=== PATIENT | male | born 1940 | race Hispanic/Latino ===

== ENCOUNTER 2016-11-04 10:53 | Inpatient (IN) | payer BC, MEDICARE ==
[2016-11-04] MEDS ORDERED: Piperacillin/Tazobact 3.375 gm 100 ML IVPB STA (11:39)
[2016-11-04] MEDS ORDERED: Vancomycin 1gm in NS 250ml 1 GM/250 ML BAG IVPB STA (11:40)
--- NOTE | 2016-11-04 11:40 | ED PDOC ---
Arrival/HPI - General Chief Complaint: Shortness Of Breath Time Seen by Provider: 11/04/16 11:16 - History of Present Illness Narrative History of Present Illness (Text): 11/04/16 11:33 76 y/o M w/ PMHx of HTN, CAD, Aflutter, plumonary edema presents to the ED c/o AMS and SOB w/ worsening LE edema. Pt is altered but present at bedside provided necessary information. states last evening pt had SOB w/ gurgling breath sound. Pt woke up multiple times in the evening w/ hallucinations and delusions. states pt had been afebrile at home. According to , pt has had minimal cough productive of sputum. Pt has not complained for CP only tightness this morning. admits to worsening B/L LE edema x1-2weeks as well as some unsteady gait. denies any c/o syncope, F/C, N/V, D/C, changes in urination. (Maribel Pardo) Past Medical History - Provider Review Nursing Documentation Reviewed: Yes - Infectious Disease Hx of Infectious Diseases: None - Cardiac Hx Hypertension: Yes Hx Pacemaker: No - Pulmonary Hx Chronic Obstructive Pulmonary Disease (COPD): Yes Hx Sleep Apnea: Yes (bipap at home) - Neurological Hx Paralysis: No - HEENT Hx Blind: Yes (left eye) Hx Cataracts: Yes Hx Deafness: Yes ([place] bilaterally hearing aids) - Endocrine/Metabolic Hx Endocrine Disorders: No - Hematological/Oncological Hx Blood Transfusions: No Hx Blood Transfusion Reaction: No - Integumentary Hx Dermatological Disorder: Yes Hx Basal Cell Carcinoma: Yes (Area on abdomen removed and face) - Musculoskeletal/Rheumatological Hx Musculoskeletal Disorders: Yes - Gastrointestinal Hx Gastrointestinal Disorders: No - Genitourinary/Gynecological Hx Genitourinary Disorders: No Other/Comment: vasectomy, - Psychiatric Hx Emotional Abuse: No Hx Physical Abuse: No Hx Substance Use: No - Surgical History Hx Coronary Artery Bypass Graft: Yes Hx Coronary Stent: Yes - Anesthesia Hx Anesthesia: Yes Hx Anesthesia Reactions: No Hx Malignant Hyperthermia: No - Suicidal Assessment Feels Threatened In Home Enviroment: No Family/Social History - Physician Review Nursing Documentation Reviewed: Yes Family/Social History: No Known Family HX Smoking Status: Never Smoked Hx Alcohol Use: No Hx Substance Use: No Allergies/Home Meds Allergies/Adverse Reactions: Allergies No Known Allergies Allergy (Verified 11/19/15 13:27) Home Medications: Home Meds Medication Instructions Recorded Confirmed Aspirin [Aspir 81] 81 mg PO QAM 02/04/13 11/04/16 Simvastatin [Zocor] 40 mg PO HS 09/10/15 11/04/16 rOPINIRole [Requip] 3 mg PO BID 09/10/15 11/04/16 Budesonide [Pulmicort Flexhaler] 1 puff INH BID 09/19/15 11/04/16 Tiotropium [Spiriva] 18 mcg INH DAILY 09/19/15 11/04/16 Tramadol HCl/Acetaminophen 1 tab PO QID PRN 09/19/15 11/04/16 [Ultracet Tablet] Apixaban [Eliquis] 5 mg PO BID 11/20/15 11/04/16 Diltiazem HCl [Cardizem] 60 mg PO TID 11/20/15 11/04/16 Growth Hormone Releaser 1 tab PO DAILY 11/04/16 11/04/16 Valsartan [Diovan] 240 mg PO DAILY 11/04/16 11/04/16 Review of Systems - Physician Review All systems were reviewed & negative as marked: Yes - Review of Systems Constitutional: absent: Fevers Cardiovascular: absent: Chest Pain Physical Exam Vital Signs Reviewed: Yes Temperature: Febrile Blood Pressure: Hypertensive Pulse: Tachycardic Respiratory Rate: Normal Appearance: Positive for: Comfortable, Ill-Appearing, Unkept Pain Distress: None Mental Status: Positive for: Confused - Systems Exam Head: Present: Atraumatic, Normocephalic Pupils: Present: PERRL Extroacular Muscles: Present: EOMI Conjunctiva: Present: Normal Mouth: Present: Dry Respiratory/Chest: Present: Decreased Breath Sounds, Other (positive egophony). No: Good Air Exchange, Respiratory Distress, Accessory Muscle Use Cardiovascular: Present: Irregular Rhythm, Tachycardic Abdomen: Present: Distention, Normal Bowel Sounds. No: Tenderness, Peritoneal Signs, Rebound, Guarding Genitourinary Male: Present: Normal External Genitalia. No: Testicle Swelling Upper Extremity: Present: Normal Inspection Lower Extremity: Present: Edema (2+ pitting edema to mid collier), NORMAL PULSES. No: CALF TENDERNESS Neurological: Present: CN II-XII Intact (grossly), Speech Normal Skin: Present: Warm, Dry, Normal Color Psychiatric: Present: Alert, Normal Affect, Normal Mood Vital Signs Temp Pulse Resp BP Pulse Ox 11/04/16 14:36 125 H 142/78 11/04/16 14:28 125 H 18 125/70 95 11/04/16 13:30 99.7 F H 125 H 17 137/77 96 11/04/16 12:02 154/90 H 11/04/16 11:08 102.1 F H 130 H 12 154/90 H 93 L Medical Decision Making - Lab Interpretations I have reviewed the lab results: Yes Interpretation: Abnormal lab values - RAD Interpretation Tax Accounting Manager: ED Physician (CXR: Pulmonary Edema), Radiologist (CXR: RLL PNA) - EKG Interpretation Interpreted by ED Physician: Yes (Aflutter, rate 130, no ST changes) Type: 12 lead EKG ED Course and Treatment: Patient Seen With Resident: In agreement with resident note. Patient was seen and evaluated with resident, came up with plan and treatment together. (Jerome Judge) 11/04/16 11:40 76 y/o M w/ SOB, fever, and LE edema DDx: CHF exacerbation vs PNA - CXR - EKG - CBC, CMP, BNP, VBG - Tylenol - Zosyn 3.375mg - reassess and dispo 11/04/16 13:20 Improved saturation on NC. BP improved to 130/76. Awaiting recheck of temp. CXR read as RLL infiltrate. Will be admitted for RLL PNA. Pt belly breathing w/ minor retractions. Neb treatment ordered. Call placed to Dr. Gómez for admission. 11/04/16 14:08 3rd page placed to Dr. Gómez for admission. Awaiting call back. 11/04/16 14:[address] Gómez, pt admitted to Tele under her service for PNA and CHF exacerbation. (Maribel Pardo) - Lab Interpretations Narrative Lab Interpretation (Text): 11/04/16 15:16 leukocytosis @13.4 Lactic acid wnl @1.1 Pro-BNP elevated @4390 (Maribel Pardo) Lab Results: 11/04/16 11:31 11/04/16 11:31 Lab Results 11/04/16 11:31: Sodium 137, Chloride 99, Potassium 4.1, Carbon Dioxide 28, Anion Gap 14, BUN 37 H, Creatinine 1.4, Est GFR ( Amer) 60, Est GFR (Non- Af Amer) 49, Random Glucose 117 H, Calcium 9.3, Phosphorus 3.0, Magnesium 2.2, Total Bilirubin 1.6 H, AST 25, ALT 27, Alkaline Phosphatase 119, Troponin I 0.03 D, NT-Pro-B Natriuret Pep 4390 H, Total Protein 7.5, Albumin 4.1, Globulin 3.4, Albumin/Globulin Ratio 1.2 11/04/16 11:31: pO2 46, VBG pH 7.37, VBG pCO2 49.0, VBG HCO3 28.3 H, VBG Total CO2 29.8 H, VBG O2 Sat (Calc) 82.2 H, VBG Base Excess 2.3 H, VBG Potassium 4.1, Sodium 136.0, Chloride 101.0, Glucose 119 H, Lactate 1.1, FiO2 21.0, Venous Blood Potassium 4.1 11/04/16 11:31: PT 13.3 H, INR 1.23 H, APTT 40.8 H 11/04/16 11:31: WBC 13.4 H D, RBC 4.30, Hgb 12.1 L, Hct 37.1 L, MCV 86.3, MCH 28.1, MCHC 32.6, RDW 15.2 H, Plt Count 113 L, MPV 12.1 H, Gran % 85.3 H, Lymph % (Auto) 4.1 L, [place] % (Auto) 10.5 H, Eos % (Auto) 0.0 L, Baso % (Auto) 0.1, Gran # 11.43 H, Lymph # 0.6 L, [place] # 1.4 H, Eos # 0.0, Baso # 0.01 - RAD Interpretation Radiology Orders: 11/04/16 11:31 CHEST PORTABLE [RAD] Stat - Medication Orders Current Medication Orders: Sodium Chloride (Sodium Chloride 0.9%) 1,000 mls @ 75 mls/hr IV .[id number] [facility] Last Admin: 11/04/16 14:36 Dose: 75 mls/hr Discontinued Medications Acetaminophen (Tylenol 325mg Tab) 650 mg PO STAT STA Stop: 11/04/16 11:38 Last Admin: 11/04/16 12:02 Dose: 650 mg Albuterol Sulfate (Albuterol 0.083% Inhal Annabella (2.5 Mg/3 Ml) Ud) 2.5 mg INH ONCE ONE Stop: 11/04/16 13:13 Last Admin: 11/04/16 13:32 Dose: 2.5 mg Diltiazem HCl (Cardizem) 10 mg IVP STAT STA Stop: 11/04/16 14:07 Last Admin: 11/04/16 14:36 Dose: 10 mg Furosemide (Lasix) 60 mg IVP STAT STA Stop: 11/04/16 11:38 Furosemide (Lasix) 40 mg IVP STAT STA Stop: 11/04/16 11:49 Last Admin: 11/04/16 12:02 Dose: 40 mg Piperacillin Sod/Tazobactam Sod (Zosyn 3.375 In Ns 100ml) 100 mls @ 200 mls/hr IVPB STAT STA PRN Reason: Protocol Stop: 11/04/16 12:08 Last Admin: 11/04/16 12:02 Dose: 200 mls/hr Vancomycin HCl (Vancomycin 1gm) 1 gm in 250 mls @ 167 mls/hr IVPB STAT STA PRN Reason: Protocol Stop: 11/04/16 13:09 Last Admin: 11/04/16 12:52 Dose: 167 mls/hr Sodium Chloride (Sodium Chloride 0.9%) 1,000 mls @ 999 mls/hr IV .Q1H1M STA Stop: 11/04/16 15:14 Disposition/Present on Arrival - Present on Arrival Any Indicators Present on Arrival: No History of DVT/PE: No History of Uncontrolled Diabetes: No Urinary Catheter: No History of Decub. Ulcer: No History Surgical Site Infection Following: None - Disposition Have Diagnosis and Disposition been Completed?: Yes Disposition Time: 13:23 Patient Plan: Admission - Disposition Diagnosis: Pneumonia, Atrial flutter Disposition: HOSPITALIZED Patient Problems: Current Active Problems Problem Status Onset Atrial flutter Acute Pneumonia Acute Condition: FAIR
[2016-11-04 11:47] LABS: ADD MANUAL DIFF? NO
[2016-11-04 11:56] LABS: VENOUS BLOOD GAS BASE EXCESS 2.3 mmol/L (0.0-2.0); VENOUS BLOOD PH 7.37 (7.32-7.43)
[2016-11-04 11:57] LABS: BASO # 0.01 K/mm3 (0.0-2.0); BASO % 0.1 % (0.0-3.0); GRAN # 11.43 (1.4-6.5); GRAN % 85.3 % (50.0-68.0); HEMATOCRIT 37.1 % (42.0-52.0); LYMPH # 0.6 (1.2-3.4); LYMPH % 4.1 % (22.0-35.0); MEAN CELL VOLUME 86.3 fL (80.0-105.0); MEAN CORPUSCULAR HEMOGLOBIN 28.1 pg (25.0-35.0); MEAN CORPUSCULAR HGB CONC 32.6 g/dl (31.0-37.0); MEAN PLATELET VOLUME 12.1 fl (7.0-11.0); MONO # 1.4 (0.1-0.6); MONO % 10.5 % (1.0-6.0); PLATELET COUNT 113 10^3/uL (120.0-450.0); RED CELL DISTRIBUTION WIDTH 15.2 % (11.5-14.5); WHITE BLOOD COUNT 13.4 10^3/ul (4.5-11.0)
[2016-11-04 12:08] LABS: ALB/GLOB RATIO 1.2 (1.1-1.8); BILIRUBIN,TOTAL 1.6 mg/dL (0.2-1.3); CALCIUM 9.3 mg/dL (8.4-10.5); INR 1.23 (0.93-1.08); MAGNESIUM 2.2 mg/dL (1.7-2.2); PARTIAL THROMBOPLASTIN TIME 40.8 Seconds (23.7-30.8); POTASSIUM 4.1 mmol/L (3.6-5.0); TOTAL PROTEIN 7.5 g/dL (5.8-8.3)
[2016-11-04 12:19] LABS: TROPONIN I 0.03 ng/mL
--- NOTE | 2016-11-04 13:04 | RAD ---
HISTORY: Sepsis Patient COMPARISON: 11/19/2015 FINDINGS: LUNGS: There is a patchy infiltrate in the right lower lobe. The left lung is clear PLEURA: No significant pleural effusion identified, no pneumothorax apparent. CARDIOVASCULAR: Mild cardiomegaly OSSEOUS STRUCTURES: No significant abnormalities. VISUALIZED UPPER ABDOMEN: Normal. OTHER FINDINGS: None. IMPRESSION: Patchy infiltrate in the right lower lobe
[2016-11-04] MEDS ORDERED: Albuterol 0.083% Inhal Sol (2.5 mg/3 mL) UD INH ONE (13:12)
[2016-11-04] MEDS ORDERED: Sodium Chloride 0.9% 1,000 ML IV STA (14:14)
[2016-11-04] MEDS ORDERED: Sodium Chloride 0.9% 1,000 ML IV SCH (14:30)
[2016-11-04] MEDS ORDERED: TraMADol/Apap 37.5/325 mg Tab PO PRN (15:49)
[2016-11-04] MEDS ORDERED: Albuterol-Ipratrop 3 mg / 0.5 (3 ml) UD ONE (16:51)
[2016-11-04] MEDS ORDERED: Nitroglycerin 50mg in D5W 50 MG/250 ML BOTTLE IV PRN (16:57)
[2016-11-04] MEDS ORDERED: Ketamine 10 mg/ml Inj (20 ml) IV ONE (17:00)
[2016-11-04] MEDS ORDERED: Rocuronium 10 mg/ml (5 ml) IVP ONE (17:00)
[2016-11-04] MEDS ORDERED: Rocuronium 10 mg/ml (5 ml) ONE (17:05)
[2016-11-04] MEDS ORDERED: Succinylcholine 200 mg/10 ml Inj IV ONE (17:10)
[2016-11-04] MEDS ORDERED: Etomidate 20 mg/10ml Inj IV ONE (17:10)
[2016-11-04] MEDS ORDERED: Etomidate 20 mg/10ml Inj IVP STA (17:24)
[2016-11-04] MEDS ORDERED: Succinylcholine 200 mg/10 ml Inj IV STA (17:25)
[2016-11-04] MEDS ORDERED: Midazolam 2 MG/2 ML VIAL IVP STA (17:26)
--- NOTE | 2016-11-04 17:42 | HP ---
HISTORY OF PRESENT ILLNESS: The patient is a 76-year-old who came to Emergency Room because of incre asing cough and congestion. He also had increasing leg swelling and according to family he was somew hat confused also. This has been going on for a few days, but got worse since yesterday. Last night he was not able to sleep. He was found to be confused, disoriented. Denies any chest pain. No his tory of nausea or vomiting. Only complained of congestion and wet cough. also added that he al ways has leg swelling, but has been getting worse for the last 1 week. PAST MEDICAL HISTORY: Significant for: 1. Hypertension. 2. Non-insulin dependent diabetes. 3. Status post cardiac catheterization in 2011 and was found to have multivessel disease. 4. Hyperlipidemia. 5. Coronary artery disease, status post open heart surgery in 1997. ALLERGIES: He is not allergic to any medications. MEDICATIONS AT HOME: He is on Diovan 240 daily, Eliquis 5 mg twice a day, Spiriva 18 mcg daily, Pul micort inhaler, Zocor 40 mg daily, aspirin 81 daily, Requip 3 mg twice a day, Ultracet as needed, dil tiazem 60 mg 3 times a day. SOCIAL HISTORY: He is , lives with his . Denies smoking, drinking or alcohol use. REVIEW OF SYSTEMS: Significant for cough, congestion and shortness of breath. PHYSICAL EXAMINATION: GENERAL: He is awake and alert, somewhat confused. VITAL SIGNS: He has a temperature of 99.7, pulse 125, respirations 17, blood pressure 137/77. LUNGS: Bilateral soft crackle, more so in the right lower lung region. HEART: S1, S2 audible. ABDOMEN: Soft, nontender. No rebound, no guarding. NEUROLOGIC: The patient is awake and alert, but somewhat confused. LABORATORY DATA: WBC is 13.4, hemoglobin 12, hematocrit 37, platelet 113. PT 13.3, INR 1.23. PTT 4 0.8. Chemistry: Sodium 137, potassium 4.1, chloride 99, CO2 28, BUN 37, creatinine 1.4, blood sugar of 117, total bili 1.6. BNP 4390. X-ray of the chest shows patchy infiltrate in the right lower lo be. ASSESSMENT: 1. Community-acquired pneumonia. 2. Congestive heart failure, acute on chronic. 3. Non-insulin dependent diabetes. 4. Hypertension. 5. Hyperlipidemia. 6. Coronary artery disease, status post cardiac cath in 09/2015 that showed normal left ventricular function, triple vessel coronary artery disease with critical left main stenosis, patent left interna l mammary artery to the left anterior descending with a vein graft that formed right graft off of the left internal mammary and he has a patent saphenous vein graft to the right coronary. PLAN: Will start him on Xopenex. He has been started on IV antibiotic, nebulizer treatment. Will s tart him on Lasix. Dr. Romero for consult and we will follow up his CBC, CMP and electrolytes in a.m. and monitor his blood sugar also. Tamera Gómez MD cc: [phone] TT: 11/04/2016 17:41:53 sc
[2016-11-04 18:15] LABS: TROPONIN I 0.03 ng/mL
[2016-11-04 18:17] VITALS: BMI 25.7
[2016-11-04] MEDS ORDERED: Pneumococcal 23-Valent Vaccine IM ONE (18:18)
[2016-11-04] MEDS ORDERED: Amiodarone 150 mg/D5W 100 ml 150 MG/100 ML BAG IVPB ONE (18:42)
[2016-11-04] MEDS ORDERED: Amiodarone 360 mg/D5W 200 ml 360 MG/200 ML BAG IV SCH (18:45)
[2016-11-04] MEDS ORDERED: NOREPINEPHRINE BIT/0.9 % NACL 4 MG/250 ML BAG IV PRN (18:48)
--- NOTE | 2016-11-04 18:56 | CP.PCM.CON ---
<Nitish Chris - Last Filed: 11/04/16 18:52> History of Present Illness - History of Present Illness History of Present Illness: Critical Care Consult for Dr. Abbott This 76M was intubated during my examination so all patient history was obtained from other providers. History of HTN, CAD, Aflutter, plumonary edema presented with alted metal status at home and halluciantion last night as well as shortness of breath. stated last evening pt had SOB w/ gurgling breath sound. Patient was afebrile at home. According to , pt has had minimal cough productive of sputum. admited to worsening B/L LE edema x1-2weeks as well as some unsteady gait. denies any c/o syncope, F/C, N/V, D/C, changes in urination. In the ED the patient began desaturating to the high 60s, his cxr in the ED showed pulmonary effusions and patchy infiltrates. Vent setting at 5peep, fio2 100, 16rr, 500ml. PMH: See above PSH: Median sternotomy ALL: nkda Social: unkown Family: unkown Review of Systems - Review of Systems Systems not reviewed;Unavailable: Acuity of Condition Past Patient History - Infectious Disease Hx of Infectious Diseases: None - Past Social History Smoking Status: Unknown If Ever Smoked - CARDIAC Hx Cardiac Disorders: (cad) Hx Hypercholesterolemia: Yes Hx Hypertension: Yes Hx Pacemaker: No Hx Peripheral Edema: Yes (+1 pitting ble) Other/Comment: cabg,varicose veins ble - PULMONARY Hx Respiratory Disorders: (pulmonary edema) Hx Chronic Obstructive Pulmonary Disease (COPD): Yes Hx Pneumonia: Yes Hx Sleep Apnea: Yes (bipap at home) - NEUROLOGICAL Hx Neurological Disorder: Yes HX Cerebrovascular Accident: Yes Hx Transient Ischemic Attacks (TIA): Yes Other/Comment: restless leg syndrome - HEENT Hx HEENT Problems: (eyeglasses) Hx Blind: Yes (left eye) Hx Cataracts: Yes (sx) Hx Deafness: Yes ([place] bilaterally hearing aids) Other/Comment: left retinal detachment - ENDOCRINE/METABOLIC Hx Endocrine Disorders: No - HEMATOLOGICAL/ONCOLOGICAL Hx Blood Disorders: No Hx Cancer: Yes (BASAL CELL CA(SKIN REMOVED TO ABDOMEN AND FACE.) - INTEGUMENTARY Hx Dermatological Problems: Yes Hx Basil Cell: Yes (Area on abdomen removed and face) Other/Comment: varicose veins ble, multiple scratch holley ble, darkened feet - MUSCULOSKELETAL/RHEUMATOLOGICAL Hx Falls: No - GASTROINTESTINAL Hx Gastrointestinal Disorders: No - GENITOURINARY/GYNECOLOGICAL Hx Genitourinary Disorders: No Other/Comment: impotence, ped, vasectomy, penile sx - PSYCHIATRIC Hx Emotional Abuse: No Hx Physical Abuse: No - SURGICAL HISTORY Hx Surgeries: Yes (RIGHT KNEE REPLACEMENT,CABG) Hx Cardiac Catheterization: Yes Hx Coronary Stent: Yes Other/Comment: sx b/l knees, r carotid endartarectomy 2001, ptca with stent 1997 , quadruple bypass 1997, lung sx 2000, rxcision multiple skin lesions - ANESTHESIA Hx Anesthesia: Yes Hx Anesthesia Reactions: No Hx Malignant Hyperthermia: No Meds Allergies/Adverse Reactions: Allergies Allergy/AdvReac Type Severity Reaction Status Date / Time No Known Allergies Allergy Verified 11/19/15 13:27 - Medications Medications: Current Medications Albuterol/Ipratropium (Duoneb 3 Mg/0.5 Mg (3 Ml) Ud) 3 ml IH Q4 [facility] Stop: 11/05/16 04:01 Apixaban (Eliquis) 5 mg PO BID [facility] PRN Reason: Protocol Aspirin (Ecotrin) 81 mg PO QAM [facility] Atorvastatin Calcium (Lipitor) 20 mg PO DIN [facility] Diltiazem HCl (Cardizem) 60 mg PO TID [facility] Furosemide (Lasix) 40 mg IVP DAILY [facility] Furosemide (Lasix) 20 mg IVP BID [facility] Ceftriaxone Sodium (Rocephin 1 Gram Ivpb) 1 gm in 100 mls @ 100 mls/hr IVPB DAILY [facility] PRN Reason: Protocol Azithromycin (Zithromax 500mg In Ns) 500 mg in 250 mls @ 167 mls/hr IVPB DAILY [facility] PRN Reason: Protocol Nitroglycerin/Dextrose (Nitroglycerin 50 Mg/250 Ml D5w) 50 mg in 250 mls @ 7.5 mls/hr IV .Q24H PRN; Protocol; 25 MCG/MIN PRN Reason: Titrate per protocol Midazolam 100 mg/100ml in NS (Midazolam 100 Mg/100ml In Ns) 100 mg in 100 mls @ 4 mls/hr IV .Q24H PRN; Protocol; 4 MG/HR PRN Reason: Sedation Levofloxacin/Dextrose (Levaquin 500mg) 500 mg in 100 mls @ 100 mls/hr IVPB DAILY [facility] Vancomycin HCl (Vancomycin 500mg In Ns) 500 mg in 100 mls @ 200 mls/hr IVPB Q12 [facility] PRN Reason: Protocol Piperacillin Sod/Tazobactam Sod (Zosyn 2.25 Gm In 0.9% 100 Ml) 2.25 gm in 100 mls @ 100 mls/hr IVPB Q6 [facility] PRN Reason: Protocol Stop: 11/05/16 06:59 Fentanyl Citrate (Fentanyl Citrate/Sodium Chloride 1 Mg/100 Ml) 1,000 mcg in 100 mls @ 2 mls/hr IV .Q24H PRN; Protocol; 20 MCG/HR PRN Reason: TITRATE PER MD ORDER Amiodarone HCl/Dextrose (Nexterone 360 Mg In D5w 200 Ml (Premix)) 360 mg in 200 mls @ 33.333 mls/hr IV .Q6H [facility]; 1 MG/MIN PRN Reason: Protocol Stop: 11/05/16 00:45 Amiodarone HCl/Dextrose (Nexterone 360 Mg In D5w 200 Ml (Premix)) 360 mg in 200 mls @ 16.667 mls/hr IV .Q12H [facility]; 0.5 MG/MIN PRN Reason: Protocol NOREPINEPHRINE BIT/0.9 % NACL (Levophed 4 Mg/ 250 Ml Ns Premixed) 4 mg in 250 mls @ 15 mls/hr IV .[id number] PRN; Protocol; 4 MCG/MIN PRN Reason: TITRATE PER MD ORDER Levalbuterol HCl (Xopenex) 1.25 mg IH [id number] [facility] Methylprednisolone (Solu-Medrol) 20 mg IVP Q12 [facility] Tramadol/Acetaminophen (Ultracet 37.5/325 Mg) 1 tab PO QID PRN PRN Reason: Pain, moderate (4-7) Physical Exam - Constitutional Appears: Toxic - Head Exam Head Exam: ATRAUMATIC, NORMOCEPHALIC - Eye Exam Eye Exam: EOMI - ENT Exam ENT Exam: Mucous Membranes Moist - Respiratory Exam Respiratory Exam: Rales, Rhonchi - Cardiovascular Exam Cardiovascular Exam: REGULAR RHYTHM, +S1, +S2 - GI/Abdominal Exam GI & Abdominal Exam: Hernia, Soft. absent: Distended, Firm, Guarding - Extremities Exam Extremities exam: Positive for: pedal pulses present Additional comments: scaling lower extremities, non tender - Neurological Exam Neurological exam: Alert - Skin Skin Exam: Intact Results - Vital Signs Recent Vital Signs: Last Vital Signs Temp 99.7 F H 11/04/16 17:59 Pulse 125 H 11/04/16 17:59 Resp 18 11/04/16 17:59 BP 125/70 11/04/16 17:59 Pulse Ox 95 11/04/16 14:28 - Labs Result Diagrams: 11/04/16 11:31 11/04/16 11:31 Labs: Laboratory Results - last 24 hr 11/04/16 17:35 Troponin I 0.03 Triglycerides 76 Cholesterol 106 L LDL Cholesterol Direct 31 HDL Cholesterol 37 - Imaging and Cardiology Chest x-ray Status: Image reviewed by me, Report reviewed by me Assessment & Plan - Assessment and Plan (Free Text) Assessment: This is a 76M with a PMH of CHF presenting with Community acquired pneumonia Neuro: Alert, sedation with fentanyl, daily sedation vacations CV: Aflutter on amiodorone drip, diltiazem, CAD on ASA and lipitor, CHF will give lasix 20bid with goal SBP over 100 Pulm: CAP, daily cxr, vanc, zosyn, levofloxacin, COPD, continue budesonide, tiotrpium, low dose steroids, daily weening, proptective lung strategy, adjust fio2/peep ration GI: Tube feeds at 15 ml/hr Heme: dvt, continuing eloquis ID: CAP on vanc, zosyn, levofloxacin, consult ID : BUN/Cr elevated consulted nephro Endo: Goal for euglycemia will repleat electrolytes as needed. Will discuss with Dr. Milena Chris PGY-1 <Rocky Abbott - Last Filed: 11/05/16 16:55> Meds - Medications Medications: Current Medications Albuterol/Ipratropium (Duoneb 3 Mg/0.5 Mg (3 Ml) Ud) 3 ml IH Q4 [facility]AL[facility]O Stop: 11/05/16 04:01 Apixaban (Eliquis) 5 mg PO BID [facility] PRN Reason: Protocol Aspirin (Ecotrin) 81 mg PO QAM [facility] Atorvastatin Calcium (Lipitor) 20 mg PO DIN [facility] Diltiazem HCl (Cardizem) 60 mg PO TID [facility] Furosemide (Lasix) 20 mg IVP BID [facility] Ceftriaxone Sodium (Rocephin 1 Gram Ivpb) 1 gm in 100 mls @ 100 mls/hr IVPB DAILY [facility] PRN Reason: Protocol Azithromycin (Zithromax 500mg In Ns) 500 mg in 250 mls @ 167 mls/hr IVPB DAILY [facility] PRN Reason: Protocol Nitroglycerin/Dextrose (Nitroglycerin 50 Mg/250 Ml D5w) 50 mg in 250 mls @ 7.5 mls/hr IV .Q24H PRN; Protocol; 25 MCG/MIN PRN Reason: Titrate per protocol Last Admin: 11/04/16 17:10 Dose: 25 mcg/min, 7.5 mls/hr Midazolam 100 mg/100ml in NS (Midazolam 100 Mg/100ml In Ns) 100 mg in 100 mls @ 4 mls/hr IV .Q24H PRN; Protocol; 4 MG/HR PRN Reason: Sedation Levofloxacin/Dextrose (Levaquin 500mg) 500 mg in 100 mls @ 100 mls/hr IVPB DAILY [facility] Vancomycin HCl (Vancomycin 500mg In Ns) 500 mg in 100 mls @ 200 mls/hr IVPB Q12 [facility] PRN Reason: Protocol Piperacillin Sod/Tazobactam Sod (Zosyn 2.25 Gm In 0.9% 100 Ml) 2.25 gm in 100 mls @ 100 mls/hr IVPB Q6 [facility] PRN Reason: Protocol Stop: 11/05/16 06:59 Fentanyl Citrate (Fentanyl Citrate/Sodium Chloride 1 Mg/100 Ml) 1,000 mcg in 100 mls @ 2 mls/hr IV .Q24H PRN; Protocol; 20 MCG/HR PRN Reason: TITRATE PER MD ORDER Amiodarone HCl/Dextrose (Nexterone 360 Mg In D5w 200 Ml (Premix)) 360 mg in 200 mls @ 33.333 mls/hr IV .Q6H [facility]; 1 MG/MIN PRN Reason: Protocol Stop: 11/05/16 00:45 Amiodarone HCl/Dextrose (Nexterone 360 Mg In D5w 200 Ml (Premix)) 360 mg in 200 mls @ 16.667 mls/hr IV .Q12H [facility]; 0.5 MG/MIN PRN Reason: Protocol NOREPINEPHRINE BIT/0.9 % NACL (Levophed 4 Mg/ 250 Ml Ns Premixed) 4 mg in 250 mls @ 15 mls/hr IV .[id number] PRN; Protocol; 4 MCG/MIN PRN Reason: TITRATE PER MD ORDER Levalbuterol HCl (Xopenex) 1.25 mg IH [id number] [facility] Methylprednisolone (Solu-Medrol) 20 mg IVP Q12 [facility] Non-Formulary Medication (Budesonide [Pulmicort Flexhaler]) 1 puff INH BID [facility] Non-Formulary Medication (Valsartan [Diovan]) 240 mg PO DAILY [facility] Tramadol/Acetaminophen (Ultracet 37.5/325 Mg) 1 tab PO QID PRN PRN Reason: Pain, moderate (4-7) Results - Vital Signs Recent Vital Signs: Last Vital Signs Temp 99.7 F H 11/04/16 17:59 Pulse 135 H 11/04/16 18:45 Resp 18 11/04/16 18:45 BP 80/51 L 11/04/16 18:45 Pulse Ox 100 11/04/16 18:45 - Labs Result Diagrams: 11/05/16 05:35 11/05/16 05:35 Labs: Laboratory Results - last 24 hr 11/04/16 11/04/16 15:00 17:35 Troponin I 0.03 Triglycerides 76 Cholesterol 106 L LDL Cholesterol Direct 31 HDL Cholesterol 37 Influenza Typ A,B (EIA) Negative for flu a/b Addendum Addendum: 11/05/16 16:52 patient was seen, examined and discussed with Dr. Chris. His note reflects my exam, assessment and plan, except as below. 76 yo male with hypoxemic respiratory failure secondary to CAP, requiring intubation. Protective lung ventilation strategy, conservative fluid and 02 management, abx, septic work up. ID service. daily weaning trials and sedation vacation.. HR control-->will start amiodarone drip ccm time 40 min
[2016-11-04] MEDS: Fentanyl 1000mcg/100ml NS 1,000 MCG/100 ML BAG IV PRN (19:57)
[2016-11-04] MEDS ORDERED: Albuterol-Ipratrop 3 mg / 0.5 (3 ml) UD IH SCH (20:00)
[2016-11-04] MEDS: Levalbuterol 1.25 MG/3 ML Inhal Soln UD IH SCH (20:00)
[2016-11-04] MEDS: Midazolam 100 mg/100ml in NS 100 MG/100 ML SOL IV PRN (20:26)
[2016-11-04 20:31] LABS: TROPONIN I 0.08 ng/mL
[2016-11-04] MEDS ORDERED: Vancomycin 500mg in NS 500 MG/100 ML BAG IVPB SCH (22:00)
[2016-11-04 22:09] LABS: ARTERIAL BLOOD GAS HCO3 24.9 mmol/L (21-28); ARTERIAL BLOOD GAS O2 CAPACITY 15.5 mL/dl (16-24); ARTERIAL BLOOD GAS O2 CONTENT 15.2 ML/dl (15-23); ARTERIAL BLOOD GAS PH 7.46 (7.35-7.45); ARTERIAL BLOOD HGB O2 SAT 95.2 % (95.0-98.0); CARBOXYHEMOGLOBIN 1.7 % (0.5-1.5); METHEMOGLOBIN 1.1 % (0.0-3.0)
[2016-11-04] MEDS: MethylPREDNISolone 40 mg Vial IVP SCH (22:17)
--- NOTE | 2016-11-04 22:28 | CARD ---
APPROVED REPORT EKG Measurement Heart [id number] CO [id number] [id number] <Conclusion> Atrial flutter with 2:[address] abnormality, possible inferior subendocardial injury Abnormal ECG
[2016-11-04] MEDS: Piperacillin/Tazobact 2.25gm 2.25 GM/100 ML BAG IVPB SCH (23:41)
[2016-11-05] MEDS: Amiodarone 360 mg/D5W 200 ml 360 MG/200 ML BAG IV SCH ×2 (01:03→13:04)
[2016-11-05] MEDS: Levalbuterol 1.25 MG/3 ML Inhal Soln UD IH SCH ×4 (01:57→19:55)
[2016-11-05 02:11] LABS: TROPONIN I 0.14 ng/mL
[2016-11-05] MEDS: Piperacillin/Tazobact 2.25gm 2.25 GM/100 ML BAG IVPB SCH (05:28)
[2016-11-05 05:32] LABS: ARTERIAL BLOOD GAS HCO3 24.2 mmol/L (21-28); ARTERIAL BLOOD GAS O2 CAPACITY 15.2 mL/dl (16-24); ARTERIAL BLOOD GAS PH 7.39 (7.35-7.45); CARBOXYHEMOGLOBIN 1.2 % (0.5-1.5); HHB 1.1 % (0-5); METHEMOGLOBIN 0.7 % (0.0-3.0)
[2016-11-05 06:04] LABS: HEMATOCRIT 35.1 % (42.0-52.0); MEAN CELL VOLUME 86.5 fL (80.0-105.0); MEAN CORPUSCULAR HEMOGLOBIN 27.8 pg (25.0-35.0); MEAN CORPUSCULAR HGB CONC 32.2 g/dl (31.0-37.0); MEAN PLATELET VOLUME 11.6 fl (7.0-11.0); PLATELET COUNT 99 10^3/uL (120.0-450.0); RED CELL DISTRIBUTION WIDTH 15.4 % (11.5-14.5); WHITE BLOOD COUNT 9.8 10^3/ul (4.5-11.0)
[2016-11-05 06:17] LABS: ADD MANUAL DIFF? YES
[2016-11-05 06:32] LABS: ALB/GLOB RATIO 1.1 (1.1-1.8); BILIRUBIN,TOTAL 1.3 mg/dL (0.2-1.3); CALCIUM 8.5 mg/dL (8.4-10.5); MAGNESIUM 1.9 mg/dL (1.7-2.2); PHOSPHOROUS 4.5 mg/dL (2.5-4.5); POTASSIUM 3.8 mmol/L (3.6-5.0); TOTAL PROTEIN 6.2 g/dL (5.8-8.3)
[2016-11-05 06:42] LABS: TROPONIN I 0.08 ng/mL
[2016-11-05 06:48] LABS: FREE T4 1.61 ng/dL (0.78-2.19)
[2016-11-05 06:56] LABS: BAND 7 % (0-2); NEUTROPHIL 89 % (50.0-70.0)
[2016-11-05 06:59] LABS: PLATELET ESTIMATE LOW (NORMAL)
[2016-11-05 07:02] LABS: THYROID STIMULATING HORMONE 1.73 mIU/mL (0.46-4.68)
[2016-11-05] MEDS: Insulin Lispro (humaLOG) LOW Coverage SC SCH ×4 (07:45→22:28)
[2016-11-05] MEDS: Meropenem 1g/NS 100mL IVPB 1 GM/100 ML PIGGYBACK IVPB SCH ×2 (07:45→22:38)
--- NOTE | 2016-11-05 08:17 | RAD ---
HISTORY: intubated COMPARISON: 11/04/2016 1735 hour (report not apparent FINDINGS: LUNGS: Pulmonary vascular congestion suggested with hazy lbiateral opacities right fissural fluid entering discoid atelectasis not significantly changed PLEURA: Small right pleural effusion possible right lateral pleural thickening. Minimal fluid in the right fissure versus discoid atelectasis - right mid lung zone. CARDIOVASCULAR: Mild cardiomegaly. Midline sternotomy coronary artery bypass clips -unchanged OSSEOUS STRUCTURES: Thoracic spondylosis VISUALIZED UPPER ABDOMEN: Feeding tube/ NG tube tip in gastric fundus consider slight advancement of a few cm OTHER FINDINGS: Endotracheal tube insertion tip for approximately 3 cm from the minerva -satisfactory position IMPRESSION: The pulmonary venous congestion and coalescent hazy opacities consistent with areas of pulmonary edema are similar. Concomitant patchy infiltrates are not excluded tricky at the right lung base. Coalescence of a right pleural effusion can also simulate this. Small right pleural effusion similar. Other findings as above Support lines as above. Consider advancing NG tube/ feeding tube
--- NOTE | 2016-11-05 09:08 | CON ---
DATE: 11/05/2016 HISTORY OF PRESENT ILLNESS: The patient is a 76-year-old male who presents with acute respiratory di stress. He was intubated in the Emergency Room. PAST MEDICAL HISTORY: Notable for history of coronary artery bypass surgery, which was reevaluated l ast year with a cardiac catheterization that shows patent bypass grafts to all vessels. In addition, his ejection fraction was between 55-60%. His other cardiac risk factors include hypertension and hypercholesterolemia. The patient suffers from atrial fib/A. flutter in which he has been treated with Eliquis as well as C ardizem. SOCIAL HISTORY: Unavailable. REVIEW OF SYSTEMS: Unavailable. PHYSICAL EXAMINATION: GENERAL: The patient is sedated on a ventilator. VITAL SIGNS: Blood pressure is 123/71. The heart rate is atrial flutter in the 120s. NECK: Negative JVD. LUNGS: Bilateral rhonchi. HEART: Reveals S1, S2. EXTREMITIES: Without edema. EKG shows atrial flutter with nonspecific ST-T changes. LABORATORIES: The troponin is 0.14. ProBNP is 4300. IMPRESSION: 1. Respiratory failure. 2. Pulmonary edema. 3. Renal insufficiency. 4. Chronic atrial flutter. 5. Coronary artery disease. 6. History of coronary artery bypass surgery. 7. History of normal left ventricular function. 8. Hypertension. Given these findings, the patient is seen to be adequately diuresed. Will start on IV Cardizem for b kimberly heart rate control. Will make an aggressive effort to extubate the patient today. Will consid er recathing the patient to rule out an ischemic basis for his acute pulmonary edema. Harshal Romero MD cc: [facility] TT: 11/05/2016 09:07:06 Confirmation # [id number] Dictation # [id number]
[2016-11-05] MEDS: MethylPREDNISolone 40 mg Vial IVP SCH ×2 (09:21→22:39)
[2016-11-05] MEDS: diltiaZEM IVPB 100mg in NS 100 ML IV PRN ×2 (09:21→18:03)
[2016-11-05] MEDS: Azithromycin 500MG/NS 250ml 500 MG/250 ML BAG IVPB SCH (09:22)
--- NOTE | 2016-11-05 09:38 | CP.CCUPN ---
<Arlene Rodriguez - Last Filed: 11/05/16 13:44> CCU Subjective - Physician Review Subjective (Free Text): 11/05/16 09:32 VSS. On sedation vacation, spontanous breathing trial. CCU Objective - Vital Signs / Intake & Output Vital Signs (Last 4 hours): Vital Signs Temp Pulse BP Pulse Ox 11/05/16 09:21 123 H 125/72 11/05/16 08:55 122 H 123/71 11/05/16 08:30 121 H 123/71 97 11/05/16 08:20 121 H 97 11/05/16 08:10 120 H 97 11/05/16 08:00 98.6 F 123 H 102/68 95 11/05/16 07:50 122 H 98 11/05/16 07:40 121 H 100 11/05/16 07:30 121 H 122/72 98 11/05/16 07:20 122 H 99 11/05/16 07:10 122 H 98 11/05/16 07:00 121 H 98/66 L 97 11/05/16 06:50 122 H 97 11/05/16 06:40 122 H 97 11/05/16 06:37 121 H 102/63 96 11/05/16 06:30 122 H 89/59 L 95 11/05/16 06:20 122 H 97 11/05/16 06:19 122 H 89/55 L 97 11/05/16 06:14 122 H 11/05/16 06:10 122 H 97 11/05/16 06:07 122 H 88/58 L 97 11/05/16 06:05 122 H 85/48 L 96 11/05/16 06:04 122 H 80/47 L 97 11/05/16 06:00 122 H 79/44 L 96 11/05/16 05:50 122 H 96 11/05/16 05:40 122 H 97 Intake and Output (Last 8hrs): Intake & Output 11/04/16 11/05/16 11/05/16 22:59 06:59 14:59 Intake Total 4 938 27 Output Total 450 Balance 4 488 27 Weight 190 lb 190 lb Intake: IV 4 788 27 Right Antecubital 600 Right Forearm 48 Right Hand 48 Oral 0 Tube Feeding 150 Output: Urine 450 Urethral (Singleton) 450 Other: Voiding Method Indwelling Catheter Indwelling Catheter # Bowel Movements 0 - Physical Exam Head: Positive for: Atraumatic, Normocephalic Pupils: Positive for: PERRL Extroacular Muscles: Positive for: EOMI Conjunctiva: Positive for: Normal Mouth: Positive for: Dry Respiratory/Chest: Positive for: Decreased Breath Sounds, Rales, Other ( positive egophony). Negative for: Good Air Exchange, Respiratory Distress, Accessory Muscle Use Cardiovascular: Positive for: Irregular Rhythm, Tachycardic Abdomen: Positive for: Distention, Normal Bowel Sounds. Negative for: Tenderness, Peritoneal Signs, Rebound, Guarding Genitourinary Male: Positive for: Normal External Genitalia, Other (penile implant). Negative for: Testicle Swelling Upper Extremity: Positive for: Normal Inspection Lower Extremity: Positive for: Edema (2+ pitting edema to mid collier), NORMAL PULSES. Negative for: CALF TENDERNESS Neurological: Positive for: CN II-XII Intact (grossly,before sedation. ), Speech Normal Skin: Positive for: Warm, Dry, Normal Color Psychiatric: Positive for: Other (intubated) - Medications Active Medications: Active Medications Generic Name Dose Route Start Last Admin Trade Name Freq PRN Reason Stop Dose Admin Apixaban 5 mg 11/04/16 18:00 11/05/16 09:20 Eliquis PO 5 mg BID LALITO Administration Protocol Aspirin 81 mg 11/05/16 10:00 11/05/16 09:21 Ecotrin PO 81 mg QAM LALITO Administration Atorvastatin Calcium 20 mg 11/04/16 17:00 11/04/16 21:07 Lipitor PO 20 mg DIN LALITO Administration Diltiazem HCl 60 mg 11/04/16 18:00 11/04/16 21:07 Cardizem PO 60 mg TID LALITO Administration Furosemide 20 mg 11/05/16 10:00 11/05/16 09:21 Lasix IVP 20 mg BID LALITO Administration Azithromycin 500 mg in 250 mls @ 167 mls/hr 11/05/16 10:00 11/05/16 09:22 Zithromax 500mg In Ns IVPB 167 mls/hr DAILY LALITO Administration Protocol Nitroglycerin/Dextrose 50 mg in 250 mls @ 7.5 mls/hr 11/04/16 16:57 11/04/16 17:10 Nitroglycerin 50 Mg/250 Ml D5w IV 25 mcg/min .Q24H PRN 7.5 mls/hr Titrate per protocol Administration Protocol 25 MCG/MIN Midazolam 100 mg/100ml in NS 100 mg in 100 mls @ 4 mls/hr 11/04/16 18:22 07:20 Midazolam 100 Mg/100ml In Ns IV 0 mg/hr .Q24H PRN 0 mls/hr Sedation Titration Protocol 4 MG/HR Levofloxacin/Dextrose 500 mg in 100 mls @ 100 mls/hr 11/05/16 10:00 11/05/16 09:20 Levaquin 500mg IVPB 100 mls/hr DAILY LALITO Administration Fentanyl Citrate 1,000 mcg in 100 mls @ 2 mls/hr 11/04/16 18:40 11/05/16 07: 20 Fentanyl Citrate/Sodium Chloride 1 Mg/100 Ml IV 0 mcg/hr .Q24H PRN 0 mls/hr TITRATE PER MD ORDER Titration Protocol 20 MCG/HR Amiodarone HCl/Dextrose 360 mg in 200 mls @ 16.667 mls/hr 11/05/16 00:45 01:03 Nexterone 360 Mg In D5w 200 Ml (Premix) IV 16.667 mls/hr .Q12H LALITO Administration Protocol 0.5 MG/MIN NOREPINEPHRINE BIT/0.9 % NACL 4 mg in 250 mls @ 15 mls/hr 11/04/16 18:48 Levophed 4 Mg/ 250 Ml Ns Premixed IV .[id number] PRN TITRATE PER MD ORDER Protocol 4 MCG/MIN Acetaminophen 1,000 mg in 100 mls @ 400 mls/hr 11/04/16 23:30 Ofirmev IVPB 11/06/16 23:31 Q6H PRN Temperature Meropenem 1g/NS 100mL IVPB 1 gm in 100 mls @ 100 mls/hr 11/05/16 06:40 07:45 Meropenem 1g/Ns 100ml Ivpb IVPB 11/12/16 06:41 100 mls/hr Q12 LALITO Administration Protocol diltiaZEM IVPB 100mg in NS 100 mls @ 5 mls/hr 11/05/16 08:43 11/05/16 09:21 Cardizem 100mg In Ns IV 5 mg/hr .Q20H PRN 5 mls/hr TITRATE PER MD ORDER Administration Protocol 5 MG/HR Insulin Human Lispro 0 units 11/05/16 07:30 11/05/16 07:45 Humalog Low SC 1 units ACHS LALITO Administration Protocol Levalbuterol HCl 1.25 mg 11/04/16 20:00 11/05/16 07:51 Xopenex IH 1.25 mg [id number] LALITO Administration Methylprednisolone 20 mg 11/04/16 22:00 11/05/16 09:21 Solu-Medrol IVP 20 mg Q12 LALITO Administration Non-Formulary Medication 1 puff 11/05/16 10:00 Budesonide [Pulmicort Flexhaler] INH BID LALITO Non-Formulary Medication 240 mg 11/05/16 10:00 Valsartan [Diovan] PO DAILY LALITO Tramadol/Acetaminophen 1 tab 11/04/16 15:49 Ultracet 37.5/325 Mg PO QID PRN Pain, moderate (4-7) - Patient Studies Lab Studies: Lab Studies 11/05/16 11/05/16 11/05/16 Range/Units 05:35 05:35 05:35 WBC 9.8 D (4.5-11.0) 10^3/ul RBC 4.06 (3.5-6.1) 10^6/uL Hgb 11.3 L (14.0-18.0) gm/dL Hct 35.1 L (42.0-52.0) % MCV 86.5 (80.0-105.0) fL MCH 27.8 (25.0-35.0) pg MCHC 32.2 (31.0-37.0) g/dl RDW 15.4 H (11.5-14.5) % Plt Count 99 L (120.0-450.0) 10^3/uL MPV 11.6 H (7.0-11.0) fl Neutrophils % (Manual) 89 H (50.0-70.0) % Band Neutrophils % 7 H (0-2) % Lymphocytes % (Manual) 1 L (22.0-35.0) % Monocytes % (Manual) 3 (1.0-6.0) % Platelet Evaluation Low (NORMAL) pCO2 (35-45) mm/Hg pO2 (80-100) mm/Hg HCO3 (21-28) mmol/L ABG pH (7.35-7.45) ABG Total CO2 (22-28) mmol.L ABG O2 Saturation (95-98) % ABG O2 Content (15-23) ML/dl ABG Base Excess (-2.0-3.0) mmol/L ABG Hemoglobin (11.7-17.4) g/dL ABG Carboxyhemoglobin (0.5-1.5) % POC ABG HHb (Measured) (0-5) % ABG Methemoglobin (0.0-3.0) % ABG O2 Capacity (16-24) mL/dl Hgb O2 Saturation (95.0-98.0) % FiO2 % Sodium 137 (132-148) mmol/L Potassium 3.8 (3.6-5.0) mmol/L Chloride 100 (98-107) mmol/L Carbon Dioxide 25 (21-33) mmol/L Anion Gap 16 (10-20) BUN 43 H (7-21) mg/dL Creatinine 1.9 H (0.5-1.4) mg/dL Est GFR ( Amer) 42 Est GFR (Non-Af Amer) 35 POC Glucose (mg/dL) (65-110) mg/dL Random Glucose 151 H (70-110) mg/dL Calcium 8.5 (8.4-10.5) mg/dL Phosphorus 4.5 (2.5-4.5) mg/dL Magnesium 1.9 (1.7-2.2) mg/dL Total Bilirubin 1.3 (0.2-1.3) mg/dL AST 27 (15-59) U/L ALT 27 (7-56) U/L Alkaline Phosphatase 97 (38-133) U/L Lactate Dehydrogenase 349 (333-699) U/L Total Creatine Kinase 87 (35-230) U/L Troponin I 0.08 D ng/mL Total Protein 6.2 (5.8-8.3) g/dL Albumin 3.3 (3.0-4.8) g/dL Globulin 2.9 gm/dL Albumin/Globulin Ratio 1.1 (1.1-1.8) Triglycerides (35-160) mg/dL Cholesterol (130-200) mg/dL LDL Cholesterol Direct (0-129) mg/dL HDL Cholesterol (29-60) mg/dL Free T4 1.61 (0.78-2.19) ng/dL TSH 3rd Generation 1.73 (0.46-4.68) mIU/mL Influenza Typ A,B (EIA) (NEGATIVE) 11/05/16 11/05/16 11/05/16 Range/Units 05:24 02:54 00:50 WBC (4.5-11.0) 10^3/ul RBC (3.5-6.1) 10^6/uL Hgb (14.0-18.0) gm/dL Hct (42.0-52.0) % MCV (80.0-105.0) fL MCH (25.0-35.0) pg MCHC (31.0-37.0) g/dl RDW (11.5-14.5) % Plt Count (120.0-450.0) 10^3/uL MPV (7.0-11.0) fl Neutrophils % (Manual) (50.0-70.0) % Band Neutrophils % (0-2) % Lymphocytes % (Manual) (22.0-35.0) % Monocytes % (Manual) (1.0-6.0) % Platelet Evaluation (NORMAL) pCO2 40 (35-45) mm/Hg pO2 104.0 H (80-100) mm/Hg HCO3 24.2 (21-28) mmol/L ABG pH 7.39 (7.35-7.45) ABG Total CO2 25.4 (22-28) mmol.L ABG O2 Saturation 98.9 H (95-98) % ABG O2 Content 15.0 (15-23) ML/dl ABG Base Excess -0.7 (-2.0-3.0) mmol/L ABG Hemoglobin 10.9 L (11.7-17.4) g/dL ABG Carboxyhemoglobin 1.2 (0.5-1.5) % POC ABG HHb (Measured) 1.1 (0-5) % ABG Methemoglobin 0.7 (0.0-3.0) % ABG O2 Capacity 15.2 L (16-24) mL/dl Hgb O2 Saturation 97.0 (95.0-98.0) % FiO2 60.0 % Sodium (132-148) mmol/L Potassium (3.6-5.0) mmol/L Chloride (98-107) mmol/L Carbon Dioxide (21-33) mmol/L Anion Gap (10-20) BUN (7-21) mg/dL Creatinine (0.5-1.4) mg/dL Est GFR ( Amer) Est GFR (Non-Af Amer) POC Glucose (mg/dL) 143 H (65-110) mg/dL Random Glucose (70-110) mg/dL Calcium (8.4-10.5) mg/dL Phosphorus (2.5-4.5) mg/dL Magnesium (1.7-2.2) mg/dL Total Bilirubin (0.2-1.3) mg/dL AST (15-59) U/L ALT (7-56) U/L Alkaline Phosphatase (38-133) U/L Lactate Dehydrogenase 391 (333-699) U/L Total Creatine Kinase 53 (35-230) U/L Troponin I 0.14 H* D ng/mL Total Protein (5.8-8.3) g/dL Albumin (3.0-4.8) g/dL Globulin gm/dL Albumin/Globulin Ratio (1.1-1.8) Triglycerides (35-160) mg/dL Cholesterol (130-200) mg/dL LDL Cholesterol Direct (0-129) mg/dL HDL Cholesterol (29-60) mg/dL Free T4 (0.78-2.19) ng/dL TSH 3rd Generation (0.46-4.68) mIU/mL Influenza Typ A,B (EIA) (NEGATIVE) 11/04/16 11/04/16 11/04/16 Range/Units 21:45 19:40 17:35 WBC (4.5-11.0) 10^3/ul RBC (3.5-6.1) 10^6/uL Hgb (14.0-18.0) gm/dL Hct (42.0-52.0) % MCV (80.0-105.0) fL MCH (25.0-35.0) pg MCHC (31.0-37.0) g/dl RDW (11.5-14.5) % Plt Count (120.0-450.0) 10^3/uL MPV (7.0-11.0) fl Neutrophils % (Manual) (50.0-70.0) % Band Neutrophils % (0-2) % Lymphocytes % (Manual) (22.0-35.0) % Monocytes % (Manual) (1.0-6.0) % Platelet Evaluation (NORMAL) pCO2 35 (35-45) mm/Hg pO2 83.0 (80-100) mm/Hg HCO3 24.9 (21-28) mmol/L ABG pH 7.46 H (7.35-7.45) ABG Total CO2 26.0 (22-28) mmol.L ABG O2 Saturation 97.9 (95-98) % ABG O2 Content 15.2 (15-23) ML/dl ABG Base Excess 1.3 (-2.0-3.0) mmol/L ABG Hemoglobin 11.3 L (11.7-17.4) g/dL ABG Carboxyhemoglobin 1.7 H (0.5-1.5) % POC ABG HHb (Measured) 2.0 (0-5) % ABG Methemoglobin 1.1 (0.0-3.0) % ABG O2 Capacity 15.5 L (16-24) mL/dl Hgb O2 Saturation 95.2 (95.0-98.0) % FiO2 60.0 % Sodium (132-148) mmol/L Potassium (3.6-5.0) mmol/L Chloride (98-107) mmol/L Carbon Dioxide (21-33) mmol/L Anion Gap (10-20) BUN (7-21) mg/dL Creatinine (0.5-1.4) mg/dL Est GFR ( Amer) Est GFR (Non-Af Amer) POC Glucose (mg/dL) (65-110) mg/dL Random Glucose (70-110) mg/dL Calcium (8.4-10.5) mg/dL Phosphorus (2.5-4.5) mg/dL Magnesium (1.7-2.2) mg/dL Total Bilirubin (0.2-1.3) mg/dL AST (15-59) U/L ALT (7-56) U/L Alkaline Phosphatase (38-133) U/L Lactate Dehydrogenase 406 (333-699) U/L Total Creatine Kinase 70 (35-230) U/L Troponin I 0.08 D 0.03 ng/mL Total Protein (5.8-8.3) g/dL Albumin (3.0-4.8) g/dL Globulin gm/dL Albumin/Globulin Ratio (1.1-1.8) Triglycerides 76 (35-160) mg/dL Cholesterol 106 L (130-200) mg/dL LDL Cholesterol Direct 31 (0-129) mg/dL HDL Cholesterol 37 (29-60) mg/dL Free T4 (0.78-2.19) ng/dL TSH 3rd Generation (0.46-4.68) mIU/mL Influenza Typ A,B (EIA) (NEGATIVE) 11/04/16 Range/Units 15:00 WBC (4.5-11.0) 10^3/ul RBC (3.5-6.1) 10^6/uL Hgb (14.0-18.0) gm/dL Hct (42.0-52.0) % MCV (80.0-105.0) fL MCH (25.0-35.0) pg MCHC (31.0-37.0) g/dl RDW (11.5-14.5) % Plt Count (120.0-450.0) 10^3/uL MPV (7.0-11.0) fl Neutrophils % (Manual) (50.0-70.0) % Band Neutrophils % (0-2) % Lymphocytes % (Manual) (22.0-35.0) % Monocytes % (Manual) (1.0-6.0) % Platelet Evaluation (NORMAL) pCO2 (35-45) mm/Hg pO2 (80-100) mm/Hg HCO3 (21-28) mmol/L ABG pH (7.35-7.45) ABG Total CO2 (22-28) mmol.L ABG O2 Saturation (95-98) % ABG O2 Content (15-23) ML/dl ABG Base Excess (-2.0-3.0) mmol/L ABG Hemoglobin (11.7-17.4) g/dL ABG Carboxyhemoglobin (0.5-1.5) % POC ABG HHb (Measured) (0-5) % ABG Methemoglobin (0.0-3.0) % ABG O2 Capacity (16-24) mL/dl Hgb O2 Saturation (95.0-98.0) % FiO2 % Sodium (132-148) mmol/L Potassium (3.6-5.0) mmol/L Chloride (98-107) mmol/L Carbon Dioxide (21-33) mmol/L Anion Gap (10-20) BUN (7-21) mg/dL Creatinine (0.5-1.4) mg/dL Est GFR ( Amer) Est GFR (Non-Af Amer) POC Glucose (mg/dL) (65-110) mg/dL Random Glucose (70-110) mg/dL Calcium (8.4-10.5) mg/dL Phosphorus (2.5-4.5) mg/dL Magnesium (1.7-2.2) mg/dL Total Bilirubin (0.2-1.3) mg/dL AST (15-59) U/L ALT (7-56) U/L Alkaline Phosphatase (38-133) U/L Lactate Dehydrogenase (333-699) U/L Total Creatine Kinase (35-230) U/L Troponin I ng/mL Total Protein (5.8-8.3) g/dL Albumin (3.0-4.8) g/dL Globulin gm/dL Albumin/Globulin Ratio (1.1-1.8) Triglycerides (35-160) mg/dL Cholesterol (130-200) mg/dL LDL Cholesterol Direct (0-129) mg/dL HDL Cholesterol (29-60) mg/dL Free T4 (0.78-2.19) ng/dL TSH 3rd Generation (0.46-4.68) mIU/mL Influenza Typ A,B (EIA) Negative for flu a/b (NEGATIVE) Laboratory Results - last 24 hr 11/04/16 11/04/16 11/04/16 15:00 17:35 19:40 WBC RBC Hgb Hct MCV MCH MCHC RDW Plt Count MPV Neutrophils % (Manual) Band Neutrophils % Lymphocytes % (Manual) Monocytes % (Manual) Platelet Evaluation pCO2 pO2 HCO3 ABG pH ABG Total CO2 ABG O2 Saturation ABG O2 Content ABG Base Excess ABG Hemoglobin ABG Carboxyhemoglobin POC ABG HHb (Measured) ABG Methemoglobin ABG O2 Capacity Hgb O2 Saturation FiO2 Sodium Potassium Chloride Carbon Dioxide Anion Gap BUN Creatinine Est GFR ( Amer) Est GFR (Non-Af Amer) POC Glucose (mg/dL) Random Glucose Calcium Phosphorus Magnesium Total Bilirubin AST ALT Alkaline Phosphatase Lactate Dehydrogenase 406 Total Creatine Kinase 70 Troponin I 0.03 0.08 D Total Protein Albumin Globulin Albumin/Globulin Ratio Triglycerides 76 Cholesterol 106 L LDL Cholesterol Direct 31 HDL Cholesterol 37 Free T4 TSH 3rd Generation Influenza Typ A,B (EIA) Negative for flu a/b 11/04/16 11/05/16 11/05/16 21:45 00:50 02:54 WBC RBC Hgb Hct MCV MCH MCHC RDW Plt Count MPV Neutrophils % (Manual) Band Neutrophils % Lymphocytes % (Manual) Monocytes % (Manual) Platelet Evaluation pCO2 35 pO2 83.0 HCO3 24.9 ABG pH 7.46 H ABG Total CO2 26.0 ABG O2 Saturation 97.9 ABG O2 Content 15.2 ABG Base Excess 1.3 ABG Hemoglobin 11.3 L ABG Carboxyhemoglobin 1.7 H POC ABG HHb (Measured) 2.0 ABG Methemoglobin 1.1 ABG O2 Capacity 15.5 L Hgb O2 Saturation 95.2 FiO2 60.0 Sodium Potassium Chloride Carbon Dioxide Anion Gap BUN Creatinine Est GFR ( Amer) Est GFR (Non-Af Amer) POC Glucose (mg/dL) 143 H Random Glucose Calcium Phosphorus Magnesium Total Bilirubin AST ALT Alkaline Phosphatase Lactate Dehydrogenase 391 Total Creatine Kinase 53 Troponin I 0.14 H* D Total Protein Albumin Globulin Albumin/Globulin Ratio Triglycerides Cholesterol LDL Cholesterol Direct HDL Cholesterol Free T4 TSH 3rd Generation Influenza Typ A,B (EIA) 11/05/16 11/05/16 11/05/16 05:24 05:35 05:35 WBC 9.8 D RBC 4.06 Hgb 11.3 L Hct 35.1 L MCV 86.5 MCH 27.8 MCHC 32.2 RDW 15.4 H Plt Count 99 L MPV 11.6 H Neutrophils % (Manual) 89 H Band Neutrophils % 7 H Lymphocytes % (Manual) 1 L Monocytes % (Manual) 3 Platelet Evaluation Low pCO2 40 pO2 104.0 H HCO3 24.2 ABG pH 7.39 ABG Total CO2 25.4 ABG O2 Saturation 98.9 H ABG O2 Content 15.0 ABG Base Excess -0.7 ABG Hemoglobin 10.9 L ABG Carboxyhemoglobin 1.2 POC ABG HHb (Measured) 1.1 ABG Methemoglobin 0.7 ABG O2 Capacity 15.2 L Hgb O2 Saturation 97.0 FiO2 60.0 Sodium 137 Potassium 3.8 Chloride 100 Carbon Dioxide 25 Anion Gap 16 BUN 43 H Creatinine 1.9 H Est GFR ( Amer) 42 Est GFR (Non-Af Amer) 35 POC Glucose (mg/dL) Random Glucose 151 H Calcium 8.5 Phosphorus 4.5 Magnesium 1.9 Total Bilirubin 1.3 AST 27 ALT 27 Alkaline Phosphatase 97 Lactate Dehydrogenase 349 Total Creatine Kinase 87 Troponin I 0.08 D Total Protein 6.2 Albumin 3.3 Globulin 2.9 Albumin/Globulin Ratio 1.1 Triglycerides Cholesterol LDL Cholesterol Direct HDL Cholesterol Free T4 TSH 3rd Generation Influenza Typ A,B (EIA) 11/05/16 05:35 WBC RBC Hgb Hct MCV MCH MCHC RDW Plt Count MPV Neutrophils % (Manual) Band Neutrophils % Lymphocytes % (Manual) Monocytes % (Manual) Platelet Evaluation pCO2 pO2 HCO3 ABG pH ABG Total CO2 ABG O2 Saturation ABG O2 Content ABG Base Excess ABG Hemoglobin ABG Carboxyhemoglobin POC ABG HHb (Measured) ABG Methemoglobin ABG O2 Capacity Hgb O2 Saturation FiO2 Sodium Potassium Chloride Carbon Dioxide Anion Gap BUN Creatinine Est GFR ( Amer) Est GFR (Non-Af Amer) POC Glucose (mg/dL) Random Glucose Calcium Phosphorus Magnesium Total Bilirubin AST ALT Alkaline Phosphatase Lactate Dehydrogenase Total Creatine Kinase Troponin I Total Protein Albumin Globulin Albumin/Globulin Ratio Triglycerides Cholesterol LDL Cholesterol Direct HDL Cholesterol Free T4 1.61 TSH 3rd Generation 1.73 Influenza Typ A,B (EIA) EKG/Cardiology Studies: Cardiology / EKG Studies 11/05/16 06:00 EKG [ELECTROCARDIOGRAM] DAILY Comment: Reason For Exam: a flutter Fingerstick Blood Sugar Results: 180 Assessment/Plan - Assessment and Plan (Free Text) Plan: 76 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 Pt desat to 60% in ED, not corrected by bipap, intubated. CXR showed fluid overload and RLL PNA. Tmax 102 at ED arrival. Pt has hypoxemic respiratory failure secondary to PNA. Plt slightly decreases possibly due to sepsis from PNA Neuro On sedation vacation, spontanous breathing trial Cardio Cardizem gtt Amiodarone gtt Eliquis BID Lasix 20 IV bid Solumedrol 20 q12 Pending echocardiogram Pulm CXR showed similar venous congestion, RLL infiltrate (PNA vs R>L pleural effusion) Ultrasound to differentiate PNA vs Pulm edema CT chest if needed GI If pt is not extubated, switch to Glucerna 15 cc/hr PIPPA on CKD. Workup pending Endo Normal TSH, ISSS Heme Plt decreases but remains above 100. CBC, coags, fibrinogen, FSP q8 continue eliquis for now Chronic anemia ID On merem, azithromycin, levoquine prophylaxis On therapeutic eliquis s/r/d/w Dr. Abbott - Date & Time Date: 11/05/16 Time: 09:35 <Rocky Abbott - Last Filed: 11/05/16 16:58> CCU Objective - Vital Signs / Intake & Output Vital Signs (Last 4 hours): Vital Signs Pulse BP Pulse Ox 11/05/16 13:30 122 H 101/59 L 94 L 11/05/16 13:20 122 H 94 L 11/05/16 13:10 122 H 95 11/05/16 13:00 122 H 99/58 L 94 L Intake and Output (Last 8hrs): Intake & Output 11/05/16 11/05/16 11/05/16 06:59 14:59 22:59 Intake Total 938 40 Output Total 450 Balance 488 40 Weight 190 lb Intake: IV 788 40 Right Antecubital 600 Right Forearm 48 Right Hand 48 Oral 0 Tube Feeding 150 Output: Urine 450 Urethral ([place]) 450 Other: Voiding Method Indwelling Catheter # Bowel Movements 0 - Medications Active Medications: Active Medications Generic Name Dose Route Start Last Admin Trade Name Freq PRN Reason Stop Dose Admin Apixaban 5 mg 11/04/16 18:00 11/05/16 09:20 Eliquis PO 5 mg BID LALITO Administration Protocol Aspirin 81 mg 11/05/16 10:00 11/05/16 09:21 Ecotrin PO 81 mg QAM LALITO Administration Atorvastatin Calcium 20 mg 11/04/16 17:00 11/04/16 21:07 Lipitor PO 20 mg DIN LALITO Administration Diltiazem HCl 60 mg 11/04/16 18:00 11/04/16 21:07 Cardizem PO 60 mg TID LALITO Administration Furosemide 40 mg 11/05/16 11:00 Lasix IVP BID LALITO Home Med 1 unit 11/06/16 10:00 Home Med PO DAILY LALITO Azithromycin 500 mg in 250 mls @ 167 mls/hr 11/05/16 10:00 11/05/16 09:22 Zithromax 500mg In Ns IVPB 167 mls/hr DAILY LALITO Administration Protocol Nitroglycerin/Dextrose 50 mg in 250 mls @ 7.5 mls/hr 11/04/16 16:57 11/04/16 17:10 Nitroglycerin 50 Mg/250 Ml D5w IV 25 mcg/min .Q24H PRN 7.5 mls/hr Titrate per protocol Administration Protocol 25 MCG/MIN Midazolam 100 mg/100ml in NS 100 mg in 100 mls @ 4 mls/hr 11/04/16 18:22 07:20 Midazolam 100 Mg/100ml In Ns IV 0 mg/hr .Q24H PRN 0 mls/hr Sedation Titration Protocol 4 MG/HR Fentanyl Citrate 1,000 mcg in 100 mls @ 2 mls/hr 11/04/16 18:40 11/05/16 07: 20 Fentanyl Citrate/Sodium Chloride 1 Mg/100 Ml IV 0 mcg/hr .Q24H PRN 0 mls/hr TITRATE PER MD ORDER Titration Protocol 20 MCG/HR Amiodarone HCl/Dextrose 360 mg in 200 mls @ 16.667 mls/hr 11/05/16 00:45 01:03 Nexterone 360 Mg In D5w 200 Ml (Premix) IV 16.667 mls/hr .Q12H LALITO Administration Protocol 0.5 MG/MIN NOREPINEPHRINE BIT/0.9 % NACL 4 mg in 250 mls @ 15 mls/hr 11/04/16 18:48 Levophed 4 Mg/ 250 Ml Ns Premixed IV .[id number] PRN TITRATE PER MD ORDER Protocol 4 MCG/MIN Acetaminophen 1,000 mg in 100 mls @ 400 mls/hr 11/04/16 23:30 Ofirmev IVPB 11/06/16 23:31 Q6H PRN Temperature Meropenem 1g/NS 100mL IVPB 1 gm in 100 mls @ 100 mls/hr 11/05/16 06:40 07:45 Meropenem 1g/Ns 100ml Ivpb IVPB 11/12/16 06:41 100 mls/hr Q12 LALITO Administration Protocol diltiaZEM IVPB 100mg in NS 100 mls @ 5 mls/hr 11/05/16 08:43 11/05/16 11:05 Cardizem 100mg In Ns IV 10 mg/hr .Q20H PRN 10 mls/hr TITRATE PER MD ORDER Titration Protocol 5 MG/HR Insulin Human Lispro 0 units 11/05/16 07:30 11/05/16 11:40 Humalog Low SC 2 units ACHS LALITO Administration Protocol Levalbuterol HCl 1.25 mg 11/04/16 20:00 11/05/16 13:22 Xopenex IH 1.25 mg [id number] LALITO Administration Methylprednisolone 20 mg 11/04/16 22:00 11/05/16 09:21 Solu-Medrol IVP 20 mg Q12 LALITO Administration Non-Formulary Medication 1 puff 11/05/16 10:00 Budesonide [Pulmicort Flexhaler] INH BID LALITO Pantoprazole Sodium 40 mg 11/05/16 10:00 11/05/16 10:30 Protonix Inj IVP 40 mg DAILY LALITO Administration Tramadol/Acetaminophen 1 tab 11/04/16 15:49 Ultracet 37.5/325 Mg PO QID PRN Pain, moderate (4-7) - Patient Studies Lab Studies: Lab Studies 11/05/16 11/05/16 11/05/16 Range/Units 16:25 13:44 11:35 WBC (4.5-11.0) 10^3/ul RBC (3.5-6.1) 10^6/uL Hgb (14.0-18.0) gm/dL Hct (42.0-52.0) % MCV (80.0-105.0) fL MCH (25.0-35.0) pg MCHC (31.0-37.0) g/dl RDW (11.5-14.5) % Plt Count (120.0-450.0) 10^3/uL MPV (7.0-11.0) fl Neutrophils % (Manual) (50.0-70.0) % Band Neutrophils % (0-2) % Lymphocytes % (Manual) (22.0-35.0) % Monocytes % (Manual) (1.0-6.0) % Platelet Evaluation (NORMAL) Retic Count (0.5-1.5) % PT (9.9-11.8) Seconds INR (0.93-1.08) APTT (23.7-30.8) Seconds Fibrinogen (187-400) mg/dL Fibrin Degrad Products >10 <40 ug/ml (< 10 ug/mL) pCO2 (35-45) mm/Hg pO2 (80-100) mm/Hg HCO3 (21-28) mmol/L ABG pH (7.35-7.45) ABG Total CO2 (22-28) mmol.L ABG O2 Saturation (95-98) % ABG O2 Content (15-23) ML/dl ABG Base Excess (-2.0-3.0) mmol/L ABG Hemoglobin (11.7-17.4) g/dL ABG Carboxyhemoglobin (0.5-1.5) % POC ABG HHb (Measured) (0-5) % ABG Methemoglobin (0.0-3.0) % ABG O2 Capacity (16-24) mL/dl Hgb O2 Saturation (95.0-98.0) % FiO2 % Sodium (132-148) mmol/L Potassium (3.6-5.0) mmol/L Chloride (98-107) mmol/L Carbon Dioxide (21-33) mmol/L Anion Gap (10-20) BUN (7-21) mg/dL Creatinine (0.5-1.4) mg/dL Est GFR ( Amer) Est GFR (Non-Af Amer) POC Glucose (mg/dL) 182 H 217 H (65-110) mg/dL Random Glucose (70-110) mg/dL Hemoglobin A1c (4.2-6.5) % Calcium (8.4-10.5) mg/dL Phosphorus (2.5-4.5) mg/dL Magnesium (1.7-2.2) mg/dL Iron (45-180) ug/dL TIBC (261-462) ug/dL % Saturation Total Bilirubin (0.2-1.3) mg/dL AST (15-59) U/L ALT (7-56) U/L Alkaline Phosphatase (38-133) U/L Lactate Dehydrogenase (333-699) U/L Total Creatine Kinase (35-230) U/L CK-MB (CK-2) (0.0-3.6) ng/mL CK-MB (CK-2) % Troponin I ng/mL Total Protein (5.8-8.3) g/dL Albumin (3.0-4.8) g/dL Globulin gm/dL Albumin/Globulin Ratio (1.1-1.8) Triglycerides (35-160) mg/dL Cholesterol (130-200) mg/dL LDL Cholesterol Direct (0-129) mg/dL HDL Cholesterol (29-60) mg/dL Procalcitonin (0.19-0.49) NG/ML Free T4 (0.78-2.19) ng/dL TSH 3rd Generation (0.46-4.68) mIU/mL Urine Eosinophils Ur Random Creatinine mg/dL Ur Random Sodium meq/L Ur Random Urea Nitrogn mg/dL Influenza Typ A,B (EIA) (NEGATIVE) 11/05/16 11/05/16 11/05/16 Range/Units 10:30 10:30 10:30 WBC (4.5-11.0) 10^3/ul RBC (3.5-6.1) 10^6/uL Hgb (14.0-18.0) gm/dL Hct (42.0-52.0) % MCV (80.0-105.0) fL MCH (25.0-35.0) pg MCHC (31.0-37.0) g/dl RDW (11.5-14.5) % Plt Count (120.0-450.0) 10^3/uL MPV (7.0-11.0) fl Neutrophils % (Manual) (50.0-70.0) % Band Neutrophils % (0-2) % Lymphocytes % (Manual) (22.0-35.0) % Monocytes % (Manual) (1.0-6.0) % Platelet Evaluation (NORMAL) Retic Count 0.67 (0.5-1.5) % PT 12.9 H (9.9-11.8) Seconds INR 1.19 H (0.93-1.08) APTT 46.4 H (23.7-30.8) Seconds Fibrinogen (187-400) mg/dL Fibrin Degrad Products (< 10 ug/mL) pCO2 (35-45) mm/Hg pO2 (80-100) mm/Hg HCO3 (21-28) mmol/L ABG pH (7.35-7.45) ABG Total CO2 (22-28) mmol.L ABG O2 Saturation (95-98) % ABG O2 Content (15-23) ML/dl ABG Base Excess (-2.0-3.0) mmol/L ABG Hemoglobin (11.7-17.4) g/dL ABG Carboxyhemoglobin (0.5-1.5) % POC ABG HHb (Measured) (0-5) % ABG Methemoglobin (0.0-3.0) % ABG O2 Capacity (16-24) mL/dl Hgb O2 Saturation (95.0-98.0) % FiO2 % Sodium (132-148) mmol/L Potassium (3.6-5.0) mmol/L Chloride (98-107) mmol/L Carbon Dioxide (21-33) mmol/L Anion Gap (10-20) BUN (7-21) mg/dL Creatinine (0.5-1.4) mg/dL Est GFR ( Amer) Est GFR (Non-Af Amer) POC Glucose (mg/dL) (65-110) mg/dL Random Glucose (70-110) mg/dL Hemoglobin A1c (4.2-6.5) % Calcium (8.4-10.5) mg/dL Phosphorus (2.5-4.5) mg/dL Magnesium (1.7-2.2) mg/dL Iron < 10 L (45-180) ug/dL TIBC 263 (261-462) ug/dL % Saturation TNP Total Bilirubin (0.2-1.3) mg/dL AST (15-59) U/L ALT (7-56) U/L Alkaline Phosphatase (38-133) U/L Lactate Dehydrogenase (333-699) U/L Total Creatine Kinase (35-230) U/L CK-MB (CK-2) (0.0-3.6) ng/mL CK-MB (CK-2) % Troponin I ng/mL Total Protein (5.8-8.3) g/dL Albumin (3.0-4.8) g/dL Globulin gm/dL Albumin/Globulin Ratio (1.1-1.8) Triglycerides (35-160) mg/dL Cholesterol (130-200) mg/dL LDL Cholesterol Direct (0-129) mg/dL HDL Cholesterol (29-60) mg/dL Procalcitonin (0.19-0.49) NG/ML Free T4 (0.78-2.19) ng/dL TSH 3rd Generation (0.46-4.68) mIU/mL Urine Eosinophils Ur Random Creatinine mg/dL Ur Random Sodium meq/L Ur Random Urea Nitrogn mg/dL Influenza Typ A,B (EIA) (NEGATIVE) 11/05/16 11/05/16 11/05/16 Range/Units 10:30 10:30 10:04 WBC (4.5-11.0) 10^3/ul RBC (3.5-6.1) 10^6/uL Hgb (14.0-18.0) gm/dL Hct (42.0-52.0) % MCV (80.0-105.0) fL MCH (25.0-35.0) pg MCHC (31.0-37.0) g/dl RDW (11.5-14.5) % Plt Count (120.0-450.0) 10^3/uL MPV (7.0-11.0) fl Neutrophils % (Manual) (50.0-70.0) % Band Neutrophils % (0-2) % Lymphocytes % (Manual) (22.0-35.0) % Monocytes % (Manual) (1.0-6.0) % Platelet Evaluation (NORMAL) Retic Count (0.5-1.5) % PT (9.9-11.8) Seconds INR (0.93-1.08) APTT (23.7-30.8) Seconds Fibrinogen 773.4 H* (187-400) mg/dL Fibrin Degrad Products (< 10 ug/mL) pCO2 (35-45) mm/Hg pO2 (80-100) mm/Hg HCO3 (21-28) mmol/L ABG pH (7.35-7.45) ABG Total CO2 (22-28) mmol.L ABG O2 Saturation (95-98) % ABG O2 Content (15-23) ML/dl ABG Base Excess (-2.0-3.0) mmol/L ABG Hemoglobin (11.7-17.4) g/dL ABG Carboxyhemoglobin (0.5-1.5) % POC ABG HHb (Measured) (0-5) % ABG Methemoglobin (0.0-3.0) % ABG O2 Capacity (16-24) mL/dl Hgb O2 Saturation (95.0-98.0) % FiO2 % Sodium (132-148) mmol/L Potassium (3.6-5.0) mmol/L Chloride (98-107) mmol/L Carbon Dioxide (21-33) mmol/L Anion Gap (10-20) BUN (7-21) mg/dL Creatinine (0.5-1.4) mg/dL Est GFR ( Amer) Est GFR (Non-Af Amer) POC Glucose (mg/dL) (65-110) mg/dL Random Glucose (70-110) mg/dL Hemoglobin A1c (4.2-6.5) % Calcium (8.4-10.5) mg/dL Phosphorus (2.5-4.5) mg/dL Magnesium (1.7-2.2) mg/dL Iron (45-180) ug/dL TIBC (261-462) ug/dL % Saturation Total Bilirubin (0.2-1.3) mg/dL AST (15-59) U/L ALT (7-56) U/L Alkaline Phosphatase (38-133) U/L Lactate Dehydrogenase 374 (333-699) U/L Total Creatine Kinase 253 H (35-230) U/L CK-MB (CK-2) 2.2 (0.0-3.6) ng/mL CK-MB (CK-2) % Cancelled Troponin I 0.05 D ng/mL Total Protein (5.8-8.3) g/dL Albumin (3.0-4.8) g/dL Globulin gm/dL Albumin/Globulin Ratio (1.1-1.8) Triglycerides (35-160) mg/dL Cholesterol (130-200) mg/dL LDL Cholesterol Direct (0-129) mg/dL HDL Cholesterol (29-60) mg/dL Procalcitonin (0.19-0.49) NG/ML Free T4 (0.78-2.19) ng/dL TSH 3rd Generation (0.46-4.68) mIU/mL Urine Eosinophils Ur Random Creatinine 123 mg/dL Ur Random Sodium meq/L Ur Random Urea Nitrogn mg/dL Influenza Typ A,B (EIA) (NEGATIVE) 11/05/16 11/05/16 11/05/16 Range/Units 10:04 10:04 10:04 WBC (4.5-11.0) 10^3/ul RBC (3.5-6.1) 10^6/uL Hgb (14.0-18.0) gm/dL Hct (42.0-52.0) % MCV (80.0-105.0) fL MCH (25.0-35.0) pg MCHC (31.0-37.0) g/dl RDW (11.5-14.5) % Plt Count (120.0-450.0) 10^3/uL MPV (7.0-11.0) fl Neutrophils % (Manual) (50.0-70.0) % Band Neutrophils % (0-2) % Lymphocytes % (Manual) (22.0-35.0) % Monocytes % (Manual) (1.0-6.0) % Platelet Evaluation (NORMAL) Retic Count (0.5-1.5) % PT (9.9-11.8) Seconds INR (0.93-1.08) APTT (23.7-30.8) Seconds Fibrinogen (187-400) mg/dL Fibrin Degrad Products (< 10 ug/mL) pCO2 (35-45) mm/Hg pO2 (80-100) mm/Hg HCO3 (21-28) mmol/L ABG pH (7.35-7.45) ABG Total CO2 (22-28) mmol.L ABG O2 Saturation (95-98) % ABG O2 Content (15-23) ML/dl ABG Base Excess (-2.0-3.0) mmol/L ABG Hemoglobin (11.7-17.4) g/dL ABG Carboxyhemoglobin (0.5-1.5) % POC ABG HHb (Measured) (0-5) % ABG Methemoglobin (0.0-3.0) % ABG O2 Capacity (16-24) mL/dl Hgb O2 Saturation (95.0-98.0) % FiO2 % Sodium (132-148) mmol/L Potassium (3.6-5.0) mmol/L Chloride (98-107) mmol/L Carbon Dioxide (21-33) mmol/L Anion Gap (10-20) BUN (7-21) mg/dL Creatinine (0.5-1.4) mg/dL Est GFR ( Amer) Est GFR (Non-Af Amer) POC Glucose (mg/dL) (65-110) mg/dL Random Glucose (70-110) mg/dL Hemoglobin A1c (4.2-6.5) % Calcium (8.4-10.5) mg/dL Phosphorus (2.5-4.5) mg/dL Magnesium (1.7-2.2) mg/dL Iron (45-180) ug/dL TIBC (261-462) ug/dL % Saturation Total Bilirubin (0.2-1.3) mg/dL AST (15-59) U/L ALT (7-56) U/L Alkaline Phosphatase (38-133) U/L Lactate Dehydrogenase (333-699) U/L Total Creatine Kinase (35-230) U/L CK-MB (CK-2) (0.0-3.6) ng/mL CK-MB (CK-2) % Troponin I ng/mL Total Protein (5.8-8.3) g/dL Albumin (3.0-4.8) g/dL Globulin gm/dL Albumin/Globulin Ratio (1.1-1.8) Triglycerides (35-160) mg/dL Cholesterol (130-200) mg/dL LDL Cholesterol Direct (0-129) mg/dL HDL Cholesterol (29-60) mg/dL Procalcitonin (0.19-0.49) NG/ML Free T4 (0.78-2.19) ng/dL TSH 3rd Generation (0.46-4.68) mIU/mL Urine Eosinophils Negative Ur Random Creatinine mg/dL Ur Random Sodium 38 meq/L Ur Random Urea Nitrogn 606 mg/dL Influenza Typ A,B (EIA) (NEGATIVE) 11/05/16 11/05/16 11/05/16 Range/Units 07:28 05:35 05:35 WBC (4.5-11.0) 10^3/ul RBC (3.5-6.1) 10^6/uL Hgb (14.0-18.0) gm/dL Hct (42.0-52.0) % MCV (80.0-105.0) fL MCH (25.0-35.0) pg MCHC (31.0-37.0) g/dl RDW (11.5-14.5) % Plt Count (120.0-450.0) 10^3/uL MPV (7.0-11.0) fl Neutrophils % (Manual) (50.0-70.0) % Band Neutrophils % (0-2) % Lymphocytes % (Manual) (22.0-35.0) % Monocytes % (Manual) (1.0-6.0) % Platelet Evaluation (NORMAL) Retic Count (0.5-1.5) % PT (9.9-11.8) Seconds INR (0.93-1.08) APTT (23.7-30.8) Seconds Fibrinogen (187-400) mg/dL Fibrin Degrad Products (< 10 ug/mL) pCO2 (35-45) mm/Hg pO2 (80-100) mm/Hg HCO3 (21-28) mmol/L ABG pH (7.35-7.45) ABG Total CO2 (22-28) mmol.L ABG O2 Saturation (95-98) % ABG O2 Content (15-23) ML/dl ABG Base Excess (-2.0-3.0) mmol/L ABG Hemoglobin (11.7-17.4) g/dL ABG Carboxyhemoglobin (0.5-1.5) % POC ABG HHb (Measured) (0-5) % ABG Methemoglobin (0.0-3.0) % ABG O2 Capacity (16-24) mL/dl Hgb O2 Saturation (95.0-98.0) % FiO2 % Sodium (132-148) mmol/L Potassium (3.6-5.0) mmol/L Chloride (98-107) mmol/L Carbon Dioxide (21-33) mmol/L Anion Gap (10-20) BUN (7-21) mg/dL Creatinine (0.5-1.4) mg/dL Est GFR ( Amer) Est GFR (Non-Af Amer) POC Glucose (mg/dL) 180 H (65-110) mg/dL Random Glucose (70-110) mg/dL Hemoglobin A1c 6.4 (4.2-6.5) % Calcium (8.4-10.5) mg/dL Phosphorus (2.5-4.5) mg/dL Magnesium (1.7-2.2) mg/dL Iron (45-180) ug/dL TIBC (261-462) ug/dL % Saturation Total Bilirubin (0.2-1.3) mg/dL AST (15-59) U/L ALT (7-56) U/L Alkaline Phosphatase (38-133) U/L Lactate Dehydrogenase (333-699) U/L Total Creatine Kinase (35-230) U/L CK-MB (CK-2) (0.0-3.6) ng/mL CK-MB (CK-2) % Troponin I ng/mL Total Protein (5.8-8.3) g/dL Albumin (3.0-4.8) g/dL Globulin gm/dL Albumin/Globulin Ratio (1.1-1.8) Triglycerides (35-160) mg/dL Cholesterol (130-200) mg/dL LDL Cholesterol Direct (0-129) mg/dL HDL Cholesterol (29-60) mg/dL Procalcitonin (0.19-0.49) NG/ML Free T4 1.61 (0.78-2.19) ng/dL TSH 3rd Generation 1.73 (0.46-4.68) mIU/mL Urine Eosinophils Ur Random Creatinine mg/dL Ur Random Sodium meq/L Ur Random Urea Nitrogn mg/dL Influenza Typ A,B (EIA) (NEGATIVE) 11/05/16 11/05/16 11/05/16 Range/Units 05:35 05:35 05:24 WBC 9.8 D (4.5-11.0) 10^3/ul RBC 4.06 (3.5-6.1) 10^6/uL Hgb 11.3 L (14.0-18.0) gm/dL Hct 35.1 L (42.0-52.0) % MCV 86.5 (80.0-105.0) fL MCH 27.8 (25.0-35.0) pg MCHC 32.2 (31.0-37.0) g/dl RDW 15.4 H (11.5-14.5) % Plt Count 99 L (120.0-450.0) 10^3/uL MPV 11.6 H (7.0-11.0) fl Neutrophils % (Manual) 89 H (50.0-70.0) % Band Neutrophils % 7 H (0-2) % Lymphocytes % (Manual) 1 L (22.0-35.0) % Monocytes % (Manual) 3 (1.0-6.0) % Platelet Evaluation Low (NORMAL) Retic Count (0.5-1.5) % PT (9.9-11.8) Seconds INR (0.93-1.08) APTT (23.7-30.8) Seconds Fibrinogen (187-400) mg/dL Fibrin Degrad Products (< 10 ug/mL) pCO2 40 (35-45) mm/Hg pO2 104.0 H (80-100) mm/Hg HCO3 24.2 (21-28) mmol/L ABG pH 7.39 (7.35-7.45) ABG Total CO2 25.4 (22-28) mmol.L ABG O2 Saturation 98.9 H (95-98) % ABG O2 Content 15.0 (15-23) ML/dl ABG Base Excess -0.7 (-2.0-3.0) mmol/L ABG Hemoglobin 10.9 L (11.7-17.4) g/dL ABG Carboxyhemoglobin 1.2 (0.5-1.5) % POC ABG HHb (Measured) 1.1 (0-5) % ABG Methemoglobin 0.7 (0.0-3.0) % ABG O2 Capacity 15.2 L (16-24) mL/dl Hgb O2 Saturation 97.0 (95.0-98.0) % FiO2 60.0 % Sodium 137 (132-148) mmol/L Potassium 3.8 (3.6-5.0) mmol/L Chloride 100 (98-107) mmol/L Carbon Dioxide 25 (21-33) mmol/L Anion Gap 16 (10-20) BUN 43 H (7-21) mg/dL Creatinine 1.9 H (0.5-1.4) mg/dL Est GFR ( Amer) 42 Est GFR (Non-Af Amer) 35 POC Glucose (mg/dL) (65-110) mg/dL Random Glucose 151 H (70-110) mg/dL Hemoglobin A1c (4.2-6.5) % Calcium 8.5 (8.4-10.5) mg/dL Phosphorus 4.5 (2.5-4.5) mg/dL Magnesium 1.9 (1.7-2.2) mg/dL Iron (45-180) ug/dL TIBC (261-462) ug/dL % Saturation Total Bilirubin 1.3 (0.2-1.3) mg/dL AST 27 (15-59) U/L ALT 27 (7-56) U/L Alkaline Phosphatase 97 (38-133) U/L Lactate Dehydrogenase 349 (333-699) U/L Total Creatine Kinase 87 (35-230) U/L CK-MB (CK-2) (0.0-3.6) ng/mL CK-MB (CK-2) % Troponin I 0.08 D ng/mL Total Protein 6.2 (5.8-8.3) g/dL Albumin 3.3 (3.0-4.8) g/dL Globulin 2.9 gm/dL Albumin/Globulin Ratio 1.1 (1.1-1.8) Triglycerides (35-160) mg/dL Cholesterol (130-200) mg/dL LDL Cholesterol Direct (0-129) mg/dL HDL Cholesterol (29-60) mg/dL Procalcitonin (0.19-0.49) NG/ML Free T4 (0.78-2.19) ng/dL TSH 3rd Generation (0.46-4.68) mIU/mL Urine Eosinophils Ur Random Creatinine mg/dL Ur Random Sodium meq/L Ur Random Urea Nitrogn mg/dL Influenza Typ A,B (EIA) (NEGATIVE) 11/05/16 11/05/16 11/04/16 Range/Units 02:54 00:50 21:45 WBC (4.5-11.0) 10^3/ul RBC (3.5-6.1) 10^6/uL Hgb (14.0-18.0) gm/dL Hct (42.0-52.0) % MCV (80.0-105.0) fL MCH (25.0-35.0) pg MCHC (31.0-37.0) g/dl RDW (11.5-14.5) % Plt Count (120.0-450.0) 10^3/uL MPV (7.0-11.0) fl Neutrophils % (Manual) (50.0-70.0) % Band Neutrophils % (0-2) % Lymphocytes % (Manual) (22.0-35.0) % Monocytes % (Manual) (1.0-6.0) % Platelet Evaluation (NORMAL) Retic Count (0.5-1.5) % PT (9.9-11.8) Seconds INR (0.93-1.08) APTT (23.7-30.8) Seconds Fibrinogen (187-400) mg/dL Fibrin Degrad Products (< 10 ug/mL) pCO2 35 (35-45) mm/Hg pO2 83.0 (80-100) mm/Hg HCO3 24.9 (21-28) mmol/L ABG pH 7.46 H (7.35-7.45) ABG Total CO2 26.0 (22-28) mmol.L ABG O2 Saturation 97.9 (95-98) % ABG O2 Content 15.2 (15-23) ML/dl ABG Base Excess 1.3 (-2.0-3.0) mmol/L ABG Hemoglobin 11.3 L (11.7-17.4) g/dL ABG Carboxyhemoglobin 1.7 H (0.5-1.5) % POC ABG HHb (Measured) 2.0 (0-5) % ABG Methemoglobin 1.1 (0.0-3.0) % ABG O2 Capacity 15.5 L (16-24) mL/dl Hgb O2 Saturation 95.2 (95.0-98.0) % FiO2 60.0 % Sodium (132-148) mmol/L Potassium (3.6-5.0) mmol/L Chloride (98-107) mmol/L Carbon Dioxide (21-33) mmol/L Anion Gap (10-20) BUN (7-21) mg/dL Creatinine (0.5-1.4) mg/dL Est GFR ( Amer) Est GFR (Non-Af Amer) POC Glucose (mg/dL) 143 H (65-110) mg/dL Random Glucose (70-110) mg/dL Hemoglobin A1c (4.2-6.5) % Calcium (8.4-10.5) mg/dL Phosphorus (2.5-4.5) mg/dL Magnesium (1.7-2.2) mg/dL Iron (45-180) ug/dL TIBC (261-462) ug/dL % Saturation Total Bilirubin (0.2-1.3) mg/dL AST (15-59) U/L ALT (7-56) U/L Alkaline Phosphatase (38-133) U/L Lactate Dehydrogenase 391 (333-699) U/L Total Creatine Kinase 53 (35-230) U/L CK-MB (CK-2) (0.0-3.6) ng/mL CK-MB (CK-2) % Troponin I 0.14 H* D ng/mL Total Protein (5.8-8.3) g/dL Albumin (3.0-4.8) g/dL Globulin gm/dL Albumin/Globulin Ratio (1.1-1.8) Triglycerides (35-160) mg/dL Cholesterol (130-200) mg/dL LDL Cholesterol Direct (0-129) mg/dL HDL Cholesterol (29-60) mg/dL Procalcitonin (0.19-0.49) NG/ML Free T4 (0.78-2.19) ng/dL TSH 3rd Generation (0.46-4.68) mIU/mL Urine Eosinophils Ur Random Creatinine mg/dL Ur Random Sodium meq/L Ur Random Urea Nitrogn mg/dL Influenza Typ A,B (EIA) (NEGATIVE) 11/04/16 11/04/16 11/04/16 Range/Units 19:40 19:40 17:35 WBC (4.5-11.0) 10^3/ul RBC (3.5-6.1) 10^6/uL Hgb (14.0-18.0) gm/dL Hct (42.0-52.0) % MCV (80.0-105.0) fL MCH (25.0-35.0) pg MCHC (31.0-37.0) g/dl RDW (11.5-14.5) % Plt Count (120.0-450.0) 10^3/uL MPV (7.0-11.0) fl Neutrophils % (Manual) (50.0-70.0) % Band Neutrophils % (0-2) % Lymphocytes % (Manual) (22.0-35.0) % Monocytes % (Manual) (1.0-6.0) % Platelet Evaluation (NORMAL) Retic Count (0.5-1.5) % PT (9.9-11.8) Seconds INR (0.93-1.08) APTT (23.7-30.8) Seconds Fibrinogen (187-400) mg/dL Fibrin Degrad Products (< 10 ug/mL) pCO2 (35-45) mm/Hg pO2 (80-100) mm/Hg HCO3 (21-28) mmol/L ABG pH (7.35-7.45) ABG Total CO2 (22-28) mmol.L ABG O2 Saturation (95-98) % ABG O2 Content (15-23) ML/dl ABG Base Excess (-2.0-3.0) mmol/L ABG Hemoglobin (11.7-17.4) g/dL ABG Carboxyhemoglobin (0.5-1.5) % POC ABG HHb (Measured) (0-5) % ABG Methemoglobin (0.0-3.0) % ABG O2 Capacity (16-24) mL/dl Hgb O2 Saturation (95.0-98.0) % FiO2 % Sodium (132-148) mmol/L Potassium (3.6-5.0) mmol/L Chloride (98-107) mmol/L Carbon Dioxide (21-33) mmol/L Anion Gap (10-20) BUN (7-21) mg/dL Creatinine (0.5-1.4) mg/dL Est GFR ( Amer) Est GFR (Non-Af Amer) POC Glucose (mg/dL) (65-110) mg/dL Random Glucose (70-110) mg/dL Hemoglobin A1c (4.2-6.5) % Calcium (8.4-10.5) mg/dL Phosphorus (2.5-4.5) mg/dL Magnesium (1.7-2.2) mg/dL Iron (45-180) ug/dL TIBC (261-462) ug/dL % Saturation Total Bilirubin (0.2-1.3) mg/dL AST (15-59) U/L ALT (7-56) U/L Alkaline Phosphatase (38-133) U/L Lactate Dehydrogenase 406 (333-699) U/L Total Creatine Kinase 70 (35-230) U/L CK-MB (CK-2) (0.0-3.6) ng/mL CK-MB (CK-2) % Troponin I 0.08 D 0.03 ng/mL Total Protein (5.8-8.3) g/dL Albumin (3.0-4.8) g/dL Globulin gm/dL Albumin/Globulin Ratio (1.1-1.8) Triglycerides 76 (35-160) mg/dL Cholesterol 106 L (130-200) mg/dL LDL Cholesterol Direct 31 (0-129) mg/dL HDL Cholesterol 37 (29-60) mg/dL Procalcitonin 9.65 H (0.19-0.49) NG/ML Free T4 (0.78-2.19) ng/dL TSH 3rd Generation (0.46-4.68) mIU/mL Urine Eosinophils Ur Random Creatinine mg/dL Ur Random Sodium meq/L Ur Random Urea Nitrogn mg/dL Influenza Typ A,B (EIA) (NEGATIVE) 11/04/16 Range/Units 15:00 WBC (4.5-11.0) 10^3/ul RBC (3.5-6.1) 10^6/uL Hgb (14.0-18.0) gm/dL Hct (42.0-52.0) % MCV (80.0-105.0) fL MCH (25.0-35.0) pg MCHC (31.0-37.0) g/dl RDW (11.5-14.5) % Plt Count (120.0-450.0) 10^3/uL MPV (7.0-11.0) fl Neutrophils % (Manual) (50.0-70.0) % Band Neutrophils % (0-2) % Lymphocytes % (Manual) (22.0-35.0) % Monocytes % (Manual) (1.0-6.0) % Platelet Evaluation (NORMAL) Retic Count (0.5-1.5) % PT (9.9-11.8) Seconds INR (0.93-1.08) APTT (23.7-30.8) Seconds Fibrinogen (187-400) mg/dL Fibrin Degrad Products (< 10 ug/mL) pCO2 (35-45) mm/Hg pO2 (80-100) mm/Hg HCO3 (21-28) mmol/L ABG pH (7.35-7.45) ABG Total CO2 (22-28) mmol.L ABG O2 Saturation (95-98) % ABG O2 Content (15-23) ML/dl ABG Base Excess (-2.0-3.0) mmol/L ABG Hemoglobin (11.7-17.4) g/dL ABG Carboxyhemoglobin (0.5-1.5) % POC ABG HHb (Measured) (0-5) % ABG Methemoglobin (0.0-3.0) % ABG O2 Capacity (16-24) mL/dl Hgb O2 Saturation (95.0-98.0) % FiO2 % Sodium (132-148) mmol/L Potassium (3.6-5.0) mmol/L Chloride (98-107) mmol/L Carbon Dioxide (21-33) mmol/L Anion Gap (10-20) BUN (7-21) mg/dL Creatinine (0.5-1.4) mg/dL Est GFR ( Amer) Est GFR (Non-Af Amer) POC Glucose (mg/dL) (65-110) mg/dL Random Glucose (70-110) mg/dL Hemoglobin A1c (4.2-6.5) % Calcium (8.4-10.5) mg/dL Phosphorus (2.5-4.5) mg/dL Magnesium (1.7-2.2) mg/dL Iron (45-180) ug/dL TIBC (261-462) ug/dL % Saturation Total Bilirubin (0.2-1.3) mg/dL AST (15-59) U/L ALT (7-56) U/L Alkaline Phosphatase (38-133) U/L Lactate Dehydrogenase (333-699) U/L Total Creatine Kinase (35-230) U/L CK-MB (CK-2) (0.0-3.6) ng/mL CK-MB (CK-2) % Troponin I ng/mL Total Protein (5.8-8.3) g/dL Albumin (3.0-4.8) g/dL Globulin gm/dL Albumin/Globulin Ratio (1.1-1.8) Triglycerides (35-160) mg/dL Cholesterol (130-200) mg/dL LDL Cholesterol Direct (0-129) mg/dL HDL Cholesterol (29-60) mg/dL Procalcitonin (0.19-0.49) NG/ML Free T4 (0.78-2.19) ng/dL TSH 3rd Generation (0.46-4.68) mIU/mL Urine Eosinophils Ur Random Creatinine mg/dL Ur Random Sodium meq/L Ur Random Urea Nitrogn mg/dL Influenza Typ A,B (EIA) Negative for flu a/b (NEGATIVE) Laboratory Results - last 24 hr 11/04/16 11/04/16 11/04/16 15:00 17:35 19:40 WBC RBC Hgb Hct MCV MCH MCHC RDW Plt Count MPV Neutrophils % (Manual) Band Neutrophils % Lymphocytes % (Manual) Monocytes % (Manual) Platelet Evaluation Retic Count PT INR APTT Fibrinogen Fibrin Degrad Products pCO2 pO2 HCO3 ABG pH ABG Total CO2 ABG O2 Saturation ABG O2 Content ABG Base Excess ABG Hemoglobin ABG Carboxyhemoglobin POC ABG HHb (Measured) ABG Methemoglobin ABG O2 Capacity Hgb O2 Saturation FiO2 Sodium Potassium Chloride Carbon Dioxide Anion Gap BUN Creatinine Est GFR ( Amer) Est GFR (Non-Af Amer) POC Glucose (mg/dL) Random Glucose Hemoglobin A1c Calcium Phosphorus Magnesium Iron TIBC % Saturation Total Bilirubin AST ALT Alkaline Phosphatase Lactate Dehydrogenase Total Creatine Kinase CK-MB (CK-2) CK-MB (CK-2) % Troponin I 0.03 Total Protein Albumin Globulin Albumin/Globulin Ratio Triglycerides 76 Cholesterol 106 L LDL Cholesterol Direct 31 HDL Cholesterol 37 Procalcitonin 9.65 H Free T4 TSH 3rd Generation Urine Eosinophils Ur Random Creatinine Ur Random Sodium Ur Random Urea Nitrogn Influenza Typ A,B (EIA) Negative for flu a/b 11/04/16 11/04/16 11/05/16 19:40 21:45 00:50 WBC RBC Hgb Hct MCV MCH MCHC RDW Plt Count MPV Neutrophils % (Manual) Band Neutrophils % Lymphocytes % (Manual) Monocytes % (Manual) Platelet Evaluation Retic Count PT INR APTT Fibrinogen Fibrin Degrad Products pCO2 35 pO2 83.0 HCO3 24.9 ABG pH 7.46 H ABG Total CO2 26.0 ABG O2 Saturation 97.9 ABG O2 Content 15.2 ABG Base Excess 1.3 ABG Hemoglobin 11.3 L ABG Carboxyhemoglobin 1.7 H POC ABG HHb (Measured) 2.0 ABG Methemoglobin 1.1 ABG O2 Capacity 15.5 L Hgb O2 Saturation 95.2 FiO2 60.0 Sodium Potassium Chloride Carbon Dioxide Anion Gap BUN Creatinine Est GFR ( Amer) Est GFR (Non-Af Amer) POC Glucose (mg/dL) Random Glucose Hemoglobin A1c Calcium Phosphorus Magnesium Iron TIBC % Saturation Total Bilirubin AST ALT Alkaline Phosphatase Lactate Dehydrogenase 406 391 Total Creatine Kinase 70 53 CK-MB (CK-2) CK-MB (CK-2) % Troponin I 0.08 D 0.14 H* D Total Protein Albumin Globulin Albumin/Globulin Ratio Triglycerides Cholesterol LDL Cholesterol Direct HDL Cholesterol Procalcitonin Free T4 TSH 3rd Generation Urine Eosinophils Ur Random Creatinine Ur Random Sodium Ur Random Urea Nitrogn Influenza Typ A,B (EIA) 11/05/16 11/05/16 11/05/16 02:54 05:24 05:35 WBC 9.8 D RBC 4.06 Hgb 11.3 L Hct 35.1 L MCV 86.5 MCH 27.8 MCHC 32.2 RDW 15.4 H Plt Count 99 L MPV 11.6 H Neutrophils % (Manual) 89 H Band Neutrophils % 7 H Lymphocytes % (Manual) 1 L Monocytes % (Manual) 3 Platelet Evaluation Low Retic Count PT INR APTT Fibrinogen Fibrin Degrad Products pCO2 40 pO2 104.0 H HCO3 24.2 ABG pH 7.39 ABG Total CO2 25.4 ABG O2 Saturation 98.9 H ABG O2 Content 15.0 ABG Base Excess -0.7 ABG Hemoglobin 10.9 L ABG Carboxyhemoglobin 1.2 POC ABG HHb (Measured) 1.1 ABG Methemoglobin 0.7 ABG O2 Capacity 15.2 L Hgb O2 Saturation 97.0 FiO2 60.0 Sodium Potassium Chloride Carbon Dioxide Anion Gap BUN Creatinine Est GFR ( Amer) Est GFR (Non-Af Amer) POC Glucose (mg/dL) 143 H Random Glucose Hemoglobin A1c Calcium Phosphorus Magnesium Iron TIBC % Saturation Total Bilirubin AST ALT Alkaline Phosphatase Lactate Dehydrogenase Total Creatine Kinase CK-MB (CK-2) CK-MB (CK-2) % Troponin I Total Protein Albumin Globulin Albumin/Globulin Ratio Triglycerides Cholesterol LDL Cholesterol Direct HDL Cholesterol Procalcitonin Free T4 TSH 3rd Generation Urine Eosinophils Ur Random Creatinine Ur Random Sodium Ur Random Urea Nitrogn Influenza Typ A,B (EIA) 11/05/16 11/05/16 11/05/16 05:35 05:35 05:35 WBC RBC Hgb Hct MCV MCH MCHC RDW Plt Count MPV Neutrophils % (Manual) Band Neutrophils % Lymphocytes % (Manual) Monocytes % (Manual) Platelet Evaluation Retic Count PT INR APTT Fibrinogen Fibrin Degrad Products pCO2 pO2 HCO3 ABG pH ABG Total CO2 ABG O2 Saturation ABG O2 Content ABG Base Excess ABG Hemoglobin ABG Carboxyhemoglobin POC ABG HHb (Measured) ABG Methemoglobin ABG O2 Capacity Hgb O2 Saturation FiO2 Sodium 137 Potassium 3.8 Chloride 100 Carbon Dioxide 25 Anion Gap 16 BUN 43 H Creatinine 1.9 H Est GFR ( Amer) 42 Est GFR (Non-Af Amer) 35 POC Glucose (mg/dL) Random Glucose 151 H Hemoglobin A1c 6.4 Calcium 8.5 Phosphorus 4.5 Magnesium 1.9 Iron TIBC % Saturation Total Bilirubin 1.3 AST 27 ALT 27 Alkaline Phosphatase 97 Lactate Dehydrogenase 349 Total Creatine Kinase 87 CK-MB (CK-2) CK-MB (CK-2) % Troponin I 0.08 D Total Protein 6.2 Albumin 3.3 Globulin 2.9 Albumin/Globulin Ratio 1.1 Triglycerides Cholesterol LDL Cholesterol Direct HDL Cholesterol Procalcitonin Free T4 1.61 TSH 3rd Generation 1.73 Urine Eosinophils Ur Random Creatinine Ur Random Sodium Ur Random Urea Nitrogn Influenza Typ A,B (EIA) 11/05/16 11/05/16 11/05/16 07:28 10:04 10:04 WBC RBC Hgb Hct MCV MCH MCHC RDW Plt Count MPV Neutrophils % (Manual) Band Neutrophils % Lymphocytes % (Manual) Monocytes % (Manual) Platelet Evaluation Retic Count PT INR APTT Fibrinogen Fibrin Degrad Products pCO2 pO2 HCO3 ABG pH ABG Total CO2 ABG O2 Saturation ABG O2 Content ABG Base Excess ABG Hemoglobin ABG Carboxyhemoglobin POC ABG HHb (Measured) ABG Methemoglobin ABG O2 Capacity Hgb O2 Saturation FiO2 Sodium Potassium Chloride Carbon Dioxide Anion Gap BUN Creatinine Est GFR ( Amer) Est GFR (Non-Af Amer) POC Glucose (mg/dL) 180 H Random Glucose Hemoglobin A1c Calcium Phosphorus Magnesium Iron TIBC % Saturation Total Bilirubin AST ALT Alkaline Phosphatase Lactate Dehydrogenase Total Creatine Kinase CK-MB (CK-2) CK-MB (CK-2) % Troponin I Total Protein Albumin Globulin Albumin/Globulin Ratio Triglycerides Cholesterol LDL Cholesterol Direct HDL Cholesterol Procalcitonin Free T4 TSH 3rd Generation Urine Eosinophils Negative Ur Random Creatinine Ur Random Sodium 38 Ur Random Urea Nitrogn Influenza Typ A,B (EIA) 11/05/16 11/05/16 11/05/16 10:04 10:04 10:30 WBC RBC Hgb Hct MCV MCH MCHC RDW Plt Count MPV Neutrophils % (Manual) Band Neutrophils % Lymphocytes % (Manual) Monocytes % (Manual) Platelet Evaluation Retic Count PT INR APTT Fibrinogen Fibrin Degrad Products pCO2 pO2 HCO3 ABG pH ABG Total CO2 ABG O2 Saturation ABG O2 Content ABG Base Excess ABG Hemoglobin ABG Carboxyhemoglobin POC ABG HHb (Measured) ABG Methemoglobin ABG O2 Capacity Hgb O2 Saturation FiO2 Sodium Potassium Chloride Carbon Dioxide Anion Gap BUN Creatinine Est GFR ( Amer) Est GFR (Non-Af Amer) POC Glucose (mg/dL) Random Glucose Hemoglobin A1c Calcium Phosphorus Magnesium Iron TIBC % Saturation Total Bilirubin AST ALT Alkaline Phosphatase Lactate Dehydrogenase 374 Total Creatine Kinase 253 H CK-MB (CK-2) 2.2 CK-MB (CK-2) % Cancelled Troponin I 0.05 D Total Protein Albumin Globulin Albumin/Globulin Ratio Triglycerides Cholesterol LDL Cholesterol Direct HDL Cholesterol Procalcitonin Free T4 TSH 3rd Generation Urine Eosinophils Ur Random Creatinine 123 Ur Random Sodium Ur Random Urea Nitrogn 606 Influenza Typ A,B (EIA) 11/05/16 11/05/16 11/05/16 10:30 10:30 10:30 WBC RBC Hgb Hct MCV MCH MCHC RDW Plt Count MPV Neutrophils % (Manual) Band Neutrophils % Lymphocytes % (Manual) Monocytes % (Manual) Platelet Evaluation Retic Count 0.67 PT INR APTT Fibrinogen 773.4 H* Fibrin Degrad Products pCO2 pO2 HCO3 ABG pH ABG Total CO2 ABG O2 Saturation ABG O2 Content ABG Base Excess ABG Hemoglobin ABG Carboxyhemoglobin POC ABG HHb (Measured) ABG Methemoglobin ABG O2 Capacity Hgb O2 Saturation FiO2 Sodium Potassium Chloride Carbon Dioxide Anion Gap BUN Creatinine Est GFR ( Amer) Est GFR (Non-Af Amer) POC Glucose (mg/dL) Random Glucose Hemoglobin A1c Calcium Phosphorus Magnesium Iron < 10 L TIBC 263 % Saturation TNP Total Bilirubin AST ALT Alkaline Phosphatase Lactate Dehydrogenase Total Creatine Kinase CK-MB (CK-2) CK-MB (CK-2) % Troponin I Total Protein Albumin Globulin Albumin/Globulin Ratio Triglycerides Cholesterol LDL Cholesterol Direct HDL Cholesterol Procalcitonin Free T4 TSH 3rd Generation Urine Eosinophils Ur Random Creatinine Ur Random Sodium Ur Random Urea Nitrogn Influenza Typ A,B (EIA) 11/05/16 11/05/16 11/05/16 10:30 11:35 13:44 WBC RBC Hgb Hct MCV MCH MCHC RDW Plt Count MPV Neutrophils % (Manual) Band Neutrophils % Lymphocytes % (Manual) Monocytes % (Manual) Platelet Evaluation Retic Count PT 12.9 H INR 1.19 H APTT 46.4 H Fibrinogen Fibrin Degrad Products >10 <40 ug/ml pCO2 pO2 HCO3 ABG pH ABG Total CO2 ABG O2 Saturation ABG O2 Content ABG Base Excess ABG Hemoglobin ABG Carboxyhemoglobin POC ABG HHb (Measured) ABG Methemoglobin ABG O2 Capacity Hgb O2 Saturation FiO2 Sodium Potassium Chloride Carbon Dioxide Anion Gap BUN Creatinine Est GFR ( Amer) Est GFR (Non-Af Amer) POC Glucose (mg/dL) 217 H Random Glucose Hemoglobin A1c Calcium Phosphorus Magnesium Iron TIBC % Saturation Total Bilirubin AST ALT Alkaline Phosphatase Lactate Dehydrogenase Total Creatine Kinase CK-MB (CK-2) CK-MB (CK-2) % Troponin I Total Protein Albumin Globulin Albumin/Globulin Ratio Triglycerides Cholesterol LDL Cholesterol Direct HDL Cholesterol Procalcitonin Free T4 TSH 3rd Generation Urine Eosinophils Ur Random Creatinine Ur Random Sodium Ur Random Urea Nitrogn Influenza Typ A,B (EIA) 11/05/16 16:25 WBC RBC Hgb Hct MCV MCH MCHC RDW Plt Count MPV Neutrophils % (Manual) Band Neutrophils % Lymphocytes % (Manual) Monocytes % (Manual) Platelet Evaluation Retic Count PT INR APTT Fibrinogen Fibrin Degrad Products pCO2 pO2 HCO3 ABG pH ABG Total CO2 ABG O2 Saturation ABG O2 Content ABG Base Excess ABG Hemoglobin ABG Carboxyhemoglobin POC ABG HHb (Measured) ABG Methemoglobin ABG O2 Capacity Hgb O2 Saturation FiO2 Sodium Potassium Chloride Carbon Dioxide Anion Gap BUN Creatinine Est GFR ( Amer) Est GFR (Non-Af Amer) POC Glucose (mg/dL) 182 H Random Glucose Hemoglobin A1c Calcium Phosphorus Magnesium Iron TIBC % Saturation Total Bilirubin AST ALT Alkaline Phosphatase Lactate Dehydrogenase Total Creatine Kinase CK-MB (CK-2) CK-MB (CK-2) % Troponin I Total Protein Albumin Globulin Albumin/Globulin Ratio Triglycerides Cholesterol LDL Cholesterol Direct HDL Cholesterol Procalcitonin Free T4 TSH 3rd Generation Urine Eosinophils Ur Random Creatinine Ur Random Sodium Ur Random Urea Nitrogn Influenza Typ A,B (EIA) EKG/Cardiology Studies: Cardiology / EKG Studies 11/05/16 06:00 EKG [ELECTROCARDIOGRAM] DAILY Comment: Reason For Exam: a flutter Addendum Addendum: 11/05/16 16:56 patient was seen, examined and discussed with Dr. Rodriguez at bedside. Her note reflects my exam, assessment and plan, except as below. Meds/Labs/ONE reviewed. 76 yo with hypoxemic respiratory failure, intubated , CAP. Sedation vacation, on PS 10/5, fi02 40%. Still very groggy. Waiting until wakes up. Continue abx, conservative fluid management and 02 mangement. ccm time 40 min
[2016-11-05] MEDS ORDERED: cefTRIAXone 1 gm 1 GM/100 ML BAG IVPB SCH (10:00)
[2016-11-05] MEDS ORDERED: levoFLOXacin 500 mg in D5W 500 MG/100 ML BAG IVPB SCH (10:00)
[2016-11-05] MEDS ORDERED: VALSARTAN PO SCH (10:00)
--- NOTE | 2016-11-05 10:04 | RAD ---
HISTORY: post intubation COMPARISON: 11/19/2015 FINDINGS: LUNGS: Pulmonary vascular congestion coalescent at the right lung base and coalescent pulmonary edema with a small right pleural effusion and fluid in the right fissure (versus a discoid atelectasis and/or visual thickening) is consistent with this. The patchy opacities at the right lung base have increased since the prior exam. A concomitant patchy infiltrate here is not excluded PLEURA: Small right pleural effusion with right inferolateral pleural thickening slightly increased and/or more conspicuous since the prior exam. Fissural fluid and/or interval fissural pleural thickening. No pneumothorax CARDIOVASCULAR: Mild cardiomegaly. Midline sternotomy and coronary artery bypass clips. OSSEOUS STRUCTURES: Thoracic spondylosis and bilateral shoulder arthrosis VISUALIZED UPPER ABDOMEN: Normal. OTHER FINDINGS: Endotracheal tube tip inserted tip at the inferior clavicular level approximately 5 to 6 cm from the minerva. IMPRESSION: Endotracheal tube in satisfactory position. Cardio megaly with pulmonary venous congestion. Coalescent pulmonary edema right lung base without concomitant patchy infiltrates here are considerations. The opacities at the right lung base in the pulmonary venous congestion have increased since 11/19/2015. A 2. Right inferolateral pleural thickening visual thickening versus with or without the visual fluid here) ending sparse slightly increased in conspicuity and are slightly increased since the prior exam
[2016-11-05] MEDS: BUDESONIDE INH SCH ×2 (10:13→17:22)
[2016-11-05 10:36] LABS: RETIC% 0.67 % (0.5-1.5)
[2016-11-05 10:54] LABS: TROPONIN I 0.05 ng/mL
[2016-11-05 11:36] LABS: IRON < 10 ug/dL (45-180)
--- NOTE | 2016-11-05 11:38 | CP.PCM.CON ---
History of Present Illness - History of Present Illness History of Present Illness: 76 year old male with PMH of CAD S/P CABG, HTN, dyslipidemia, S/P right knee replacement surgery, CVA S/P right carotid endarterectomy, history of basal cell CA, COPD, history of pneumonia, obstructive sleep apnea was brought in by family because of lethargy and respiratory distress which was noted yesterday. As per the , the patient was having fits of cough a few days prior to admission and continued until ER presentation. She also noted worsening bilateral lower extremity swelling. There was no note of loss of consciousness, no convulsions, no bladder or bowel incontinence, no vomiting or diarrhea. As per the , he was not complaining of chest pain or headache. In the ED, the patient was noted to be febrile, and the patient was in severe respiratory distress and he was intubated and sent to the ICU for closer monitoring and treatment. CXR done showed pulmonary edema and possible right lower lobe infiltrates. Infectious diseases consult is requested to further evaluate and manage. Review of Systems - Review of Systems Systems not reviewed;Unavailable: Intubated Past Patient History - Infectious Disease Hx of Infectious Diseases: None - Past Social History Smoking Status: Former Smoker - CARDIAC Hx Cardiac Disorders: (cad) Hx Hypercholesterolemia: Yes Hx Hypertension: Yes Hx Pacemaker: No Hx Peripheral Edema: Yes (+1 pitting ble) Other/Comment: cabg,varicose veins ble - PULMONARY Hx Respiratory Disorders: (pulmonary edema) Hx Chronic Obstructive Pulmonary Disease (COPD): Yes Hx Pneumonia: Yes Hx Sleep Apnea: Yes (bipap at home) - NEUROLOGICAL Hx Neurological Disorder: Yes HX Cerebrovascular Accident: Yes Hx Transient Ischemic Attacks (TIA): Yes Other/Comment: restless leg syndrome - HEENT Hx HEENT Problems: (eyeglasses) Hx Blind: Yes (left eye) Hx Cataracts: Yes (sx) Hx Deafness: Yes ([place] bilaterally hearing aids) Other/Comment: left retinal detachment - ENDOCRINE/METABOLIC Hx Endocrine Disorders: No - HEMATOLOGICAL/ONCOLOGICAL Hx Blood Disorders: No Hx Cancer: Yes (BASAL CELL CA(SKIN REMOVED TO ABDOMEN AND FACE.) - INTEGUMENTARY Hx Dermatological Problems: Yes Hx Basil Cell: Yes (Area on abdomen removed and face) Other/Comment: varicose veins ble, multiple scratch holley ble, darkened feet - MUSCULOSKELETAL/RHEUMATOLOGICAL Hx Falls: No - GASTROINTESTINAL Hx Gastrointestinal Disorders: No - GENITOURINARY/GYNECOLOGICAL Hx Genitourinary Disorders: No Other/Comment: impotence, ped, vasectomy, penile sx - PSYCHIATRIC Hx Substance Use: No - SURGICAL HISTORY Hx Surgeries: Yes (RIGHT KNEE REPLACEMENT,CABG) Hx Cardiac Catheterization: Yes Hx Coronary Stent: Yes Other/Comment: sx b/l knees, r carotid endartarectomy 2001, ptca with stent 1997 , quadruple bypass 1997, lung sx 2000, rxcision multiple skin lesions - ANESTHESIA Hx Anesthesia: Yes Hx Anesthesia Reactions: No Hx Malignant Hyperthermia: No Meds Allergies/Adverse Reactions: Allergies Allergy/AdvReac Type Severity Reaction Status Date / Time No Known Allergies Allergy Verified 11/19/15 13:27 - Medications Medications: Current Medications Apixaban (Eliquis) 5 mg PO BID [facility] PRN Reason: Protocol Last Admin: 11/04/16 21:07 Dose: 5 mg Aspirin (Ecotrin) 81 mg PO QAM [facility] Atorvastatin Calcium (Lipitor) 20 mg PO DIN [facility] Last Admin: 11/04/16 21:07 Dose: 20 mg Diltiazem HCl (Cardizem) 60 mg PO TID [facility] Last Admin: 11/04/16 21:07 Dose: 60 mg Furosemide (Lasix) 20 mg IVP BID [facility] Azithromycin (Zithromax 500mg In Ns) 500 mg in 250 mls @ 167 mls/hr IVPB DAILY [facility] PRN Reason: Protocol Nitroglycerin/Dextrose (Nitroglycerin 50 Mg/250 Ml D5w) 50 mg in 250 mls @ 7.5 mls/hr IV .Q24H PRN; Protocol; 25 MCG/MIN PRN Reason: Titrate per protocol Last Admin: 11/04/16 17:10 Dose: 25 mcg/min, 7.5 mls/hr Midazolam 100 mg/100ml in NS (Midazolam 100 Mg/100ml In Ns) 100 mg in 100 mls @ 4 mls/hr IV .Q24H PRN; Protocol; 4 MG/HR PRN Reason: Sedation Last Titration: 11/05/16 06:11 Dose: 3 mg/hr, 3 mls/hr Levofloxacin/Dextrose (Levaquin 500mg) 500 mg in 100 mls @ 100 mls/hr IVPB DAILY [facility] Fentanyl Citrate (Fentanyl Citrate/Sodium Chloride 1 Mg/100 Ml) 1,000 mcg in 100 mls @ 2 mls/hr IV .Q24H PRN; Protocol; 20 MCG/HR PRN Reason: TITRATE PER MD ORDER Last Titration: 11/05/16 06:12 Dose: 30 mcg/hr, 3 mls/hr Amiodarone HCl/Dextrose (Nexterone 360 Mg In D5w 200 Ml (Premix)) 360 mg in 200 mls @ 16.667 mls/hr IV .Q12H LALITO; 0.5 MG/MIN PRN Reason: Protocol Last Admin: 11/05/16 01:03 Dose: 16.667 mls/hr NOREPINEPHRINE BIT/0.9 % NACL (Levophed 4 Mg/ 250 Ml Ns Premixed) 4 mg in 250 mls @ 15 mls/hr IV .[id number] PRN; Protocol; 4 MCG/MIN PRN Reason: TITRATE PER MD ORDER Acetaminophen (Ofirmev) 1,000 mg in 100 mls @ 400 mls/hr IVPB Q6H PRN PRN Reason: Temperature Stop: 11/06/16 23:31 Meropenem 1g/NS 100mL IVPB (Meropenem 1g/Ns 100ml Ivpb) 1 gm in 100 mls @ 100 mls/hr IVPB Q12 LALITO PRN Reason: Protocol Stop: 11/12/16 06:41 Levalbuterol HCl (Xopenex) 1.25 mg IH [id number] LALITO Last Admin: 11/05/16 01:57 Dose: 1.25 mg Methylprednisolone (Solu-Medrol) 20 mg IVP Q12 LALITO Last Admin: 11/04/16 22:17 Dose: 20 mg Non-Formulary Medication (Budesonide [Pulmicort Flexhaler]) 1 puff INH BID LALITO Non-Formulary Medication (Valsartan [Diovan]) 240 mg PO DAILY LALITO Tramadol/Acetaminophen (Ultracet 37.5/325 Mg) 1 tab PO QID PRN PRN Reason: Pain, moderate (4-7) Physical Exam - Constitutional Appears: Other (Intubated and sedated) - ENT Exam Additional comments: ET tube in place - Neck Exam Neck exam: Negative for: Lymphadenopathy, Meningismus - Respiratory Exam Respiratory Exam: Decreased Breath Sounds (with crackles at the bases) - Cardiovascular Exam Cardiovascular Exam: +S1, +S2 - GI/Abdominal Exam GI & Abdominal Exam: Soft. absent: Tenderness Results - Vital Signs Recent Vital Signs: Last Vital Signs Temp 98.8 F 11/05/16 04:00 Pulse 122 H 11/05/16 06:14 Resp 18 11/04/16 21:33 BP 100/60 11/05/16 05:00 Pulse Ox 98 11/05/16 05:00 - Labs Result Diagrams: 11/05/16 05:35 11/05/16 05:35 Labs: Laboratory Results - last 24 hr 11/04/16 11/04/16 11/04/16 15:00 17:35 19:40 WBC RBC Hgb Hct MCV MCH MCHC RDW Plt Count MPV pCO2 pO2 HCO3 ABG pH ABG Total CO2 ABG O2 Saturation ABG O2 Content ABG Base Excess ABG Hemoglobin ABG Carboxyhemoglobin POC ABG HHb (Measured) ABG Methemoglobin ABG O2 Capacity Hgb O2 Saturation FiO2 POC Glucose (mg/dL) Lactate Dehydrogenase 406 Total Creatine Kinase 70 Troponin I 0.03 0.08 D Triglycerides 76 Cholesterol 106 L LDL Cholesterol Direct 31 HDL Cholesterol 37 Influenza Typ A,B (EIA) Negative for flu a/b 11/04/16 11/05/16 11/05/16 21:45 00:50 02:54 WBC RBC Hgb Hct MCV MCH MCHC RDW Plt Count MPV pCO2 35 pO2 83.0 HCO3 24.9 ABG pH 7.46 H ABG Total CO2 26.0 ABG O2 Saturation 97.9 ABG O2 Content 15.2 ABG Base Excess 1.3 ABG Hemoglobin 11.3 L ABG Carboxyhemoglobin 1.7 H POC ABG HHb (Measured) 2.0 ABG Methemoglobin 1.1 ABG O2 Capacity 15.5 L Hgb O2 Saturation 95.2 FiO2 60.0 POC Glucose (mg/dL) 143 H Lactate Dehydrogenase 391 Total Creatine Kinase 53 Troponin I 0.14 H* D Triglycerides Cholesterol LDL Cholesterol Direct HDL Cholesterol Influenza Typ A,B (EIA) 11/05/16 11/05/16 05:24 05:35 WBC 9.8 D RBC 4.06 Hgb 11.3 L Hct 35.1 L MCV 86.5 MCH 27.8 MCHC 32.2 RDW 15.4 H Plt Count 99 L MPV 11.6 H pCO2 40 pO2 104.0 H HCO3 24.2 ABG pH 7.39 ABG Total CO2 25.4 ABG O2 Saturation 98.9 H ABG O2 Content 15.0 ABG Base Excess -0.7 ABG Hemoglobin 10.9 L ABG Carboxyhemoglobin 1.2 POC ABG HHb (Measured) 1.1 ABG Methemoglobin 0.7 ABG O2 Capacity 15.2 L Hgb O2 Saturation 97.0 FiO2 60.0 POC Glucose (mg/dL) Lactate Dehydrogenase Total Creatine Kinase Troponin I Triglycerides Cholesterol LDL Cholesterol Direct HDL Cholesterol Influenza Typ A,B (EIA) Assessment & Plan - Assessment and Plan (Free Text) Plan: Assessment Consider severe sepsis with acute renal failure and acute hypoxic ventilator- dependent respiratory failure consider due to severe right lower lobe pneumonia in a patient with acute pulmonary edema probably CHF CAD S/P CABG HTN dyslipidemia S/P right knee replacement surgery CVA S/P right carotid endarterectomy history of basal cell CA COPD history of pneumonia obstructive sleep apnea Plan Started the patient on a dose of IV Vancomycin, Merrem and Zithromax pending blood, sputum cx, urine Legionella Ag; reviewed CXR and will check another one tomorrow follow up Cardiology recommendations will follow clinically
[2016-11-05 13:15] LABS: INR 1.19 (0.93-1.08); PARTIAL THROMBOPLASTIN TIME 46.4 Seconds (23.7-30.8)
--- NOTE | 2016-11-05 14:37 | CARD ---
APPROVED REPORT EKG Measurement Heart [id number] <Conclusion> Atrial flutter with 2:1 AV conduction Abnormal ECG
--- NOTE | 2016-11-05 14:39 | PN ---
DATE: 11/05/2016 The patient is 76 years old, seen and examined. Still on vent, sedation, attempting to wean hi m off and extubate him today. PHYSICAL EXAMINATION: GENERAL: He is sleepy but arousable. VITAL SIGNS: He is afebrile, pulse 123, respirations 18, blood pressure 93/56. LUNGS: Bilateral soft crackle here and there. HEENT: He has symmetrical face. Nonicteric sclerae. [place] conjunctivae. HEART: S1, S2 audible. Irregular and tachycardic. ABDOMEN: Soft, obese, nontender, no rebound, no guarding. NEUROLOGIC: He is sleepy but arousable. LABORATORY: WBC is 9.8, hemoglobin 11.3, hematocrit 35.1, platelet of 99. Fibrinogen level is 773. Chemistry: Sodium 137, potassium 3.8, chloride 100, CO2 of 25, BUN 43, creatinine 1.9, blood sugar of 151. Troponin 0.14, repeat are negative. ASSESSMENT: 1. Status post flash pulmonary edema. 2. Community-acquired pneumonia. 3. Congestive heart failure. 4. Coronary artery disease, status post open heart surgery in 2014. 5. Atrial fibrillation/flutter. 6. Chronic obstructive pulmonary disease. 7. Non-insulin dependent diabetes. 8. Right lower lobe pneumonia. PLAN: Extubation will be tried by head of loss prevention and then his medication will be readjusted. Will cont inue on nebulizer treatment. He is currently on amiodarone and diltiazem. He is on Lasix. He is on meropenem. Follow up his electrolytes in a.m. He is on DVT prophylaxis. He is on GI prophylaxis. Tamera Gómez MD cc: [phone] TT: 11/05/2016 14:38:55 Confirmation # [id number] Dictation # [id number] ln
--- NOTE | 2016-11-05 17:14 | CARD ---
APPROVED REPORT EXAM: Two-dimensional and M-mode echocardiogram with Doppler and color Doppler. INDICATION Congestive Heart Failure 2D DIMENSIONS Left Atrium (2D)4.3 (1.6-4.0cm)IVSd1.3 (0.7-1.1cm) LVDd4.0 (3.9-5.9cm)PWd1.3 (0.7-1.1cm) LVDs3.5 (2.5-4.0cm)FS (%) 12.1 % LVEF (%)26.6 (>50%) M-Mode DIMENSIONS Aortic Root3.60 (2.2-3.7cm)Aortic Cusp Exc.1.70 (1.5-2.0cm) Aortic Valve AoV Peak Rdqjhkmj329.0cm/Shoshana Peak GR.5mmHg Mitral Valve E/A ratio0.0 TDI E/Lateral E'0.0E/Medial E'0.0 Pulmonary Valve PV Peak Iprrvzth26.4cm/sPV Peak Grad.1mmHg Tricuspid Valve TR Peak [id number] [id number] Peak Gr.32mmHg [id number] LEFT VENTRICLE The left ventricle is normal size. There is mild concentric left ventricular hypertrophy. The systolic function is severely impaired. Paradoxic septum No left ventricle thrombus noted on this study. RIGHT VENTRICLE The right ventricle is normal size. There is normal right ventricular wall thickness. RV Systolic function is moderately reduced. ATRIA The left atrium is borderline dilated. The right atrium is mildly dilated. AORTIC VALVE The aortic valve is not well visualized. MITRAL VALVE The mitral valve is mildly thickened. TRICUSPID VALVE There is mild tricuspid regurgitation. There is mild pulmonary hypertension. GREAT VESSELS The aortic root is normal in size. The IVC collapses <50% with inspiration. PERICARDIAL EFFUSION There is no pericardial effusion. <Conclusion> The left ventricle is normal size. There is mild concentric left ventricular hypertrophy. The systolic function is severely impaired. Paradoxic septum There is mild tricuspid regurgitation. There is mild pulmonary hypertension.
--- NOTE | 2016-11-05 17:44 | CON ---
DATE: 11/05/2016 REASON FOR CONSULTATION: Acute kidney injury superimposed on chronic kidney disease stage II? HISTORY OF PRESENTING ILLNESS: A 76-year-old male, previously unknown to me, was brought to the Emergency Room with altered mental status, shortness of breath, worsening lower extremity edema. The patient was altered at the time of presentation. provided the history. As per the , the patient complained of shortness of breath and was gurgling for 1 day prior to presentation. He woke up multiple times in the night with hallucinations. As per the , the patient was afebrile. He had some cough with minimal sputum. There is history of worsening lower extremity edema for 2 weeks prior to presentation. Unsteady gait. Initially, the patient was found to be febrile with a temperature of 99.7, blood pressure /90, heart rate of 125. Subsequently, he spiked a temperature of 102. The patient became acutely short of breath in the Emergency Room, became tachypneic and unresponsive to BiPAP. The patient was intubated at 5:00 p.m. yesterday. Admitted to the ICU. Chest x -ray revealed CHF, bilateral pleural effusions, also right base infiltrate. The patient started on IV antibiotics, IV Lasix. Creatinine at the time of presentation was 1.4. Today, the creatinine has gone up to 1.9, hence consultation is requested. PAST MEDICAL AND SURGICAL HISTORY: Hypertension, CAD, atrial flutter, pulmonary edema, chronic kidney disease stage II?, CABG, NIDDM, hyperlipidemia. FAMILY HISTORY: Noncontributory. SOCIAL HISTORY: Lives with . No smoking, no alcohol use, no IV drug abuse. ALLERGIES: No known drug allergies. MEDICATIONS AT HOME: Diovan, Requip, tramadol, Spiriva, Zocor, Cardizem, aspirin, Eliquis. REVIEW OF SYSTEMS: Unavailable as the patient is on mechanical ventilation, sedated. PHYSICAL EXAMINATION: VITAL SIGNS: Blood pressure 126/69, blood pressure dropped down as low as 85/48 , heart rate 125, respiratory rate 18, temperature 98.1, T-max is 100.2. HEENT: Normocephalic, atraumatic. Pupils reactive to light. NECK: Supple, no JVD. LUNGS: Bilateral rhonchi, bilateral coarse breath sounds, equal expansion, equal air entry. CARDIAC: S1, S2, regular rate and rhythm, no murmur, no rub. ABDOMEN: Obese, distended, soft, ? tenderness in the epigastrium, bowel sounds present. EXTREMITIES: 2+ pitting edema of the lower extremities. INTAKE AND OUTPUT: 942/415. LABORATORY DATA: WBC 9.8 down from 13.4 yesterday, hemoglobin 11.3, hematocrit 35, platelets 99, neutrophils 89, 7%,bands. Sodium 137, potassium 3.8, chloride 100, CO2 of 25, BUN 43, creatinine 1.9, glucose 151, calcium 8.5, phosphorus 4.5, magnesium 1.9, iron less than 10. Troponin 0.14 initially came down to 0.08 and then 0.05, albumin 3.3. TSH 1.7. Negative for influenza. ABG : pH 7.39, pCO2 of 40, pO2 of 104. Blood cultures no growth so far. ASSESSMENT AND PLAN: A 76-year-old male with noninsulin dependent diabetes mellitus, hypertension, coronary artery disease, history of coronary artery bypass graft, presented with altered mental status, shortness of breath, history of cough, history of increasing lower extremity edema for 2 weeks. The patient is found to have decompensated congestive heart failure, bilateral pleural effusions, respiratory failure, intubated for hypoxic respiratory failure. He is also found to have a possible right lower lobe pneumonia. The patient is in septic shock. The patient's blood pressure dropped down to 89/50 , he was tachycardic with a heart rate of 125. He has acute kidney injury superimposed on his chronic kidney disease stage II, suspect. 1. Acute kidney injury superimposed on chronic kidney disease stage II, etiology of her acute kidney injury is likely ATN in the setting of sepsis, hypotension, hypoperfusion. Blood pressure was as low as 85/45. 2. Respiratory failure, requiring mechanical ventilation. 3. Congestive heart failure, bilateral pleural effusions, edema. 4. Right lower lobe pneumonia. 5. Thrombocytopenia. 6. Leukocytosis with bandemia. 7. Non-insulin dependent diabetes mellitus. 8. Hypertension. 9. Coronary artery disease, history of coronary artery bypass graft. PLAN: 1. Harley culture. 2. Broad spectrum antibiotics to cover for community-acquired pneumonia. 3. Dose all antibiotics for creatinine clearance about 30-50 mL per minute. 4. Avoid nephrotoxins. 5. Hold ARB. 6. Cautiously use Lasix. 7. Check urine sodium, urine creatinine to calculate _FeNa____. 8. Monitor electrolytes closely. Case discussed with ICU residents at length, case discussed with ICU nurses. More than 35 minutes spent in the care of this critically ill patient. Shannan Oviedo MD cc: [phone] TT: 11/05/2016 17:43:56 Confirmation # [id number] Dictation # [id number] maribell GRANT
[2016-11-05 18:10] LABS: ARTERIAL BLOOD GAS HCO3 25.9 mmol/L (21-28); ARTERIAL BLOOD GAS O2 CAPACITY 15.5 mL/dl (16-24); ARTERIAL BLOOD GAS O2 CONTENT 15.1 ML/dl (15-23); ARTERIAL BLOOD GAS PH 7.42 (7.35-7.45); ARTERIAL BLOOD HGB O2 SAT 95.5 % (95.0-98.0); CARBOXYHEMOGLOBIN 1.1 % (0.5-1.5); HHB 2.5 % (0-5); METHEMOGLOBIN 0.9 % (0.0-3.0)
[2016-11-05 18:28] LABS: ADD MANUAL DIFF? YES; HEMATOCRIT 34.5 % (42.0-52.0); MEAN CELL VOLUME 85.2 fL (80.0-105.0); MEAN CORPUSCULAR HEMOGLOBIN 27.9 pg (25.0-35.0); MEAN CORPUSCULAR HGB CONC 32.8 g/dl (31.0-37.0); MEAN PLATELET VOLUME 11.9 fl (7.0-11.0); PLATELET COUNT 115 10^3/uL (120.0-450.0); RED CELL DISTRIBUTION WIDTH 15.3 % (11.5-14.5); WHITE BLOOD COUNT 9.9 10^3/ul (4.5-11.0)
[2016-11-05 18:51] LABS: TROPONIN I 0.04 ng/mL
[2016-11-05] MEDS: Midazolam 100 mg/100ml in NS 100 MG/100 ML SOL IV PRN (19:36)
[2016-11-05] MEDS: Fentanyl 1000mcg/100ml NS 1,000 MCG/100 ML BAG IV PRN (19:52)
[2016-11-05 19:59] LABS: BAND 4 % (0-2); NEUTROPHIL 91 % (50.0-70.0)
[2016-11-05 20:00] LABS: PLATELET ESTIMATE NORMAL (NORMAL)
[2016-11-05 21:01] LABS: FOLATE > 20.0 ng/mL
[2016-11-05 22:24] LABS: ADD MANUAL DIFF? NO
[2016-11-05 22:45] LABS: HEMATOCRIT 33.9 % (42.0-52.0); MEAN CELL VOLUME 84.5 fL (80.0-105.0); MEAN CORPUSCULAR HEMOGLOBIN 27.9 pg (25.0-35.0); MEAN PLATELET VOLUME 12.7 fl (7.0-11.0); PLATELET COUNT 133 10^3/uL (120.0-450.0); RED CELL DISTRIBUTION WIDTH 15.4 % (11.5-14.5); WHITE BLOOD COUNT 8.3 10^3/ul (4.5-11.0)
[2016-11-05 23:34] LABS: INR 1.28 (0.93-1.08); PARTIAL THROMBOPLASTIN TIME 48.8 Seconds (23.7-30.8)
[2016-11-05 23:42] LABS: FIBRINOGEN 837.5 mg/dL (187-400)
[2016-11-06 01:17] LABS: TROPONIN I 0.05 ng/mL
[2016-11-06] MEDS: Levalbuterol 1.25 MG/3 ML Inhal Soln UD IH SCH ×4 (01:41→20:04)
[2016-11-06 05:32] LABS: ARTERIAL BLOOD GAS HCO3 26.6 mmol/L (21-28); ARTERIAL BLOOD GAS O2 CAPACITY 15.2 mL/dl (16-24); ARTERIAL BLOOD GAS O2 CONTENT 14.8 ML/dl (15-23); ARTERIAL BLOOD GAS PH 7.39 (7.35-7.45); ARTERIAL BLOOD HGB O2 SAT 94.9 % (95.0-98.0); CARBOXYHEMOGLOBIN 1.4 % (0.5-1.5); HHB 2.7 % (0-5)
[2016-11-06 06:18] LABS: GRAN # 9.31 (1.4-6.5); GRAN % 93.3 % (50.0-68.0); HEMATOCRIT 35.7 % (42.0-52.0); LYMPH # 0.1 (1.2-3.4); LYMPH % 1.1 % (22.0-35.0); MEAN CORPUSCULAR HEMOGLOBIN 27.4 pg (25.0-35.0); MEAN CORPUSCULAR HGB CONC 32.2 g/dl (31.0-37.0); MEAN PLATELET VOLUME 12.4 fl (7.0-11.0); MONO # 0.6 (0.1-0.6); MONO % 5.6 % (1.0-6.0); PLATELET COUNT 123 10^3/uL (120.0-450.0); RED CELL DISTRIBUTION WIDTH 15.7 % (11.5-14.5)
[2016-11-06 06:21] LABS: BILIRUBIN,TOTAL 0.7 mg/dL (0.2-1.3); CALCIUM 8.9 mg/dL (8.4-10.5); POTASSIUM 3.9 mmol/L (3.6-5.0); TOTAL PROTEIN 6.7 g/dL (5.8-8.3)
[2016-11-06 06:24] LABS: ADD MANUAL DIFF? NO
[2016-11-06 06:37] LABS: INR 1.15 (0.93-1.08); PARTIAL THROMBOPLASTIN TIME 46.3 Seconds (23.7-30.8)
[2016-11-06 06:40] LABS: FIBRINOGEN 872.6 mg/dL (187-400)
[2016-11-06] MEDS ORDERED: Sodium Chloride 0.9% 1,000 ML IV SCH (07:45)
[2016-11-06] MEDS: Fentanyl 1000mcg/100ml NS 1,000 MCG/100 ML BAG IV PRN (08:20)
[2016-11-06] MEDS: Insulin Lispro (humaLOG) LOW Coverage SC SCH ×4 (08:37→22:00)
--- NOTE | 2016-11-06 08:57 | PN ---
DATE: 11/06/2016 SUBJECTIVE: The patient is in bed in no acute distress, nontoxic. He remains intubated on a ventila tor, overall poor. PHYSICAL EXAMINATION: VITAL SIGNS: Temperature of 98. T-max was at 102.1 in the last 48 hours. Blood pressure is 102/57, respiratory rate on the vent, a heart rate of 120. HEENT: Reveals the ET tube to be in place. NECK: Supple. LUNGS: Have decreased breath sounds. HEART: Normal S1, S2. ABDOMEN: Soft, nontender. LABORATORY EXAMINATION: Reveals the white count is 10,000, hemoglobin of 11, platelets of 123. Chem istries reveal a BUN of 66, creatinine of 2.5. Procalcitonin is 9.6. Urine for legionella antigen i s positive. Blood cultures are no growth. ASSESSMENT AND PLAN: This is a 76-year-old male with coronary artery disease, coronary bypass graft, hypertension, status post right knee replacement surgery with cerebrovascular accident, history of c arotid endarterectomy, history of basal cell, history of chronic obstructive lung disease, history of pneumonia, obstructive sleep apnea. Admitted now with severe sepsis with acute renal failure, acute hypoxic ventilatory-dependent respiratory failure with severe Legionella - right lower lobe Legionel la pneumonia, and currently on azithromycin and meropenem. The patient with a QTC interval of 523. We will continue the present course. The patient appears to be improving. We will treat for Legione lla pneumonia in this patient with severe sepsis with azithromycin. We will check on the final cultu re results and may discontinue the meropenem if all cultures are negative. The patient does have an elevated procalcitonin, which is of interest. Sandro Fuentes MD cc: [phone] TT: 11/06/2016 08:57:18 Confirmation # [id number] Dictation # [id number] hubert
[2016-11-06] MEDS ORDERED: Sodium Chloride 0.9% 1,000 ML IV STA ×3 (09:08→11:16)
--- NOTE | 2016-11-06 09:19 | RAD ---
HISTORY: pneumonia COMPARISON: 11/05/2016 FINDINGS: LUNGS: There is improvement in the right-sided infiltrate PLEURA: No significant pleural effusion identified, no pneumothorax apparent. CARDIOVASCULAR: Normal. OSSEOUS STRUCTURES: No significant abnormalities. VISUALIZED UPPER ABDOMEN: Normal. OTHER FINDINGS: Endotracheal tube and nasogastric tube remain in satisfactory position IMPRESSION: Improvement in right-sided infiltrate
[2016-11-06] MEDS: Azithromycin 500MG/NS 250ml 500 MG/250 ML BAG IVPB SCH (09:31)
[2016-11-06] MEDS: Meropenem 1g/NS 100mL IVPB 1 GM/100 ML PIGGYBACK IVPB SCH ×2 (09:31→22:00)
[2016-11-06] MEDS: DIOVAN 160 MG PO SCH (09:32)
[2016-11-06] MEDS: BUDESONIDE INH SCH ×2 (09:32→17:27)
[2016-11-06] MEDS ORDERED: levoFLOXacin 250 mg in D5W 250 MG/50 ML BAG IVPB SCH (10:00)
[2016-11-06] MEDS ORDERED: DIOVAN PO SCH (10:00)
--- NOTE | 2016-11-06 11:16 | PN ---
DATE: 11/06/2016 CARDIOLOGY FOLLOWUP The patient is hypotensive, remains on a ventilator. PHYSICAL EXAMINATION: GENERAL: The patient is sedated. Blood pressure is in 80s and 90s systolic. Heart rate is atrial f ibrillation, approximately 100. NECK: Negative JVD. LUNGS: No rales noted. HEART: Reveals S1, S2. EXTREMITIES: Without edema. LABORATORIES: BUN and creatinine are up to 66 and 2.5. The glucose is 172. The hemoglobin is 11.5 with a white count of 10. IMPRESSION: 1. Respiratory failure. 2. Prerenal azotemia. 3. Deterioration of his left ventricular function by echocardiogram to an ejection fraction of 28%. 4. Pneumonia. 5. Coronary artery disease. 6. History of coronary artery bypass surgery. Given these findings, I agree with IV hydration. Would hold the Lasix for now. Would add dobutamine to improve his LV function if his blood pressure does not improve. Harshal Romero MD cc: [id number] TT: 11/06/2016 11:16:11 Confirmation # [id number] Dictation # [id number] jn
--- NOTE | 2016-11-06 12:39 | PN ---
DATE: 11/06/2016 SUBJECTIVE: The patient is seen in the ICU. He remains on mechanical ventilation. He failed trial of weaning yesterday. He does not appear to be in any kind of distress. He is sedated at present. He also became profoundly hypotensive. He is getting fluids wide open now. is at bedside. PHYSICAL EXAMINATION: GENERAL: Elderly male lying in bed in the ICU, on mechanical ventilation. VITAL SIGNS: Blood pressure 86/43, heart rate 87, respiratory rate 16 per minute, temperature 98.2, T-max is 98.8. HEENT: Normocephalic, atraumatic, positive pallor. NECK: Supple, no JVD. LUNGS: Bilateral rhonchi, equal expansion, equal air entry. CARDIAC: S1, S2, irregularly irregular, tachycardia. No murmur. ABDOMEN: Distended, soft, nontender, bowel sounds present. EXTREMITIES: No lower extremity edema. INTAKE AND OUTPUT: 1535/945. LABORATORY DATA: WBC 10, hemoglobin 11.5, hematocrit 36, platelets 123. Sodium 138, potassium 3.9, chloride 100, CO2 of 25, BUN 66, creatinine 2.5, glucose 172, calcium 8.9, AST 36, ALT 32, albumin 3. 4. Urine eosinophils negative. Random urine creatinine 123 and urine sodium 38. Blood cultures negative. Chest x-ray improvement in the right-sided infiltrate. ASSESSMENT: A 76-year-old male with noninsulin dependent diabetes mellitus, hypertension, coronary a rtery disease, history of coronary artery bypass graft, admitted with altered mental status, shortnes s of breath. The patient was found to have decompensated congestive heart failure, bilateral pleural effusions, right-sided infiltrate. The patient was intubated. He was in septic shock. He was hypo tensive, tachycardic. 1. Acute kidney injury, largely prerenal azotemia. In the setting of sepsis, hypotension, hypovolem ia. 2. Respiratory failure. 3. Right lower lobe pneumonia. 4. Leukocytosis with bandemia. 5. Noninsulin dependent diabetes mellitus. 6. Hypertension. 7. Coronary artery disease. PLAN: 1. Phenol is less than 1, consistent with prerenal azotemia. 2. Remains vent dependent. 3. Agree with aggressive fluid resuscitation. 4. Continue to hold ARB. 5. Replace potassium. 6. Check magnesium. 7. Consider NG tube placement for feeding. Case discussed with at bedside at length. Case discussed with ICU team at length. More than 35 minutes was spent in the care of this critically ill patient. Shnanan Oviedo MD cc: [phone] TT: 11/06/2016 12:39:05 Confirmation # [id number] Dictation # [id number] tn
--- NOTE | 2016-11-06 13:38 | PN ---
DATE: 11/06/2016 SUBJECTIVE: The patient is a 76-year-old year. 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 The p atient was on Tridil. The patient is intubated, sedated, family by the bedside. Yesterday weaning t rial failed and he was placed back on ventilator. PHYSICAL EXAMINATION: GENERAL: Today, he is sedated on vent. VITAL SIGNS: He is afebrile, pulse 57, respirations 18, blood pressure is 86/43. LUNGS: Bilateral few soft crackles at bases. HEART: S1, S2 audible. Irregular, tachycardia. ABDOMEN: Soft, nontender, no rebound, no guarding. NEUROLOGIC: He is sedated on vent. EXTREMITIES: Bilateral leg +2 edema. LABORATORY EXAMINATION: WBC is 10, hemoglobin 11.5, hematocrit 35.7, platelet of 123. PT 12.4, INR 1.15. Chemistry: Sodium 138, potassium 3.9, chloride 100, CO2 of 25, BUN 66, creatinine 2.5, blood sugar of 194. His urine is positive for Legionella. ASSESSMENT: 1. Legionella pneumonia. 2. Congestive heart failure. 3. Acute renal failure. 4. Acute on chronic renal insufficiency. 5. Coronary artery disease. 6. Chronic atrial fibrillation. 7. Right lower lobe pneumonia. PLAN: We will continue patient on current antibiotic as recommended by ID that is meropenem and Zith romax. Continue on Xopenex. Currently, he is on Eliquis 5 mg twice a day. He is on Cardizem drip. He is being given bolus of IV fluid to improve his blood pressure and discussed with Dr. Romero. If w e cannot control rate with the Cardizem and the patient remains hypotensive, we might have to start g iving digoxin. We will reevaluate the patient in a.m. Tamera Gómez MD cc: [phone] TT: 11/06/2016 13:37:33 Confirmation # [id number] Dictation # [id number] tn
[2016-11-06 14:01] LABS: ADD MANUAL DIFF? NO
[2016-11-06 14:04] LABS: GRAN % 93.4 % (50.0-68.0); HEMATOCRIT 31.5 % (42.0-52.0); LYMPH # 0.1 (1.2-3.4); LYMPH % 0.9 % (22.0-35.0); MEAN CELL VOLUME 84.9 fL (80.0-105.0); MEAN CORPUSCULAR HEMOGLOBIN 27.5 pg (25.0-35.0); MEAN CORPUSCULAR HGB CONC 32.4 g/dl (31.0-37.0); MEAN PLATELET VOLUME 11.8 fl (7.0-11.0); MONO # 0.5 (0.1-0.6); MONO % 5.7 % (1.0-6.0); PLATELET COUNT 115 10^3/uL (120.0-450.0); RED CELL DISTRIBUTION WIDTH 15.7 % (11.5-14.5); WHITE BLOOD COUNT 9.3 10^3/ul (4.5-11.0)
[2016-11-06 14:17] LABS: INR 1.17 (0.93-1.08); PARTIAL THROMBOPLASTIN TIME 44.9 Seconds (23.7-30.8)
[2016-11-06] MEDS ORDERED: NOREPINEPHRINE BIT/0.9 % NACL 4 MG/250 ML BAG IV PRN (14:39)
--- NOTE | 2016-11-06 15:13 | PCM.PROC ---
<Arlene Rodriguez - Last Filed: 11/06/16 15:11> Procedures Attestation:: I certify that I have explained the specified Operation(s) or Procedure(s), risks, benefits and reasonable alternatives to the Patient and/or other person responsible. The opportunity was given to ask questions and all questions answered - Central Line Placement Left Internal Jugular Triple Lumen Catheter Aseptic technique was employed throughout the procedure: Hand Hygiene done prior to procedure, Full sterile barriers (mask, hair cover, sterile gown, sterile gloves) CVP Time Out Performed: Yes Pt. Placed on Pulse Ox Monitor: Yes Central Line Prep: Chlorhexidine-Alcohol Combination Ultrasound Used for Placement: Yes Central Line Lumen Inserted: triple Central Line Length: 16 cm Post Procedure: Sutured in Place Secured by: Suture Post procedure dressing: Chlorhexidine disc (Biopatch) Post Procedure X-Ray: Yes Patient Tolerated Procedure: Well Immediate Complications: None <Yaneli HENDRICKSON,Estefany Bolden - Last Filed: 11/06/16 15:14> Attending/Attestation - Attestation I have personally seen and examined this patient.: Yes I have fully participated in the care of the patient.: Yes I have reviewed all pertinent clinical information, including history, physical exam and plan: Yes Notes (Text): 11/06/16 15:14 under US guidance Visualized and catheter placed Verified by US placement blood return x 3 ports CXR ordered No complications
--- NOTE | 2016-11-06 15:17 | CP.CCUPN ---
<Arlene Rodriguez - Last Filed: 11/06/16 15:20> CCU Subjective - Physician Review Subjective (Free Text): 11/05/16 09:32 VSS. On sedation vacation, spontanous breathing trial. 11/06/16 15:13 T normal. BP 70s-80s all morning. HR 90 to 120s. failed SBT CCU Objective - Vital Signs / Intake & Output Vital Signs (Last 4 hours): Vital Signs Pulse BP Pulse Ox 11/06/16 13:51 126 H 11/06/16 13:50 126 H 93 L 11/06/16 13:40 125 H 94 L 11/06/16 13:30 124 H 116/65 94 L 11/06/16 13:26 124 H 122/77 93 L 11/06/16 13:20 125 H 97 11/06/16 13:10 125 H 94 L 11/06/16 13:00 124 H 116/73 89 L 11/06/16 12:58 124 H 120/76 94 L 11/06/16 12:52 124 H 118/74 93 L 11/06/16 12:50 124 H 95 11/06/16 12:49 124 H 120/76 95 11/06/16 12:40 123 H 96 11/06/16 12:36 123 H 119/76 93 L 11/06/16 12:30 123 H 124/76 93 L 11/06/16 12:26 122 H 122/77 95 11/06/16 12:20 115 H 95 11/06/16 12:10 108 H 95 11/06/16 12:00 107 H 113/59 L 95 11/06/16 11:50 90 94 L 11/06/16 11:40 98 H 96 11/06/16 11:30 97 H 91/60 L 94 L 11/06/16 11:20 96 H 95 Intake and Output (Last 8hrs): Intake & Output 11/06/16 11/06/16 11/06/16 06:59 14:59 22:59 Intake Total 420 196 Output Total 400 Balance 20 196 Intake: IV 240 196 Left Antecubital 240 Tube Feeding 180 Output: Urine 400 Urethral ([place]) 400 Other: Voiding Method Indwelling Catheter - Physical Exam Head: Positive for: Atraumatic, Normocephalic Pupils: Positive for: PERRL Extroacular Muscles: Positive for: EOMI Conjunctiva: Positive for: Normal Mouth: Positive for: Dry Respiratory/Chest: Positive for: Decreased Breath Sounds, Rales, Other ( positive egophony). Negative for: Good Air Exchange, Respiratory Distress, Accessory Muscle Use Cardiovascular: Positive for: Irregular Rhythm, Tachycardic Abdomen: Positive for: Distention, Normal Bowel Sounds. Negative for: Tenderness, Peritoneal Signs, Rebound, Guarding Genitourinary Male: Positive for: Normal External Genitalia, Other (penile implant). Negative for: Testicle Swelling Upper Extremity: Positive for: Normal Inspection Lower Extremity: Positive for: Edema (2+ pitting edema to mid collier), NORMAL PULSES. Negative for: CALF TENDERNESS Neurological: Positive for: CN II-XII Intact (grossly,before sedation. ), Speech Normal Skin: Positive for: Warm, Dry, Normal Color Psychiatric: Positive for: Other (intubated) - Medications Active Medications: Active Medications Generic Name Dose Route Start Last Admin Trade Name Freq PRN Reason Stop Dose Admin Apixaban 5 mg 11/04/16 18:00 11/06/16 09:31 Eliquis PO 5 mg BID LALITO Administration Protocol Aspirin 81 mg 11/06/16 10:15 11/06/16 10:15 Aspirin Chewable PO 81 mg DAILY LALITO Administration Atorvastatin Calcium 20 mg 11/04/16 17:00 11/05/16 17:18 Lipitor PO 20 mg DIN LALITO Administration Diltiazem HCl 60 mg 11/04/16 18:00 11/04/16 21:07 Cardizem PO 60 mg TID LALITO Administration Home Med 1 unit 11/06/16 10:00 11/06/16 09:32 Home Med PO Not Given DAILY LALITO Azithromycin 500 mg in 250 mls @ 167 mls/hr 11/05/16 10:00 11/06/16 09:31 Zithromax 500mg In Ns IVPB 167 mls/hr DAILY LALITO Administration Protocol Fentanyl Citrate 1,000 mcg in 100 mls @ 2 mls/hr 11/04/16 18:40 11/06/16 11: 21 Fentanyl Citrate/Sodium Chloride 1 Mg/100 Ml IV 0 mcg/hr .Q24H PRN 0 mls/hr TITRATE PER MD ORDER Titration Protocol 20 MCG/HR Acetaminophen 1,000 mg in 100 mls @ 400 mls/hr 11/04/16 23:30 Ofirmev IVPB 11/06/16 23:31 Q6H PRN Temperature Meropenem 1g/NS 100mL IVPB 1 gm in 100 mls @ 100 mls/hr 11/05/16 06:40 09:31 Meropenem 1g/Ns 100ml Ivpb IVPB 11/12/16 06:41 100 mls/hr Q12 LALITO Administration Protocol diltiaZEM IVPB 100mg in NS 100 mls @ 5 mls/hr 11/05/16 08:43 11/06/16 09:51 Cardizem 100mg In Ns IV 0 mg/hr .Q20H PRN 0 mls/hr TITRATE PER MD ORDER Titration Protocol 5 MG/HR Dexmedetomidine HCl 400 mcg in 100 mls @ 4.309 mls/hr 11/06/16 12:08 Precedex 4 Mcg/Ml (100 Ml) IV .[id number] PRN Sedation Protocol 0.2 MCG/KG/HR NOREPINEPHRINE BIT/0.9 % NACL 4 mg in 250 mls @ 15 mls/hr 11/06/16 14:39 Levophed 4 Mg/ 250 Ml Ns Premixed IV .[id number] PRN TITRATE PER MD ORDER Protocol 4 MCG/MIN Insulin Human Lispro 0 units 11/05/16 07:30 11/06/16 13:10 Humalog Low SC Not Given ACHS LALITO Protocol Levalbuterol HCl 1.25 mg 11/04/16 20:00 11/06/16 13:18 Xopenex IH 1.25 mg [id number] LALITO Administration Mupirocin 0 gm 11/06/16 10:00 11/06/16 09:40 Bactroban Ointment NS 11/10/16 18:01 1 applic BID LALITO Administration Non-Formulary Medication 1 puff 11/05/16 10:00 11/06/16 09:32 Budesonide [Pulmicort Flexhaler] INH Not Given BID LALITO Pantoprazole Sodium 40 mg 11/05/16 10:00 11/06/16 09:32 Protonix Inj IVP 40 mg DAILY LALITO Administration Tramadol/Acetaminophen 1 tab 11/04/16 15:49 Ultracet 37.5/325 Mg PO QID PRN Pain, moderate (4-7) - Patient Studies Lab Studies: Microbiology Studies 11/04/16 21:20 MRSA Culture (Admit) - Final Naris MRSA DETECTED 11/05/16 07:10 Blood Culture - Preliminary Blood-Venous NO GROWTH AFTER 24 HOURS 11/05/16 06:50 Blood Culture - Preliminary Blood-Venous NO GROWTH AFTER 24 HOURS Lab Studies 11/06/16 11/06/16 11/06/16 Range/Units 13:55 13:55 13:55 WBC 9.3 (4.5-11.0) 10^3/ul RBC 3.71 (3.5-6.1) 10^6/uL Hgb 10.2 L (14.0-18.0) gm/dL Hct 31.5 L (42.0-52.0) % MCV 84.9 (80.0-105.0) fL MCH 27.5 (25.0-35.0) pg MCHC 32.4 (31.0-37.0) g/dl RDW 15.7 H (11.5-14.5) % Plt Count 115 L (120.0-450.0) 10^3/uL MPV 11.8 H (7.0-11.0) fl Gran % 93.4 H (50.0-68.0) % Lymph % (Auto) 0.9 L (22.0-35.0) % [place] % (Auto) 5.7 (1.0-6.0) % Eos % (Auto) 0.0 L (1.5-5.0) % Baso % (Auto) 0.0 (0.0-3.0) % Gran # 8.70 H (1.4-6.5) Lymph # 0.1 L (1.2-3.4) [place] # 0.5 (0.1-0.6) Eos # 0.0 (0.0-0.7) Baso # 0.00 (0.0-2.0) K/mm3 Neutrophils % (Manual) (50.0-70.0) % Band Neutrophils % (0-2) % Lymphocytes % (Manual) (22.0-35.0) % Monocytes % (Manual) (1.0-6.0) % Platelet Evaluation (NORMAL) PT 12.6 H (9.9-11.8) Seconds INR 1.17 H (0.93-1.08) APTT 44.9 H (23.7-30.8) Seconds Fibrinogen (187-400) mg/dL Fibrin Degrad Products >10 <40 ug/ml (< 10 ug/mL) pCO2 (35-45) mm/Hg pO2 (80-100) mm/Hg HCO3 (21-28) mmol/L ABG pH (7.35-7.45) ABG Total CO2 (22-28) mmol.L ABG O2 Saturation (95-98) % ABG O2 Content (15-23) ML/dl ABG Base Excess (-2.0-3.0) mmol/L ABG Hemoglobin (11.7-17.4) g/dL ABG Carboxyhemoglobin (0.5-1.5) % POC ABG HHb (Measured) (0-5) % ABG Methemoglobin (0.0-3.0) % ABG O2 Capacity (16-24) mL/dl Hgb O2 Saturation (95.0-98.0) % FiO2 % Sodium (132-148) mmol/L Potassium (3.6-5.0) mmol/L Chloride (95-110) mmol/L Carbon Dioxide (21-33) mmol/L Anion Gap (10-20) BUN (7-21) mg/dL Creatinine (0.5-1.4) mg/dL Est GFR ( Amer) Est GFR (Non-Af Amer) POC Glucose (mg/dL) (65-110) mg/dL Random Glucose (70-110) mg/dL Calcium (8.4-10.5) mg/dL Ferritin ng/mL Total Bilirubin (0.2-1.3) mg/dL AST (15-59) U/L ALT (7-56) U/L Alkaline Phosphatase (38-133) U/L Lactate Dehydrogenase (333-699) U/L Total Creatine Kinase (35-230) U/L CK-MB (CK-2) % Troponin I ng/mL Total Protein (5.8-8.3) g/dL Albumin (3.0-4.8) g/dL Globulin gm/dL Albumin/Globulin Ratio (1.1-1.8) Vitamin B12 (239-931) pg/mL Folate ng/mL Ur L.pneumophila Ag (NEGATIVE) 06/15/17 06/15/17 06/15/17 Range/Units 10:57 07:20 05:30 WBC (4.5-11.0) 10^3/ul RBC (3.5-6.1) 10^6/uL Hgb (14.0-18.0) gm/dL Hct (42.0-52.0) % MCV (80.0-105.0) fL MCH (25.0-35.0) pg MCHC (31.0-37.0) g/dl RDW (11.5-14.5) % Plt Count (120.0-450.0) 10^3/uL MPV (7.0-11.0) fl Gran % (50.0-68.0) % Lymph % (Auto) (22.0-35.0) % [place] % (Auto) (1.0-6.0) % Eos % (Auto) (1.5-5.0) % Baso % (Auto) (0.0-3.0) % Gran # (1.4-6.5) Lymph # (1.2-3.4) [place] # (0.1-0.6) Eos # (0.0-0.7) Baso # (0.0-2.0) K/mm3 Neutrophils % (Manual) (50.0-70.0) % Band Neutrophils % (0-2) % Lymphocytes % (Manual) (22.0-35.0) % Monocytes % (Manual) (1.0-6.0) % Platelet Evaluation (NORMAL) PT (9.9-11.8) Seconds INR (0.93-1.08) APTT (23.7-30.8) Seconds Fibrinogen (187-400) mg/dL Fibrin Degrad Products >10 <40 ug/ml (< 10 ug/mL) pCO2 (35-45) mm/Hg pO2 (80-100) mm/Hg HCO3 (21-28) mmol/L ABG pH (7.35-7.45) ABG Total CO2 (22-28) mmol.L ABG O2 Saturation (95-98) % ABG O2 Content (15-23) ML/dl ABG Base Excess (-2.0-3.0) mmol/L ABG Hemoglobin (11.7-17.4) g/dL ABG Carboxyhemoglobin (0.5-1.5) % POC ABG HHb (Measured) (0-5) % ABG Methemoglobin (0.0-3.0) % ABG O2 Capacity (16-24) mL/dl Hgb O2 Saturation (95.0-98.0) % FiO2 % Sodium (132-148) mmol/L Potassium (3.6-5.0) mmol/L Chloride (95-110) mmol/L Carbon Dioxide (21-33) mmol/L Anion Gap (10-20) BUN (7-21) mg/dL Creatinine (0.5-1.4) mg/dL Est GFR ( Amer) Est GFR (Non-Af Amer) POC Glucose (mg/dL) 194 H 196 H (65-110) mg/dL Random Glucose (70-110) mg/dL Calcium (8.4-10.5) mg/dL Ferritin ng/mL Total Bilirubin (0.2-1.3) mg/dL AST (15-59) U/L ALT (7-56) U/L Alkaline Phosphatase (38-133) U/L Lactate Dehydrogenase (333-699) U/L Total Creatine Kinase (35-230) U/L CK-MB (CK-2) % Troponin I ng/mL Total Protein (5.8-8.3) g/dL Albumin (3.0-4.8) g/dL Globulin gm/dL Albumin/Globulin Ratio (1.1-1.8) Vitamin B12 (239-931) pg/mL Folate ng/mL Ur L.pneumophila Ag (NEGATIVE) 11/06/16 11/06/16 11/06/16 Range/Units 05:30 05:30 05:30 WBC 10.0 D (4.5-11.0) 10^3/ul RBC 4.20 (3.5-6.1) 10^6/uL Hgb 11.5 L (14.0-18.0) gm/dL Hct 35.7 L (42.0-52.0) % MCV 85.0 (80.0-105.0) fL MCH 27.4 (25.0-35.0) pg MCHC 32.2 (31.0-37.0) g/dl RDW 15.7 H (11.5-14.5) % Plt Count 123 (120.0-450.0) 10^3/uL MPV 12.4 H (7.0-11.0) fl Gran % 93.3 H (50.0-68.0) % Lymph % (Auto) 1.1 L (22.0-35.0) % [place] % (Auto) 5.6 (1.0-6.0) % Eos % (Auto) 0.0 L (1.5-5.0) % Baso % (Auto) 0.0 (0.0-3.0) % Gran # 9.31 H (1.4-6.5) Lymph # 0.1 L (1.2-3.4) [place] # 0.6 (0.1-0.6) Eos # 0.0 (0.0-0.7) Baso # 0.00 (0.0-2.0) K/mm3 Neutrophils % (Manual) (50.0-70.0) % Band Neutrophils % (0-2) % Lymphocytes % (Manual) (22.0-35.0) % Monocytes % (Manual) (1.0-6.0) % Platelet Evaluation (NORMAL) PT 12.4 H (9.9-11.8) Seconds INR 1.15 H (0.93-1.08) APTT 46.3 H (23.7-30.8) Seconds Fibrinogen 872.6 H* (187-400) mg/dL Fibrin Degrad Products (< 10 ug/mL) pCO2 (35-45) mm/Hg pO2 (80-100) mm/Hg HCO3 (21-28) mmol/L ABG pH (7.35-7.45) ABG Total CO2 (22-28) mmol.L ABG O2 Saturation (95-98) % ABG O2 Content (15-23) ML/dl ABG Base Excess (-2.0-3.0) mmol/L ABG Hemoglobin (11.7-17.4) g/dL ABG Carboxyhemoglobin (0.5-1.5) % POC ABG HHb (Measured) (0-5) % ABG Methemoglobin (0.0-3.0) % ABG O2 Capacity (16-24) mL/dl Hgb O2 Saturation (95.0-98.0) % FiO2 % Sodium 138 (132-148) mmol/L Potassium 3.9 (3.6-5.0) mmol/L Chloride 100 (95-110) mmol/L Carbon Dioxide 25 (21-33) mmol/L Anion Gap 17 (10-20) BUN 66 H (7-21) mg/dL Creatinine 2.5 H (0.5-1.4) mg/dL Est GFR ( Amer) 31 Est GFR (Non-Af Amer) 25 POC Glucose (mg/dL) (65-110) mg/dL Random Glucose 172 H (70-110) mg/dL Calcium 8.9 (8.4-10.5) mg/dL Ferritin ng/mL Total Bilirubin 0.7 (0.2-1.3) mg/dL AST 36 (15-59) U/L ALT 32 (7-56) U/L Alkaline Phosphatase 110 (38-133) U/L Lactate Dehydrogenase (333-699) U/L Total Creatine Kinase (35-230) U/L CK-MB (CK-2) % Troponin I ng/mL Total Protein 6.7 (5.8-8.3) g/dL Albumin 3.4 (3.0-4.8) g/dL Globulin 3.3 gm/dL Albumin/Globulin Ratio 1.0 L (1.1-1.8) Vitamin B12 (239-931) pg/mL Folate ng/mL Ur L.pneumophila Ag (NEGATIVE) 11/06/16 11/06/16 11/05/16 Range/Units 05:28 00:35 22:20 WBC (4.5-11.0) 10^3/ul RBC (3.5-6.1) 10^6/uL Hgb (14.0-18.0) gm/dL Hct (42.0-52.0) % MCV (80.0-105.0) fL MCH (25.0-35.0) pg MCHC (31.0-37.0) g/dl RDW (11.5-14.5) % Plt Count (120.0-450.0) 10^3/uL MPV (7.0-11.0) fl Gran % (50.0-68.0) % Lymph % (Auto) (22.0-35.0) % [place] % (Auto) (1.0-6.0) % Eos % (Auto) (1.5-5.0) % Baso % (Auto) (0.0-3.0) % Gran # (1.4-6.5) Lymph # (1.2-3.4) [place] # (0.1-0.6) Eos # (0.0-0.7) Baso # (0.0-2.0) K/mm3 Neutrophils % (Manual) (50.0-70.0) % Band Neutrophils % (0-2) % Lymphocytes % (Manual) (22.0-35.0) % Monocytes % (Manual) (1.0-6.0) % Platelet Evaluation (NORMAL) PT (9.9-11.8) Seconds INR (0.93-1.08) APTT (23.7-30.8) Seconds Fibrinogen (187-400) mg/dL Fibrin Degrad Products >10 <40 ug/ml (< 10 ug/mL) pCO2 44 (35-45) mm/Hg pO2 80.0 (80-100) mm/Hg HCO3 26.6 (21-28) mmol/L ABG pH 7.39 (7.35-7.45) ABG Total CO2 28.0 (22-28) mmol.L ABG O2 Saturation 97.2 (95-98) % ABG O2 Content 14.8 L (15-23) ML/dl ABG Base Excess 1.3 (-2.0-3.0) mmol/L ABG Hemoglobin 11.0 L (11.7-17.4) g/dL ABG Carboxyhemoglobin 1.4 (0.5-1.5) % POC ABG HHb (Measured) 2.7 (0-5) % ABG Methemoglobin 1.0 (0.0-3.0) % ABG O2 Capacity 15.2 L (16-24) mL/dl Hgb O2 Saturation 94.9 L (95.0-98.0) % FiO2 50.0 % Sodium (132-148) mmol/L Potassium (3.6-5.0) mmol/L Chloride (95-110) mmol/L Carbon Dioxide (21-33) mmol/L Anion Gap (10-20) BUN (7-21) mg/dL Creatinine (0.5-1.4) mg/dL Est GFR ( Amer) Est GFR (Non-Af Amer) POC Glucose (mg/dL) (65-110) mg/dL Random Glucose (70-110) mg/dL Calcium (8.4-10.5) mg/dL Ferritin ng/mL Total Bilirubin (0.2-1.3) mg/dL AST (15-59) U/L ALT (7-56) U/L Alkaline Phosphatase (38-133) U/L Lactate Dehydrogenase 357 (333-699) U/L Total Creatine Kinase 179 (35-230) U/L CK-MB (CK-2) % Troponin I 0.05 D ng/mL Total Protein (5.8-8.3) g/dL Albumin (3.0-4.8) g/dL Globulin gm/dL Albumin/Globulin Ratio (1.1-1.8) Vitamin B12 (239-931) pg/mL Folate ng/mL Ur L.pneumophila Ag (NEGATIVE) 11/05/16 11/05/16 11/05/16 Range/Units 22:20 22:20 18:00 WBC 8.3 (4.5-11.0) 10^3/ul RBC 4.01 (3.5-6.1) 10^6/uL Hgb 11.2 L (14.0-18.0) gm/dL Hct 33.9 L (42.0-52.0) % MCV 84.5 (80.0-105.0) fL MCH 27.9 (25.0-35.0) pg MCHC 33.0 (31.0-37.0) g/dl RDW 15.4 H (11.5-14.5) % Plt Count 133 (120.0-450.0) 10^3/uL MPV 12.7 H (7.0-11.0) fl Gran % (50.0-68.0) % Lymph % (Auto) (22.0-35.0) % [place] % (Auto) (1.0-6.0) % Eos % (Auto) (1.5-5.0) % Baso % (Auto) (0.0-3.0) % Gran # (1.4-6.5) Lymph # (1.2-3.4) [place] # (0.1-0.6) Eos # (0.0-0.7) Baso # (0.0-2.0) K/mm3 Neutrophils % (Manual) (50.0-70.0) % Band Neutrophils % (0-2) % Lymphocytes % (Manual) (22.0-35.0) % Monocytes % (Manual) (1.0-6.0) % Platelet Evaluation (NORMAL) PT 13.8 H (9.9-11.8) Seconds INR 1.28 H (0.93-1.08) APTT 48.8 H (23.7-30.8) Seconds Fibrinogen 837.5 H* (187-400) mg/dL Fibrin Degrad Products (< 10 ug/mL) pCO2 40 (35-45) mm/Hg pO2 77.0 L (80-100) mm/Hg HCO3 25.9 (21-28) mmol/L ABG pH 7.42 (7.35-7.45) ABG Total CO2 27.1 (22-28) mmol.L ABG O2 Saturation 97.4 (95-98) % ABG O2 Content 15.1 (15-23) ML/dl ABG Base Excess 1.3 (-2.0-3.0) mmol/L ABG Hemoglobin 11.2 L (11.7-17.4) g/dL ABG Carboxyhemoglobin 1.1 (0.5-1.5) % POC ABG HHb (Measured) 2.5 (0-5) % ABG Methemoglobin 0.9 (0.0-3.0) % ABG O2 Capacity 15.5 L (16-24) mL/dl Hgb O2 Saturation 95.5 (95.0-98.0) % FiO2 40.0 % Sodium (132-148) mmol/L Potassium (3.6-5.0) mmol/L Chloride (95-110) mmol/L Carbon Dioxide (21-33) mmol/L Anion Gap (10-20) BUN (7-21) mg/dL Creatinine (0.5-1.4) mg/dL Est GFR ( Amer) Est GFR (Non-Af Amer) POC Glucose (mg/dL) (65-110) mg/dL Random Glucose (70-110) mg/dL Calcium (8.4-10.5) mg/dL Ferritin ng/mL Total Bilirubin (0.2-1.3) mg/dL AST (15-59) U/L ALT (7-56) U/L Alkaline Phosphatase (38-133) U/L Lactate Dehydrogenase (333-699) U/L Total Creatine Kinase (35-230) U/L CK-MB (CK-2) % Troponin I ng/mL Total Protein (5.8-8.3) g/dL Albumin (3.0-4.8) g/dL Globulin gm/dL Albumin/Globulin Ratio (1.1-1.8) Vitamin B12 (239-931) pg/mL Folate ng/mL Ur L.pneumophila Ag (NEGATIVE) 11/05/16 11/05/16 11/05/16 Range/Units 18:00 18:00 16:25 WBC 9.9 (4.5-11.0) 10^3/ul RBC 4.05 (3.5-6.1) 10^6/uL Hgb 11.3 L (14.0-18.0) gm/dL Hct 34.5 L (42.0-52.0) % MCV 85.2 (80.0-105.0) fL MCH 27.9 (25.0-35.0) pg MCHC 32.8 (31.0-37.0) g/dl RDW 15.3 H (11.5-14.5) % Plt Count 115 L (120.0-450.0) 10^3/uL MPV 11.9 H (7.0-11.0) fl Gran % (50.0-68.0) % Lymph % (Auto) (22.0-35.0) % [place] % (Auto) (1.0-6.0) % Eos % (Auto) (1.5-5.0) % Baso % (Auto) (0.0-3.0) % Gran # (1.4-6.5) Lymph # (1.2-3.4) [place] # (0.1-0.6) Eos # (0.0-0.7) Baso # (0.0-2.0) K/mm3 Neutrophils % (Manual) 91 H (50.0-70.0) % Band Neutrophils % 4 H (0-2) % Lymphocytes % (Manual) 4 L (22.0-35.0) % Monocytes % (Manual) 1 (1.0-6.0) % Platelet Evaluation Normal (NORMAL) PT (9.9-11.8) Seconds INR (0.93-1.08) APTT (23.7-30.8) Seconds Fibrinogen (187-400) mg/dL Fibrin Degrad Products (< 10 ug/mL) pCO2 (35-45) mm/Hg pO2 (80-100) mm/Hg HCO3 (21-28) mmol/L ABG pH (7.35-7.45) ABG Total CO2 (22-28) mmol.L ABG O2 Saturation (95-98) % ABG O2 Content (15-23) ML/dl ABG Base Excess (-2.0-3.0) mmol/L ABG Hemoglobin (11.7-17.4) g/dL ABG Carboxyhemoglobin (0.5-1.5) % POC ABG HHb (Measured) (0-5) % ABG Methemoglobin (0.0-3.0) % ABG O2 Capacity (16-24) mL/dl Hgb O2 Saturation (95.0-98.0) % FiO2 % Sodium (132-148) mmol/L Potassium (3.6-5.0) mmol/L Chloride (95-110) mmol/L Carbon Dioxide (21-33) mmol/L Anion Gap (10-20) BUN (7-21) mg/dL Creatinine (0.5-1.4) mg/dL Est GFR ( Amer) Est GFR (Non-Af Amer) POC Glucose (mg/dL) 182 H (65-110) mg/dL Random Glucose (70-110) mg/dL Calcium (8.4-10.5) mg/dL Ferritin ng/mL Total Bilirubin (0.2-1.3) mg/dL AST (15-59) U/L ALT (7-56) U/L Alkaline Phosphatase (38-133) U/L Lactate Dehydrogenase 356 (333-699) U/L Total Creatine Kinase 215 (35-230) U/L CK-MB (CK-2) % Troponin I 0.04 ng/mL Total Protein (5.8-8.3) g/dL Albumin (3.0-4.8) g/dL Globulin gm/dL Albumin/Globulin Ratio (1.1-1.8) Vitamin B12 (239-931) pg/mL Folate ng/mL Ur L.pneumophila Ag (NEGATIVE) 11/05/16 11/05/16 11/05/16 Range/Units 12:50 11:35 10:30 WBC (4.5-11.0) 10^3/ul RBC (3.5-6.1) 10^6/uL Hgb (14.0-18.0) gm/dL Hct (42.0-52.0) % MCV (80.0-105.0) fL MCH (25.0-35.0) pg MCHC (31.0-37.0) g/dl RDW (11.5-14.5) % Plt Count (120.0-450.0) 10^3/uL MPV (7.0-11.0) fl Gran % (50.0-68.0) % Lymph % (Auto) (22.0-35.0) % [place] % (Auto) (1.0-6.0) % Eos % (Auto) (1.5-5.0) % Baso % (Auto) (0.0-3.0) % Gran # (1.4-6.5) Lymph # (1.2-3.4) [place] # (0.1-0.6) Eos # (0.0-0.7) Baso # (0.0-2.0) K/mm3 Neutrophils % (Manual) (50.0-70.0) % Band Neutrophils % (0-2) % Lymphocytes % (Manual) (22.0-35.0) % Monocytes % (Manual) (1.0-6.0) % Platelet Evaluation (NORMAL) PT (9.9-11.8) Seconds INR (0.93-1.08) APTT (23.7-30.8) Seconds Fibrinogen (187-400) mg/dL Fibrin Degrad Products (< 10 ug/mL) pCO2 (35-45) mm/Hg pO2 (80-100) mm/Hg HCO3 (21-28) mmol/L ABG pH (7.35-7.45) ABG Total CO2 (22-28) mmol.L ABG O2 Saturation (95-98) % ABG O2 Content (15-23) ML/dl ABG Base Excess (-2.0-3.0) mmol/L ABG Hemoglobin (11.7-17.4) g/dL ABG Carboxyhemoglobin (0.5-1.5) % POC ABG HHb (Measured) (0-5) % ABG Methemoglobin (0.0-3.0) % ABG O2 Capacity (16-24) mL/dl Hgb O2 Saturation (95.0-98.0) % FiO2 % Sodium (132-148) mmol/L Potassium (3.6-5.0) mmol/L Chloride (95-110) mmol/L Carbon Dioxide (21-33) mmol/L Anion Gap (10-20) BUN (7-21) mg/dL Creatinine (0.5-1.4) mg/dL Est GFR ( Amer) Est GFR (Non-Af Amer) POC Glucose (mg/dL) 217 H (65-110) mg/dL Random Glucose (70-110) mg/dL Calcium (8.4-10.5) mg/dL Ferritin 331.0 ng/mL Total Bilirubin (0.2-1.3) mg/dL AST (15-59) U/L ALT (7-56) U/L Alkaline Phosphatase (38-133) U/L Lactate Dehydrogenase (333-699) U/L Total Creatine Kinase (35-230) U/L CK-MB (CK-2) % Cancelled Troponin I ng/mL Total Protein (5.8-8.3) g/dL Albumin (3.0-4.8) g/dL Globulin gm/dL Albumin/Globulin Ratio (1.1-1.8) Vitamin B12 > 1000 H (239-931) pg/mL Folate > 20.0 ng/mL Ur L.pneumophila Ag Positive H (NEGATIVE) 11/05/16 Range/Units 07:28 WBC (4.5-11.0) 10^3/ul RBC (3.5-6.1) 10^6/uL Hgb (14.0-18.0) gm/dL Hct (42.0-52.0) % MCV (80.0-105.0) fL MCH (25.0-35.0) pg MCHC (31.0-37.0) g/dl RDW (11.5-14.5) % Plt Count (120.0-450.0) 10^3/uL MPV (7.0-11.0) fl Gran % (50.0-68.0) % Lymph % (Auto) (22.0-35.0) % [place] % (Auto) (1.0-6.0) % Eos % (Auto) (1.5-5.0) % Baso % (Auto) (0.0-3.0) % Gran # (1.4-6.5) Lymph # (1.2-3.4) [place] # (0.1-0.6) Eos # (0.0-0.7) Baso # (0.0-2.0) K/mm3 Neutrophils % (Manual) (50.0-70.0) % Band Neutrophils % (0-2) % Lymphocytes % (Manual) (22.0-35.0) % Monocytes % (Manual) (1.0-6.0) % Platelet Evaluation (NORMAL) PT (9.9-11.8) Seconds INR (0.93-1.08) APTT (23.7-30.8) Seconds Fibrinogen (187-400) mg/dL Fibrin Degrad Products (< 10 ug/mL) pCO2 (35-45) mm/Hg pO2 (80-100) mm/Hg HCO3 (21-28) mmol/L ABG pH (7.35-7.45) ABG Total CO2 (22-28) mmol.L ABG O2 Saturation (95-98) % ABG O2 Content (15-23) ML/dl ABG Base Excess (-2.0-3.0) mmol/L ABG Hemoglobin (11.7-17.4) g/dL ABG Carboxyhemoglobin (0.5-1.5) % POC ABG HHb (Measured) (0-5) % ABG Methemoglobin (0.0-3.0) % ABG O2 Capacity (16-24) mL/dl Hgb O2 Saturation (95.0-98.0) % FiO2 % Sodium (132-148) mmol/L Potassium (3.6-5.0) mmol/L Chloride (95-110) mmol/L Carbon Dioxide (21-33) mmol/L Anion Gap (10-20) BUN (7-21) mg/dL Creatinine (0.5-1.4) mg/dL Est GFR ( Amer) Est GFR (Non-Af Amer) POC Glucose (mg/dL) 180 H (65-110) mg/dL Random Glucose (70-110) mg/dL Calcium (8.4-10.5) mg/dL Ferritin ng/mL Total Bilirubin (0.2-1.3) mg/dL AST (15-59) U/L ALT (7-56) U/L Alkaline Phosphatase (38-133) U/L Lactate Dehydrogenase (333-699) U/L Total Creatine Kinase (35-230) U/L CK-MB (CK-2) % Troponin I ng/mL Total Protein (5.8-8.3) g/dL Albumin (3.0-4.8) g/dL Globulin gm/dL Albumin/Globulin Ratio (1.1-1.8) Vitamin B12 (239-931) pg/mL Folate ng/mL Ur L.pneumophila Ag (NEGATIVE) Laboratory Results - last 24 hr 11/05/16 11/05/16 11/05/16 07:28 10:30 11:35 WBC RBC Hgb Hct MCV MCH MCHC RDW Plt Count MPV Gran % Lymph % (Auto) [place] % (Auto) Eos % (Auto) Baso % (Auto) Gran # Lymph # [place] # Eos # Baso # Neutrophils % (Manual) Band Neutrophils % Lymphocytes % (Manual) Monocytes % (Manual) Platelet Evaluation PT INR APTT Fibrinogen Fibrin Degrad Products pCO2 pO2 HCO3 ABG pH ABG Total CO2 ABG O2 Saturation ABG O2 Content ABG Base Excess ABG Hemoglobin ABG Carboxyhemoglobin POC ABG HHb (Measured) ABG Methemoglobin ABG O2 Capacity Hgb O2 Saturation FiO2 Sodium Potassium Chloride Carbon Dioxide Anion Gap BUN Creatinine Est GFR ( Amer) Est GFR (Non-Af Amer) POC Glucose (mg/dL) 180 H 217 H Random Glucose Calcium Ferritin 331.0 Total Bilirubin AST ALT Alkaline Phosphatase Lactate Dehydrogenase Total Creatine Kinase CK-MB (CK-2) % Cancelled Troponin I Total Protein Albumin Globulin Albumin/Globulin Ratio Vitamin B12 > 1000 H Folate > 20.0 Ur L.pneumophila Ag 11/05/16 11/05/16 11/05/16 12:50 16:25 18:00 WBC RBC Hgb Hct MCV MCH MCHC RDW Plt Count MPV Gran % Lymph % (Auto) [place] % (Auto) Eos % (Auto) Baso % (Auto) Gran # Lymph # [place] # Eos # Baso # Neutrophils % (Manual) Band Neutrophils % Lymphocytes % (Manual) Monocytes % (Manual) Platelet Evaluation PT INR APTT Fibrinogen Fibrin Degrad Products pCO2 pO2 HCO3 ABG pH ABG Total CO2 ABG O2 Saturation ABG O2 Content ABG Base Excess ABG Hemoglobin ABG Carboxyhemoglobin POC ABG HHb (Measured) ABG Methemoglobin ABG O2 Capacity Hgb O2 Saturation FiO2 Sodium Potassium Chloride Carbon Dioxide Anion Gap BUN Creatinine Est GFR ( Amer) Est GFR (Non-Af Amer) POC Glucose (mg/dL) 182 H Random Glucose Calcium Ferritin Total Bilirubin AST ALT Alkaline Phosphatase Lactate Dehydrogenase 356 Total Creatine Kinase 215 CK-MB (CK-2) % Troponin I 0.04 Total Protein Albumin Globulin Albumin/Globulin Ratio Vitamin B12 Folate Ur L.pneumophila Ag Positive H 11/05/16 11/05/16 11/05/16 18:00 18:00 22:20 WBC 9.9 8.3 RBC 4.05 4.01 Hgb 11.3 L 11.2 L Hct 34.5 L 33.9 L MCV 85.2 84.5 MCH 27.9 27.9 MCHC 32.8 33.0 RDW 15.3 H 15.4 H Plt Count 115 L 133 MPV 11.9 H 12.7 H Gran % Lymph % (Auto) [place] % (Auto) Eos % (Auto) Baso % (Auto) Gran # Lymph # [place] # Eos # Baso # Neutrophils % (Manual) 91 H Band Neutrophils % 4 H Lymphocytes % (Manual) 4 L Monocytes % (Manual) 1 Platelet Evaluation Normal PT INR APTT Fibrinogen Fibrin Degrad Products pCO2 40 pO2 77.0 L HCO3 25.9 ABG pH 7.42 ABG Total CO2 27.1 ABG O2 Saturation 97.4 ABG O2 Content 15.1 ABG Base Excess 1.3 ABG Hemoglobin 11.2 L ABG Carboxyhemoglobin 1.1 POC ABG HHb (Measured) 2.5 ABG Methemoglobin 0.9 ABG O2 Capacity 15.5 L Hgb O2 Saturation 95.5 FiO2 40.0 Sodium Potassium Chloride Carbon Dioxide Anion Gap BUN Creatinine Est GFR ( Amer) Est GFR (Non-Af Amer) POC Glucose (mg/dL) Random Glucose Calcium Ferritin Total Bilirubin AST ALT Alkaline Phosphatase Lactate Dehydrogenase Total Creatine Kinase CK-MB (CK-2) % Troponin I Total Protein Albumin Globulin Albumin/Globulin Ratio Vitamin B12 Folate Ur L.pneumophila Ag 11/05/16 11/05/16 11/06/16 22:20 22:20 00:35 WBC RBC Hgb Hct MCV MCH MCHC RDW Plt Count MPV Gran % Lymph % (Auto) [place] % (Auto) Eos % (Auto) Baso % (Auto) Gran # Lymph # [place] # Eos # Baso # Neutrophils % (Manual) Band Neutrophils % Lymphocytes % (Manual) Monocytes % (Manual) Platelet Evaluation PT 13.8 H INR 1.28 H APTT 48.8 H Fibrinogen 837.5 H* Fibrin Degrad Products >10 <40 ug/ml pCO2 pO2 HCO3 ABG pH ABG Total CO2 ABG O2 Saturation ABG O2 Content ABG Base Excess ABG Hemoglobin ABG Carboxyhemoglobin POC ABG HHb (Measured) ABG Methemoglobin ABG O2 Capacity Hgb O2 Saturation FiO2 Sodium Potassium Chloride Carbon Dioxide Anion Gap BUN Creatinine Est GFR ( Amer) Est GFR (Non-Af Amer) POC Glucose (mg/dL) Random Glucose Calcium Ferritin Total Bilirubin AST ALT Alkaline Phosphatase Lactate Dehydrogenase 357 Total Creatine Kinase 179 CK-MB (CK-2) % Troponin I 0.05 D Total Protein Albumin Globulin Albumin/Globulin Ratio Vitamin B12 Folate Ur L.pneumophila Ag 11/06/16 11/06/16 11/06/16 05:28 05:30 05:30 WBC 10.0 D RBC 4.20 Hgb 11.5 L Hct 35.7 L MCV 85.0 MCH 27.4 MCHC 32.2 RDW 15.7 H Plt Count 123 MPV 12.4 H Gran % 93.3 H Lymph % (Auto) 1.1 L [place] % (Auto) 5.6 Eos % (Auto) 0.0 L Baso % (Auto) 0.0 Gran # 9.31 H Lymph # 0.1 L [place] # 0.6 Eos # 0.0 Baso # 0.00 Neutrophils % (Manual) Band Neutrophils % Lymphocytes % (Manual) Monocytes % (Manual) Platelet Evaluation PT INR APTT Fibrinogen Fibrin Degrad Products pCO2 44 pO2 80.0 HCO3 26.6 ABG pH 7.39 ABG Total CO2 28.0 ABG O2 Saturation 97.2 ABG O2 Content 14.8 L ABG Base Excess 1.3 ABG Hemoglobin 11.0 L ABG Carboxyhemoglobin 1.4 POC ABG HHb (Measured) 2.7 ABG Methemoglobin 1.0 ABG O2 Capacity 15.2 L Hgb O2 Saturation 94.9 L FiO2 50.0 Sodium 138 Potassium 3.9 Chloride 100 Carbon Dioxide 25 Anion Gap 17 BUN 66 H Creatinine 2.5 H Est GFR ( Amer) 31 Est GFR (Non-Af Amer) 25 POC Glucose (mg/dL) Random Glucose 172 H Calcium 8.9 Ferritin Total Bilirubin 0.7 AST 36 ALT 32 Alkaline Phosphatase 110 Lactate Dehydrogenase Total Creatine Kinase CK-MB (CK-2) % Troponin I Total Protein 6.7 Albumin 3.4 Globulin 3.3 Albumin/Globulin Ratio 1.0 L Vitamin B12 Folate Ur L.pneumophila Ag 11/06/16 11/06/16 11/06/16 05:30 05:30 07:20 WBC RBC Hgb Hct MCV MCH MCHC RDW Plt Count MPV Gran % Lymph % (Auto) [place] % (Auto) Eos % (Auto) Baso % (Auto) Gran # Lymph # [place] # Eos # Baso # Neutrophils % (Manual) Band Neutrophils % Lymphocytes % (Manual) Monocytes % (Manual) Platelet Evaluation PT 12.4 H INR 1.15 H APTT 46.3 H Fibrinogen 872.6 H* Fibrin Degrad Products >10 <40 ug/ml pCO2 pO2 HCO3 ABG pH ABG Total CO2 ABG O2 Saturation ABG O2 Content ABG Base Excess ABG Hemoglobin ABG Carboxyhemoglobin POC ABG HHb (Measured) ABG Methemoglobin ABG O2 Capacity Hgb O2 Saturation FiO2 Sodium Potassium Chloride Carbon Dioxide Anion Gap BUN Creatinine Est GFR ( Amer) Est GFR (Non-Af Amer) POC Glucose (mg/dL) 196 H Random Glucose Calcium Ferritin Total Bilirubin AST ALT Alkaline Phosphatase Lactate Dehydrogenase Total Creatine Kinase CK-MB (CK-2) % Troponin I Total Protein Albumin Globulin Albumin/Globulin Ratio Vitamin B12 Folate Ur L.pneumophila Ag 11/06/16 11/06/16 11/06/16 10:57 13:55 13:55 WBC 9.3 RBC 3.71 Hgb 10.2 L Hct 31.5 L MCV 84.9 MCH 27.5 MCHC 32.4 RDW 15.7 H Plt Count 115 L MPV 11.8 H Gran % 93.4 H Lymph % (Auto) 0.9 L [place] % (Auto) 5.7 Eos % (Auto) 0.0 L Baso % (Auto) 0.0 Gran # 8.70 H Lymph # 0.1 L [place] # 0.5 Eos # 0.0 Baso # 0.00 Neutrophils % (Manual) Band Neutrophils % Lymphocytes % (Manual) Monocytes % (Manual) Platelet Evaluation PT 12.6 H INR 1.17 H APTT 44.9 H Fibrinogen Fibrin Degrad Products pCO2 pO2 HCO3 ABG pH ABG Total CO2 ABG O2 Saturation ABG O2 Content ABG Base Excess ABG Hemoglobin ABG Carboxyhemoglobin POC ABG HHb (Measured) ABG Methemoglobin ABG O2 Capacity Hgb O2 Saturation FiO2 Sodium Potassium Chloride Carbon Dioxide Anion Gap BUN Creatinine Est GFR ( Amer) Est GFR (Non-Af Amer) POC Glucose (mg/dL) 194 H Random Glucose Calcium Ferritin Total Bilirubin AST ALT Alkaline Phosphatase Lactate Dehydrogenase Total Creatine Kinase CK-MB (CK-2) % Troponin I Total Protein Albumin Globulin Albumin/Globulin Ratio Vitamin B12 Folate Ur L.pneumophila Ag 11/06/16 13:55 WBC RBC Hgb Hct MCV MCH MCHC RDW Plt Count MPV Gran % Lymph % (Auto) [place] % (Auto) Eos % (Auto) Baso % (Auto) Gran # Lymph # [place] # Eos # Baso # Neutrophils % (Manual) Band Neutrophils % Lymphocytes % (Manual) Monocytes % (Manual) Platelet Evaluation PT INR APTT Fibrinogen Fibrin Degrad Products >10 <40 ug/ml pCO2 pO2 HCO3 ABG pH ABG Total CO2 ABG O2 Saturation ABG O2 Content ABG Base Excess ABG Hemoglobin ABG Carboxyhemoglobin POC ABG HHb (Measured) ABG Methemoglobin ABG O2 Capacity Hgb O2 Saturation FiO2 Sodium Potassium Chloride Carbon Dioxide Anion Gap BUN Creatinine Est GFR ( Amer) Est GFR (Non-Af Amer) POC Glucose (mg/dL) Random Glucose Calcium Ferritin Total Bilirubin AST ALT Alkaline Phosphatase Lactate Dehydrogenase Total Creatine Kinase CK-MB (CK-2) % Troponin I Total Protein Albumin Globulin Albumin/Globulin Ratio Vitamin B12 Folate Ur L.pneumophila Ag EKG/Cardiology Studies: Cardiology / EKG Studies 11/06/16 13:35 ELECTROCARDIOGRAM Stat Comment: Reason For Exam: change in rhythm Fingerstick Blood Sugar Results: 194 Assessment/Plan - Assessment and Plan (Free Text) Plan: 76 year old male with PMH of triple vessel CAD S/P CABG, CVA S/P right carotid endarterectomy, A-flutter on cardizem and eliquis, COPD, PAULIE on home bipap, non- iddm. Pt desat to 60% in ED, not corrected by bipap, intubated. CXR showed fluid overload and RLL PNA. Tmax 102 at ED arrival. Pt has hypoxemic respiratory failure secondary to PNA. Plt slightly decreases possibly due to sepsis from PNA Neuro Failed SBT, not alert enough on sedation vacation No sedation Cardio SBP improved after 3L NS bolus. But again fluctuate from 80s to 100s. Levophed as needed Stop Cardizem gtt for HR 90s and SBP 70s Amiodarone bolus as needed for a-fib Eliquis BID Lasix 20 IV bid - hold for low BP Solumedrol 20 q12 Echocardiogram new EF 26, if pt stablize, may cath Pulm CXR showed similar venous congestion, RLL infiltrate (PNA vs R>L pleural effusion) PRVC 50/5/16/400 GI Glucerna goal 60 cc/hr with 1L free water flush/d PIPPA on CKD. Pre-renal. Endo Normal TSH, ISSS Heme Plt improves continue eliquis for now Chronic anemia ID (+) legionella Ag, On merem, azithromycin prophylaxis On therapeutic eliquis s/r/d/w Dr. Groves - Date & Time Date: 11/06/16 Time: 15:14 <Estefany Groves MD H - Last Filed: 11/06/16 17:25> CCU Objective - Vital Signs / Intake & Output Vital Signs (Last 4 hours): Vital Signs Pulse BP Pulse Ox 11/06/16 16:30 123 H 130/71 88 L 11/06/16 16:20 122 H 91 L 11/06/16 16:10 120 H 90 L 11/06/16 16:00 125 H 114/61 93 L 11/06/16 15:50 126 H 92 L 11/06/16 15:40 126 H 93 L 11/06/16 15:30 126 H 116/72 92 L 11/06/16 15:20 126 H 93 L 11/06/16 15:10 126 H 97 11/06/16 15:00 126 H 106/60 95 11/06/16 14:50 126 H 95 11/06/16 14:40 126 H 95 11/06/16 14:30 126 H 84/52 L 92 L 11/06/16 14:20 126 H 95 11/06/16 14:10 125 H 95 11/06/16 14:02 125 H 108/94 H 90 L 11/06/16 14:01 125 H 11/06/16 14:00 125 H 11/06/16 13:51 126 H 11/06/16 13:50 126 H 93 L 11/06/16 13:40 125 H 94 L 11/06/16 13:30 124 H 116/65 94 L 11/06/16 13:26 124 H 122/77 93 L Intake and Output (Last 8hrs): Intake & Output 11/06/16 11/06/16 11/06/16 06:59 14:59 22:59 Intake Total 420 196 Output Total 400 Balance 20 196 Intake: IV 240 196 Left Antecubital 240 Tube Feeding 180 Output: Urine 400 Urethral ([place]) 400 Other: Voiding Method Indwelling Catheter - Medications Active Medications: Active Medications Generic Name Dose Route Start Last Admin Trade Name Jeremyq PRN Reason Stop Dose Admin Apixaban 5 mg 11/04/16 18:00 11/06/16 09:31 Eliquis PO 5 mg BID LALITO Administration Protocol Aspirin 81 mg 11/06/16 10:15 11/06/16 10:15 Aspirin Chewable PO 81 mg DAILY LALITO Administration Atorvastatin Calcium 20 mg 11/04/16 17:00 11/05/16 17:18 Lipitor PO 20 mg DIN LALITO Administration Diltiazem HCl 60 mg 11/04/16 18:00 11/04/16 21:07 Cardizem PO 60 mg TID LALITO Administration Home Med 1 unit 11/06/16 10:00 11/06/16 09:32 Home Med PO Not Given DAILY LALITO Azithromycin 500 mg in 250 mls @ 167 mls/hr 11/05/16 10:00 11/06/16 09:31 Zithromax 500mg In Ns IVPB 167 mls/hr DAILY LALITO Administration Protocol Fentanyl Citrate 1,000 mcg in 100 mls @ 2 mls/hr 11/04/16 18:40 11/06/16 11: 21 Fentanyl Citrate/Sodium Chloride 1 Mg/100 Ml IV 0 mcg/hr .Q24H PRN 0 mls/hr TITRATE PER MD ORDER Titration Protocol 20 MCG/HR Acetaminophen 1,000 mg in 100 mls @ 400 mls/hr 11/04/16 23:30 Ofirmev IVPB 11/06/16 23:31 Q6H PRN Temperature Meropenem 1g/NS 100mL IVPB 1 gm in 100 mls @ 100 mls/hr 11/05/16 06:40 09:31 Meropenem 1g/Ns 100ml Ivpb IVPB 11/12/16 06:41 100 mls/hr Q12 LALITO Administration Protocol diltiaZEM IVPB 100mg in NS 100 mls @ 5 mls/hr 11/05/16 08:43 11/06/16 09:51 Cardizem 100mg In Ns IV 0 mg/hr .Q20H PRN 0 mls/hr TITRATE PER MD ORDER Titration Protocol 5 MG/HR Dexmedetomidine HCl 400 mcg in 100 mls @ 4.309 mls/hr 11/06/16 12:08 Precedex 4 Mcg/Ml (100 Ml) IV .[id number] PRN Sedation Protocol 0.2 MCG/KG/HR NOREPINEPHRINE BIT/0.9 % NACL 4 mg in 250 mls @ 15 mls/hr 11/06/16 14:39 Levophed 4 Mg/ 250 Ml Ns Premixed IV .[id number] PRN TITRATE PER MD ORDER Protocol 4 MCG/MIN Insulin Human Lispro 0 units 11/05/16 07:30 11/06/16 13:10 Humalog Low SC Not Given ACHS LALITO Protocol Levalbuterol HCl 1.25 mg 11/04/16 20:00 11/06/16 13:18 Xopenex IH 1.25 mg [id number] LALITO Administration Mupirocin 0 gm 11/06/16 10:00 11/06/16 09:40 Bactroban Ointment NS 11/10/16 18:01 1 applic BID LALITO Administration Non-Formulary Medication 1 puff 11/05/16 10:00 11/06/16 09:32 Budesonide [Pulmicort Flexhaler] INH Not Given BID LALITO Pantoprazole Sodium 40 mg 11/05/16 10:00 11/06/16 09:32 Protonix Inj IVP 40 mg DAILY LALITO Administration Tramadol/Acetaminophen 1 tab 11/04/16 15:49 Ultracet 37.5/325 Mg PO QID PRN Pain, moderate (4-7) - Patient Studies Lab Studies: Microbiology Studies 11/04/16 21:20 MRSA Culture (Admit) - Final Naris MRSA DETECTED 11/05/16 07:10 Blood Culture - Preliminary Blood-Venous NO GROWTH AFTER 24 HOURS 11/05/16 06:50 Blood Culture - Preliminary Blood-Venous NO GROWTH AFTER 24 HOURS Lab Studies 11/06/16 11/06/16 11/06/16 Range/Units 16:45 15:53 13:55 WBC (4.5-11.0) 10^3/ul RBC (3.5-6.1) 10^6/uL Hgb (14.0-18.0) gm/dL Hct (42.0-52.0) % MCV (80.0-105.0) fL MCH (25.0-35.0) pg MCHC (31.0-37.0) g/dl RDW (11.5-14.5) % Plt Count (120.0-450.0) 10^3/uL MPV (7.0-11.0) fl Gran % (50.0-68.0) % Lymph % (Auto) (22.0-35.0) % [place] % (Auto) (1.0-6.0) % Eos % (Auto) (1.5-5.0) % Baso % (Auto) (0.0-3.0) % Gran # (1.4-6.5) Lymph # (1.2-3.4) [place] # (0.1-0.6) Eos # (0.0-0.7) Baso # (0.0-2.0) K/mm3 Neutrophils % (Manual) (50.0-70.0) % Band Neutrophils % (0-2) % Lymphocytes % (Manual) (22.0-35.0) % Monocytes % (Manual) (1.0-6.0) % Platelet Evaluation (NORMAL) PT (9.9-11.8) Seconds INR (0.93-1.08) APTT (23.7-30.8) Seconds Fibrinogen (187-400) mg/dL Fibrin Degrad Products >10 <40 ug/ml (< 10 ug/mL) pCO2 40 (35-45) mm/Hg pO2 63.0 L (80-100) mm/Hg HCO3 22.6 (21-28) mmol/L ABG pH 7.36 (7.35-7.45) ABG Total CO2 23.8 (22-28) mmol.L ABG O2 Saturation 93.6 L (95-98) % ABG O2 Content 13.7 L (15-23) ML/dl ABG Base Excess -2.7 L (-2.0-3.0) mmol/L ABG Hemoglobin 10.6 L (11.7-17.4) g/dL ABG Carboxyhemoglobin 1.5 (0.5-1.5) % POC ABG HHb (Measured) 6.3 H (0-5) % ABG Methemoglobin 0.8 (0.0-3.0) % ABG O2 Capacity 14.6 L (16-24) mL/dl Hgb O2 Saturation 91.4 L (95.0-98.0) % FiO2 60.0 % Sodium (132-148) mmol/L Potassium (3.6-5.0) mmol/L Chloride (95-110) mmol/L Carbon Dioxide (21-33) mmol/L Anion Gap (10-20) BUN (7-21) mg/dL Creatinine (0.5-1.4) mg/dL Est GFR ( Amer) Est GFR (Non-Af Amer) POC Glucose (mg/dL) 174 H (65-110) mg/dL Random Glucose (70-110) mg/dL Calcium (8.4-10.5) mg/dL Total Bilirubin (0.2-1.3) mg/dL AST (15-59) U/L ALT (7-56) U/L Alkaline Phosphatase (38-133) U/L Lactate Dehydrogenase (333-699) U/L Total Creatine Kinase (35-230) U/L Troponin I ng/mL Total Protein (5.8-8.3) g/dL Albumin (3.0-4.8) g/dL Globulin gm/dL Albumin/Globulin Ratio (1.1-1.8) Vitamin B12 (239-931) pg/mL Folate ng/mL Ur L.pneumophila Ag (NEGATIVE) 11/06/16 11/06/16 11/06/16 Range/Units 13:55 13:55 10:57 WBC 9.3 (4.5-11.0) 10^3/ul RBC 3.71 (3.5-6.1) 10^6/uL Hgb 10.2 L (14.0-18.0) gm/dL Hct 31.5 L (42.0-52.0) % MCV 84.9 (80.0-105.0) fL MCH 27.5 (25.0-35.0) pg MCHC 32.4 (31.0-37.0) g/dl RDW 15.7 H (11.5-14.5) % Plt Count 115 L (120.0-450.0) 10^3/uL MPV 11.8 H (7.0-11.0) fl Gran % 93.4 H (50.0-68.0) % Lymph % (Auto) 0.9 L (22.0-35.0) % [place] % (Auto) 5.7 (1.0-6.0) % Eos % (Auto) 0.0 L (1.5-5.0) % Baso % (Auto) 0.0 (0.0-3.0) % Gran # 8.70 H (1.4-6.5) Lymph # 0.1 L (1.2-3.4) [place] # 0.5 (0.1-0.6) Eos # 0.0 (0.0-0.7) Baso # 0.00 (0.0-2.0) K/mm3 Neutrophils % (Manual) (50.0-70.0) % Band Neutrophils % (0-2) % Lymphocytes % (Manual) (22.0-35.0) % Monocytes % (Manual) (1.0-6.0) % Platelet Evaluation (NORMAL) PT 12.6 H (9.9-11.8) Seconds INR 1.17 H (0.93-1.08) APTT 44.9 H (23.7-30.8) Seconds Fibrinogen 744.0 H* (187-400) mg/dL Fibrin Degrad Products (< 10 ug/mL) pCO2 (35-45) mm/Hg pO2 (80-100) mm/Hg HCO3 (21-28) mmol/L ABG pH (7.35-7.45) ABG Total CO2 (22-28) mmol.L ABG O2 Saturation (95-98) % ABG O2 Content (15-23) ML/dl ABG Base Excess (-2.0-3.0) mmol/L ABG Hemoglobin (11.7-17.4) g/dL ABG Carboxyhemoglobin (0.5-1.5) % POC ABG HHb (Measured) (0-5) % ABG Methemoglobin (0.0-3.0) % ABG O2 Capacity (16-24) mL/dl Hgb O2 Saturation (95.0-98.0) % FiO2 % Sodium (132-148) mmol/L Potassium (3.6-5.0) mmol/L Chloride (95-110) mmol/L Carbon Dioxide (21-33) mmol/L Anion Gap (10-20) BUN (7-21) mg/dL Creatinine (0.5-1.4) mg/dL Est GFR ( Amer) Est GFR (Non-Af Amer) POC Glucose (mg/dL) 194 H (65-110) mg/dL Random Glucose (70-110) mg/dL Calcium (8.4-10.5) mg/dL Total Bilirubin (0.2-1.3) mg/dL AST (15-59) U/L ALT (7-56) U/L Alkaline Phosphatase (38-133) U/L Lactate Dehydrogenase (333-699) U/L Total Creatine Kinase (35-230) U/L Troponin I ng/mL Total Protein (5.8-8.3) g/dL Albumin (3.0-4.8) g/dL Globulin gm/dL Albumin/Globulin Ratio (1.1-1.8) Vitamin B12 (239-931) pg/mL Folate ng/mL Ur L.pneumophila Ag (NEGATIVE) 11/06/16 11/06/16 11/06/16 Range/Units 07:20 05:30 05:30 WBC (4.5-11.0) 10^3/ul RBC (3.5-6.1) 10^6/uL Hgb (14.0-18.0) gm/dL Hct (42.0-52.0) % MCV (80.0-105.0) fL MCH (25.0-35.0) pg MCHC (31.0-37.0) g/dl RDW (11.5-14.5) % Plt Count (120.0-450.0) 10^3/uL MPV (7.0-11.0) fl Gran % (50.0-68.0) % Lymph % (Auto) (22.0-35.0) % [place] % (Auto) (1.0-6.0) % Eos % (Auto) (1.5-5.0) % Baso % (Auto) (0.0-3.0) % Gran # (1.4-6.5) Lymph # (1.2-3.4) [place] # (0.1-0.6) Eos # (0.0-0.7) Baso # (0.0-2.0) K/mm3 Neutrophils % (Manual) (50.0-70.0) % Band Neutrophils % (0-2) % Lymphocytes % (Manual) (22.0-35.0) % Monocytes % (Manual) (1.0-6.0) % Platelet Evaluation (NORMAL) PT 12.4 H (9.9-11.8) Seconds INR 1.15 H (0.93-1.08) APTT 46.3 H (23.7-30.8) Seconds Fibrinogen 872.6 H* (187-400) mg/dL Fibrin Degrad Products >10 <40 ug/ml (< 10 ug/mL) pCO2 (35-45) mm/Hg pO2 (80-100) mm/Hg HCO3 (21-28) mmol/L ABG pH (7.35-7.45) ABG Total CO2 (22-28) mmol.L ABG O2 Saturation (95-98) % ABG O2 Content (15-23) ML/dl ABG Base Excess (-2.0-3.0) mmol/L ABG Hemoglobin (11.7-17.4) g/dL ABG Carboxyhemoglobin (0.5-1.5) % POC ABG HHb (Measured) (0-5) % ABG Methemoglobin (0.0-3.0) % ABG O2 Capacity (16-24) mL/dl Hgb O2 Saturation (95.0-98.0) % FiO2 % Sodium (132-148) mmol/L Potassium (3.6-5.0) mmol/L Chloride (95-110) mmol/L Carbon Dioxide (21-33) mmol/L Anion Gap (10-20) BUN (7-21) mg/dL Creatinine (0.5-1.4) mg/dL Est GFR ( Amer) Est GFR (Non-Af Amer) POC Glucose (mg/dL) 196 H (65-110) mg/dL Random Glucose (70-110) mg/dL Calcium (8.4-10.5) mg/dL Total Bilirubin (0.2-1.3) mg/dL AST (15-59) U/L ALT (7-56) U/L Alkaline Phosphatase (38-133) U/L Lactate Dehydrogenase (333-699) U/L Total Creatine Kinase (35-230) U/L Troponin I ng/mL Total Protein (5.8-8.3) g/dL Albumin (3.0-4.8) g/dL Globulin gm/dL Albumin/Globulin Ratio (1.1-1.8) Vitamin B12 (239-931) pg/mL Folate ng/mL Ur L.pneumophila Ag (NEGATIVE) 11/06/16 11/06/16 11/06/16 Range/Units 05:30 05:30 05:28 WBC 10.0 D (4.5-11.0) 10^3/ul RBC 4.20 (3.5-6.1) 10^6/uL Hgb 11.5 L (14.0-18.0) gm/dL Hct 35.7 L (42.0-52.0) % MCV 85.0 (80.0-105.0) fL MCH 27.4 (25.0-35.0) pg MCHC 32.2 (31.0-37.0) g/dl RDW 15.7 H (11.5-14.5) % Plt Count 123 (120.0-450.0) 10^3/uL MPV 12.4 H (7.0-11.0) fl Gran % 93.3 H (50.0-68.0) % Lymph % (Auto) 1.1 L (22.0-35.0) % [place] % (Auto) 5.6 (1.0-6.0) % Eos % (Auto) 0.0 L (1.5-5.0) % Baso % (Auto) 0.0 (0.0-3.0) % Gran # 9.31 H (1.4-6.5) Lymph # 0.1 L (1.2-3.4) [place] # 0.6 (0.1-0.6) Eos # 0.0 (0.0-0.7) Baso # 0.00 (0.0-2.0) K/mm3 Neutrophils % (Manual) (50.0-70.0) % Band Neutrophils % (0-2) % Lymphocytes % (Manual) (22.0-35.0) % Monocytes % (Manual) (1.0-6.0) % Platelet Evaluation (NORMAL) PT (9.9-11.8) Seconds INR (0.93-1.08) APTT (23.7-30.8) Seconds Fibrinogen (187-400) mg/dL Fibrin Degrad Products (< 10 ug/mL) pCO2 44 (35-45) mm/Hg pO2 80.0 (80-100) mm/Hg HCO3 26.6 (21-28) mmol/L ABG pH 7.39 (7.35-7.45) ABG Total CO2 28.0 (22-28) mmol.L ABG O2 Saturation 97.2 (95-98) % ABG O2 Content 14.8 L (15-23) ML/dl ABG Base Excess 1.3 (-2.0-3.0) mmol/L ABG Hemoglobin 11.0 L (11.7-17.4) g/dL ABG Carboxyhemoglobin 1.4 (0.5-1.5) % POC ABG HHb (Measured) 2.7 (0-5) % ABG Methemoglobin 1.0 (0.0-3.0) % ABG O2 Capacity 15.2 L (16-24) mL/dl Hgb O2 Saturation 94.9 L (95.0-98.0) % FiO2 50.0 % Sodium 138 (132-148) mmol/L Potassium 3.9 (3.6-5.0) mmol/L Chloride 100 (95-110) mmol/L Carbon Dioxide 25 (21-33) mmol/L Anion Gap 17 (10-20) BUN 66 H (7-21) mg/dL Creatinine 2.5 H (0.5-1.4) mg/dL Est GFR ( Amer) 31 Est GFR (Non-Af Amer) 25 POC Glucose (mg/dL) (65-110) mg/dL Random Glucose 172 H (70-110) mg/dL Calcium 8.9 (8.4-10.5) mg/dL Total Bilirubin 0.7 (0.2-1.3) mg/dL AST 36 (15-59) U/L ALT 32 (7-56) U/L Alkaline Phosphatase 110 (38-133) U/L Lactate Dehydrogenase (333-699) U/L Total Creatine Kinase (35-230) U/L Troponin I ng/mL Total Protein 6.7 (5.8-8.3) g/dL Albumin 3.4 (3.0-4.8) g/dL Globulin 3.3 gm/dL Albumin/Globulin Ratio 1.0 L (1.1-1.8) Vitamin B12 (239-931) pg/mL Folate ng/mL Ur L.pneumophila Ag (NEGATIVE) 11/06/16 11/05/16 11/05/16 Range/Units 00:35 22:20 22:20 WBC (4.5-11.0) 10^3/ul RBC (3.5-6.1) 10^6/uL Hgb (14.0-18.0) gm/dL Hct (42.0-52.0) % MCV (80.0-105.0) fL MCH (25.0-35.0) pg MCHC (31.0-37.0) g/dl RDW (11.5-14.5) % Plt Count (120.0-450.0) 10^3/uL MPV (7.0-11.0) fl Gran % (50.0-68.0) % Lymph % (Auto) (22.0-35.0) % [place] % (Auto) (1.0-6.0) % Eos % (Auto) (1.5-5.0) % Baso % (Auto) (0.0-3.0) % Gran # (1.4-6.5) Lymph # (1.2-3.4) [place] # (0.1-0.6) Eos # (0.0-0.7) Baso # (0.0-2.0) K/mm3 Neutrophils % (Manual) (50.0-70.0) % Band Neutrophils % (0-2) % Lymphocytes % (Manual) (22.0-35.0) % Monocytes % (Manual) (1.0-6.0) % Platelet Evaluation (NORMAL) PT 13.8 H (9.9-11.8) Seconds INR 1.28 H (0.93-1.08) APTT 48.8 H (23.7-30.8) Seconds Fibrinogen 837.5 H* (187-400) mg/dL Fibrin Degrad Products >10 <40 ug/ml (< 10 ug/mL) pCO2 (35-45) mm/Hg pO2 (80-100) mm/Hg HCO3 (21-28) mmol/L ABG pH (7.35-7.45) ABG Total CO2 (22-28) mmol.L ABG O2 Saturation (95-98) % ABG O2 Content (15-23) ML/dl ABG Base Excess (-2.0-3.0) mmol/L ABG Hemoglobin (11.7-17.4) g/dL ABG Carboxyhemoglobin (0.5-1.5) % POC ABG HHb (Measured) (0-5) % ABG Methemoglobin (0.0-3.0) % ABG O2 Capacity (16-24) mL/dl Hgb O2 Saturation (95.0-98.0) % FiO2 % Sodium (132-148) mmol/L Potassium (3.6-5.0) mmol/L Chloride (95-110) mmol/L Carbon Dioxide (21-33) mmol/L Anion Gap (10-20) BUN (7-21) mg/dL Creatinine (0.5-1.4) mg/dL Est GFR ( Amer) Est GFR (Non-Af Amer) POC Glucose (mg/dL) (65-110) mg/dL Random Glucose (70-110) mg/dL Calcium (8.4-10.5) mg/dL Total Bilirubin (0.2-1.3) mg/dL AST (15-59) U/L ALT (7-56) U/L Alkaline Phosphatase (38-133) U/L Lactate Dehydrogenase 357 (333-699) U/L Total Creatine Kinase 179 (35-230) U/L Troponin I 0.05 D ng/mL Total Protein (5.8-8.3) g/dL Albumin (3.0-4.8) g/dL Globulin gm/dL Albumin/Globulin Ratio (1.1-1.8) Vitamin B12 (239-931) pg/mL Folate ng/mL Ur L.pneumophila Ag (NEGATIVE) 11/05/16 11/05/16 11/05/16 Range/Units 22:20 18:00 18:00 WBC 8.3 9.9 (4.5-11.0) 10^3/ul RBC 4.01 4.05 (3.5-6.1) 10^6/uL Hgb 11.2 L 11.3 L (14.0-18.0) gm/dL Hct 33.9 L 34.5 L (42.0-52.0) % MCV 84.5 85.2 (80.0-105.0) fL MCH 27.9 27.9 (25.0-35.0) pg MCHC 33.0 32.8 (31.0-37.0) g/dl RDW 15.4 H 15.3 H (11.5-14.5) % Plt Count 133 115 L (120.0-450.0) 10^3/uL MPV 12.7 H 11.9 H (7.0-11.0) fl Gran % (50.0-68.0) % Lymph % (Auto) (22.0-35.0) % [place] % (Auto) (1.0-6.0) % Eos % (Auto) (1.5-5.0) % Baso % (Auto) (0.0-3.0) % Gran # (1.4-6.5) Lymph # (1.2-3.4) [place] # (0.1-0.6) Eos # (0.0-0.7) Baso # (0.0-2.0) K/mm3 Neutrophils % (Manual) 91 H (50.0-70.0) % Band Neutrophils % 4 H (0-2) % Lymphocytes % (Manual) 4 L (22.0-35.0) % Monocytes % (Manual) 1 (1.0-6.0) % Platelet Evaluation Normal (NORMAL) PT (9.9-11.8) Seconds INR (0.93-1.08) APTT (23.7-30.8) Seconds Fibrinogen (187-400) mg/dL Fibrin Degrad Products (< 10 ug/mL) pCO2 40 (35-45) mm/Hg pO2 77.0 L (80-100) mm/Hg HCO3 25.9 (21-28) mmol/L ABG pH 7.42 (7.35-7.45) ABG Total CO2 27.1 (22-28) mmol.L ABG O2 Saturation 97.4 (95-98) % ABG O2 Content 15.1 (15-23) ML/dl ABG Base Excess 1.3 (-2.0-3.0) mmol/L ABG Hemoglobin 11.2 L (11.7-17.4) g/dL ABG Carboxyhemoglobin 1.1 (0.5-1.5) % POC ABG HHb (Measured) 2.5 (0-5) % ABG Methemoglobin 0.9 (0.0-3.0) % ABG O2 Capacity 15.5 L (16-24) mL/dl Hgb O2 Saturation 95.5 (95.0-98.0) % FiO2 40.0 % Sodium (132-148) mmol/L Potassium (3.6-5.0) mmol/L Chloride (95-110) mmol/L Carbon Dioxide (21-33) mmol/L Anion Gap (10-20) BUN (7-21) mg/dL Creatinine (0.5-1.4) mg/dL Est GFR ( Amer) Est GFR (Non-Af Amer) POC Glucose (mg/dL) (65-110) mg/dL Random Glucose (70-110) mg/dL Calcium (8.4-10.5) mg/dL Total Bilirubin (0.2-1.3) mg/dL AST (15-59) U/L ALT (7-56) U/L Alkaline Phosphatase (38-133) U/L Lactate Dehydrogenase (333-699) U/L Total Creatine Kinase (35-230) U/L Troponin I ng/mL Total Protein (5.8-8.3) g/dL Albumin (3.0-4.8) g/dL Globulin gm/dL Albumin/Globulin Ratio (1.1-1.8) Vitamin B12 (239-931) pg/mL Folate ng/mL Ur L.pneumophila Ag (NEGATIVE) 11/05/16 11/05/16 11/05/16 Range/Units 18:00 12:50 10:30 WBC (4.5-11.0) 10^3/ul RBC (3.5-6.1) 10^6/uL Hgb (14.0-18.0) gm/dL Hct (42.0-52.0) % MCV (80.0-105.0) fL MCH (25.0-35.0) pg MCHC (31.0-37.0) g/dl RDW (11.5-14.5) % Plt Count (120.0-450.0) 10^3/uL MPV (7.0-11.0) fl Gran % (50.0-68.0) % Lymph % (Auto) (22.0-35.0) % [place] % (Auto) (1.0-6.0) % Eos % (Auto) (1.5-5.0) % Baso % (Auto) (0.0-3.0) % Gran # (1.4-6.5) Lymph # (1.2-3.4) [place] # (0.1-0.6) Eos # (0.0-0.7) Baso # (0.0-2.0) K/mm3 Neutrophils % (Manual) (50.0-70.0) % Band Neutrophils % (0-2) % Lymphocytes % (Manual) (22.0-35.0) % Monocytes % (Manual) (1.0-6.0) % Platelet Evaluation (NORMAL) PT (9.9-11.8) Seconds INR (0.93-1.08) APTT (23.7-30.8) Seconds Fibrinogen (187-400) mg/dL Fibrin Degrad Products (< 10 ug/mL) pCO2 (35-45) mm/Hg pO2 (80-100) mm/Hg HCO3 (21-28) mmol/L ABG pH (7.35-7.45) ABG Total CO2 (22-28) mmol.L ABG O2 Saturation (95-98) % ABG O2 Content (15-23) ML/dl ABG Base Excess (-2.0-3.0) mmol/L ABG Hemoglobin (11.7-17.4) g/dL ABG Carboxyhemoglobin (0.5-1.5) % POC ABG HHb (Measured) (0-5) % ABG Methemoglobin (0.0-3.0) % ABG O2 Capacity (16-24) mL/dl Hgb O2 Saturation (95.0-98.0) % FiO2 % Sodium (132-148) mmol/L Potassium (3.6-5.0) mmol/L Chloride (95-110) mmol/L Carbon Dioxide (21-33) mmol/L Anion Gap (10-20) BUN (7-21) mg/dL Creatinine (0.5-1.4) mg/dL Est GFR ( Amer) Est GFR (Non-Af Amer) POC Glucose (mg/dL) (65-110) mg/dL Random Glucose (70-110) mg/dL Calcium (8.4-10.5) mg/dL Total Bilirubin (0.2-1.3) mg/dL AST (15-59) U/L ALT (7-56) U/L Alkaline Phosphatase (38-133) U/L Lactate Dehydrogenase 356 (333-699) U/L Total Creatine Kinase 215 (35-230) U/L Troponin I 0.04 ng/mL Total Protein (5.8-8.3) g/dL Albumin (3.0-4.8) g/dL Globulin gm/dL Albumin/Globulin Ratio (1.1-1.8) Vitamin B12 > 1000 H (239-931) pg/mL Folate > 20.0 ng/mL Ur L.pneumophila Ag Positive H (NEGATIVE) Laboratory Results - last 24 hr 11/05/16 11/05/16 11/05/16 10:30 12:50 18:00 WBC RBC Hgb Hct MCV MCH MCHC RDW Plt Count MPV Gran % Lymph % (Auto) [place] % (Auto) Eos % (Auto) Baso % (Auto) Gran # Lymph # [place] # Eos # Baso # Neutrophils % (Manual) Band Neutrophils % Lymphocytes % (Manual) Monocytes % (Manual) Platelet Evaluation PT INR APTT Fibrinogen Fibrin Degrad Products pCO2 pO2 HCO3 ABG pH ABG Total CO2 ABG O2 Saturation ABG O2 Content ABG Base Excess ABG Hemoglobin ABG Carboxyhemoglobin POC ABG HHb (Measured) ABG Methemoglobin ABG O2 Capacity Hgb O2 Saturation FiO2 Sodium Potassium Chloride Carbon Dioxide Anion Gap BUN Creatinine Est GFR ( Amer) Est GFR (Non-Af Amer) POC Glucose (mg/dL) Random Glucose Calcium Total Bilirubin AST ALT Alkaline Phosphatase Lactate Dehydrogenase 356 Total Creatine Kinase 215 Troponin I 0.04 Total Protein Albumin Globulin Albumin/Globulin Ratio Vitamin B12 > 1000 H Folate > 20.0 Ur L.pneumophila Ag Positive H 11/05/16 11/05/16 11/05/16 18:00 18:00 22:20 WBC 9.9 8.3 RBC 4.05 4.01 Hgb 11.3 L 11.2 L Hct 34.5 L 33.9 L MCV 85.2 84.5 MCH 27.9 27.9 MCHC 32.8 33.0 RDW 15.3 H 15.4 H Plt Count 115 L 133 MPV 11.9 H 12.7 H Gran % Lymph % (Auto) [place] % (Auto) Eos % (Auto) Baso % (Auto) Gran # Lymph # [place] # Eos # Baso # Neutrophils % (Manual) 91 H Band Neutrophils % 4 H Lymphocytes % (Manual) 4 L Monocytes % (Manual) 1 Platelet Evaluation Normal PT INR APTT Fibrinogen Fibrin Degrad Products pCO2 40 pO2 77.0 L HCO3 25.9 ABG pH 7.42 ABG Total CO2 27.1 ABG O2 Saturation 97.4 ABG O2 Content 15.1 ABG Base Excess 1.3 ABG Hemoglobin 11.2 L ABG Carboxyhemoglobin 1.1 POC ABG HHb (Measured) 2.5 ABG Methemoglobin 0.9 ABG O2 Capacity 15.5 L Hgb O2 Saturation 95.5 FiO2 40.0 Sodium Potassium Chloride Carbon Dioxide Anion Gap BUN Creatinine Est GFR ( Amer) Est GFR (Non-Af Amer) POC Glucose (mg/dL) Random Glucose Calcium Total Bilirubin AST ALT Alkaline Phosphatase Lactate Dehydrogenase Total Creatine Kinase Troponin I Total Protein Albumin Globulin Albumin/Globulin Ratio Vitamin B12 Folate Ur L.pneumophila Ag 11/05/16 11/05/16 11/06/16 22:20 22:20 00:35 WBC RBC Hgb Hct MCV MCH MCHC RDW Plt Count MPV Gran % Lymph % (Auto) [place] % (Auto) Eos % (Auto) Baso % (Auto) Gran # Lymph # [place] # Eos # Baso # Neutrophils % (Manual) Band Neutrophils % Lymphocytes % (Manual) Monocytes % (Manual) Platelet Evaluation PT 13.8 H INR 1.28 H APTT 48.8 H Fibrinogen 837.5 H* Fibrin Degrad Products >10 <40 ug/ml pCO2 pO2 HCO3 ABG pH ABG Total CO2 ABG O2 Saturation ABG O2 Content ABG Base Excess ABG Hemoglobin ABG Carboxyhemoglobin POC ABG HHb (Measured) ABG Methemoglobin ABG O2 Capacity Hgb O2 Saturation FiO2 Sodium Potassium Chloride Carbon Dioxide Anion Gap BUN Creatinine Est GFR ( Amer) Est GFR (Non-Af Amer) POC Glucose (mg/dL) Random Glucose Calcium Total Bilirubin AST ALT Alkaline Phosphatase Lactate Dehydrogenase 357 Total Creatine Kinase 179 Troponin I 0.05 D Total Protein Albumin Globulin Albumin/Globulin Ratio Vitamin B12 Folate Ur L.pneumophila Ag 11/06/16 11/06/16 11/06/16 05:28 05:30 05:30 WBC 10.0 D RBC 4.20 Hgb 11.5 L Hct 35.7 L MCV 85.0 MCH 27.4 MCHC 32.2 RDW 15.7 H Plt Count 123 MPV 12.4 H Gran % 93.3 H Lymph % (Auto) 1.1 L [place] % (Auto) 5.6 Eos % (Auto) 0.0 L Baso % (Auto) 0.0 Gran # 9.31 H Lymph # 0.1 L [place] # 0.6 Eos # 0.0 Baso # 0.00 Neutrophils % (Manual) Band Neutrophils % Lymphocytes % (Manual) Monocytes % (Manual) Platelet Evaluation PT INR APTT Fibrinogen Fibrin Degrad Products pCO2 44 pO2 80.0 HCO3 26.6 ABG pH 7.39 ABG Total CO2 28.0 ABG O2 Saturation 97.2 ABG O2 Content 14.8 L ABG Base Excess 1.3 ABG Hemoglobin 11.0 L ABG Carboxyhemoglobin 1.4 POC ABG HHb (Measured) 2.7 ABG Methemoglobin 1.0 ABG O2 Capacity 15.2 L Hgb O2 Saturation 94.9 L FiO2 50.0 Sodium 138 Potassium 3.9 Chloride 100 Carbon Dioxide 25 Anion Gap 17 BUN 66 H Creatinine 2.5 H Est GFR ( Amer) 31 Est GFR (Non-Af Amer) 25 POC Glucose (mg/dL) Random Glucose 172 H Calcium 8.9 Total Bilirubin 0.7 AST 36 ALT 32 Alkaline Phosphatase 110 Lactate Dehydrogenase Total Creatine Kinase Troponin I Total Protein 6.7 Albumin 3.4 Globulin 3.3 Albumin/Globulin Ratio 1.0 L Vitamin B12 Folate Ur L.pneumophila Ag 11/06/16 11/06/16 11/06/16 05:30 05:30 07:20 WBC RBC Hgb Hct MCV MCH MCHC RDW Plt Count MPV Gran % Lymph % (Auto) [place] % (Auto) Eos % (Auto) Baso % (Auto) Gran # Lymph # [place] # Eos # Baso # Neutrophils % (Manual) Band Neutrophils % Lymphocytes % (Manual) Monocytes % (Manual) Platelet Evaluation PT 12.4 H INR 1.15 H APTT 46.3 H Fibrinogen 872.6 H* Fibrin Degrad Products >10 <40 ug/ml pCO2 pO2 HCO3 ABG pH ABG Total CO2 ABG O2 Saturation ABG O2 Content ABG Base Excess ABG Hemoglobin ABG Carboxyhemoglobin POC ABG HHb (Measured) ABG Methemoglobin ABG O2 Capacity Hgb O2 Saturation FiO2 Sodium Potassium Chloride Carbon Dioxide Anion Gap BUN Creatinine Est GFR ( Amer) Est GFR (Non-Af Amer) POC Glucose (mg/dL) 196 H Random Glucose Calcium Total Bilirubin AST ALT Alkaline Phosphatase Lactate Dehydrogenase Total Creatine Kinase Troponin I Total Protein Albumin Globulin Albumin/Globulin Ratio Vitamin B12 Folate Ur L.pneumophila Ag 11/06/16 11/06/16 11/06/16 10:57 13:55 13:55 WBC 9.3 RBC 3.71 Hgb 10.2 L Hct 31.5 L MCV 84.9 MCH 27.5 MCHC 32.4 RDW 15.7 H Plt Count 115 L MPV 11.8 H Gran % 93.4 H Lymph % (Auto) 0.9 L [place] % (Auto) 5.7 Eos % (Auto) 0.0 L Baso % (Auto) 0.0 Gran # 8.70 H Lymph # 0.1 L [place] # 0.5 Eos # 0.0 Baso # 0.00 Neutrophils % (Manual) Band Neutrophils % Lymphocytes % (Manual) Monocytes % (Manual) Platelet Evaluation PT 12.6 H INR 1.17 H APTT 44.9 H Fibrinogen 744.0 H* Fibrin Degrad Products pCO2 pO2 HCO3 ABG pH ABG Total CO2 ABG O2 Saturation ABG O2 Content ABG Base Excess ABG Hemoglobin ABG Carboxyhemoglobin POC ABG HHb (Measured) ABG Methemoglobin ABG O2 Capacity Hgb O2 Saturation FiO2 Sodium Potassium Chloride Carbon Dioxide Anion Gap BUN Creatinine Est GFR ( Amer) Est GFR (Non-Af Amer) POC Glucose (mg/dL) 194 H Random Glucose Calcium Total Bilirubin AST ALT Alkaline Phosphatase Lactate Dehydrogenase Total Creatine Kinase Troponin I Total Protein Albumin Globulin Albumin/Globulin Ratio Vitamin B12 Folate Ur L.pneumophila Ag 11/06/16 11/06/16 11/06/16 13:55 15:53 16:45 WBC RBC Hgb Hct MCV MCH MCHC RDW Plt Count MPV Gran % Lymph % (Auto) [place] % (Auto) Eos % (Auto) Baso % (Auto) Gran # Lymph # [place] # Eos # Baso # Neutrophils % (Manual) Band Neutrophils % Lymphocytes % (Manual) Monocytes % (Manual) Platelet Evaluation PT INR APTT Fibrinogen Fibrin Degrad Products >10 <40 ug/ml pCO2 40 pO2 63.0 L HCO3 22.6 ABG pH 7.36 ABG Total CO2 23.8 ABG O2 Saturation 93.6 L ABG O2 Content 13.7 L ABG Base Excess -2.7 L ABG Hemoglobin 10.6 L ABG Carboxyhemoglobin 1.5 POC ABG HHb (Measured) 6.3 H ABG Methemoglobin 0.8 ABG O2 Capacity 14.6 L Hgb O2 Saturation 91.4 L FiO2 60.0 Sodium Potassium Chloride Carbon Dioxide Anion Gap BUN Creatinine Est GFR ( Amer) Est GFR (Non-Af Amer) POC Glucose (mg/dL) 174 H Random Glucose Calcium Total Bilirubin AST ALT Alkaline Phosphatase Lactate Dehydrogenase Total Creatine Kinase Troponin I Total Protein Albumin Globulin Albumin/Globulin Ratio Vitamin B12 Folate Ur L.pneumophila Ag EKG/Cardiology Studies: Cardiology / EKG Studies 11/06/16 13:35 ELECTROCARDIOGRAM Stat Comment: Reason For Exam: change in rhythm Attending/Attestation - Attestation I have personally seen and examined this patient.: Yes I have fully participated in the care of the patient.: Yes I have reviewed all pertinent clinical information: Yes Notes (Text): 11/06/16 17:21 76 y/o M w/ Acute respiratory failure on Vent support secondary to Legionella PNA with B/l infiltrates On ABX including azithromax per ID Mild hypotension today which resolved w/ I.V fluids 3L Normal saline PIPPA on CKD with pre-renal picture. IV fluids given and urine output to be followed . A fib , rate 100-120 , off cardizem due to hypotension. Currently on Amiodarone bolus with possible need for Dig IV as well. If BP tolerates can start B blockers or cardizem .Cardiology following as well. New reduced EF with pippa and hypotension. Central line placed and Levophed ordered w/ + or - Dobutamine to keep MAP > 65 and watch for new end organ damage . DVT p Eliquis ppi cc time 76 min
[2016-11-06] MEDS ORDERED: Amiodarone 150 mg/D5W 100 ml 150 MG/100 ML BAG IVPB ONE (15:41)
[2016-11-06 16:49] LABS: ARTERIAL BLOOD GAS HCO3 22.6 mmol/L (21-28); ARTERIAL BLOOD GAS O2 CAPACITY 14.6 mL/dl (16-24); ARTERIAL BLOOD GAS O2 CONTENT 13.7 ML/dl (15-23); ARTERIAL BLOOD GAS PH 7.36 (7.35-7.45); ARTERIAL BLOOD HGB O2 SAT 91.4 % (95.0-98.0); CARBOXYHEMOGLOBIN 1.5 % (0.5-1.5); HHB 6.3 % (0-5); METHEMOGLOBIN 0.8 % (0.0-3.0)
[2016-11-06] MEDS: diltiaZEM IVPB 100mg in NS 100 ML IV PRN (18:11)
--- NOTE | 2016-11-06 22:41 | CARD ---
APPROVED REPORT EKG Measurement Heart [id number] [id number] <Conclusion> Sinus tachycardia Nonspecific ST and T wave abnormality Abnormal ECG
[2016-11-07] MEDS: diltiaZEM IVPB 100mg in NS 100 ML IV PRN ×3 (01:30→11:19)
[2016-11-07] MEDS: Levalbuterol 1.25 MG/3 ML Inhal Soln UD IH SCH ×4 (02:01→19:45)
[2016-11-07 05:15] LABS: ARTERIAL BLOOD GAS HCO3 24.1 mmol/L (21-28); ARTERIAL BLOOD GAS O2 CONTENT 14.9 ML/dl (15-23); ARTERIAL BLOOD GAS PH 7.41 (7.35-7.45); ARTERIAL BLOOD HGB O2 SAT 97.2 % (95.0-98.0); CARBOXYHEMOGLOBIN 1.2 % (0.5-1.5); HHB 0.8 % (0-5); METHEMOGLOBIN 0.7 % (0.0-3.0)
[2016-11-07 06:47] LABS: ADD MANUAL DIFF? NO
[2016-11-07 07:03] LABS: GRAN # 8.11 (1.4-6.5); GRAN % 93.1 % (50.0-68.0); HEMATOCRIT 31.9 % (42.0-52.0); LYMPH # 0.2 (1.2-3.4); LYMPH % 1.8 % (22.0-35.0); MEAN CELL VOLUME 85.8 fL (80.0-105.0); MEAN CORPUSCULAR HEMOGLOBIN 27.4 pg (25.0-35.0); MEAN PLATELET VOLUME 12.6 fl (7.0-11.0); MONO # 0.4 (0.1-0.6); MONO % 5.1 % (1.0-6.0); PLATELET COUNT 133 10^3/uL (120.0-450.0); RED CELL DISTRIBUTION WIDTH 16.1 % (11.5-14.5); WHITE BLOOD COUNT 8.7 10^3/ul (4.5-11.0)
[2016-11-07 07:14] LABS: INR 1.09 (0.93-1.08); PARTIAL THROMBOPLASTIN TIME 39.7 Seconds (23.7-30.8)
[2016-11-07 07:30] LABS: BILIRUBIN,TOTAL 0.5 mg/dL (0.2-1.3); CALCIUM 8.6 mg/dL (8.4-10.5); POTASSIUM 4.2 mmol/L (3.6-5.0); TOTAL PROTEIN 5.9 g/dL (5.8-8.3)
[2016-11-07] MEDS: Insulin Lispro (humaLOG) LOW Coverage SC SCH ×4 (07:54→22:28)
[2016-11-07] MEDS: Azithromycin 500MG/NS 250ml 500 MG/250 ML BAG IVPB SCH ×2 (08:01→09:20)
[2016-11-07] MEDS ORDERED: Digoxin 500 mcg/2ml (0.5 mg/2ml) Inj IVP ONE (09:02)
[2016-11-07] MEDS: Dexmedetomidine HCl 4mcg/ml 400 MCG/100 ML BOTTLE IV PRN (09:06)
[2016-11-07] MEDS: DIOVAN 160 MG PO SCH (09:19)
[2016-11-07] MEDS: Meropenem 1g/NS 100mL IVPB 1 GM/100 ML PIGGYBACK IVPB SCH ×2 (09:35→21:32)
[2016-11-07] MEDS: BUDESONIDE INH SCH (09:40)
--- NOTE | 2016-11-07 09:41 | PN ---
DATE: 11/07/2016 SUBJECTIVE: The patient is sedated on a vent. Monitor reveals atrial flutter with variable AV condu ction. The patient is in Levophed infusion as well as Cardizem infusion at 5 mg per hour. PHYSICAL EXAMINATION: VITAL SIGNS: Blood pressure 120/57, heart rate 98, temperature 97.5, respirations 28. HEENT: Pale conjunctivae. CHEST: Absent breath sounds over the bases. HEART: S1, S2 regular. EXTREMITIES: 1-2+ pitting edema. LABORATORIES: Hemoglobin and hematocrit 10.1 and 31.9, white count and platelet count are within nor mal limits. Today's BUN and creatinine are 78 and 2.3, glucose 184, potassium is within normal limit s at 4.8. Echocardiography study revealed severely impaired left ventricular systolic function, para doxical septum and mild pulmonary hypertension. ASSESSMENT: 1. Respiratory failure. 2. Prerenal azotemia. 3. Coronary artery disease status post coronary artery bypass surgery. 4. Atrial flutter. 5. Consider bilateral pneumonia 6. Cardiomyopathy. RECOMMENDATIONS: Continue IV Cardizem at 5 mg per hour. Continue Eliquis 5 mg twice a day, Lipitor 20 mg once a day. Continue IV fentanyl. Continue IV meropenem at 1 gram q. 12 hours. Precedex infu cirilo, Protonix 40 mg intravenously once a day, Zithromax 500 mg intravenously daily. Consider initia ting Dobutrex infusion as recommended earlier by Dr. Harshal Romero, unless tachycardia gets worse. Pee Sow MD cc: [id number] TT: 11/07/2016 09:40:28 Confirmation # [id number] Dictation # [id number] hubert
--- NOTE | 2016-11-07 10:30 | RAD ---
HISTORY: intubated COMPARISON: 11/06/2016 FINDINGS: LUNGS: Patchy infiltrate right lower lobe PLEURA: Bilateral pleural effusions right greater than left CARDIOVASCULAR: Normal. OSSEOUS STRUCTURES: No significant abnormalities. VISUALIZED UPPER ABDOMEN: Normal. OTHER FINDINGS: Endotracheal and nasogastric tubes unchanged IMPRESSION: Small bilateral pleural effusions. Right-sided infiltrate. No change
--- NOTE | 2016-11-07 10:39 | RAD ---
HISTORY: s/p tlc COMPARISON: Earlier same day FINDINGS: OTHER FINDINGS: A left IJ line is in the brachiocephalic vein. There is no pneumothorax. No other change IMPRESSION: As above
--- NOTE | 2016-11-07 12:01 | PN ---
DATE: 11/07/2016 SUBJECTIVE: The patient is seen in the ICU. He is lying in bed. He remains on mechanical ventilati on. He remains sedated, does not appear to be in any kind of distress. Sister is at the bedside. PHYSICAL EXAMINATION: GENERAL: Elderly male lying in bed in the ICU, on mechanical ventilation. VITAL SIGNS: Blood pressure 115/77, heart rate 110, respiratory rate 28, temperature 97.5. HEENT: Normocephalic, atraumatic, positive pallor. NECK: Supple, no JVD. LUNGS: Bilateral rhonchi, bilateral equal expansion, bilateral equal air entry. CARDIAC: S1, S2, regular rate and rhythm, no murmur, no rub. ABDOMEN: Obese, distended, soft, nontender, bowel sounds present. EXTREMITIES: Trace lower extremity edema. INTAKE AND OUTPUT: 4978/1350. LABORATORY DATA: WBC 8.7, hemoglobin 10.2, hematocrit 32, platelets 133. Sodium 142, potassium 4.2, chloride 108, CO2 23, BUN 78, creatinine 2.3, glucose 184, calcium 8.7, AST 77, ALT 66. Urine legionella antigen positive. ABG: pH 7.4, pCO2 38, pO2 132 on FiO2 of 60%. Chest x-ray: Small bilateral pleural effusions, right-sided infiltrate, no change. CURRENT MEDICATIONS: Eliquis 5 mg b.i.d., aspirin, Lipitor 20, Cardizem 60 t.i.d., Zithromax 500, fe ntanyl, Tylenol, meropenem 1 gram q. 12, Cardizem 5 mg per hour, insulin, Xopenex, Protonix, Ultracet . ASSESSMENT: A 76-year-old male with acute respiratory failure, on ventilatory support. The patient is found to have Legionella pneumonia with bilateral infiltrates. He is status post septic shock. H ypotension, tachycardia, acute kidney injury, respiratory failure. He is clinically somewhat improve d. His hemodynamic status has improved. He also has atrial fibrillation with rapid ventricular rate . 1. Acute kidney injury superimposed on chronic kidney disease stage II/III, prerenal azotemia. 2. Respiratory failure. 3. Legionella pneumonia. 4. Atrial fibrillation with rapid ventricular rate. 5. Status post hypotension. 6. Non-insulin dependent diabetes mellitus. 7. Hypertension. 8. History of coronary artery disease. PLAN: 1. Renal function seems to be slightly better. The patient appears volume deplete now, continue tub e feeds, no need for IV fluids. 2. Continue antibiotics as per infectious disease recommendations for Legionella pneumonia. Dose al l antibiotics for creatinine clearance about 30 mL per minute. 3. Monitor urine output closely. 4. Monitor LFTs. 5. Monitor hemoglobin, check stool occults x 3. Case discussed with sister at bedside. Case discussed with ICU residents at length. Case discussed with ICU nurses. More than 35 minutes was spent in the care of this critically ill patient. Shannan Oviedo MD cc: [id number] TT: 11/07/2016 12:00:23 Confirmation # [id number] Dictation # [id number] tn
--- NOTE | 2016-11-07 13:23 | CP.CCUPN ---
<JenniferArlene - Last Filed: 11/07/16 13:19> CCU Subjective - Physician Review Subjective (Free Text): 11/05/16 09:32 VSS. On sedation vacation, spontanous breathing trial. 11/06/16 15:13 T normal. BP 70s-80s all morning. HR 90 to 120s. failed SBT 11/07/16 13:19 Decrease oxygen demand today CCU Objective - Vital Signs / Intake & Output Vital Signs (Last 4 hours): Vital Signs Temp Pulse Resp BP Pulse Ox 11/07/16 12:30 64 105/52 L 94 L 11/07/16 12:20 64 98 11/07/16 12:10 62 98 11/07/16 12:00 97.7 F 62 24 93/55 L 95 11/07/16 11:50 62 98 11/07/16 11:40 62 97 11/07/16 11:30 64 93/48 L 94 L 11/07/16 11:21 62 90/51 L 99 11/07/16 11:20 62 97 11/07/16 11:10 62 97 11/07/16 11:00 62 93/62 L 97 11/07/16 10:50 62 97 11/07/16 10:40 62 97 11/07/16 10:30 64 104/49 L 96 11/07/16 10:20 77 96 11/07/16 10:10 78 96 11/07/16 10:00 83 105/44 L 96 11/07/16 09:50 104 H 96 11/07/16 09:40 98 H 97 11/07/16 09:30 110 H 115/77 96 11/07/16 09:20 118 H 96 Intake and Output (Last 8hrs): Intake & Output 11/06/16 11/07/16 11/07/16 22:59 06:59 14:59 Intake Total 3927 855 150 Output Total 700 650 Balance 3227 205 150 Weight 198 lb Intake: IV 3537 325 150 Left Internal Jugular 180 Right Antecubital 3512 Tube Feeding 210 480 Other 180 50 Output: Urine 700 650 Urethral (Singleton) 700 650 Other: Voiding Method Indwelling Catheter Indwelling Catheter # Bowel Movements 0 - Physical Exam Head: Positive for: Atraumatic, Normocephalic Pupils: Positive for: PERRL Extroacular Muscles: Positive for: EOMI Conjunctiva: Positive for: Normal Mouth: Positive for: Dry Respiratory/Chest: Positive for: Decreased Breath Sounds, Rales, Other ( positive egophony). Negative for: Good Air Exchange, Respiratory Distress, Accessory Muscle Use Cardiovascular: Positive for: Irregular Rhythm, Tachycardic Abdomen: Positive for: Distention, Normal Bowel Sounds. Negative for: Tenderness, Peritoneal Signs, Rebound, Guarding Genitourinary Male: Positive for: Normal External Genitalia, Other (penile implant). Negative for: Testicle Swelling Upper Extremity: Positive for: Normal Inspection Lower Extremity: Positive for: Edema (2+ pitting edema to mid collier), NORMAL PULSES. Negative for: CALF TENDERNESS Neurological: Positive for: CN II-XII Intact (grossly,before sedation. ), Speech Normal Skin: Positive for: Warm, Dry, Normal Color Psychiatric: Positive for: Other (intubated) - Medications Active Medications: Active Medications Generic Name Dose Route Start Last Admin Trade Name Freq PRN Reason Stop Dose Admin Apixaban 5 mg 11/04/16 18:00 11/07/16 09:19 Eliquis PO Not Given BID [facility] Protocol Aspirin 81 mg 11/06/16 10:15 11/07/16 09:19 Aspirin Chewable PO Not Given DAILY [facility] Atorvastatin Calcium 20 mg 11/04/16 17:00 11/06/16 17:29 Lipitor PO 20 mg DIN [facility] Administration Digoxin 0.125 mg 11/07/16 14:00 Lanoxin PO 1400 [facility] Diltiazem HCl 60 mg 11/04/16 18:00 11/04/16 21:07 Cardizem PO 60 mg TID [facility] Administration Home Med 1 unit 11/06/16 10:00 11/07/16 09:19 Home Med PO 1 unit DAILY [facility] Administration Azithromycin 500 mg in 250 mls @ 167 mls/hr 11/05/16 10:00 11/07/16 09:20 Zithromax 500mg In Ns IVPB Not Given DAILY [facility] Protocol Fentanyl Citrate 1,000 mcg in 100 mls @ 2 mls/hr 11/04/16 18:40 11/06/16 11: 21 Fentanyl Citrate/Sodium Chloride 1 Mg/100 Ml IV 0 mcg/hr .Q24H PRN 0 mls/hr TITRATE PER MD ORDER Titration Protocol 20 MCG/HR Meropenem 1g/NS 100mL IVPB 1 gm in 100 mls @ 100 mls/hr 11/05/16 06:40 09:35 Meropenem 1g/Ns 100ml Ivpb IVPB 11/12/16 06:41 100 mls/hr Q12 [facility] Administration Protocol diltiaZEM IVPB 100mg in NS 100 mls @ 5 mls/hr 11/05/16 08:43 11/07/16 11:19 Cardizem 100mg In Ns IV 5 mg/hr .Q20H PRN 5 mls/hr TITRATE PER MD ORDER Administration Protocol 5 MG/HR Dexmedetomidine HCl 400 mcg in 100 mls @ 4.309 mls/hr 11/06/16 12:08 09:06 Precedex 4 Mcg/Ml (100 Ml) IV 0.2 mcg/kg/hr .[id number] PRN 4.309 mls/hr Sedation Administration Protocol 0.2 MCG/KG/HR NOREPINEPHRINE BIT/0.9 % NACL 4 mg in 250 mls @ 15 mls/hr 11/06/16 14:39 Levophed 4 Mg/ 250 Ml Ns Premixed IV .[id number] PRN TITRATE PER MD ORDER Protocol 4 MCG/MIN Insulin Human Lispro 0 units 11/05/16 07:30 11/07/16 07:54 Humalog Low SC 2 units ACHS [facility] Administration Protocol Levalbuterol HCl 1.25 mg 11/04/16 20:00 11/07/16 13:03 Xopenex IH 1.25 mg [id number] [facility] Administration Mupirocin 0 gm 11/06/16 10:00 11/07/16 09:19 Bactroban Ointment NS 11/10/16 18:01 1 applic BID [facility] Administration Non-Formulary Medication 1 puff 11/05/16 10:00 11/07/16 09:40 Budesonide [Pulmicort Flexhaler] INH Not Given BID [facility] Pantoprazole Sodium 40 mg 11/05/16 10:00 11/07/16 09:38 Protonix Inj IVP Not Given DAILY [facility] Tramadol/Acetaminophen 1 tab 11/04/16 15:49 Ultracet 37.5/325 Mg PO QID PRN Pain, moderate (4-7) - Patient Studies Lab Studies: Microbiology Studies 11/05/16 08:00 Gram Stain - Final Sputum Induced Sputum Culture - Final NORMAL ORAL LINDEN 11/05/16 07:10 Blood Culture - Preliminary Blood-Venous NO GROWTH AFTER 48 HOURS 11/05/16 06:50 Blood Culture - Preliminary Blood-Venous NO GROWTH AFTER 48 HOURS Lab Studies 11/07/16 11/07/16 11/07/16 Range/Units 07:39 06:24 06:24 WBC 8.7 (4.5-11.0) 10^3/ul RBC 3.72 (3.5-6.1) 10^6/uL Hgb 10.2 L (14.0-18.0) gm/dL Hct 31.9 L (42.0-52.0) % MCV 85.8 (80.0-105.0) fL MCH 27.4 (25.0-35.0) pg MCHC 32.0 (31.0-37.0) g/dl RDW 16.1 H (11.5-14.5) % Plt Count 133 (120.0-450.0) 10^3/uL MPV 12.6 H (7.0-11.0) fl Gran % 93.1 H (50.0-68.0) % Lymph % (Auto) 1.8 L (22.0-35.0) % Ripley % (Auto) 5.1 (1.0-6.0) % Eos % (Auto) 0.0 L (1.5-5.0) % Baso % (Auto) 0.0 (0.0-3.0) % Gran # 8.11 H (1.4-6.5) Lymph # 0.2 L (1.2-3.4) Ripley # 0.4 (0.1-0.6) Eos # 0.0 (0.0-0.7) Baso # 0.00 (0.0-2.0) K/mm3 PT 11.8 (9.9-11.8) Seconds INR 1.09 H (0.93-1.08) APTT 39.7 H (23.7-30.8) Seconds Fibrinogen (187-400) mg/dL Fibrin Degrad Products (< 10 ug/mL) pCO2 (35-45) mm/Hg pO2 (80-100) mm/Hg HCO3 (21-28) mmol/L ABG pH (7.35-7.45) ABG Total CO2 (22-28) mmol.L ABG O2 Saturation (95-98) % ABG O2 Content (15-23) ML/dl ABG Base Excess (-2.0-3.0) mmol/L ABG Hemoglobin (11.7-17.4) g/dL ABG Carboxyhemoglobin (0.5-1.5) % POC ABG HHb (Measured) (0-5) % ABG Methemoglobin (0.0-3.0) % ABG O2 Capacity (16-24) mL/dl Hgb O2 Saturation (95.0-98.0) % FiO2 % Sodium (132-148) mmol/L Potassium (3.6-5.0) mmol/L Chloride (98-107) mmol/L Carbon Dioxide (21-33) mmol/L Anion Gap (10-20) BUN (7-21) mg/dL Creatinine (0.5-1.4) mg/dL Est GFR ( Amer) Est GFR (Non-Af Amer) POC Glucose (mg/dL) 206 H (65-110) mg/dL Random Glucose (70-110) mg/dL Calcium (8.4-10.5) mg/dL Total Bilirubin (0.2-1.3) mg/dL AST (15-59) U/L ALT (7-56) U/L Alkaline Phosphatase (38-133) U/L Total Protein (5.8-8.3) g/dL Albumin (3.0-4.8) g/dL Globulin gm/dL Albumin/Globulin Ratio (1.1-1.8) 11/07/16 11/07/16 11/06/16 Range/Units 06:24 05:00 21:17 WBC (4.5-11.0) 10^3/ul RBC (3.5-6.1) 10^6/uL Hgb (14.0-18.0) gm/dL Hct (42.0-52.0) % MCV (80.0-105.0) fL MCH (25.0-35.0) pg MCHC (31.0-37.0) g/dl RDW (11.5-14.5) % Plt Count (120.0-450.0) 10^3/uL MPV (7.0-11.0) fl Gran % (50.0-68.0) % Lymph % (Auto) (22.0-35.0) % Ripley % (Auto) (1.0-6.0) % Eos % (Auto) (1.5-5.0) % Baso % (Auto) (0.0-3.0) % Gran # (1.4-6.5) Lymph # (1.2-3.4) Ripley # (0.1-0.6) Eos # (0.0-0.7) Baso # (0.0-2.0) K/mm3 PT (9.9-11.8) Seconds INR (0.93-1.08) APTT (23.7-30.8) Seconds Fibrinogen (187-400) mg/dL Fibrin Degrad Products (< 10 ug/mL) pCO2 38 (35-45) mm/Hg pO2 132.0 H (80-100) mm/Hg HCO3 24.1 (21-28) mmol/L ABG pH 7.41 (7.35-7.45) ABG Total CO2 25.3 (22-28) mmol.L ABG O2 Saturation 99.2 H (95-98) % ABG O2 Content 14.9 L (15-23) ML/dl ABG Base Excess -0.4 (-2.0-3.0) mmol/L ABG Hemoglobin 10.7 L (11.7-17.4) g/dL ABG Carboxyhemoglobin 1.2 (0.5-1.5) % POC ABG HHb (Measured) 0.8 (0-5) % ABG Methemoglobin 0.7 (0.0-3.0) % ABG O2 Capacity 15.0 L (16-24) mL/dl Hgb O2 Saturation 97.2 (95.0-98.0) % FiO2 60.0 % Sodium 142 (132-148) mmol/L Potassium 4.2 (3.6-5.0) mmol/L Chloride 108 H (98-107) mmol/L Carbon Dioxide 23 (21-33) mmol/L Anion Gap 15 (10-20) BUN 78 H (7-21) mg/dL Creatinine 2.3 H (0.5-1.4) mg/dL Est GFR ( Amer) 34 Est GFR (Non-Af Amer) 28 POC Glucose (mg/dL) 169 H (65-110) mg/dL Random Glucose 184 H (70-110) mg/dL Calcium 8.6 (8.4-10.5) mg/dL Total Bilirubin 0.5 (0.2-1.3) mg/dL AST 77 H (15-59) U/L ALT 66 H (7-56) U/L Alkaline Phosphatase 140 H (38-133) U/L Total Protein 5.9 (5.8-8.3) g/dL Albumin 3.0 (3.0-4.8) g/dL Globulin 2.9 gm/dL Albumin/Globulin Ratio 1.0 L (1.1-1.8) 11/06/16 11/06/16 11/06/16 Range/Units 16:45 15:53 13:55 WBC (4.5-11.0) 10^3/ul RBC (3.5-6.1) 10^6/uL Hgb (14.0-18.0) gm/dL Hct (42.0-52.0) % MCV (80.0-105.0) fL MCH (25.0-35.0) pg MCHC (31.0-37.0) g/dl RDW (11.5-14.5) % Plt Count (120.0-450.0) 10^3/uL MPV (7.0-11.0) fl Gran % (50.0-68.0) % Lymph % (Auto) (22.0-35.0) % Ripley % (Auto) (1.0-6.0) % Eos % (Auto) (1.5-5.0) % Baso % (Auto) (0.0-3.0) % Gran # (1.4-6.5) Lymph # (1.2-3.4) Ripley # (0.1-0.6) Eos # (0.0-0.7) Baso # (0.0-2.0) K/mm3 PT (9.9-11.8) Seconds INR (0.93-1.08) APTT (23.7-30.8) Seconds Fibrinogen (187-400) mg/dL Fibrin Degrad Products >10 <40 ug/ml (< 10 ug/mL) pCO2 40 (35-45) mm/Hg pO2 63.0 L (80-100) mm/Hg HCO3 22.6 (21-28) mmol/L ABG pH 7.36 (7.35-7.45) ABG Total CO2 23.8 (22-28) mmol.L ABG O2 Saturation 93.6 L (95-98) % ABG O2 Content 13.7 L (15-23) ML/dl ABG Base Excess -2.7 L (-2.0-3.0) mmol/L ABG Hemoglobin 10.6 L (11.7-17.4) g/dL ABG Carboxyhemoglobin 1.5 (0.5-1.5) % POC ABG HHb (Measured) 6.3 H (0-5) % ABG Methemoglobin 0.8 (0.0-3.0) % ABG O2 Capacity 14.6 L (16-24) mL/dl Hgb O2 Saturation 91.4 L (95.0-98.0) % FiO2 60.0 % Sodium (132-148) mmol/L Potassium (3.6-5.0) mmol/L Chloride (98-107) mmol/L Carbon Dioxide (21-33) mmol/L Anion Gap (10-20) BUN (7-21) mg/dL Creatinine (0.5-1.4) mg/dL Est GFR ( Amer) Est GFR (Non-Af Amer) POC Glucose (mg/dL) 174 H (65-110) mg/dL Random Glucose (70-110) mg/dL Calcium (8.4-10.5) mg/dL Total Bilirubin (0.2-1.3) mg/dL AST (15-59) U/L ALT (7-56) U/L Alkaline Phosphatase (38-133) U/L Total Protein (5.8-8.3) g/dL Albumin (3.0-4.8) g/dL Globulin gm/dL Albumin/Globulin Ratio (1.1-1.8) 11/06/16 11/06/16 Range/Units 13:55 13:55 WBC 9.3 (4.5-11.0) 10^3/ul RBC 3.71 (3.5-6.1) 10^6/uL Hgb 10.2 L (14.0-18.0) gm/dL Hct 31.5 L (42.0-52.0) % MCV 84.9 (80.0-105.0) fL MCH 27.5 (25.0-35.0) pg MCHC 32.4 (31.0-37.0) g/dl RDW 15.7 H (11.5-14.5) % Plt Count 115 L (120.0-450.0) 10^3/uL MPV 11.8 H (7.0-11.0) fl Gran % 93.4 H (50.0-68.0) % Lymph % (Auto) 0.9 L (22.0-35.0) % Ripley % (Auto) 5.7 (1.0-6.0) % Eos % (Auto) 0.0 L (1.5-5.0) % Baso % (Auto) 0.0 (0.0-3.0) % Gran # 8.70 H (1.4-6.5) Lymph # 0.1 L (1.2-3.4) Ripley # 0.5 (0.1-0.6) Eos # 0.0 (0.0-0.7) Baso # 0.00 (0.0-2.0) K/mm3 PT 12.6 H (9.9-11.8) Seconds INR 1.17 H (0.93-1.08) APTT 44.9 H (23.7-30.8) Seconds Fibrinogen 744.0 H* (187-400) mg/dL Fibrin Degrad Products (< 10 ug/mL) pCO2 (35-45) mm/Hg pO2 (80-100) mm/Hg HCO3 (21-28) mmol/L ABG pH (7.35-7.45) ABG Total CO2 (22-28) mmol.L ABG O2 Saturation (95-98) % ABG O2 Content (15-23) ML/dl ABG Base Excess (-2.0-3.0) mmol/L ABG Hemoglobin (11.7-17.4) g/dL ABG Carboxyhemoglobin (0.5-1.5) % POC ABG HHb (Measured) (0-5) % ABG Methemoglobin (0.0-3.0) % ABG O2 Capacity (16-24) mL/dl Hgb O2 Saturation (95.0-98.0) % FiO2 % Sodium (132-148) mmol/L Potassium (3.6-5.0) mmol/L Chloride (98-107) mmol/L Carbon Dioxide (21-33) mmol/L Anion Gap (10-20) BUN (7-21) mg/dL Creatinine (0.5-1.4) mg/dL Est GFR ( Amer) Est GFR (Non-Af Amer) POC Glucose (mg/dL) (65-110) mg/dL Random Glucose (70-110) mg/dL Calcium (8.4-10.5) mg/dL Total Bilirubin (0.2-1.3) mg/dL AST (15-59) U/L ALT (7-56) U/L Alkaline Phosphatase (38-133) U/L Total Protein (5.8-8.3) g/dL Albumin (3.0-4.8) g/dL Globulin gm/dL Albumin/Globulin Ratio (1.1-1.8) Laboratory Results - last 24 hr 11/06/16 11/06/16 11/06/16 13:55 13:55 13:55 WBC 9.3 RBC 3.71 Hgb 10.2 L Hct 31.5 L MCV 84.9 MCH 27.5 MCHC 32.4 RDW 15.7 H Plt Count 115 L MPV 11.8 H Gran % 93.4 H Lymph % (Auto) 0.9 L Ripley % (Auto) 5.7 Eos % (Auto) 0.0 L Baso % (Auto) 0.0 Gran # 8.70 H Lymph # 0.1 L Ripley # 0.5 Eos # 0.0 Baso # 0.00 PT 12.6 H INR 1.17 H APTT 44.9 H Fibrinogen 744.0 H* Fibrin Degrad Products >10 <40 ug/ml pCO2 pO2 HCO3 ABG pH ABG Total CO2 ABG O2 Saturation ABG O2 Content ABG Base Excess ABG Hemoglobin ABG Carboxyhemoglobin POC ABG HHb (Measured) ABG Methemoglobin ABG O2 Capacity Hgb O2 Saturation FiO2 Sodium Potassium Chloride Carbon Dioxide Anion Gap BUN Creatinine Est GFR ( Amer) Est GFR (Non-Af Amer) POC Glucose (mg/dL) Random Glucose Calcium Total Bilirubin AST ALT Alkaline Phosphatase Total Protein Albumin Globulin Albumin/Globulin Ratio 11/06/16 11/06/16 11/06/16 15:53 16:45 21:17 WBC RBC Hgb Hct MCV MCH MCHC RDW Plt Count MPV Gran % Lymph % (Auto) Ripley % (Auto) Eos % (Auto) Baso % (Auto) Gran # Lymph # Ripley # Eos # Baso # PT INR APTT Fibrinogen Fibrin Degrad Products pCO2 40 pO2 63.0 L HCO3 22.6 ABG pH 7.36 ABG Total CO2 23.8 ABG O2 Saturation 93.6 L ABG O2 Content 13.7 L ABG Base Excess -2.7 L ABG Hemoglobin 10.6 L ABG Carboxyhemoglobin 1.5 POC ABG HHb (Measured) 6.3 H ABG Methemoglobin 0.8 ABG O2 Capacity 14.6 L Hgb O2 Saturation 91.4 L FiO2 60.0 Sodium Potassium Chloride Carbon Dioxide Anion Gap BUN Creatinine Est GFR ( Amer) Est GFR (Non-Af Amer) POC Glucose (mg/dL) 174 H 169 H Random Glucose Calcium Total Bilirubin AST ALT Alkaline Phosphatase Total Protein Albumin Globulin Albumin/Globulin Ratio 11/07/16 11/07/16 11/07/16 05:00 06:24 06:24 WBC 8.7 RBC 3.72 Hgb 10.2 L Hct 31.9 L MCV 85.8 MCH 27.4 MCHC 32.0 RDW 16.1 H Plt Count 133 MPV 12.6 H Gran % 93.1 H Lymph % (Auto) 1.8 L Ripley % (Auto) 5.1 Eos % (Auto) 0.0 L Baso % (Auto) 0.0 Gran # 8.11 H Lymph # 0.2 L Ripley # 0.4 Eos # 0.0 Baso # 0.00 PT INR APTT Fibrinogen Fibrin Degrad Products pCO2 38 pO2 132.0 H HCO3 24.1 ABG pH 7.41 ABG Total CO2 25.3 ABG O2 Saturation 99.2 H ABG O2 Content 14.9 L ABG Base Excess -0.4 ABG Hemoglobin 10.7 L ABG Carboxyhemoglobin 1.2 POC ABG HHb (Measured) 0.8 ABG Methemoglobin 0.7 ABG O2 Capacity 15.0 L Hgb O2 Saturation 97.2 FiO2 60.0 Sodium 142 Potassium 4.2 Chloride 108 H Carbon Dioxide 23 Anion Gap 15 BUN 78 H Creatinine 2.3 H Est GFR ( Amer) 34 Est GFR (Non-Af Amer) 28 POC Glucose (mg/dL) Random Glucose 184 H Calcium 8.6 Total Bilirubin 0.5 AST 77 H ALT 66 H Alkaline Phosphatase 140 H Total Protein 5.9 Albumin 3.0 Globulin 2.9 Albumin/Globulin Ratio 1.0 L 11/07/16 11/07/16 06:24 07:39 WBC RBC Hgb Hct MCV MCH MCHC RDW Plt Count MPV Gran % Lymph % (Auto) Ripley % (Auto) Eos % (Auto) Baso % (Auto) Gran # Lymph # Ripley # Eos # Baso # PT 11.8 INR 1.09 H APTT 39.7 H Fibrinogen Fibrin Degrad Products pCO2 pO2 HCO3 ABG pH ABG Total CO2 ABG O2 Saturation ABG O2 Content ABG Base Excess ABG Hemoglobin ABG Carboxyhemoglobin POC ABG HHb (Measured) ABG Methemoglobin ABG O2 Capacity Hgb O2 Saturation FiO2 Sodium Potassium Chloride Carbon Dioxide Anion Gap BUN Creatinine Est GFR ( Amer) Est GFR (Non-Af Amer) POC Glucose (mg/dL) 206 H Random Glucose Calcium Total Bilirubin AST ALT Alkaline Phosphatase Total Protein Albumin Globulin Albumin/Globulin Ratio EKG/Cardiology Studies: Cardiology / EKG Studies 11/06/16 13:35 ELECTROCARDIOGRAM Stat Comment: Reason For Exam: change in rhythm Fingerstick Blood Sugar Results: 206 Critical Care Progress Note - Ventilator Checklist Head of Bed 30 Degrees: Yes Daily Sedation Vacation: Yes Daily Assessment of Readiness to Wean: Yes Daily Spontaneous Breathing Trial: Yes PUD Prophalyxis: Yes DVT Prophylaxis: Yes Oral Care with Chlorhexidine Gluconate {CHG}: Yes - Vent Settings MODE:: PRVC - Extremities/Vascular Does the Patient have a Central Venous Catheter?: Yes Does the Patient need a Central Venous Catheter?: Yes Does the Patient have a Singleton Catheter?: Yes Does the Patient need a Singleton Catheter?: Yes Catheter Insertion Criteria: Incontinence as per policy - Prophylaxis GI Prophylaxis GI: PPI - Nutrition Nutrition: Tube feed Assessment/Plan - Assessment and Plan (Free Text) Plan: 76 year old male with PMH of triple vessel CAD S/P CABG, CVA S/P right carotid endarterectomy, A-flutter on cardizem and eliquis, COPD, PAULIE on home bipap, non- iddm. Pt desat to 60% in ED, not corrected by bipap, intubated. CXR showed fluid overload and RLL PNA. Tmax 102 at ED arrival. Pt has hypoxemic respiratory failure secondary to PNA. Plt slightly decreases possibly due to sepsis from PNA BP was low, respond to fluid resuscitation. POx was low as a result of low CO. HR in 120s overnight, controlled by cardizem gtt and PO digioxin. Decreased Oxygen demand today. Neuro Awaiting PNA, mentation further improves before extubation Sedated on precedex Cardio Cardizem gtt pRN; Add digioxin PO Eliquis BID Solumedrol 20 q12 Echocardiogram new EF 26, if pt stablize, may cath Pulm CXR showed improved venous congestion, RLL infiltrate persists PRVC 40/8/16/400 GI Glucerna goal 60 cc/hr PIPPA on CKD. Pre-renal. U/O adequate Endo Normal TSH, ISSS Heme Plt improves continue eliquis for now Chronic anemia ID (+) legionella Ag, On merem, azithromycin prophylaxis On therapeutic eliquis s/r/d/w Dr. Groves - Date & Time Date: 11/07/16 Time: 13:22 <Yaneli HENDRICKSON,Estefany H - Last Filed: 11/07/16 16:41> CCU Objective - Vital Signs / Intake & Output Vital Signs (Last 4 hours): Vital Signs Temp Pulse Resp BP Pulse Ox 11/07/16 16:10 87 96 11/07/16 16:00 97.8 F 85 24 94/45 L 96 11/07/16 15:50 85 96 11/07/16 15:40 90 96 11/07/16 15:30 91 H 104/47 L 94 L 11/07/16 15:20 87 96 11/07/16 15:10 87 96 11/07/16 15:00 86 101/35 L 94 L 11/07/16 14:50 86 95 11/07/16 14:40 84 95 11/07/16 14:30 83 95/35 L 95 11/07/16 14:20 84 89 L 11/07/16 14:10 86 95 11/07/16 14:00 83 108/53 L 93 L 11/07/16 13:50 86 95 11/07/16 13:40 86 95 11/07/16 13:30 84 105/43 L 93 L 11/07/16 13:20 83 97 11/07/16 13:10 79 97 11/07/16 13:00 83 116/61 97 11/07/16 12:50 83 97 11/07/16 12:40 73 97 Intake and Output (Last 8hrs): Intake & Output 11/07/16 11/07/16 11/07/16 06:59 14:59 22:59 Intake Total 855 150 Output Total 650 Balance 205 150 Weight 198 lb Intake: IV 325 150 Left Internal Jugular 180 Tube Feeding 480 Other 50 Output: Urine 650 Urethral (Singleton) 650 Other: Voiding Method Indwelling Catheter # Bowel Movements 0 - Medications Active Medications: Active Medications Generic Name Dose Route Start Last Admin Trade Name Freq PRN Reason Stop Dose Admin Apixaban 5 mg 11/04/16 18:00 11/07/16 09:19 Eliquis PO Not Given BID [facility] Protocol Aspirin 81 mg 11/06/16 10:15 11/07/16 09:19 Aspirin Chewable PO Not Given DAILY [facility] Atorvastatin Calcium 20 mg 11/04/16 17:00 11/06/16 17:29 Lipitor PO 20 mg DIN [facility] Administration Digoxin 0.125 mg 11/07/16 14:00 11/07/16 14:19 Lanoxin PO 0.125 mg 1400 LAL[facility]O Administration Diltiazem HCl 60 mg 11/04/16 18:00 11/04/16 21:07 Cardizem PO 60 mg TID [facility] Administration Home Med 1 unit 11/06/16 10:00 11/07/16 09:19 Home Med PO 1 unit DAILY [facility]O Administration Azithromycin 500 mg in 250 mls @ 167 mls/hr 11/05/16 10:00 11/07/16 09:20 Zithromax 500mg In Ns IVPB Not Given DAILY [facility] Protocol Fentanyl Citrate 1,000 mcg in 100 mls @ 2 mls/hr 11/04/16 18:40 11/06/16 11: 21 Fentanyl Citrate/Sodium Chloride 1 Mg/100 Ml IV 0 mcg/hr .Q24H PRN 0 mls/hr TITRATE PER MD ORDER Titration Protocol 20 MCG/HR Meropenem 1g/NS 100mL IVPB 1 gm in 100 mls @ 100 mls/hr 11/05/16 06:40 09:35 Meropenem 1g/Ns 100ml Ivpb IVPB 11/12/16 06:41 100 mls/hr Q12 LALITO Administration Protocol diltiaZEM IVPB 100mg in NS 100 mls @ 5 mls/hr 11/05/16 08:43 11/07/16 11:19 Cardizem 100mg In Ns IV 5 mg/hr .Q20H PRN 5 mls/hr TITRATE PER MD ORDER Administration Protocol 5 MG/HR Dexmedetomidine HCl 400 mcg in 100 mls @ 4.309 mls/hr 11/06/16 12:08 09:06 Precedex 4 Mcg/Ml (100 Ml) IV 0.2 mcg/kg/hr .[id number] PRN 4.309 mls/hr Sedation Administration Protocol 0.2 MCG/KG/HR NOREPINEPHRINE BIT/0.9 % NACL 4 mg in 250 mls @ 15 mls/hr 11/06/16 14:39 Levophed 4 Mg/ 250 Ml Ns Premixed IV .[id number] PRN TITRATE PER MD ORDER Protocol 4 MCG/MIN Insulin Human Lispro 0 units 11/05/16 07:30 11/07/16 12:30 Humalog Low SC 2 units ACHS LALITO Administration Protocol Levalbuterol HCl 1.25 mg 11/04/16 20:00 11/07/16 13:03 Xopenex IH 1.25 mg [id number] LALITO Administration Mupirocin 0 gm 11/06/16 10:00 11/07/16 09:19 Bactroban Ointment NS 11/10/16 18:01 1 applic BID LALITO Administration Non-Formulary Medication 1 puff 11/05/16 10:00 11/07/16 09:40 Budesonide [Pulmicort Flexhaler] INH Not Given BID LALITO Pantoprazole Sodium 40 mg 11/05/16 10:00 11/07/16 09:38 Protonix Inj IVP Not Given DAILY LALITO Tramadol/Acetaminophen 1 tab 11/04/16 15:49 Ultracet 37.5/325 Mg PO QID PRN Pain, moderate (4-7) - Patient Studies Lab Studies: Microbiology Studies 11/05/16 08:00 Gram Stain - Final Sputum Induced Sputum Culture - Final NORMAL ORAL LINDEN 11/05/16 07:10 Blood Culture - Preliminary Blood-Venous NO GROWTH AFTER 48 HOURS 11/05/16 06:50 Blood Culture - Preliminary Blood-Venous NO GROWTH AFTER 48 HOURS Lab Studies 11/07/16 11/07/16 11/07/16 Range/Units 07:39 06:24 06:24 WBC 8.7 (4.5-11.0) 10^3/ul RBC 3.72 (3.5-6.1) 10^6/uL Hgb 10.2 L (14.0-18.0) gm/dL Hct 31.9 L (42.0-52.0) % MCV 85.8 (80.0-105.0) fL MCH 27.4 (25.0-35.0) pg MCHC 32.0 (31.0-37.0) g/dl RDW 16.1 H (11.5-14.5) % Plt Count 133 (120.0-450.0) 10^3/uL MPV 12.6 H (7.0-11.0) fl Gran % 93.1 H (50.0-68.0) % Lymph % (Auto) 1.8 L (22.0-35.0) % Ripley % (Auto) 5.1 (1.0-6.0) % Eos % (Auto) 0.0 L (1.5-5.0) % Baso % (Auto) 0.0 (0.0-3.0) % Gran # 8.11 H (1.4-6.5) Lymph # 0.2 L (1.2-3.4) Ripley # 0.4 (0.1-0.6) Eos # 0.0 (0.0-0.7) Baso # 0.00 (0.0-2.0) K/mm3 PT 11.8 (9.9-11.8) Seconds INR 1.09 H (0.93-1.08) APTT 39.7 H (23.7-30.8) Seconds pCO2 (35-45) mm/Hg pO2 (80-100) mm/Hg HCO3 (21-28) mmol/L ABG pH (7.35-7.45) ABG Total CO2 (22-28) mmol.L ABG O2 Saturation (95-98) % ABG O2 Content (15-23) ML/dl ABG Base Excess (-2.0-3.0) mmol/L ABG Hemoglobin (11.7-17.4) g/dL ABG Carboxyhemoglobin (0.5-1.5) % POC ABG HHb (Measured) (0-5) % ABG Methemoglobin (0.0-3.0) % ABG O2 Capacity (16-24) mL/dl Hgb O2 Saturation (95.0-98.0) % FiO2 % Sodium (132-148) mmol/L Potassium (3.6-5.0) mmol/L Chloride (98-107) mmol/L Carbon Dioxide (21-33) mmol/L Anion Gap (10-20) BUN (7-21) mg/dL Creatinine (0.5-1.4) mg/dL Est GFR ( Amer) Est GFR (Non-Af Amer) POC Glucose (mg/dL) 206 H (65-110) mg/dL Random Glucose (70-110) mg/dL Calcium (8.4-10.5) mg/dL Total Bilirubin (0.2-1.3) mg/dL AST (15-59) U/L ALT (7-56) U/L Alkaline Phosphatase (38-133) U/L Total Protein (5.8-8.3) g/dL Albumin (3.0-4.8) g/dL Globulin gm/dL Albumin/Globulin Ratio (1.1-1.8) 11/07/16 11/07/16 11/06/16 Range/Units 06:24 05:00 21:17 WBC (4.5-11.0) 10^3/ul RBC (3.5-6.1) 10^6/uL Hgb (14.0-18.0) gm/dL Hct (42.0-52.0) % MCV (80.0-105.0) fL MCH (25.0-35.0) pg MCHC (31.0-37.0) g/dl RDW (11.5-14.5) % Plt Count (120.0-450.0) 10^3/uL MPV (7.0-11.0) fl Gran % (50.0-68.0) % Lymph % (Auto) (22.0-35.0) % Ripley % (Auto) (1.0-6.0) % Eos % (Auto) (1.5-5.0) % Baso % (Auto) (0.0-3.0) % Gran # (1.4-6.5) Lymph # (1.2-3.4) Ripley # (0.1-0.6) Eos # (0.0-0.7) Baso # (0.0-2.0) K/mm3 PT (9.9-11.8) Seconds INR (0.93-1.08) APTT (23.7-30.8) Seconds pCO2 38 (35-45) mm/Hg pO2 132.0 H (80-100) mm/Hg HCO3 24.1 (21-28) mmol/L ABG pH 7.41 (7.35-7.45) ABG Total CO2 25.3 (22-28) mmol.L ABG O2 Saturation 99.2 H (95-98) % ABG O2 Content 14.9 L (15-23) ML/dl ABG Base Excess -0.4 (-2.0-3.0) mmol/L ABG Hemoglobin 10.7 L (11.7-17.4) g/dL ABG Carboxyhemoglobin 1.2 (0.5-1.5) % POC ABG HHb (Measured) 0.8 (0-5) % ABG Methemoglobin 0.7 (0.0-3.0) % ABG O2 Capacity 15.0 L (16-24) mL/dl Hgb O2 Saturation 97.2 (95.0-98.0) % FiO2 60.0 % Sodium 142 (132-148) mmol/L Potassium 4.2 (3.6-5.0) mmol/L Chloride 108 H (98-107) mmol/L Carbon Dioxide 23 (21-33) mmol/L Anion Gap 15 (10-20) BUN 78 H (7-21) mg/dL Creatinine 2.3 H (0.5-1.4) mg/dL Est GFR ( Amer) 34 Est GFR (Non-Af Amer) 28 POC Glucose (mg/dL) 169 H (65-110) mg/dL Random Glucose 184 H (70-110) mg/dL Calcium 8.6 (8.4-10.5) mg/dL Total Bilirubin 0.5 (0.2-1.3) mg/dL AST 77 H (15-59) U/L ALT 66 H (7-56) U/L Alkaline Phosphatase 140 H (38-133) U/L Total Protein 5.9 (5.8-8.3) g/dL Albumin 3.0 (3.0-4.8) g/dL Globulin 2.9 gm/dL Albumin/Globulin Ratio 1.0 L (1.1-1.8) /15/17 Range/Units 16:45 WBC (4.5-11.0) 10^3/ul RBC (3.5-6.1) 10^6/uL Hgb (14.0-18.0) gm/dL Hct (42.0-52.0) % MCV (80.0-105.0) fL MCH (25.0-35.0) pg MCHC (31.0-37.0) g/dl RDW (11.5-14.5) % Plt Count (120.0-450.0) 10^3/uL MPV (7.0-11.0) fl Gran % (50.0-68.0) % Lymph % (Auto) (22.0-35.0) % [place] % (Auto) (1.0-6.0) % Eos % (Auto) (1.5-5.0) % Baso % (Auto) (0.0-3.0) % Gran # (1.4-6.5) Lymph # (1.2-3.4) Ripley # (0.1-0.6) Eos # (0.0-0.7) Baso # (0.0-2.0) K/mm3 PT (9.9-11.8) Seconds INR (0.93-1.08) APTT (23.7-30.8) Seconds pCO2 40 (35-45) mm/Hg pO2 63.0 L (80-100) mm/Hg HCO3 22.6 (21-28) mmol/L ABG pH 7.36 (7.35-7.45) ABG Total CO2 23.8 (22-28) mmol.L ABG O2 Saturation 93.6 L (95-98) % ABG O2 Content 13.7 L (15-23) ML/dl ABG Base Excess -2.7 L (-2.0-3.0) mmol/L ABG Hemoglobin 10.6 L (11.7-17.4) g/dL ABG Carboxyhemoglobin 1.5 (0.5-1.5) % POC ABG HHb (Measured) 6.3 H (0-5) % ABG Methemoglobin 0.8 (0.0-3.0) % ABG O2 Capacity 14.6 L (16-24) mL/dl Hgb O2 Saturation 91.4 L (95.0-98.0) % FiO2 60.0 % Sodium (132-148) mmol/L Potassium (3.6-5.0) mmol/L Chloride (98-107) mmol/L Carbon Dioxide (21-33) mmol/L Anion Gap (10-20) BUN (7-21) mg/dL Creatinine (0.5-1.4) mg/dL Est GFR ( Amer) Est GFR (Non-Af Amer) POC Glucose (mg/dL) (65-110) mg/dL Random Glucose (70-110) mg/dL Calcium (8.4-10.5) mg/dL Total Bilirubin (0.2-1.3) mg/dL AST (15-59) U/L ALT (7-56) U/L Alkaline Phosphatase (38-133) U/L Total Protein (5.8-8.3) g/dL Albumin (3.0-4.8) g/dL Globulin gm/dL Albumin/Globulin Ratio (1.1-1.8) Laboratory Results - last 24 hr 11/06/16 11/06/16 11/07/16 16:45 21:17 05:00 WBC RBC Hgb Hct MCV MCH MCHC RDW Plt Count MPV Gran % Lymph % (Auto) Ripley % (Auto) Eos % (Auto) Baso % (Auto) Gran # Lymph # Ripley # Eos # Baso # PT INR APTT pCO2 40 38 pO2 63.0 L 132.0 H HCO3 22.6 24.1 ABG pH 7.36 7.41 ABG Total CO2 23.8 25.3 ABG O2 Saturation 93.6 L 99.2 H ABG O2 Content 13.7 L 14.9 L ABG Base Excess -2.7 L -0.4 ABG Hemoglobin 10.6 L 10.7 L ABG Carboxyhemoglobin 1.5 1.2 POC ABG HHb (Measured) 6.3 H 0.8 ABG Methemoglobin 0.8 0.7 ABG O2 Capacity 14.6 L 15.0 L Hgb O2 Saturation 91.4 L 97.2 FiO2 60.0 60.0 Sodium Potassium Chloride Carbon Dioxide Anion Gap BUN Creatinine Est GFR ( Amer) Est GFR (Non-Af Amer) POC Glucose (mg/dL) 169 H Random Glucose Calcium Total Bilirubin AST ALT Alkaline Phosphatase Total Protein Albumin Globulin Albumin/Globulin Ratio 11/07/16 11/07/16 11/07/16 06:24 06:24 06:24 WBC 8.7 RBC 3.72 Hgb 10.2 L Hct 31.9 L MCV 85.8 MCH 27.4 MCHC 32.0 RDW 16.1 H Plt Count 133 MPV 12.6 H Gran % 93.1 H Lymph % (Auto) 1.8 L Ripley % (Auto) 5.1 Eos % (Auto) 0.0 L Baso % (Auto) 0.0 Gran # 8.11 H Lymph # 0.2 L Ripley # 0.4 Eos # 0.0 Baso # 0.00 PT 11.8 INR 1.09 H APTT 39.7 H pCO2 pO2 HCO3 ABG pH ABG Total CO2 ABG O2 Saturation ABG O2 Content ABG Base Excess ABG Hemoglobin ABG Carboxyhemoglobin POC ABG HHb (Measured) ABG Methemoglobin ABG O2 Capacity Hgb O2 Saturation FiO2 Sodium 142 Potassium 4.2 Chloride 108 H Carbon Dioxide 23 Anion Gap 15 BUN 78 H Creatinine 2.3 H Est GFR ( Amer) 34 Est GFR (Non-Af Amer) 28 POC Glucose (mg/dL) Random Glucose 184 H Calcium 8.6 Total Bilirubin 0.5 AST 77 H ALT 66 H Alkaline Phosphatase 140 H Total Protein 5.9 Albumin 3.0 Globulin 2.9 Albumin/Globulin Ratio 1.0 L 11/07/16 07:39 WBC RBC Hgb Hct MCV MCH MCHC RDW Plt Count MPV Gran % Lymph % (Auto) Ripley % (Auto) Eos % (Auto) Baso % (Auto) Gran # Lymph # Ripley # Eos # Baso # PT INR APTT pCO2 pO2 HCO3 ABG pH ABG Total CO2 ABG O2 Saturation ABG O2 Content ABG Base Excess ABG Hemoglobin ABG Carboxyhemoglobin POC ABG HHb (Measured) ABG Methemoglobin ABG O2 Capacity Hgb O2 Saturation FiO2 Sodium Potassium Chloride Carbon Dioxide Anion Gap BUN Creatinine Est GFR ( Amer) Est GFR (Non-Af Amer) POC Glucose (mg/dL) 206 H Random Glucose Calcium Total Bilirubin AST ALT Alkaline Phosphatase Total Protein Albumin Globulin Albumin/Globulin Ratio Attending/Attestation - Attestation I have personally seen and examined this patient.: Yes I have fully participated in the care of the patient.: Yes I have reviewed all pertinent clinical information: Yes Notes (Text): 11/07/16 16:38 76 y/o M w/ Legionella PNA VDRF SBT today x 2 hrs. Poor mental status but able to follow simple commands off sedation. PAo2 improved today and is nearing extubation. PRN precedex for agitation. On meropenum and Zithromax per ID. Afebrile and improving. Tube feeds continued and tolerating. Bowel regimen needed . A FIB - Digoxin gievn and cardizem drip weaned off. Precedex has lowered the HR. Would try Beta twyla in the future if BP preserved as Calcium ca twyla not effective. PIPPA w/ ATn and Pre renal azotemia . S/P hydration w/ minimal improvement in creatinine and urine output. DVT P PPI cc time 65 min
[2016-11-07] MEDS ORDERED: Digoxin 125 mcg (0.125 mg) Tab PO SCH (14:00)
--- NOTE | 2016-11-07 17:07 | CP.PCM.PN ---
Subjective - Date & Time of Evaluation Date of Evaluation: 11/07/16 Time of Evaluation: 09:30 - Subjective Subjective: Patient continues to be on the ventilator but not in distress. Objective - Vital Signs/Intake and Output Vital Signs (last 24 hours): Temp Pulse Resp BP Pulse Ox 98.2 F 127 H 16 120/71 98 11/07/16 04:00 11/07/16 03:20 11/06/16 07:25 11/07/16 03:00 11/07/16 03:20 Intake and Output: 11/06/16 11/07/16 18:59 06:59 Intake Total 4118 860 Output Total 700 650 Balance 3418 210 - Medications Medications: Current Medications Apixaban (Eliquis) 5 mg PO BID [facility] PRN Reason: Protocol Last Admin: 11/06/16 17:29 Dose: 5 mg Aspirin (Aspirin Chewable) 81 mg PO DAILY [facility] Last Admin: 11/06/16 10:15 Dose: 81 mg Atorvastatin Calcium (Lipitor) 20 mg PO DIN [facility] Last Admin: 11/06/16 17:29 Dose: 20 mg Diltiazem HCl (Cardizem) 60 mg PO TID [facility] Last Admin: 11/04/16 21:07 Dose: 60 mg Home Med (Home Med) 1 unit PO DAILY [facility] Last Admin: 11/06/16 09:32 Dose: Not Given Azithromycin (Zithromax 500mg In Ns) 500 mg in 250 mls @ 167 mls/hr IVPB DAILY [facility] PRN Reason: Protocol Last Admin: 11/06/16 09:31 Dose: 167 mls/hr Fentanyl Citrate (Fentanyl Citrate/Sodium Chloride 1 Mg/100 Ml) 1,000 mcg in 100 mls @ 2 mls/hr IV .Q24H PRN; Protocol; 20 MCG/HR PRN Reason: TITRATE PER MD ORDER Last Titration: 11/06/16 11:21 Dose: 0 mcg/hr, 0 mls/hr Meropenem 1g/NS 100mL IVPB (Meropenem 1g/Ns 100ml Ivpb) 1 gm in 100 mls @ 100 mls/hr IVPB Q12 [facility] PRN Reason: Protocol Stop: 11/12/16 06:41 Last Admin: 11/06/16 22:00 Dose: 100 mls/hr diltiaZEM IVPB 100mg in NS (Cardizem 100mg In Ns) 100 mls @ 5 mls/hr IV .Q20H PRN; Protocol; 5 MG/HR PRN Reason: TITRATE PER MD ORDER Last Titration: 11/07/16 01:30 Dose: 15 mg/hr, 15 mls/hr Dexmedetomidine HCl (Precedex 4 Mcg/Ml (100 Ml)) 400 mcg in 100 mls @ 4.309 mls /hr IV .[id number] PRN; Protocol; 0.2 MCG/KG/HR PRN Reason: Sedation NOREPINEPHRINE BIT/0.9 % NACL (Levophed 4 Mg/ 250 Ml Ns Premixed) 4 mg in 250 mls @ 15 mls/hr IV .[id number] PRN; Protocol; 4 MCG/MIN PRN Reason: TITRATE PER MD ORDER Insulin Human Lispro (Humalog Low) 0 units SC ACHS [facility] PRN Reason: Protocol Last Admin: 11/06/16 22:00 Dose: Not Given Levalbuterol HCl (Xopenex) 1.25 mg IH [id number] [facility] Last Admin: 11/07/16 02:01 Dose: 1.25 mg Mupirocin (Bactroban Ointment) 0 gm NS BID [facility] Stop: 11/10/16 18:01 Last Admin: 11/06/16 17:30 Dose: 1 applic Non-Formulary Medication (Budesonide [Pulmicort Flexhaler]) 1 puff INH BID [facility] Last Admin: 11/06/16 17:27 Dose: Not Given Pantoprazole Sodium (Protonix Inj) 40 mg IVP DAILY [facility] Last Admin: 11/06/16 09:32 Dose: 40 mg Tramadol/Acetaminophen (Ultracet 37.5/325 Mg) 1 tab PO QID PRN PRN Reason: Pain, moderate (4-7) - Labs Labs: 11/06/16 13:55 11/06/16 05:30 PT 12.6 Seconds (9.9-11.8) H 11/06/16 13:55 INR 1.17 (0.93-1.08) H 11/06/16 13:55 APTT 44.9 Seconds (23.7-30.8) H 11/06/16 13:55 - Constitutional Appears: Other (Intubated and sedated) - Head Exam Head Exam: NORMAL INSPECTION - ENT Exam Additional comments: ET tube in place - Neck Exam Neck Exam: absent: Meningismus - Respiratory Exam Respiratory Exam: Decreased Breath Sounds - Cardiovascular Exam Cardiovascular Exam: +S1, +S2 - GI/Abdominal Exam GI & Abdominal Exam: Soft. absent: Tenderness Assessment and Plan - Assessment and Plan (Free Text) Plan: Assessment severe sepsis with acute renal failure and acute hypoxic ventilator-dependent respiratory failure consider due to severe right lower lobe pneumonia with Legionella in a patient with acute pulmonary edema probably CHF CAD S/P CABG HTN dyslipidemia S/P right knee replacement surgery CVA S/P right carotid endarterectomy history of basal cell CA COPD history of pneumonia obstructive sleep apnea Plan continue Merrem and Zithromax (day 3) will continue to follow clinically
--- NOTE | 2016-11-07 19:25 | PN ---
DATE: 11/07/2016 The patient is a 76-year-old, remains intubated, sedated. Failed trial yesterday. Had CPAP tr ial this morning, but became tachypneic and tachycardic. He is sedated on the vent. PHYSICAL EXAMINATION: VITAL SIGNS: He is afebrile, pulse 83, respirations 18, blood pressure 95/35. LUNGS: Bilateral soft crackles at bases. HEART: S1, S2 audible. ABDOMEN: Soft, nontender, no rebound, no guarding. He has nasogastric tube in place for feeding. NEUROLOGIC: He is not communicative, he is sedated. LABORATORY DATA: WBC 8.7, hemoglobin 10.2, hematocrit 31.9, platelet of 133. PT 11.8, INR 1.09. Ch emistry: Sodium 142, potassium 4.2, chloride 108, CO2 33, BUN 78, creatinine 2.3, blood sugar of 206 . AST 77, ALT 66, alkaline phosphatase is 140. Blood culture and urine cultures are negative. ASSESSMENT: 1. Community-acquired pneumonia. 2. Hypertension. 3. Congestive heart failure. 4. Acute on chronic atrial fibrillation, rapid atrial fibrillation. PLAN: Currently, the patient is on aspirin 81 daily. He is on diltiazem 60 mg 3 times a day. He is on Cardizem drip. He is on Eliquis 5 mg twice a day. He was given digoxin for better control. He is also receiving meropenem. Discussed with the family who was by the bedside. Follow up electrolyt es and CBC in a.m. Tamera Gómez MD cc: [id number] TT: 11/07/2016 19:24:36 Confirmation # [id number] Dictation # [id number] bell
[2016-11-08] MEDS: Dexmedetomidine HCl 4mcg/ml 400 MCG/100 ML BOTTLE IV PRN (02:00)
[2016-11-08] MEDS: Levalbuterol 1.25 MG/3 ML Inhal Soln UD IH SCH ×2 (02:45→08:04)
[2016-11-08 06:19] LABS: HEMATOCRIT 32.9 % (42.0-52.0); MEAN CELL VOLUME 85.9 fL (80.0-105.0); MEAN CORPUSCULAR HEMOGLOBIN 27.7 pg (25.0-35.0); MEAN CORPUSCULAR HGB CONC 32.2 g/dl (31.0-37.0); PLATELET COUNT 120 10^3/uL (120.0-450.0); RED CELL DISTRIBUTION WIDTH 16.4 % (11.5-14.5); WHITE BLOOD COUNT 6.9 10^3/ul (4.5-11.0)
[2016-11-08 06:20] LABS: ADD MANUAL DIFF? YES
[2016-11-08 06:30] LABS: INR 1.08 (0.93-1.08); PARTIAL THROMBOPLASTIN TIME 35.5 Seconds (23.7-30.8)
[2016-11-08 06:32] LABS: ARTERIAL BLOOD GAS HCO3 26.6 mmol/L (21-28); ARTERIAL BLOOD GAS O2 CAPACITY 14.3 mL/dl (16-24); ARTERIAL BLOOD GAS O2 CONTENT 14.1 ML/dl (15-23); ARTERIAL BLOOD GAS PH 7.42 (7.35-7.45); ARTERIAL BLOOD HGB O2 SAT 96.9 % (95.0-98.0); CARBOXYHEMOGLOBIN 1.1 % (0.5-1.5); HHB 1.3 % (0-5); METHEMOGLOBIN 0.7 % (0.0-3.0)
[2016-11-08 06:33] LABS: BILIRUBIN,TOTAL 0.6 mg/dL (0.2-1.3); POTASSIUM 4.5 mmol/L (3.6-5.0)
[2016-11-08] MEDS: DIOVAN 160 MG PO SCH ×2 (07:54→10:49)
[2016-11-08] MEDS: Insulin Lispro (humaLOG) LOW Coverage SC SCH ×4 (07:58→22:05)
[2016-11-08 08:31] LABS: ANISOCYTOSIS 1+; HYPOCHROMIA 1+; NEUTROPHIL 88 % (50.0-70.0); PLATELET ESTIMATE LOW (NORMAL); POLYCHROMASIA SLIGHT
--- NOTE | 2016-11-08 10:30 | CP.CCUPN ---
CCU Subjective - Physician Review Events Since Last Encounter (Free Text): 11/08/16 10:26 No acute events overnight HR was well controlled on Precedex. Today awake and following commands awaiting SBt trial to extubate CCU Objective - Vital Signs / Intake & Output Intake and Output (Last 8hrs): Intake & Output 11/07/16 11/08/16 11/08/16 22:59 06:59 14:59 Intake Total 1120 904 Output Total 650 900 Balance 470 4 Intake: IV 400 304 Left Internal Jugular 400 204 Tube Feeding 720 600 Output: Urine 650 900 Urethral (Singleton) 650 900 Other: Voiding Method Indwelling Catheter # Bowel Movements 0 - Physical Exam Head: Positive for: Atraumatic, Normocephalic Pupils: Positive for: PERRL Extroacular Muscles: Positive for: EOMI Conjunctiva: Positive for: Normal Mouth: Positive for: Moist Mucous Membranes, Dry, Other (ett) Pharnyx: Positive for: Normal Neck: Positive for: Normal Range of Motion Respiratory/Chest: Positive for: Clear to Auscultation, Decreased Breath Sounds , Rales, Other (positive egophony). Negative for: Good Air Exchange, Respiratory Distress, Accessory Muscle Use Cardiovascular: Positive for: Irregular Rhythm, Tachycardic Abdomen: Positive for: Distention, Normal Bowel Sounds. Negative for: Tenderness, Peritoneal Signs, Rebound, Guarding Genitourinary Male: Positive for: Normal External Genitalia, Other (penile implant). Negative for: Testicle Swelling Upper Extremity: Positive for: Normal Inspection, Edema Lower Extremity: Positive for: Edema (2+ pitting edema to mid collier), NORMAL PULSES. Negative for: CALF TENDERNESS Neurological: Positive for: GCS=15, CN II-XII Intact (grossly,before sedation. ) , Speech Normal Skin: Positive for: Warm, Dry, Normal Color Psychiatric: Positive for: Alert, Other (intubated) - Medications Active Medications: Active Medications Generic Name Dose Route Start Last Admin Trade Name Freq PRN Reason Stop Dose Admin Apixaban 5 mg 11/04/16 18:00 11/08/16 07:47 Eliquis PO 5 mg BID [facility] Administration Protocol Aspirin 81 mg 11/06/16 10:15 11/08/16 07:47 Aspirin Chewable PO 81 mg DAILY [facility] Administration Atorvastatin Calcium 20 mg 11/04/16 17:00 11/07/16 17:15 Lipitor PO 20 mg DIN [facility] Administration Digoxin 0.125 mg 11/07/16 14:00 11/07/16 14:19 Lanoxin PO 0.125 mg 1400 [facility] Administration Diltiazem HCl 60 mg 11/04/16 18:00 11/04/16 21:07 Cardizem PO 60 mg TID [facility] Administration Home Med 1 unit 11/06/16 10:00 11/08/16 07:54 Home Med PO 1 unit DAILY [facility] Administration Azithromycin 500 mg in 250 mls @ 167 mls/hr 11/05/16 10:00 11/07/16 09:20 Zithromax 500mg In Ns IVPB Not Given DAILY [facility] Protocol Fentanyl Citrate 1,000 mcg in 100 mls @ 2 mls/hr 11/04/16 18:40 11/06/16 11: 21 Fentanyl Citrate/Sodium Chloride 1 Mg/100 Ml IV 0 mcg/hr .Q24H PRN 0 mls/hr TITRATE PER MD ORDER Titration Protocol 20 MCG/HR Meropenem 1g/NS 100mL IVPB 1 gm in 100 mls @ 100 mls/hr 11/05/16 06:40 21:32 Meropenem 1g/Ns 100ml Ivpb IVPB 11/12/16 06:41 100 mls/hr Q12 [facility] Administration Protocol diltiaZEM IVPB 100mg in NS 100 mls @ 5 mls/hr 11/05/16 08:43 11/07/16 12:00 Cardizem 100mg In Ns IV 0 mg/hr .Q20H PRN 0 mls/hr TITRATE PER MD ORDER Titration Protocol 5 MG/HR Dexmedetomidine HCl 400 mcg in 100 mls @ 4.309 mls/hr 11/06/16 12:08 02:00 Precedex 4 Mcg/Ml (100 Ml) IV 0.2 mcg/kg/hr .[id number] PRN 4.309 mls/hr Sedation Administration Protocol 0.2 MCG/KG/HR NOREPINEPHRINE BIT/0.9 % NACL 4 mg in 250 mls @ 15 mls/hr 11/06/16 14:39 Levophed 4 Mg/ 250 Ml Ns Premixed IV .[id number] PRN TITRATE PER MD ORDER Protocol 4 MCG/MIN Insulin Human Lispro 0 units 11/05/16 07:30 11/08/16 07:58 Humalog Low SC Not Given ACHS [facility] Protocol Levalbuterol HCl 1.25 mg 11/04/16 20:00 11/08/16 08:04 Xopenex IH 1.25 mg [id number] [facility] Administration Metoprolol Tartrate 25 mg 11/08/16 17:00 Lopressor PO BRKDIN [facility] Mupirocin 0 gm 11/06/16 10:00 11/07/16 17:15 Bactroban Ointment NS 11/10/16 18:01 1 applic BID [facility] Administration Non-Formulary Medication 1 puff 11/05/16 10:00 11/07/16 09:40 Budesonide [Pulmicort Flexhaler] INH Not Given BID [facility] Pantoprazole Sodium 40 mg 11/05/16 10:00 11/07/16 09:38 Protonix Inj IVP Not Given DAILY [facility] Tramadol/Acetaminophen 1 tab 11/04/16 15:49 Ultracet 37.5/325 Mg PO QID PRN Pain, moderate (4-7) - Patient Studies Lab Studies: Microbiology Studies 11/05/16 07:10 Blood Culture - Preliminary Blood-Venous NO GROWTH AFTER 3 DAYS 11/05/16 06:50 Blood Culture - Preliminary Blood-Venous NO GROWTH AFTER 3 DAYS 11/05/16 08:00 Gram Stain - Final Sputum Induced Sputum Culture - Final NORMAL ORAL LINDEN Lab Studies 11/08/16 11/08/16 11/08/16 Range/Units 07:51 06:00 06:00 WBC (4.5-11.0) 10^3/ul RBC (3.5-6.1) 10^6/uL Hgb (14.0-18.0) gm/dL Hct (42.0-52.0) % MCV (80.0-105.0) fL MCH (25.0-35.0) pg MCHC (31.0-37.0) g/dl RDW (11.5-14.5) % Plt Count (120.0-450.0) 10^3/uL MPV (7.0-11.0) fl Neutrophils % (Manual) (50.0-70.0) % Lymphocytes % (Manual) (22.0-35.0) % Monocytes % (Manual) (1.0-6.0) % Platelet Evaluation (NORMAL) Polychromasia Hypochromasia Anisocytosis (manual) PT 11.7 (9.9-11.8) Seconds INR 1.08 (0.93-1.08) APTT 35.5 H (23.7-30.8) Seconds pCO2 41 (35-45) mm/Hg pO2 107.0 H (80-100) mm/Hg HCO3 26.6 (21-28) mmol/L ABG pH 7.42 (7.35-7.45) ABG Total CO2 27.9 (22-28) mmol.L ABG O2 Saturation 98.7 H (95-98) % ABG O2 Content 14.1 L (15-23) ML/dl ABG Base Excess 1.9 (-2.0-3.0) mmol/L ABG Hemoglobin 10.2 L (11.7-17.4) g/dL ABG Carboxyhemoglobin 1.1 (0.5-1.5) % POC ABG HHb (Measured) 1.3 (0-5) % ABG Methemoglobin 0.7 (0.0-3.0) % ABG O2 Capacity 14.3 L (16-24) mL/dl Hgb O2 Saturation 96.9 (95.0-98.0) % FiO2 40.0 % Sodium (132-148) mmol/L Potassium (3.6-5.0) mmol/L Chloride (98-107) mmol/L Carbon Dioxide (21-33) mmol/L Anion Gap (10-20) BUN (7-21) mg/dL Creatinine (0.5-1.4) mg/dL Est GFR ( Amer) Est GFR (Non-Af Amer) POC Glucose (mg/dL) 139 H (65-110) mg/dL Random Glucose (70-110) mg/dL Calcium (8.4-10.5) mg/dL Total Bilirubin (0.2-1.3) mg/dL AST (15-59) U/L ALT (7-56) U/L Alkaline Phosphatase (38-133) U/L Total Protein (5.8-8.3) g/dL Albumin (3.0-4.8) g/dL Globulin gm/dL Albumin/Globulin Ratio (1.1-1.8) 11/08/16 11/08/16 11/07/16 Range/Units 06:00 06:00 21:39 WBC 6.9 D (4.5-11.0) 10^3/ul RBC 3.83 (3.5-6.1) 10^6/uL Hgb 10.6 L (14.0-18.0) gm/dL Hct 32.9 L (42.0-52.0) % MCV 85.9 (80.0-105.0) fL MCH 27.7 (25.0-35.0) pg MCHC 32.2 (31.0-37.0) g/dl RDW 16.4 H (11.5-14.5) % Plt Count 120 (120.0-450.0) 10^3/uL MPV 12.0 H (7.0-11.0) fl Neutrophils % (Manual) 88 H (50.0-70.0) % Lymphocytes % (Manual) 10 L (22.0-35.0) % Monocytes % (Manual) 2 (1.0-6.0) % Platelet Evaluation Low (NORMAL) Polychromasia Slight Hypochromasia 1+ Anisocytosis (manual) 1+ PT (9.9-11.8) Seconds INR (0.93-1.08) APTT (23.7-30.8) Seconds pCO2 (35-45) mm/Hg pO2 (80-100) mm/Hg HCO3 (21-28) mmol/L ABG pH (7.35-7.45) ABG Total CO2 (22-28) mmol.L ABG O2 Saturation (95-98) % ABG O2 Content (15-23) ML/dl ABG Base Excess (-2.0-3.0) mmol/L ABG Hemoglobin (11.7-17.4) g/dL ABG Carboxyhemoglobin (0.5-1.5) % POC ABG HHb (Measured) (0-5) % ABG Methemoglobin (0.0-3.0) % ABG O2 Capacity (16-24) mL/dl Hgb O2 Saturation (95.0-98.0) % FiO2 % Sodium 146 (132-148) mmol/L Potassium 4.5 (3.6-5.0) mmol/L Chloride 110 H (98-107) mmol/L Carbon Dioxide 28 (21-33) mmol/L Anion Gap 13 (10-20) BUN 86 H (7-21) mg/dL Creatinine 1.9 H (0.5-1.4) mg/dL Est GFR ( Amer) 42 Est GFR (Non-Af Amer) 35 POC Glucose (mg/dL) 204 H (65-110) mg/dL Random Glucose 132 H (70-110) mg/dL Calcium 9.0 (8.4-10.5) mg/dL Total Bilirubin 0.6 (0.2-1.3) mg/dL AST 81 H (15-59) U/L ALT 87 H (7-56) U/L Alkaline Phosphatase 140 H (38-133) U/L Total Protein 6.0 (5.8-8.3) g/dL Albumin 2.9 L (3.0-4.8) g/dL Globulin 3.0 gm/dL Albumin/Globulin Ratio 1.0 L (1.1-1.8) 11/07/16 11/07/16 Range/Units 16:08 11:43 WBC (4.5-11.0) 10^3/ul RBC (3.5-6.1) 10^6/uL Hgb (14.0-18.0) gm/dL Hct (42.0-52.0) % MCV (80.0-105.0) fL MCH (25.0-35.0) pg MCHC (31.0-37.0) g/dl RDW (11.5-14.5) % Plt Count (120.0-450.0) 10^3/uL MPV (7.0-11.0) fl Neutrophils % (Manual) (50.0-70.0) % Lymphocytes % (Manual) (22.0-35.0) % Monocytes % (Manual) (1.0-6.0) % Platelet Evaluation (NORMAL) Polychromasia Hypochromasia Anisocytosis (manual) PT (9.9-11.8) Seconds INR (0.93-1.08) APTT (23.7-30.8) Seconds pCO2 (35-45) mm/Hg pO2 (80-100) mm/Hg HCO3 (21-28) mmol/L ABG pH (7.35-7.45) ABG Total CO2 (22-28) mmol.L ABG O2 Saturation (95-98) % ABG O2 Content (15-23) ML/dl ABG Base Excess (-2.0-3.0) mmol/L ABG Hemoglobin (11.7-17.4) g/dL ABG Carboxyhemoglobin (0.5-1.5) % POC ABG HHb (Measured) (0-5) % ABG Methemoglobin (0.0-3.0) % ABG O2 Capacity (16-24) mL/dl Hgb O2 Saturation (95.0-98.0) % FiO2 % Sodium (132-148) mmol/L Potassium (3.6-5.0) mmol/L Chloride (98-107) mmol/L Carbon Dioxide (21-33) mmol/L Anion Gap (10-20) BUN (7-21) mg/dL Creatinine (0.5-1.4) mg/dL Est GFR ( Amer) Est GFR (Non-Af Amer) POC Glucose (mg/dL) 229 H 206 H (65-110) mg/dL Random Glucose (70-110) mg/dL Calcium (8.4-10.5) mg/dL Total Bilirubin (0.2-1.3) mg/dL AST (15-59) U/L ALT (7-56) U/L Alkaline Phosphatase (38-133) U/L Total Protein (5.8-8.3) g/dL Albumin (3.0-4.8) g/dL Globulin gm/dL Albumin/Globulin Ratio (1.1-1.8) Laboratory Results - last 24 hr 11/07/16 11/07/16 11/07/16 11:43 16:08 21:39 WBC RBC Hgb Hct MCV MCH MCHC RDW Plt Count MPV Neutrophils % (Manual) Lymphocytes % (Manual) Monocytes % (Manual) Platelet Evaluation Polychromasia Hypochromasia Anisocytosis (manual) PT INR APTT pCO2 pO2 HCO3 ABG pH ABG Total CO2 ABG O2 Saturation ABG O2 Content ABG Base Excess ABG Hemoglobin ABG Carboxyhemoglobin POC ABG HHb (Measured) ABG Methemoglobin ABG O2 Capacity Hgb O2 Saturation FiO2 Sodium Potassium Chloride Carbon Dioxide Anion Gap BUN Creatinine Est GFR ( Amer) Est GFR (Non-Af Amer) POC Glucose (mg/dL) 206 H 229 H 204 H Random Glucose Calcium Total Bilirubin AST ALT Alkaline Phosphatase Total Protein Albumin Globulin Albumin/Globulin Ratio 11/08/16 11/08/16 11/08/16 06:00 06:00 06:00 WBC 6.9 D RBC 3.83 Hgb 10.6 L Hct 32.9 L MCV 85.9 MCH 27.7 MCHC 32.2 RDW 16.4 H Plt Count 120 MPV 12.0 H Neutrophils % (Manual) 88 H Lymphocytes % (Manual) 10 L Monocytes % (Manual) 2 Platelet Evaluation Low Polychromasia Slight Hypochromasia 1+ Anisocytosis (manual) 1+ PT 11.7 INR 1.08 APTT 35.5 H pCO2 pO2 HCO3 ABG pH ABG Total CO2 ABG O2 Saturation ABG O2 Content ABG Base Excess ABG Hemoglobin ABG Carboxyhemoglobin POC ABG HHb (Measured) ABG Methemoglobin ABG O2 Capacity Hgb O2 Saturation FiO2 Sodium 146 Potassium 4.5 Chloride 110 H Carbon Dioxide 28 Anion Gap 13 BUN 86 H Creatinine 1.9 H Est GFR ( Amer) 42 Est GFR (Non-Af Amer) 35 POC Glucose (mg/dL) Random Glucose 132 H Calcium 9.0 Total Bilirubin 0.6 AST 81 H ALT 87 H Alkaline Phosphatase 140 H Total Protein 6.0 Albumin 2.9 L Globulin 3.0 Albumin/Globulin Ratio 1.0 L 11/08/16 11/08/16 06:00 07:51 WBC RBC Hgb Hct MCV MCH MCHC RDW Plt Count MPV Neutrophils % (Manual) Lymphocytes % (Manual) Monocytes % (Manual) Platelet Evaluation Polychromasia Hypochromasia Anisocytosis (manual) PT INR APTT pCO2 41 pO2 107.0 H HCO3 26.6 ABG pH 7.42 ABG Total CO2 27.9 ABG O2 Saturation 98.7 H ABG O2 Content 14.1 L ABG Base Excess 1.9 ABG Hemoglobin 10.2 L ABG Carboxyhemoglobin 1.1 POC ABG HHb (Measured) 1.3 ABG Methemoglobin 0.7 ABG O2 Capacity 14.3 L Hgb O2 Saturation 96.9 FiO2 40.0 Sodium Potassium Chloride Carbon Dioxide Anion Gap BUN Creatinine Est GFR ( Amer) Est GFR (Non-Af Amer) POC Glucose (mg/dL) 139 H Random Glucose Calcium Total Bilirubin AST ALT Alkaline Phosphatase Total Protein Albumin Globulin Albumin/Globulin Ratio Fingerstick Blood Sugar Results: 139 Review of Systems - Review of Systems Systems not reviewed;Unavailable: Acuity of Condition Critical Care Progress Note - Ventilator Checklist Head of Bed 30 Degrees: Yes Daily Sedation Vacation: Yes Daily Assessment of Readiness to Wean: Yes Daily Spontaneous Breathing Trial: Yes PUD Prophalyxis: Yes DVT Prophylaxis: Yes Oral Care with Chlorhexidine Gluconate {CHG}: Yes Assessment/Plan - Assessment and Plan (Free Text) Assessment: 76 y/o M w/ Acute respiratory failure VDRF w/ Legionella PNA A FIB difficult to control in the setting of resolving sepsis. Currently on PS SBT trial . Plan to extubate in 90 min On Zithromax and Meropenum . CX neg. Legionella urine antigen positive. PIPPA resolving with IV fluids and tube feeds. Urine output improving A fib on Digoxin p.o, Metoprolol to start and will add possible amiodarone or cardizem p.o to keep HR<130 BPM. DVT p w/ eliquis and a fib anticoagulation ppi cc time 65 min
[2016-11-08] MEDS: BUDESONIDE INH SCH ×2 (10:49→17:51)
[2016-11-08] MEDS ORDERED: Metoprolol 1 mg/ml Inj IVP ONE (10:54)
[2016-11-08] MEDS: Meropenem 1g/NS 100mL IVPB 1 GM/100 ML PIGGYBACK IVPB SCH ×2 (11:07→21:41)
[2016-11-08] MEDS: Azithromycin 500MG/NS 250ml 500 MG/250 ML BAG IVPB SCH (11:08)
--- NOTE | 2016-11-08 11:13 | RAD ---
HISTORY: intubated COMPARISON: Chest x-ray performed 11/07/16 TECHNIQUE: Chest, one view. FINDINGS: Endotracheal tube terminates approximately 5.3 cm above the poorly visualized minerva. Nasogastric tube extends expected location of the proximal stomach. Left IJ approach central venous catheter appears to terminate at the expected location of the left brachiocephalic vein and does not cross midline to the SVC. LUNGS: Bibasilar atelectasis. Please note that chest x-ray has limited sensitivity for the detection of pulmonary masses. PLEURA: Small bilateral pleural effusions. No definite pneumothorax . CARDIOVASCULAR: Mild cardiomegaly. Surgical clips project over the left heart border. Median sternotomy wires. OSSEOUS STRUCTURES: Degenerative changes. VISUALIZED UPPER ABDOMEN: Unremarkable. OTHER FINDINGS: None. IMPRESSION: Endotracheal tube terminates approximately 5.3 cm above the poorly visualized minerva. Nasogastric tube extends expected location of the proximal stomach. Left IJ approach central venous catheter appears to terminate at the expected location of the left brachiocephalic vein and does not cross midline to the SVC. Small bilateral pleural effusions. Bibasilar atelectasis. Mild cardiomegaly.
--- NOTE | 2016-11-08 12:33 | CP.PCM.PN ---
Subjective - Date & Time of Evaluation Date of Evaluation: 11/08/16 Time of Evaluation: 12:31 - Subjective Subjective: seen and examined no acute events o/n remains on vent Objective - Vital Signs/Intake and Output Vital Signs (last 24 hours): Temp Pulse Resp BP Pulse Ox 98.2 F 128 H 24 135/70 97 11/08/16 04:00 11/08/16 11:43 11/07/16 16:00 11/08/16 11:43 11/08/16 06:10 Intake and Output: 11/08/16 11/08/16 06:59 18:59 Intake Total 904 Output Total 900 Balance 4 - Medications Medications: Current Medications Apixaban (Eliquis) 5 mg PO BID [facility] PRN Reason: Protocol Last Admin: 11/08/16 10:49 Dose: Not Given Aspirin (Aspirin Chewable) 81 mg PO DAILY [facility] Last Admin: 11/08/16 10:48 Dose: Not Given Atorvastatin Calcium (Lipitor) 20 mg PO DIN [facility] Last Admin: 11/07/16 17:15 Dose: 20 mg Digoxin (Lanoxin) 0.125 mg PO 1400 [facility] Last Admin: 11/07/16 14:19 Dose: 0.125 mg Diltiazem HCl (Cardizem) 60 mg PO TID [facility] Last Admin: 11/04/16 21:07 Dose: 60 mg Home Med (Home Med) 1 unit PO DAILY [facility] Last Admin: 11/08/16 10:49 Dose: Not Given Azithromycin (Zithromax 500mg In Ns) 500 mg in 250 mls @ 167 mls/hr IVPB DAILY [facility] PRN Reason: Protocol Last Admin: 11/08/16 11:08 Dose: 167 mls/hr Fentanyl Citrate (Fentanyl Citrate/Sodium Chloride 1 Mg/100 Ml) 1,000 mcg in 100 mls @ 2 mls/hr IV .Q24H PRN; Protocol; 20 MCG/HR PRN Reason: TITRATE PER MD ORDER Last Titration: 11/06/16 11:21 Dose: 0 mcg/hr, 0 mls/hr Meropenem 1g/NS 100mL IVPB (Meropenem 1g/Ns 100ml Ivpb) 1 gm in 100 mls @ 100 mls/hr IVPB Q12 [facility] PRN Reason: Protocol Stop: 11/12/16 06:41 Last Admin: 11/08/16 11:07 Dose: 100 mls/hr diltiaZEM IVPB 100mg in NS (Cardizem 100mg In Ns) 100 mls @ 5 mls/hr IV .Q20H PRN; Protocol; 5 MG/HR PRN Reason: TITRATE PER MD ORDER Last Titration: 11/07/16 12:00 Dose: 0 mg/hr, 0 mls/hr Dexmedetomidine HCl (Precedex 4 Mcg/Ml (100 Ml)) 400 mcg in 100 mls @ 4.309 mls /hr IV .[id number] PRN; Protocol; 0.2 MCG/KG/HR PRN Reason: Sedation Last Admin: 11/08/16 02:00 Dose: 0.2 mcg/kg/hr, 4.309 mls/hr NOREPINEPHRINE BIT/0.9 % NACL (Levophed 4 Mg/ 250 Ml Ns Premixed) 4 mg in 250 mls @ 15 mls/hr IV .[id number] PRN; Protocol; 4 MCG/MIN PRN Reason: TITRATE PER MD ORDER Insulin Human Lispro (Humalog Low) 0 units SC ACHS [facility] PRN Reason: Protocol Last Admin: 11/08/16 07:58 Dose: Not Given Levalbuterol HCl (Xopenex) 1.25 mg IH [id number] [facility] Last Admin: 11/08/16 08:04 Dose: 1.25 mg Lidocaine (Lidoderm) 1 ea TD DAILY [facility] Metoprolol Tartrate (Lopressor) 25 mg PO BRKDIN [facility] Mupirocin (Bactroban Ointment) 0 gm NS BID [facility] Stop: 11/10/16 18:01 Last Admin: 11/08/16 11:04 Dose: 1 applic Non-Formulary Medication (Budesonide [Pulmicort Flexhaler]) 1 puff INH BID [facility] Last Admin: 11/08/16 10:49 Dose: Not Given Pantoprazole Sodium (Protonix Inj) 40 mg IVP DAILY [facility] Last Admin: 11/08/16 11:08 Dose: 40 mg Tramadol/Acetaminophen (Ultracet 37.5/325 Mg) 1 tab PO QID PRN PRN Reason: Pain, moderate (4-7) - Labs Labs: 11/08/16 06:00 11/08/16 06:00 PT 11.7 Seconds (9.9-11.8) 11/08/16 06:00 INR 1.08 (0.93-1.08) 11/08/16 06:00 APTT 35.5 Seconds (23.7-30.8) H 11/08/16 06:00 - Constitutional Appears: Non-toxic - Head Exam Head Exam: ATRAUMATIC - Eye Exam Eye Exam: Normal appearance - ENT Exam Additional comments: et tube - Neck Exam Neck Exam: Normal Inspection - Respiratory Exam Additional comments: coasre bs - Cardiovascular Exam Cardiovascular Exam: +S1, +S2 - GI/Abdominal Exam GI & Abdominal Exam: Normal Bowel Sounds - Extremities Exam Additional comments: no edema - Neurological Exam Additional comments: sedated - Psychiatric Exam Additional comments: sedated - Skin Additional comments: no rash Assessment and Plan - Assessment and Plan (Free Text) Assessment: PIPPA/ Pneumonia / Hypoxic respiratory failure/ sepsis/hypernatremia -PIPPA resolving -keep eye on na may need to start free water flushes -on abx per primary team -cont vent weaning
[2016-11-08] MEDS: Lidocaine 5% Patch TD SCH (13:03)
--- NOTE | 2016-11-08 13:05 | CP.PCM.PN ---
Subjective - Date & Time of Evaluation Date of Evaluation: 11/08/16 Time of Evaluation: 10:50 - Subjective Subjective: Still on the ventilator but when off sedation is awake and follow simple commands. No fevers overnight. Objective - Vital Signs/Intake and Output Vital Signs (last 24 hours): Temp Pulse Resp BP Pulse Ox 98.2 F 89 24 121/64 97 11/08/16 04:00 11/08/16 06:10 11/07/16 16:00 11/08/16 06:00 11/08/16 06:10 Intake and Output: 11/08/16 11/08/16 06:59 18:59 Intake Total 904 Output Total 900 Balance 4 - Medications Medications: Current Medications Apixaban (Eliquis) 5 mg PO BID [facility] PRN Reason: Protocol Last Admin: 11/07/16 17:15 Dose: 5 mg Aspirin (Aspirin Chewable) 81 mg PO DAILY [facility] Last Admin: 11/07/16 09:19 Dose: Not Given Atorvastatin Calcium (Lipitor) 20 mg PO DIN [facility] Last Admin: 11/07/16 17:15 Dose: 20 mg Digoxin (Lanoxin) 0.125 mg PO 1400 [facility] Last Admin: 11/07/16 14:19 Dose: 0.125 mg Diltiazem HCl (Cardizem) 60 mg PO TID [facility] Last Admin: 11/04/16 21:07 Dose: 60 mg Home Med (Home Med) 1 unit PO DAILY [facility] Last Admin: 11/07/16 09:19 Dose: 1 unit Azithromycin (Zithromax 500mg In Ns) 500 mg in 250 mls @ 167 mls/hr IVPB DAILY [facility] PRN Reason: Protocol Last Admin: 11/07/16 09:20 Dose: Not Given Fentanyl Citrate (Fentanyl Citrate/Sodium Chloride 1 Mg/100 Ml) 1,000 mcg in 100 mls @ 2 mls/hr IV .Q24H PRN; Protocol; 20 MCG/HR PRN Reason: TITRATE PER MD ORDER Last Titration: 11/06/16 11:21 Dose: 0 mcg/hr, 0 mls/hr Meropenem 1g/NS 100mL IVPB (Meropenem 1g/Ns 100ml Ivpb) 1 gm in 100 mls @ 100 mls/hr IVPB Q12 [facility] PRN Reason: Protocol Stop: 11/12/16 06:41 Last Admin: 11/07/16 21:32 Dose: 100 mls/hr diltiaZEM IVPB 100mg in NS (Cardizem 100mg In Ns) 100 mls @ 5 mls/hr IV .Q20H PRN; Protocol; 5 MG/HR PRN Reason: TITRATE PER MD ORDER Last Titration: 11/07/16 12:00 Dose: 0 mg/hr, 0 mls/hr Dexmedetomidine HCl (Precedex 4 Mcg/Ml (100 Ml)) 400 mcg in 100 mls @ 4.309 mls /hr IV .[id number] PRN; Protocol; 0.2 MCG/KG/HR PRN Reason: Sedation Last Admin: 11/08/16 02:00 Dose: 0.2 mcg/kg/hr, 4.309 mls/hr NOREPINEPHRINE BIT/0.9 % NACL (Levophed 4 Mg/ 250 Ml Ns Premixed) 4 mg in 250 mls @ 15 mls/hr IV .[id number] PRN; Protocol; 4 MCG/MIN PRN Reason: TITRATE PER MD ORDER Insulin Human Lispro (Humalog Low) 0 units SC ACHS [facility] PRN Reason: Protocol Last Admin: 11/07/16 22:28 Dose: Not Given Levalbuterol HCl (Xopenex) 1.25 mg IH [id number] [facility] Last Admin: 11/08/16 02:45 Dose: 1.25 mg Mupirocin (Bactroban Ointment) 0 gm NS BID [facility] Stop: 11/10/16 18:01 Last Admin: 11/07/16 17:15 Dose: 1 applic Non-Formulary Medication (Budesonide [Pulmicort Flexhaler]) 1 puff INH BID [facility] Last Admin: 11/07/16 09:40 Dose: Not Given Pantoprazole Sodium (Protonix Inj) 40 mg IVP DAILY [facility] Last Admin: 11/07/16 09:38 Dose: Not Given Tramadol/Acetaminophen (Ultracet 37.5/325 Mg) 1 tab PO QID PRN PRN Reason: Pain, moderate (4-7) - Labs Labs: 11/08/16 06:00 11/08/16 06:00 PT 11.7 Seconds (9.9-11.8) 11/08/16 06:00 INR 1.08 (0.93-1.08) 11/08/16 06:00 APTT 35.5 Seconds (23.7-30.8) H 11/08/16 06:00 - Constitutional Appears: Other (Intubated, sedated currently) - Head Exam Head Exam: NORMAL INSPECTION - ENT Exam Additional comments: ET tube in place - Neck Exam Neck Exam: absent: Meningismus Additional comments: left IJ central venous catheter in place - Respiratory Exam Respiratory Exam: Decreased Breath Sounds - Cardiovascular Exam Cardiovascular Exam: +S1, +S2 - GI/Abdominal Exam GI & Abdominal Exam: Soft. absent: Tenderness Assessment and Plan - Assessment and Plan (Free Text) Plan: Assessment severe sepsis with acute renal failure and acute hypoxic ventilator-dependent respiratory failure consider due to severe right lower lobe pneumonia with Legionella in a patient with acute pulmonary edema probably CHF CAD S/P CABG HTN dyslipidemia S/P right knee replacement surgery CVA S/P right carotid endarterectomy history of basal cell CA COPD history of pneumonia obstructive sleep apnea Plan continue Merrem and Zithromax (day 4) will continue to follow clinically
[2016-11-08] MEDS ORDERED: Albuterol-Ipratrop 3 mg / 0.5 (3 ml) UD IH PRN (13:13)
--- NOTE | 2016-11-08 13:27 | PN ---
DATE: 11/08/2016 SUBJECTIVE: The patient is a 76-year-old, seen and examined, remains on vent, sedated. PHYSICAL EXAMINATION: VITAL SIGNS: He is afebrile, pulse 128, respirations 14, blood pressure 135/70. LUNGS: Bilateral occasional soft crackle. HEART: S1, S2 audible. Tachycardia. ABDOMEN: Soft, nontender, no rebound, no guarding. NEUROLOGIC: The patient is sedated on vent. EXTREMITIES: Bilateral legs +1 edema. LABORATORY EXAMINATION: WBC 6.9, hemoglobin 10.6, hematocrit 32.9, platelet of 120. PT 11.7, INR 1. 08. Chemistry: Sodium 146, potassium 4.5, chloride 110, CO2 28, BUN 86, creatinine 1.9, blood sugar 139, AST 81, ALT 87. X-ray chest that was done this morning shows small bilateral pleural effusions and cardiomegaly. ASSESSMENT: 1. Respiratory failure. 2. Rapid atrial fibrillation. 3. Acute on chronic renal failure. 4. Right lower lobe pneumonia. 5. Coronary artery disease. 6. Hypertension. 7. Hyperlipidemia. 8. History of right carotid endarterectomy in the remote past. 9. History of basal cell carcinoma. 10. Chronic obstructive pulmonary disease. 11, Renal insufficiency. PLAN: The patient is currently on meropenem and Zithromax. I will continue vent support. He is on DVT and GI prophylaxis. He is on Cardizem 60 t.i.d. and he is on Eliquis. We will follow up CBC and electrolytes in a.m. Tamera Gómez MD cc: [phone] TT: 11/08/2016 13:27:30 Confirmation # [id number] Dictation # [id number] tn
[2016-11-08] MEDS: Albuterol-Ipratrop 3 mg / 0.5 (3 ml) UD IH SCH ×2 (13:44→19:54)
[2016-11-08] MEDS ORDERED: Digoxin 125 mcg (0.125 mg) Tab PO SCH (13:58)
[2016-11-08] MEDS: Digoxin 250 mcg (0.25 mg) Tab PO SCH (14:39)
[2016-11-08] MEDS ORDERED: Digoxin 500 mcg/2ml (0.5 mg/2ml) Inj IVP ONE (14:41)
--- NOTE | 2016-11-08 14:46 | PN ---
DATE: 11/08/2016 The patient was about to be extubated when I saw him. The monitor revealed rapid atrial fibrillation . There was no reported ventricular arrhythmia. PHYSICAL EXAMINATION: VITAL SIGNS: Blood pressure 102/64, heart rate 130, respirations 28, temperature 98.2. HEENT: Pale conjunctivae. CHEST: Poor air entry bilaterally. HEART: S1, S2 irregular. ABDOMEN: Soft. EXTREMITIES: No edema. LABORATORIES: Hemoglobin and hematocrit 10.6 and 32.9, white count and platelet count are 6.9 and 12 0,000. SMA-7: Sodium 146, potassium 4.5, chloride 110, CO2 28, glucose 132, BUN 86, creatinine 1.9. Today's chest x-ray report: Small bilateral pleural effusion and bibasal atelectasis. ASSESSMENT: 1. Respiratory failure. 2. Prerenal azotemia. 3. Atrial flutter. 4. Cardiomyopathy. 5. Bilateral pleural effusion and compression atelectasis. RECOMMENDATIONS: Continue aspirin 81 mg once a day, Eliquis 5 mg twice a day, Lopressor at 25 mg twi ce a day, IV meropenem at 1 g daily, IV Zithromax at 500 mg intravenously daily. I recommend kelsie dover digoxin to 0.25 mg daily. Pee Sow MD cc: [id number] TT: 11/08/2016 14:45:49 Confirmation # [id number] Dictation # [id number] tn
[2016-11-08] MEDS ORDERED: Amiodarone 150 mg/D5W 100 ml 150 MG/100 ML BAG IVPB ONE (16:22)
--- NOTE | 2016-11-08 17:23 | RAD ---
HISTORY: RIJ bleeding. Check location and hematoma COMPARISON: Chest x-ray performed 11/08/16 TECHNIQUE: Chest, one view. FINDINGS: Numerous external wires and leads obscure evaluation of the underlying parenchyma, in particularly the right lower lung field. Examination limited by habitus. The provided history indicates presence of the right IJ approach central venous catheter, however no such line is seen on this study. In fact there is a left IJ approach catheter which appears to terminate at the level of the left brachiocephalic vein and does not cross midline to the SVC. Interval removal of endotracheal tube and nasogastric tube. LUNGS: Layering right pleural effusion and associated consolidation. Small left pleural effusion. Left basilar atelectasis. No definite pneumothorax. Please note that chest x-ray has limited sensitivity for the detection of pulmonary masses. CARDIOVASCULAR: Cardiomegaly. Surgical clips project over the left heart border. Median sternotomy wires. OSSEOUS STRUCTURES: Degenerative changes. VISUALIZED UPPER ABDOMEN: Unremarkable. OTHER FINDINGS: None. IMPRESSION: The provided history indicates presence of the right IJ approach central venous catheter, however no such line is seen on this study. In fact there is a left IJ approach catheter which appears to terminate at the level of the left brachiocephalic vein and does not cross midline to the SVC. Interval removal of endotracheal tube and nasogastric tube. Layering right pleural effusion and associated consolidation. Small left pleural effusion. Left basilar atelectasis.
[2016-11-08] MEDS: Amiodarone 360 mg/D5W 200 ml 360 MG/200 ML BAG IV SCH ×2 (18:10→22:39)
[2016-11-09] MEDS: Amiodarone 360 mg/D5W 200 ml 360 MG/200 ML BAG IV SCH ×3 (01:06→12:23)
[2016-11-09] MEDS: Albuterol-Ipratrop 3 mg / 0.5 (3 ml) UD IH SCH ×4 (02:19→20:19)
[2016-11-09 05:23] LABS: ADD MANUAL DIFF? NO
[2016-11-09 05:43] LABS: BASO # 0.01 K/mm3 (0.0-2.0); BASO % 0.1 % (0.0-3.0); EOS # 0.2 (0.0-0.7); EOS % 2.2 % (1.5-5.0); GRAN # 5.98 (1.4-6.5); GRAN % 81.3 % (50.0-68.0); HEMATOCRIT 34.8 % (42.0-52.0); LYMPH # 0.4 (1.2-3.4); LYMPH % 5.2 % (22.0-35.0); MEAN CORPUSCULAR HEMOGLOBIN 27.3 pg (25.0-35.0); MEAN CORPUSCULAR HGB CONC 31.3 g/dl (31.0-37.0); MEAN PLATELET VOLUME 11.7 fl (7.0-11.0); MONO # 0.8 (0.1-0.6); MONO % 11.2 % (1.0-6.0); PLATELET COUNT 144 10^3/uL (120.0-450.0); RED CELL DISTRIBUTION WIDTH 16.3 % (11.5-14.5); WHITE BLOOD COUNT 7.4 10^3/ul (4.5-11.0)
[2016-11-09 05:49] LABS: ARTERIAL BLOOD GAS HCO3 30.6 mmol/L (21-28); ARTERIAL BLOOD GAS O2 CAPACITY 15.3 mL/dl (16-24); ARTERIAL BLOOD GAS O2 CONTENT 14.9 ML/dl (15-23); ARTERIAL BLOOD GAS PH 7.46 (7.35-7.45); ARTERIAL BLOOD HGB O2 SAT 94.9 % (95.0-98.0); CARBOXYHEMOGLOBIN 1.8 % (0.5-1.5); HHB 2.5 % (0-5); METHEMOGLOBIN 0.7 % (0.0-3.0)
[2016-11-09 05:51] LABS: INR 1.17 (0.93-1.08); PARTIAL THROMBOPLASTIN TIME 36.9 Seconds (23.7-30.8)
[2016-11-09 05:53] LABS: BILIRUBIN,TOTAL 0.7 mg/dL (0.2-1.3); CALCIUM 8.9 mg/dL (8.4-10.5)
[2016-11-09] MEDS: Insulin Lispro (humaLOG) LOW Coverage SC SCH ×4 (08:12→21:21)
--- NOTE | 2016-11-09 08:16 | CP.PCM.PN ---
<Bety Andrew - Last Filed: 11/09/16 09:42> Subjective - Date & Time of Evaluation Date of Evaluation: 11/09/16 Time of Evaluation: 08:15 - Subjective Subjective: ICU Progress Note Patient seen and examined at bedside. Overnight patient was tachycardic and was give Cardizem overnight. He remains tachycardic. He denies CP, SOB, n/v/d, numbness/tingling. Objective - Vital Signs/Intake and Output Vital Signs (last 24 hours): Temp Pulse Resp BP Pulse Ox 98.3 F 126 H 26 H 156/62 H 92 L 11/09/16 04:00 11/09/16 07:00 11/09/16 06:50 11/09/16 07:00 11/09/16 07:00 Intake and Output: 11/09/16 11/09/16 06:59 18:59 Intake Total 1540 Output Total 1750 Balance -210 - Medications Medications: Current Medications Albuterol/Ipratropium (Duoneb 3 Mg/0.5 Mg (3 Ml) Ud) 3 ml IH [id number] [facility] Last Admin: 11/09/16 02:19 Dose: 3 ml Albuterol/Ipratropium (Duoneb 3 Mg/0.5 Mg (3 Ml) Ud) 3 ml IH Q3H PRN PRN Reason: Shortness of Breath Apixaban (Eliquis) 5 mg PO BID [facility] PRN Reason: Protocol Last Admin: 11/08/16 17:54 Dose: 5 mg Aspirin (Aspirin Chewable) 81 mg PO DAILY [facility] Last Admin: 11/08/16 10:48 Dose: Not Given Atorvastatin Calcium (Lipitor) 20 mg PO DIN [facility] Last Admin: 11/08/16 17:54 Dose: 20 mg Digoxin (Lanoxin) 0.25 mg PO 1400 [facility] Last Admin: 11/08/16 14:39 Dose: Not Given Diltiazem HCl (Cardizem) 60 mg PO TID [facility] Last Admin: 11/04/16 21:07 Dose: 60 mg Home Med (Home Med) 1 unit PO DAILY [facility] Last Admin: 11/08/16 10:49 Dose: Not Given Azithromycin (Zithromax 500mg In Ns) 500 mg in 250 mls @ 167 mls/hr IVPB DAILY [facility] PRN Reason: Protocol Last Admin: 11/08/16 11:08 Dose: 167 mls/hr Meropenem 1g/NS 100mL IVPB (Meropenem 1g/Ns 100ml Ivpb) 1 gm in 100 mls @ 100 mls/hr IVPB Q12 [facility] PRN Reason: Protocol Stop: 11/12/16 06:41 Last Admin: 11/08/16 21:41 Dose: 100 mls/hr Amiodarone HCl/Dextrose (Nexterone 360 Mg In D5w 200 Ml (Premix)) 360 mg in 200 mls @ 33.333 mls/hr IV .Q6H [facility]; 1 MG/MIN PRN Reason: Protocol Last Admin: 11/09/16 04:55 Dose: Not Given Insulin Human Lispro (Humalog Low) 0 units SC ACHS [facility] PRN Reason: Protocol Last Admin: 11/09/16 08:12 Dose: Not Given Lidocaine (Lidoderm) 1 ea TD DAILY [facility] Last Admin: 11/08/16 13:03 Dose: 1 ea Metoprolol Tartrate (Lopressor) 25 mg PO BRKDIN [facility] Last Admin: 11/08/16 17:54 Dose: 25 mg Mupirocin (Bactroban Ointment) 0 gm NS BID [facility] Stop: 11/10/16 18:01 Last Admin: 11/08/16 17:56 Dose: 1 applic Non-Formulary Medication (Budesonide [Pulmicort Flexhaler]) 1 puff INH BID [facility] Last Admin: 11/08/16 17:51 Dose: Not Given Pantoprazole Sodium (Protonix Inj) 40 mg IVP DAILY [facility] Last Admin: 11/08/16 11:08 Dose: 40 mg Tramadol/Acetaminophen (Ultracet 37.5/325 Mg) 1 tab PO QID PRN PRN Reason: Pain, moderate (4-7) Last Admin: 11/08/16 23:31 Dose: 1 tab - Labs Labs: 11/09/16 05:00 11/09/16 05:00 PT 12.6 Seconds (9.9-11.8) H 11/09/16 05:00 INR 1.17 (0.93-1.08) H 11/09/16 05:00 APTT 36.9 Seconds (23.7-30.8) H 11/09/16 05:00 - Constitutional Appears: No Acute Distress - Head Exam Head Exam: ATRAUMATIC, NORMAL INSPECTION, NORMOCEPHALIC - Eye Exam Eye Exam: Normal appearance, PERRL Pupil Exam: NORMAL ACCOMODATION, PERRL - ENT Exam ENT Exam: Mucous Membranes Moist - Neck Exam Neck Exam: Full ROM, Normal Inspection - Respiratory Exam Respiratory Exam: Rales, Rhonchi, NORMAL BREATHING PATTERN. absent: Respiratory Distress, Stridor - Cardiovascular Exam Cardiovascular Exam: Tachycardia, REGULAR RHYTHM, +S1, +S2. absent: Gallop, Rubs, Murmur - GI/Abdominal Exam GI & Abdominal Exam: Soft, Normal Bowel Sounds. absent: Rigid, Tenderness, Mass , Rebound - Extremities Exam Extremities Exam: Normal Inspection. absent: Calf Tenderness, Pedal Edema - Neurological Exam Neurological Exam: Alert, Awake, CN II-XII Intact, Oriented x3 - Psychiatric Exam Psychiatric exam: Normal Affect, Normal Mood - Skin Skin Exam: Dry, Intact, Normal Color, Warm Assessment and Plan - Assessment and Plan (Free Text) Assessment: This is a 76Y M with PMH HTN, CAD, A.flutter, CHF admitted for sepsis secondary to legionella pneumonia with PIPPA. Sepsis and PIPPA resolved. Pneumonia still present at this time. Patient was intubated and extubated yesterday. Comfortable on NC. Plan: Neuro: A&O x 3 Off Sedation Maintain Normothermia Cardio: A.fib and tachycardic Maintain HR<120s On Amio drip Digoxin, PO Lopressor increased Continue Eliquis Pulm: Pt extubated yesterday, Bipap at night Maintain SpO2>90% Pulmonary toilet Chest Pt GI: Pt tolerating diet Heme: Hgb stable- no overt signs of bleeding Continue to monitor CBC Neprho: PIPPA-improved Cr: 1.5, baseline 1.4 Continue to monitor I&O Will continue to monitor electrolytes ID: Legionella Pneumonia Afebrile, no leukocytosis ID consulted- recs appreciated Continue Merrem and Zithormax Endo: Maintain euglycemia ISS, BGM ACHS GI ppx: PTX DVT ppx: SCDs Case seen, discussed and reviewed with attending. Cyrus Andrew PGY1 <Yaneli HENDRICKSON,Inamul H - Last Filed: 11/09/16 11:53> Objective - Vital Signs/Intake and Output Vital Signs (last 24 hours): Temp Pulse Resp BP Pulse Ox 98.3 F 123 H 26 H 164/91 H 92 L 11/09/16 04:00 11/09/16 09:44 11/09/16 06:50 11/09/16 09:44 11/09/16 07:00 Intake and Output: 11/09/16 11/09/16 06:59 18:59 Intake Total 1540 Output Total 1750 Balance -210 - Medications Medications: Current Medications Acetylcysteine (Acetylcysteine 20%) 4 ml IH [id number] [facility] Albuterol/Ipratropium (Duoneb 3 Mg/0.5 Mg (3 Ml) Ud) 3 ml IH [id number] [facility] Last Admin: 11/09/16 08:09 Dose: 3 ml Albuterol/Ipratropium (Duoneb 3 Mg/0.5 Mg (3 Ml) Ud) 3 ml IH Q3H PRN PRN Reason: Shortness of Breath Apixaban (Eliquis) 5 mg PO BID [facility] PRN Reason: Protocol Last Admin: 11/09/16 09:45 Dose: 5 mg Aspirin (Aspirin Chewable) 81 mg PO DAILY [facility] Last Admin: 11/09/16 09:45 Dose: 81 mg Atorvastatin Calcium (Lipitor) 20 mg PO DIN [facility] Last Admin: 11/08/16 17:54 Dose: 20 mg Digoxin (Lanoxin) 0.25 mg PO 1400 [facility] Last Admin: 11/08/16 14:39 Dose: Not Given Diltiazem HCl (Cardizem) 60 mg PO TID [facility] Last Admin: 11/04/16 21:07 Dose: 60 mg Home Med (Home Med) 1 unit PO DAILY [facility] Last Admin: 11/09/16 09:45 Dose: 1 unit Azithromycin (Zithromax 500mg In Ns) 500 mg in 250 mls @ 167 mls/hr IVPB DAILY [facility] PRN Reason: Protocol Last Admin: 11/09/16 09:44 Dose: 167 mls/hr Meropenem 1g/NS 100mL IVPB (Meropenem 1g/Ns 100ml Ivpb) 1 gm in 100 mls @ 100 mls/hr IVPB Q12 [facility] PRN Reason: Protocol Stop: 11/12/16 06:41 Last Admin: 11/09/16 09:43 Dose: 100 mls/hr Amiodarone HCl/Dextrose (Nexterone 360 Mg In D5w 200 Ml (Premix)) 360 mg in 200 mls @ 33.333 mls/hr IV .Q6H [facility]; 1 MG/MIN PRN Reason: Protocol Last Admin: 11/09/16 04:55 Dose: Not Given Insulin Human Lispro (Humalog Low) 0 units SC ACHS [facility] PRN Reason: Protocol Last Admin: 11/09/16 08:12 Dose: Not Given Lidocaine (Lidoderm) 1 ea TD DAILY [facility] Last Admin: 11/09/16 09:43 Dose: 1 ea Metoprolol Tartrate (Lopressor) 50 mg PO BID [facility] Last Admin: 11/09/16 09:44 Dose: 50 mg Mupirocin (Bactroban Ointment) 0 gm NS BID [facility] Stop: 11/10/16 18:01 Last Admin: 11/09/16 09:47 Dose: 1 applic Non-Formulary Medication (Budesonide [Pulmicort Flexhaler]) 1 puff INH BID [facility] Last Admin: 11/09/16 09:46 Dose: Not Given Pantoprazole Sodium (Protonix Ec Tab) 40 mg PO 0600 [facility] Tramadol/Acetaminophen (Ultracet 37.5/325 Mg) 1 tab PO QID PRN PRN Reason: Pain, moderate (4-7) Last Admin: 11/08/16 23:31 Dose: 1 tab - Labs Labs: 11/09/16 05:00 11/09/16 05:00 PT 12.6 Seconds (9.9-11.8) H 11/09/16 05:00 INR 1.17 (0.93-1.08) H 11/09/16 05:00 APTT 36.9 Seconds (23.7-30.8) H 11/09/16 05:00 Attending/Attestation - Attestation I have personally seen and examined this patient.: Yes I have fully participated in the care of the patient.: Yes I have reviewed all pertinent clinical information, including history, physical exam and plan: Yes Notes (Text): 11/09/16 11:51 76 y/o M w/ Resolving respiratory failure secondary to Legionella PNA S/P extubation yesterday Currently on 4L out of bed. Comfortable. Needs pulm toilet, chest PT and suctioning. ICS on Meropenum and azitromax. ID following. no fevers. PIPPA resolving and urine output improving. Lasix 60 mg given to help with mild hypoxia. A FIB- On Digoxin, Lopressor and Cardizem . Completing Amiodarone drip protocol. Currently HR 92. DVT P Eliquis. ppi cc time 65 min
[2016-11-09] MEDS: Meropenem 1g/NS 100mL IVPB 1 GM/100 ML PIGGYBACK IVPB SCH ×2 (09:43→21:22)
[2016-11-09] MEDS: Lidocaine 5% Patch TD SCH (09:43)
[2016-11-09] MEDS: Azithromycin 500MG/NS 250ml 500 MG/250 ML BAG IVPB SCH (09:44)
[2016-11-09] MEDS: DIOVAN 160 MG PO SCH (09:45)
[2016-11-09] MEDS: BUDESONIDE INH SCH ×2 (09:46→17:11)
--- NOTE | 2016-11-09 11:40 | RAD ---
HISTORY: intubated COMPARISON: Chest x-ray performed 11/08/16 TECHNIQUE: Chest, one view. FINDINGS: Examination limited by habitus. Numerous external wires and leads obscure evaluation of the underlying parenchyma, in particularly the right lower lung field. Examination limited by habitus. Left IJ approach catheter terminates at the level of the left brachiocephalic vein and does not cross midline to the SVC. LUNGS: Small right greater than left pleural effusions. Right lower lobe atelectasis or infiltrate. Fluid along the right fissure. Mild pulmonary venous congestion. No definite pneumothorax. Please note that chest x-ray has limited sensitivity for the detection of pulmonary masses. CARDIOVASCULAR: Cardiomegaly. Median sternotomy wires. Surgical clips along the left heart border. Atherosclerotic calcifications of the aorta. OSSEOUS STRUCTURES: Degenerative changes. VISUALIZED UPPER ABDOMEN: Unremarkable. OTHER FINDINGS: None. IMPRESSION: Chest Small right greater than left pleural effusions. Right lower lobe atelectasis or infiltrate. Fluid along the right fissure. Mild pulmonary venous congestion. Left IJ approach catheter terminates at the level of the left brachiocephalic vein and does not cross midline to the SVC. Provided history indicates the patient is intubated, however an endotracheal tube is not visualized. Cardiomegaly. Additional findings as above.
--- NOTE | 2016-11-09 11:49 | CP.PCM.PN ---
Subjective - Date & Time of Evaluation Date of Evaluation: 11/09/16 Time of Evaluation: 10:00 - Subjective Subjective: Patient is now extubated and sitting up on the chair comfortably, no SOB currently at rest, no fevers overnight, no diarrhea. Objective - Vital Signs/Intake and Output Vital Signs (last 24 hours): Temp Pulse Resp BP Pulse Ox 98.3 F 128 H 26 H 160/110 H 92 L 11/09/16 04:00 11/09/16 08:44 11/09/16 06:50 11/09/16 08:44 11/09/16 07:00 Intake and Output: 11/09/16 11/09/16 06:59 18:59 Intake Total 1540 Output Total 1750 Balance -210 - Medications Medications: Current Medications Acetylcysteine (Acetylcysteine 20%) 4 ml IH [id number] [facility] Albuterol/Ipratropium (Duoneb 3 Mg/0.5 Mg (3 Ml) Ud) 3 ml IH [id number] [facility] Last Admin: 11/09/16 08:09 Dose: 3 ml Albuterol/Ipratropium (Duoneb 3 Mg/0.5 Mg (3 Ml) Ud) 3 ml IH Q3H PRN PRN Reason: Shortness of Breath Apixaban (Eliquis) 5 mg PO BID [facility] PRN Reason: Protocol Last Admin: 11/08/16 17:54 Dose: 5 mg Aspirin (Aspirin Chewable) 81 mg PO DAILY [facility] Last Admin: 11/08/16 10:48 Dose: Not Given Atorvastatin Calcium (Lipitor) 20 mg PO DIN [facility] Last Admin: 11/08/16 17:54 Dose: 20 mg Digoxin (Lanoxin) 0.25 mg PO 1400 [facility] Last Admin: 11/08/16 14:39 Dose: Not Given Diltiazem HCl (Cardizem) 60 mg PO TID [facility] Last Admin: 11/04/16 21:07 Dose: 60 mg Home Med (Home Med) 1 unit PO DAILY [facility] Last Admin: 11/08/16 10:49 Dose: Not Given Azithromycin (Zithromax 500mg In Ns) 500 mg in 250 mls @ 167 mls/hr IVPB DAILY [facility] PRN Reason: Protocol Last Admin: 11/08/16 11:08 Dose: 167 mls/hr Meropenem 1g/NS 100mL IVPB (Meropenem 1g/Ns 100ml Ivpb) 1 gm in 100 mls @ 100 mls/hr IVPB Q12 [facility] PRN Reason: Protocol Stop: 11/12/16 06:41 Last Admin: 11/08/16 21:41 Dose: 100 mls/hr Amiodarone HCl/Dextrose (Nexterone 360 Mg In D5w 200 Ml (Premix)) 360 mg in 200 mls @ 33.333 mls/hr IV .Q6H [facility]; 1 MG/MIN PRN Reason: Protocol Last Admin: 11/09/16 04:55 Dose: Not Given Insulin Human Lispro (Humalog Low) 0 units SC ACHS [facility] PRN Reason: Protocol Last Admin: 11/09/16 08:12 Dose: Not Given Lidocaine (Lidoderm) 1 ea TD DAILY [facility] Last Admin: 11/08/16 13:03 Dose: 1 ea Metoprolol Tartrate (Lopressor) 50 mg PO BID [facility] Mupirocin (Bactroban Ointment) 0 gm NS BID [facility] Stop: 11/10/16 18:01 Last Admin: 11/08/16 17:56 Dose: 1 applic Non-Formulary Medication (Budesonide [Pulmicort Flexhaler]) 1 puff INH BID [facility] Last Admin: 11/08/16 17:51 Dose: Not Given Pantoprazole Sodium (Protonix Ec Tab) 40 mg PO 0600 [facility] Tramadol/Acetaminophen (Ultracet 37.5/325 Mg) 1 tab PO QID PRN PRN Reason: Pain, moderate (4-7) Last Admin: 11/08/16 23:31 Dose: 1 tab - Labs Labs: 11/09/16 05:00 11/09/16 05:00 PT 12.6 Seconds (9.9-11.8) H 11/09/16 05:00 INR 1.17 (0.93-1.08) H 11/09/16 05:00 APTT 36.9 Seconds (23.7-30.8) H 11/09/16 05:00 - Constitutional Appears: Non-toxic, No Acute Distress - Head Exam Head Exam: NORMAL INSPECTION - Neck Exam Neck Exam: absent: Lymphadenopathy, Meningismus Additional comments: left IJ central venous catheter site clean - Respiratory Exam Respiratory Exam: Decreased Breath Sounds - Cardiovascular Exam Cardiovascular Exam: +S1, +S2 - GI/Abdominal Exam GI & Abdominal Exam: Soft. absent: Tenderness Assessment and Plan - Assessment and Plan (Free Text) Plan: Assessment severe sepsis with acute renal failure, S/Pacute hypoxic ventilator-dependent respiratory failure consider due to severe right lower lobe pneumonia with Legionella in a patient with acute pulmonary edema probably CHF - now extubated and clinically improving CAD S/P CABG HTN dyslipidemia S/P right knee replacement surgery CVA S/P right carotid endarterectomy history of basal cell CA COPD history of pneumonia obstructive sleep apnea Plan continue Merrem and Zithromax (day 5) will continue to follow clinically
--- NOTE | 2016-11-09 13:32 | PN ---
DATE: 11/09/2016 SUBJECTIVE: The patient was extubated yesterday. He is sitting on a chair eating, appears comforta ble, has atrial flutter with variable conduction. PHYSICAL EXAMINATION: VITAL SIGNS: Blood pressure 164/91, heart rate 123, temperature 98.3, respirations 21. HEENT: Pale conjunctivae. CHEST: Bilateral rhonchi. HEART: S1, S2 regular. ABDOMEN: Soft. EXTREMITIES: Bilateral varicose veins. No edema. LABORATORIES: Hemoglobin and hematocrit 10.9 and 34.8, white count and platelet count are within nor mal limits. Today's BUN and creatine are 66 and 1.5, glucose 102. Potassium is within normal limits at 4.0. PTT 36.9. INR is 1.17. Today's chest x-ray revealed cardiomegaly, right lower lobe infilt rate, right lung fissure edema and bilateral pleural effusion. ASSESSMENT: 1. Status post respiratory failure. 2. Atrial flutter. 3. Prerenal azotemia. 4. Cardiomyopathy. 5. Bilateral pleural effusion with compression atelectasis. RECOMMENDATIONS: Continue current aspirin 81 mg once a day, Cardizem 60 mg t.i.d., Eliquis 5 mg twic e a day, Lanoxin 0.25 mg once a day, Lopressor 50 mg once a day, IV meropenem at 1 gram q. 12 hours. Continue IV amiodarone. Continue IV Zithromax at 500 mg daily. The patient did receive 1 dose of _ ____ mg intravenous Lasix today and I recommend maintaining the patient at 40 mg intravenously daily. Pee Sow MD cc: [id number] TT: 11/09/2016 13:31:49 Confirmation # [id number] Dictation # [id number] dn
--- NOTE | 2016-11-09 14:03 | PN ---
DATE: 11/09/2016 SUBJECTIVE: The patient is 76 years old, seen and examined, sitting in chair, eating and tolerating. His heart rate still seems to be on high side, 123. PHYSICAL EXAMINATION: GENERAL: He is awake, alert, oriented, communicative. VITAL SIGNS: Blood pressure is 164/91. LUNGS: Bilateral fair airflow, no rhonchi or crackle. HEART: S1, S2 audible. ABDOMEN: Soft, nontender, no rebound, no guarding. NEUROLOGIC: He is awake and alert and communicative. EXTREMITIES: Bilateral leg +1 edema. LABORATORY EXAMINATION: WBC 7.4, hemoglobin 10.9, hematocrit 34.8, platelet of 144. PT 12.6, INR 1. 17. Chemistry: Sodium 147, potassium 4.0, chloride 108, CO2 of 30, BUN 66, creatinine 1.5, blood anand gar 107. ASSESSMENT: 1. Community-acquired pneumonia. 2. Respiratory failure, status post successful extubation. 3. Rapid atrial fibrillation. 4. Acute on chronic renal failure. 5. Right lower lobe pneumonia. 6. Coronary artery disease. 7. Hyperlipidemia. PLAN: Currently, the patient is on amiodarone, aspirin, and he is on Cardizem 60 mg 3 times a day. We will increase it to 240 daily. Continue nebulizer treatment. He is on Eliquis and he is on digox in. Awaiting cardiology input to better control his rate. Continue him on meropenem and continue hi m on Zithromax. Request for physical therapy evaluation. Will reevaluate the patient in a.m. Tamera Gómez MD cc: [id number] TT: 11/09/2016 14:03:11 Confirmation # [id number] Dictation # [id number] renay
[2016-11-09] MEDS: Acetylcysteine 20% Inhal Soln (4ml) IH SCH ×2 (14:09→20:18)
[2016-11-09] MEDS: Digoxin 250 mcg (0.25 mg) Tab PO SCH (15:25)
[2016-11-10] MEDS: Amiodarone 360 mg/D5W 200 ml 360 MG/200 ML BAG IV SCH (01:00)
[2016-11-10] MEDS: Acetylcysteine 20% Inhal Soln (4ml) IH SCH ×4 (01:10→19:47)
[2016-11-10] MEDS: Albuterol-Ipratrop 3 mg / 0.5 (3 ml) UD IH SCH ×4 (01:10→19:47)
[2016-11-10 05:41] LABS: ARTERIAL BLOOD GAS HCO3 33.9 mmol/L (21-28); ARTERIAL BLOOD GAS O2 CAPACITY 16.8 mL/dl (16-24); ARTERIAL BLOOD GAS O2 CONTENT 16.4 ML/dl (15-23); ARTERIAL BLOOD GAS PH 7.57 (7.35-7.45); ARTERIAL BLOOD HGB O2 SAT 95.4 % (95.0-98.0); CARBOXYHEMOGLOBIN 1.6 % (0.5-1.5); HHB 2.2 % (0-5); METHEMOGLOBIN 0.8 % (0.0-3.0)
[2016-11-10 06:59] LABS: INR 1.17 (0.93-1.08); PARTIAL THROMBOPLASTIN TIME 40.3 Seconds (23.7-30.8)
[2016-11-10 07:04] LABS: HEMATOCRIT 38.2 % (42.0-52.0); MEAN CELL VOLUME 85.8 fL (80.0-105.0); MEAN CORPUSCULAR HEMOGLOBIN 27.2 pg (25.0-35.0); MEAN CORPUSCULAR HGB CONC 31.7 g/dl (31.0-37.0); MEAN PLATELET VOLUME 12.5 fl (7.0-11.0); PLATELET COUNT 173 10^3/uL (120.0-450.0); WHITE BLOOD COUNT 9.7 10^3/ul (4.5-11.0)
[2016-11-10 07:07] LABS: ADD MANUAL DIFF? YES
[2016-11-10 07:19] LABS: ALKALINE PHOSPHATASE 135 U/L (38-133); ALT/SGPT 68 U/L (7-56); AST/SGOT 45 U/L (15-59); BLOOD UREA NITROGEN 49 mg/dL (7-21); CARBON DIOXIDE 32 mmol/L (21-33); CHLORIDE 102 mmol/L (98-107); GFR AFRICAN-AMERICAN > 60; GLUCOSE,RANDOM 118 mg/dL (70-110); POTASSIUM 4.2 mmol/L (3.6-5.0); SODIUM 142 mmol/L (132-148); TOTAL PROTEIN 6.3 g/dL (5.8-8.3)
[2016-11-10] MEDS: DIOVAN 160 MG PO SCH (08:00)
[2016-11-10] MEDS: Insulin Lispro (humaLOG) LOW Coverage SC SCH ×4 (08:14→21:29)
[2016-11-10] MEDS: Pantoprazole 40 mg EC Tab PO SCH (08:14)
[2016-11-10] MEDS: Azithromycin 500MG/NS 250ml 500 MG/250 ML BAG IVPB SCH ×2 (08:22→10:37)
[2016-11-10 08:37] LABS: BAND 2 % (0-2); NEUTROPHIL 85 % (50.0-70.0)
[2016-11-10 08:42] LABS: ANISOCYTOSIS 1+; PLATELET ESTIMATE NORMAL (NORMAL)
[2016-11-10 08:43] LABS: OVALOCYTES SLIGHT; TEAR DROP CELLS SLIGHT
--- NOTE | 2016-11-10 08:43 | CP.CCUPN ---
<Arlene Rodriguez - Last Filed: 11/10/16 10:52> CCU Subjective - Physician Review Subjective (Free Text): 11/05/16 09:32 VSS. On sedation vacation, spontanous breathing trial. 11/06/16 15:13 T normal. BP 70s-80s all morning. HR 90 to 120s. failed SBT 11/07/16 13:19 Decrease oxygen demand today 11/10/16 08:41 5L NC, comfortable. no cp, sob, hr 120s Now 80s CCU Objective - Vital Signs / Intake & Output Vital Signs (Last 4 hours): Vital Signs Temp Pulse Resp BP Pulse Ox 11/10/16 08:30 129 H 15 95 11/10/16 08:20 129 H 29 H 98 11/10/16 08:14 129 H 140/82 11/10/16 08:10 129 H 19 99 11/10/16 08:02 127 H 11/10/16 08:00 98.7 F 129 H 28 H 140/82 96 11/10/16 07:50 130 H 21 97 11/10/16 07:40 126 H 24 100 11/10/16 07:30 129 H 23 98 11/10/16 07:20 128 H 27 H 98 11/10/16 07:10 128 H 20 97 11/10/16 07:00 127 H 26 H 158/80 H 90 L 11/10/16 06:50 128 H 18 94 L 11/10/16 06:40 127 H 95 11/10/16 06:30 128 H 18 97 11/10/16 06:20 127 H 26 H 97 11/10/16 06:10 127 H 20 97 11/10/16 06:00 124 H 27 H 159/92 H 98 11/10/16 05:50 125 H 23 99 11/10/16 05:40 125 H 97 11/10/16 05:30 126 H 17 96 11/10/16 05:20 126 H 27 H 86 L 11/10/16 05:10 126 H 91 L 11/10/16 05:01 125 H 27 H 160/94 H 87 L 11/10/16 05:00 125 H 87 L 11/10/16 04:50 120 H 27 H 89 L Intake and Output (Last 8hrs): Intake & Output 11/09/16 11/10/16 11/10/16 22:59 06:59 14:59 Intake Total 1772 2150 Output Total 2750 900 Balance -978 1250 Intake: IV 632 1800 Left Internal Jugular 632 Right Antecubital 1800 Oral 1140 350 Output: Urine 2750 900 Urethral ([place]) 2750 900 Other: Voiding Method Indwelling Catheter # Bowel Movements 2 0 - Physical Exam Head: Positive for: Atraumatic, Normocephalic Pupils: Positive for: PERRL Extroacular Muscles: Positive for: EOMI Conjunctiva: Positive for: Normal Mouth: Positive for: Moist Mucous Membranes, Dry Pharnyx: Positive for: Normal Neck: Positive for: Normal Range of Motion Respiratory/Chest: Positive for: Clear to Auscultation, Decreased Breath Sounds , Tachypneic (rr 23). Negative for: Good Air Exchange, Respiratory Distress, Accessory Muscle Use, Rales, Retracting, Rhonchi Cardiovascular: Positive for: Irregular Rhythm, Tachycardic Abdomen: Positive for: Distention, Normal Bowel Sounds. Negative for: Tenderness, Peritoneal Signs, Rebound, Guarding Genitourinary Male: Positive for: Normal External Genitalia, Other (penile implant). Negative for: Testicle Swelling Upper Extremity: Positive for: Normal Inspection, Edema Lower Extremity: Positive for: Edema (1+ pitting edema to mid collier), NORMAL PULSES. Negative for: CALF TENDERNESS Neurological: Positive for: GCS=15, CN II-XII Intact, Speech Normal Skin: Positive for: Warm, Dry, Normal Color Psychiatric: Positive for: Alert, Oriented x 3 - Medications Active Medications: Active Medications Generic Name Dose Route Start Last Admin Trade Name Freq PRN Reason Stop Dose Admin Acetylcysteine 4 ml 11/09/16 14:00 11/10/16 01:10 Acetylcysteine 20% IH 4 ml [id number] LALITO Administration Albuterol/Ipratropium 3 ml 11/08/16 14:00 11/10/16 01:10 Duoneb 3 Mg/0.5 Mg (3 Ml) Ud IH 3 ml [id number] LALITO Administration Albuterol/Ipratropium 3 ml 11/08/16 13:13 Duoneb 3 Mg/0.5 Mg (3 Ml) Ud IH Q3H PRN Shortness of Breath Apixaban 5 mg 11/04/16 18:00 11/10/16 08:12 Eliquis PO 5 mg BID LALITO Administration Protocol Aspirin 81 mg 11/06/16 10:15 11/10/16 08:11 Aspirin Chewable PO 81 mg DAILY LALITO Administration Atorvastatin Calcium 20 mg 11/04/16 17:00 11/09/16 17:18 Lipitor PO 20 mg DIN LALITO Administration Digoxin 0.25 mg 11/08/16 14:00 11/09/16 15:25 Lanoxin PO 0.25 mg 1400 LALITO Administration Diltiazem HCl 60 mg 11/04/16 18:00 11/09/16 17:18 Cardizem PO 60 mg TID LALITO Administration Home Med 1 unit 11/06/16 10:00 11/09/16 09:45 Home Med PO 1 unit DAILY LALITO Administration Azithromycin 500 mg in 250 mls @ 167 mls/hr 11/05/16 10:00 11/10/16 08:22 Zithromax 500mg In Ns IVPB 167 mls/hr DAILY [facility]AL[facility]O Administration Protocol Meropenem 1g/NS 100mL IVPB 1 gm in 100 mls @ 100 mls/hr 11/05/16 06:40 21:22 Meropenem 1g/Ns 100ml Ivpb IVPB 11/12/16 06:41 100 mls/hr Q12 LALITO Administration Protocol Amiodarone HCl/Dextrose 360 mg in 200 mls @ 16.667 mls/hr 11/09/16 12:30 01:00 Nexterone 360 Mg In D5w 200 Ml (Premix) IV 16.667 mls/hr .Q12H LALITO Administration Protocol 0.5 MG/MIN Insulin Human Lispro 0 units 11/05/16 07:30 11/10/16 08:14 Humalog Low SC Not Given ACHS LALITO Protocol Lidocaine 1 ea 11/08/16 11:15 11/09/16 09:43 Lidoderm TD 1 ea DAILY [facility]AL[facility]O Administration Metoprolol Tartrate 50 mg 11/09/16 10:00 11/10/16 08:14 Lopressor PO 50 mg BID LAL[facility]O Administration Mupirocin 0 gm 11/06/16 10:00 11/09/16 17:19 Bactroban Ointment NS 11/10/16 18:01 1 applic BID LALITO Administration Non-Formulary Medication 1 puff 11/05/16 10:00 11/09/16 17:11 Budesonide [Pulmicort Flexhaler] INH Not Given BID LAL[facility]O Pantoprazole Sodium 40 mg 11/10/16 06:00 11/10/16 08:14 Protonix Ec Tab PO 40 mg 0600 LALITO Administration Tramadol/Acetaminophen 1 tab 11/04/16 15:49 11/08/16 23:31 Ultracet 37.5/325 Mg PO 1 tab QID PRN Administration Pain, moderate (4-7) - Patient Studies Lab Studies: Microbiology Studies 11/05/16 07:10 Blood Culture - Final Blood-Venous NO GROWTH AFTER 5 DAYS Gram Stain - Final TEST NOT PERFORMED 11/05/16 06:50 Blood Culture - Final Blood-Venous NO GROWTH AFTER 5 DAYS Gram Stain - Final TEST NOT PERFORMED Lab Studies 11/10/16 11/10/16 11/10/16 Range/Units 05:37 05:30 05:30 WBC (4.5-11.0) 10^3/ul RBC (3.5-6.1) 10^6/uL Hgb (14.0-18.0) gm/dL Hct (42.0-52.0) % MCV (80.0-105.0) fL MCH (25.0-35.0) pg MCHC (31.0-37.0) g/dl RDW (11.5-14.5) % Plt Count (120.0-450.0) 10^3/uL MPV (7.0-11.0) fl PT 12.6 H (9.9-11.8) Seconds INR 1.17 H (0.93-1.08) APTT 40.3 H (23.7-30.8) Seconds pCO2 37 (35-45) mm/Hg pO2 81.0 (80-100) mm/Hg HCO3 33.9 H (21-28) mmol/L ABG pH 7.57 H (7.35-7.45) ABG Total CO2 35.0 H (22-28) mmol.L ABG O2 Saturation 97.7 (95-98) % ABG O2 Content 16.4 (15-23) ML/dl ABG Base Excess 11.1 H (-2.0-3.0) mmol/L ABG Hemoglobin 12.2 (11.7-17.4) g/dL ABG Carboxyhemoglobin 1.6 H (0.5-1.5) % POC ABG HHb (Measured) 2.2 (0-5) % ABG Methemoglobin 0.8 (0.0-3.0) % ABG O2 Capacity 16.8 (16-24) mL/dl Hgb O2 Saturation 95.4 (95.0-98.0) % FiO2 40.0 % Sodium 142 (132-148) mmol/L Potassium 4.2 (3.6-5.0) mmol/L Chloride 102 (98-107) mmol/L Carbon Dioxide 32 (21-33) mmol/L Anion Gap 12 (10-20) BUN 49 H (7-21) mg/dL Creatinine 1.3 (0.5-1.4) mg/dL Est GFR ( Amer) > 60 Est GFR (Non-Af Amer) 54 POC Glucose (mg/dL) (65-110) mg/dL Random Glucose 118 H (70-110) mg/dL Calcium 9.0 (8.4-10.5) mg/dL Total Bilirubin 1.0 (0.2-1.3) mg/dL AST 45 (15-59) U/L ALT 68 H (7-56) U/L Alkaline Phosphatase 135 H (38-133) U/L Total Protein 6.3 (5.8-8.3) g/dL Albumin 3.2 (3.0-4.8) g/dL Globulin 3.1 gm/dL Albumin/Globulin Ratio 1.0 L (1.1-1.8) 11/10/16 11/09/16 11/09/16 Range/Units 05:30 21:14 16:43 WBC 9.7 D (4.5-11.0) 10^3/ul RBC 4.45 (3.5-6.1) 10^6/uL Hgb 12.1 L (14.0-18.0) gm/dL Hct 38.2 L (42.0-52.0) % MCV 85.8 (80.0-105.0) fL MCH 27.2 (25.0-35.0) pg MCHC 31.7 (31.0-37.0) g/dl RDW 16.0 H (11.5-14.5) % Plt Count 173 (120.0-450.0) 10^3/uL MPV 12.5 H (7.0-11.0) fl PT (9.9-11.8) Seconds INR (0.93-1.08) APTT (23.7-30.8) Seconds pCO2 (35-45) mm/Hg pO2 (80-100) mm/Hg HCO3 (21-28) mmol/L ABG pH (7.35-7.45) ABG Total CO2 (22-28) mmol.L ABG O2 Saturation (95-98) % ABG O2 Content (15-23) ML/dl ABG Base Excess (-2.0-3.0) mmol/L ABG Hemoglobin (11.7-17.4) g/dL ABG Carboxyhemoglobin (0.5-1.5) % POC ABG HHb (Measured) (0-5) % ABG Methemoglobin (0.0-3.0) % ABG O2 Capacity (16-24) mL/dl Hgb O2 Saturation (95.0-98.0) % FiO2 % Sodium (132-148) mmol/L Potassium (3.6-5.0) mmol/L Chloride (98-107) mmol/L Carbon Dioxide (21-33) mmol/L Anion Gap (10-20) BUN (7-21) mg/dL Creatinine (0.5-1.4) mg/dL Est GFR ( Amer) Est GFR (Non-Af Amer) POC Glucose (mg/dL) 129 H 139 H (65-110) mg/dL Random Glucose (70-110) mg/dL Calcium (8.4-10.5) mg/dL Total Bilirubin (0.2-1.3) mg/dL AST (15-59) U/L ALT (7-56) U/L Alkaline Phosphatase (38-133) U/L Total Protein (5.8-8.3) g/dL Albumin (3.0-4.8) g/dL Globulin gm/dL Albumin/Globulin Ratio (1.1-1.8) // Range/Units 11:34 WBC (4.5-11.0) 10^3/ul RBC (3.5-6.1) 10^6/uL Hgb (14.0-18.0) gm/dL Hct (42.0-52.0) % MCV (80.0-105.0) fL MCH (25.0-35.0) pg MCHC (31.0-37.0) g/dl RDW (11.5-14.5) % Plt Count (120.0-450.0) 10^3/uL MPV (7.0-11.0) fl PT (9.9-11.8) Seconds INR (0.93-1.08) APTT (23.7-30.8) Seconds pCO2 (35-45) mm/Hg pO2 (80-100) mm/Hg HCO3 (21-28) mmol/L ABG pH (7.35-7.45) ABG Total CO2 (22-28) mmol.L ABG O2 Saturation (95-98) % ABG O2 Content (15-23) ML/dl ABG Base Excess (-2.0-3.0) mmol/L ABG Hemoglobin (11.7-17.4) g/dL ABG Carboxyhemoglobin (0.5-1.5) % POC ABG HHb (Measured) (0-5) % ABG Methemoglobin (0.0-3.0) % ABG O2 Capacity (16-24) mL/dl Hgb O2 Saturation (95.0-98.0) % FiO2 % Sodium (132-148) mmol/L Potassium (3.6-5.0) mmol/L Chloride (98-107) mmol/L Carbon Dioxide (21-33) mmol/L Anion Gap (10-20) BUN (7-21) mg/dL Creatinine (0.5-1.4) mg/dL Est GFR ( Amer) Est GFR (Non-Af Amer) POC Glucose (mg/dL) 204 H (65-110) mg/dL Random Glucose (70-110) mg/dL Calcium (8.4-10.5) mg/dL Total Bilirubin (0.2-1.3) mg/dL AST (15-59) U/L ALT (7-56) U/L Alkaline Phosphatase (38-133) U/L Total Protein (5.8-8.3) g/dL Albumin (3.0-4.8) g/dL Globulin gm/dL Albumin/Globulin Ratio (1.1-1.8) Laboratory Results - last 24 hr 11/09/16 11/09/16 11/09/16 11:34 16:43 21:14 WBC RBC Hgb Hct MCV MCH MCHC RDW Plt Count MPV PT INR APTT pCO2 pO2 HCO3 ABG pH ABG Total CO2 ABG O2 Saturation ABG O2 Content ABG Base Excess ABG Hemoglobin ABG Carboxyhemoglobin POC ABG HHb (Measured) ABG Methemoglobin ABG O2 Capacity Hgb O2 Saturation FiO2 Sodium Potassium Chloride Carbon Dioxide Anion Gap BUN Creatinine Est GFR ( Amer) Est GFR (Non-Af Amer) POC Glucose (mg/dL) 204 H 139 H 129 H Random Glucose Calcium Total Bilirubin AST ALT Alkaline Phosphatase Total Protein Albumin Globulin Albumin/Globulin Ratio 11/10/16 11/10/16 11/10/16 05:30 05:30 05:30 WBC 9.7 D RBC 4.45 Hgb 12.1 L Hct 38.2 L MCV 85.8 MCH 27.2 MCHC 31.7 RDW 16.0 H Plt Count 173 MPV 12.5 H PT 12.6 H INR 1.17 H APTT 40.3 H pCO2 pO2 HCO3 ABG pH ABG Total CO2 ABG O2 Saturation ABG O2 Content ABG Base Excess ABG Hemoglobin ABG Carboxyhemoglobin POC ABG HHb (Measured) ABG Methemoglobin ABG O2 Capacity Hgb O2 Saturation FiO2 Sodium 142 Potassium 4.2 Chloride 102 Carbon Dioxide 32 Anion Gap 12 BUN 49 H Creatinine 1.3 Est GFR ( Amer) > 60 Est GFR (Non-Af Amer) 54 POC Glucose (mg/dL) Random Glucose 118 H Calcium 9.0 Total Bilirubin 1.0 AST 45 ALT 68 H Alkaline Phosphatase 135 H Total Protein 6.3 Albumin 3.2 Globulin 3.1 Albumin/Globulin Ratio 1.0 L 11/10/16 05:37 WBC RBC Hgb Hct MCV MCH MCHC RDW Plt Count MPV PT INR APTT pCO2 37 pO2 81.0 HCO3 33.9 H ABG pH 7.57 H ABG Total CO2 35.0 H ABG O2 Saturation 97.7 ABG O2 Content 16.4 ABG Base Excess 11.1 H ABG Hemoglobin 12.2 ABG Carboxyhemoglobin 1.6 H POC ABG HHb (Measured) 2.2 ABG Methemoglobin 0.8 ABG O2 Capacity 16.8 Hgb O2 Saturation 95.4 FiO2 40.0 Sodium Potassium Chloride Carbon Dioxide Anion Gap BUN Creatinine Est GFR ( Amer) Est GFR (Non-Af Amer) POC Glucose (mg/dL) Random Glucose Calcium Total Bilirubin AST ALT Alkaline Phosphatase Total Protein Albumin Globulin Albumin/Globulin Ratio Fingerstick Blood Sugar Results: 129 Critical Care Progress Note - Nutrition Nutrition: Nutrition Category Date Time Status Heart Healthy Diet [DIET] Diets 11/09/16 Dinner Ordered Assessment/Plan - Assessment and Plan (Free Text) Plan: 76 M with PMHx CAD s/p CABG, A.flutter, PAULIE, Hx CVA R carotid endartectomy, admitted for severe sepsis from legionella pneumonia with PIPPA/ATN status post hypoxemic respiratory failure extubated 2 days ago. a-fib was hard to controled possibly due to increase demand in the setting of cardiomyopathy. Resp alkalosis with metabolic alkalosis today due to recouperative PNA/pulm effusion and volume contraction Neuro - AAOx3 Cardio - new decrease in EF from 55 to 26, pending cath - ASA 81 - Cardizem 60 TID, Lanoxin 0.25 qd, lopressor 50 qd, eliquis bid - amio gtt PRN Pulm - CXR - b/1 pleual effusion with compression atelectasis - 5L NC, ICS, duoneb - Pulm toilet, chest PT, suction - since PIPPA resolves, start lasix 60mg GI - tolerate diet - PIPPA resolve Endo - maintain euglycemic - ISSS - A1C wnl Heme - chronic nomocytic anemia; workup per primary team Infectious - Legionella penumonia on meerem and Azithromycin Prophylasix - PPI S/R/D/w Dr. Groves - Date & Time Date: 11/10/16 Time: 08:42 <Yaneli HENDRICKSON,Estefany H - Last Filed: 11/10/16 12:45> CCU Objective - Vital Signs / Intake & Output Vital Signs (Last 4 hours): Vital Signs Temp Pulse Resp BP Pulse Ox 11/10/16 12:30 85 27 H 96 11/10/16 12:20 81 32 H 98 11/10/16 12:10 83 13 96 11/10/16 12:01 82 22 106/51 L 96 11/10/16 12:00 98.4 F 85 38 H 106/51 L 96 11/10/16 11:50 83 98 11/10/16 11:45 82 30 H 108/44 L 97 11/10/16 11:40 81 26 H 97 11/10/16 11:31 83 20 114/72 92 L 11/10/16 11:30 83 33 H 95 11/10/16 11:20 84 26 H 97 11/10/16 11:15 80 24 109/53 L 98 11/10/16 11:10 77 26 H 98 11/10/16 11:01 79 22 106/45 L 96 11/10/16 11:00 80 30 H 96 11/10/16 10:50 77 31 H 97 11/10/16 10:45 73 22 96/40 L 95 11/10/16 10:41 84 11/10/16 10:40 81 28 H 98 11/10/16 10:36 129 H 11/10/16 10:30 80 27 H 95/44 L 98 11/10/16 10:29 80 29 H 98 11/10/16 10:20 92 H 96 11/10/16 10:19 87 16 76/39 L 99 11/10/16 10:11 93 H 35 H 76/39 L 96 11/10/16 10:10 92 H 27 H 96 11/10/16 10:08 87 69/44 L 92 L 11/10/16 10:06 94 H 39 H 73/47 L 95 11/10/16 10:00 90 28 H 83/32 L 97 11/10/16 09:50 95 H 31 H 97 11/10/16 09:40 94 H 32 H 97 11/10/16 09:30 97 H 41 H 95 11/10/16 09:20 102 H 24 11/10/16 09:10 99 H 27 H 97 11/10/16 09:00 110 H 28 H 133/81 99 11/10/16 08:50 125 H 19 95 Intake and Output (Last 8hrs): Intake & Output 11/09/16 11/10/16 11/10/16 22:59 06:59 14:59 Intake Total 1772 2150 Output Total 2750 900 Balance -978 1250 Intake: IV 632 1800 Left Internal Jugular 632 Right Antecubital 1800 Oral 1140 350 Output: Urine 2750 900 Urethral ([place]) 2750 900 Other: Voiding Method Indwelling Catheter Indwelling Catheter # Bowel Movements 2 0 - Medications Active Medications: Active Medications Generic Name Dose Route Start Last Admin Trade Name Freq PRN Reason Stop Dose Admin Acetylcysteine 4 ml 11/09/16 14:00 11/10/16 08:57 Acetylcysteine 20% IH 4 ml [id number] LALITO Administration Albuterol/Ipratropium 3 ml 11/08/16 14:00 11/10/16 08:57 Duoneb 3 Mg/0.5 Mg (3 Ml) Ud IH 3 ml [id number] LALITO Administration Albuterol/Ipratropium 3 ml 11/08/16 13:13 Duoneb 3 Mg/0.5 Mg (3 Ml) Ud IH Q3H PRN Shortness of Breath Amiodarone HCl 100 mg 11/10/16 10:00 11/10/16 10:41 Cordarone PO 100 mg BID LALITO Administration Apixaban 5 mg 11/04/16 18:00 11/10/16 10:35 Eliquis PO Not Given BID [facility] Protocol Aspirin 81 mg 11/06/16 10:15 11/10/16 10:34 Aspirin Chewable PO Not Given DAILY LALITO Atorvastatin Calcium 20 mg 11/04/16 17:00 11/09/16 17:18 Lipitor PO 20 mg DIN LALITO Administration Digoxin 0.25 mg 11/08/16 14:00 11/09/16 15:25 Lanoxin PO 0.25 mg 1400 LAL[facility]O Administration Diltiazem HCl 60 mg 11/04/16 18:00 11/10/16 08:00 Cardizem PO 60 mg TID LALITO Administration Home Med 1 unit 11/06/16 10:00 11/10/16 08:00 Home Med PO 1 unit DAILY LALITO Administration Azithromycin 500 mg in 250 mls @ 167 mls/hr 11/05/16 10:00 11/10/16 10:37 Zithromax 500mg In Ns IVPB Not Given DAILY [facility] Protocol Meropenem 1g/NS 100mL IVPB 1 gm in 100 mls @ 100 mls/hr 11/05/16 06:40 10:36 Meropenem 1g/Ns 100ml Ivpb IVPB 11/12/16 06:41 100 mls/hr Q12 LALITO Administration Protocol Insulin Human Lispro 0 units 11/05/16 07:30 11/10/16 08:14 Humalog Low SC Not Given ACHS LALITO Protocol Lidocaine 1 ea 11/08/16 11:15 11/10/16 10:45 Lidoderm TD 1 ea DAILY LALITO Administration Metoprolol Tartrate 50 mg 11/09/16 10:00 11/10/16 10:36 Lopressor PO Not Given BID LALITO Mupirocin 0 gm 11/06/16 10:00 11/10/16 10:34 Bactroban Ointment NS 11/10/16 18:01 1 applic BID LALITO Administration Non-Formulary Medication 1 puff 11/05/16 10:00 11/09/16 17:11 Budesonide [Pulmicort Flexhaler] INH Not Given BID LALITO Pantoprazole Sodium 40 mg 11/10/16 06:00 11/10/16 08:14 Protonix Ec Tab PO 40 mg 0600 LALITO Administration Tramadol/Acetaminophen 1 tab 11/04/16 15:49 11/08/16 23:31 Ultracet 37.5/325 Mg PO 1 tab QID PRN Administration Pain, moderate (4-7) - Patient Studies Lab Studies: Microbiology Studies 11/05/16 07:10 Blood Culture - Final Blood-Venous NO GROWTH AFTER 5 DAYS Gram Stain - Final TEST NOT PERFORMED 11/05/16 06:50 Blood Culture - Final Blood-Venous NO GROWTH AFTER 5 DAYS Gram Stain - Final TEST NOT PERFORMED Lab Studies 11/10/16 11/10/16 11/10/16 Range/Units 05:37 05:30 05:30 WBC (4.5-11.0) 10^3/ul RBC (3.5-6.1) 10^6/uL Hgb (14.0-18.0) gm/dL Hct (42.0-52.0) % MCV (80.0-105.0) fL MCH (25.0-35.0) pg MCHC (31.0-37.0) g/dl RDW (11.5-14.5) % Plt Count (120.0-450.0) 10^3/uL MPV (7.0-11.0) fl Neutrophils % (Manual) (50.0-70.0) % Band Neutrophils % (0-2) % Lymphocytes % (Manual) (22.0-35.0) % Monocytes % (Manual) (1.0-6.0) % Platelet Evaluation (NORMAL) Anisocytosis (manual) Tear Drop Cells Ovalocytes PT 12.6 H (9.9-11.8) Seconds INR 1.17 H (0.93-1.08) APTT 40.3 H (23.7-30.8) Seconds pCO2 37 (35-45) mm/Hg pO2 81.0 (80-100) mm/Hg HCO3 33.9 H (21-28) mmol/L ABG pH 7.57 H (7.35-7.45) ABG Total CO2 35.0 H (22-28) mmol.L ABG O2 Saturation 97.7 (95-98) % ABG O2 Content 16.4 (15-23) ML/dl ABG Base Excess 11.1 H (-2.0-3.0) mmol/L ABG Hemoglobin 12.2 (11.7-17.4) g/dL ABG Carboxyhemoglobin 1.6 H (0.5-1.5) % POC ABG HHb (Measured) 2.2 (0-5) % ABG Methemoglobin 0.8 (0.0-3.0) % ABG O2 Capacity 16.8 (16-24) mL/dl Hgb O2 Saturation 95.4 (95.0-98.0) % FiO2 40.0 % Sodium 142 (132-148) mmol/L Potassium 4.2 (3.6-5.0) mmol/L Chloride 102 (98-107) mmol/L Carbon Dioxide 32 (21-33) mmol/L Anion Gap 12 (10-20) BUN 49 H (7-21) mg/dL Creatinine 1.3 (0.5-1.4) mg/dL Est GFR ( Amer) > 60 Est GFR (Non-Af Amer) 54 POC Glucose (mg/dL) (65-110) mg/dL Random Glucose 118 H (70-110) mg/dL Calcium 9.0 (8.4-10.5) mg/dL Total Bilirubin 1.0 (0.2-1.3) mg/dL AST 45 (15-59) U/L ALT 68 H (7-56) U/L Alkaline Phosphatase 135 H (38-133) U/L Total Protein 6.3 (5.8-8.3) g/dL Albumin 3.2 (3.0-4.8) g/dL Globulin 3.1 gm/dL Albumin/Globulin Ratio 1.0 L (1.1-1.8) 11/10/16 11/09/16 11/09/16 Range/Units 05:30 21:14 16:43 WBC 9.7 D (4.5-11.0) 10^3/ul RBC 4.45 (3.5-6.1) 10^6/uL Hgb 12.1 L (14.0-18.0) gm/dL Hct 38.2 L (42.0-52.0) % MCV 85.8 (80.0-105.0) fL MCH 27.2 (25.0-35.0) pg MCHC 31.7 (31.0-37.0) g/dl RDW 16.0 H (11.5-14.5) % Plt Count 173 (120.0-450.0) 10^3/uL MPV 12.5 H (7.0-11.0) fl Neutrophils % (Manual) 85 H (50.0-70.0) % Band Neutrophils % 2 (0-2) % Lymphocytes % (Manual) 5 L (22.0-35.0) % Monocytes % (Manual) 8 H (1.0-6.0) % Platelet Evaluation Normal (NORMAL) Anisocytosis (manual) 1+ Tear Drop Cells Slight Ovalocytes Slight PT (9.9-11.8) Seconds INR (0.93-1.08) APTT (23.7-30.8) Seconds pCO2 (35-45) mm/Hg pO2 (80-100) mm/Hg HCO3 (21-28) mmol/L ABG pH (7.35-7.45) ABG Total CO2 (22-28) mmol.L ABG O2 Saturation (95-98) % ABG O2 Content (15-23) ML/dl ABG Base Excess (-2.0-3.0) mmol/L ABG Hemoglobin (11.7-17.4) g/dL ABG Carboxyhemoglobin (0.5-1.5) % POC ABG HHb (Measured) (0-5) % ABG Methemoglobin (0.0-3.0) % ABG O2 Capacity (16-24) mL/dl Hgb O2 Saturation (95.0-98.0) % FiO2 % Sodium (132-148) mmol/L Potassium (3.6-5.0) mmol/L Chloride (98-107) mmol/L Carbon Dioxide (21-33) mmol/L Anion Gap (10-20) BUN (7-21) mg/dL Creatinine (0.5-1.4) mg/dL Est GFR ( Amer) Est GFR (Non-Af Amer) POC Glucose (mg/dL) 129 H 139 H (65-110) mg/dL Random Glucose (70-110) mg/dL Calcium (8.4-10.5) mg/dL Total Bilirubin (0.2-1.3) mg/dL AST (15-59) U/L ALT (7-56) U/L Alkaline Phosphatase (38-133) U/L Total Protein (5.8-8.3) g/dL Albumin (3.0-4.8) g/dL Globulin gm/dL Albumin/Globulin Ratio (1.1-1.8) /18/17 Range/Units 11:34 WBC (4.5-11.0) 10^3/ul RBC (3.5-6.1) 10^6/uL Hgb (14.0-18.0) gm/dL Hct (42.0-52.0) % MCV (80.0-105.0) fL MCH (25.0-35.0) pg MCHC (31.0-37.0) g/dl RDW (11.5-14.5) % Plt Count (120.0-450.0) 10^3/uL MPV (7.0-11.0) fl Neutrophils % (Manual) (50.0-70.0) % Band Neutrophils % (0-2) % Lymphocytes % (Manual) (22.0-35.0) % Monocytes % (Manual) (1.0-6.0) % Platelet Evaluation (NORMAL) Anisocytosis (manual) Tear Drop Cells Ovalocytes PT (9.9-11.8) Seconds INR (0.93-1.08) APTT (23.7-30.8) Seconds pCO2 (35-45) mm/Hg pO2 (80-100) mm/Hg HCO3 (21-28) mmol/L ABG pH (7.35-7.45) ABG Total CO2 (22-28) mmol.L ABG O2 Saturation (95-98) % ABG O2 Content (15-23) ML/dl ABG Base Excess (-2.0-3.0) mmol/L ABG Hemoglobin (11.7-17.4) g/dL ABG Carboxyhemoglobin (0.5-1.5) % POC ABG HHb (Measured) (0-5) % ABG Methemoglobin (0.0-3.0) % ABG O2 Capacity (16-24) mL/dl Hgb O2 Saturation (95.0-98.0) % FiO2 % Sodium (132-148) mmol/L Potassium (3.6-5.0) mmol/L Chloride (98-107) mmol/L Carbon Dioxide (21-33) mmol/L Anion Gap (10-20) BUN (7-21) mg/dL Creatinine (0.5-1.4) mg/dL Est GFR ( Amer) Est GFR (Non-Af Amer) POC Glucose (mg/dL) 204 H (65-110) mg/dL Random Glucose (70-110) mg/dL Calcium (8.4-10.5) mg/dL Total Bilirubin (0.2-1.3) mg/dL AST (15-59) U/L ALT (7-56) U/L Alkaline Phosphatase (38-133) U/L Total Protein (5.8-8.3) g/dL Albumin (3.0-4.8) g/dL Globulin gm/dL Albumin/Globulin Ratio (1.1-1.8) Laboratory Results - last 24 hr 11/09/16 11/09/16 11/09/16 11:34 16:43 21:14 WBC RBC Hgb Hct MCV MCH MCHC RDW Plt Count MPV Neutrophils % (Manual) Band Neutrophils % Lymphocytes % (Manual) Monocytes % (Manual) Platelet Evaluation Anisocytosis (manual) Tear Drop Cells Ovalocytes PT INR APTT pCO2 pO2 HCO3 ABG pH ABG Total CO2 ABG O2 Saturation ABG O2 Content ABG Base Excess ABG Hemoglobin ABG Carboxyhemoglobin POC ABG HHb (Measured) ABG Methemoglobin ABG O2 Capacity Hgb O2 Saturation FiO2 Sodium Potassium Chloride Carbon Dioxide Anion Gap BUN Creatinine Est GFR ( Amer) Est GFR (Non-Af Amer) POC Glucose (mg/dL) 204 H 139 H 129 H Random Glucose Calcium Total Bilirubin AST ALT Alkaline Phosphatase Total Protein Albumin Globulin Albumin/Globulin Ratio 11/10/16 11/10/16 11/10/16 05:30 05:30 05:30 WBC 9.7 D RBC 4.45 Hgb 12.1 L Hct 38.2 L MCV 85.8 MCH 27.2 MCHC 31.7 RDW 16.0 H Plt Count 173 MPV 12.5 H Neutrophils % (Manual) 85 H Band Neutrophils % 2 Lymphocytes % (Manual) 5 L Monocytes % (Manual) 8 H Platelet Evaluation Normal Anisocytosis (manual) 1+ Tear Drop Cells Slight Ovalocytes Slight PT 12.6 H INR 1.17 H APTT 40.3 H pCO2 pO2 HCO3 ABG pH ABG Total CO2 ABG O2 Saturation ABG O2 Content ABG Base Excess ABG Hemoglobin ABG Carboxyhemoglobin POC ABG HHb (Measured) ABG Methemoglobin ABG O2 Capacity Hgb O2 Saturation FiO2 Sodium 142 Potassium 4.2 Chloride 102 Carbon Dioxide 32 Anion Gap 12 BUN 49 H Creatinine 1.3 Est GFR ( Amer) > 60 Est GFR (Non-Af Amer) 54 POC Glucose (mg/dL) Random Glucose 118 H Calcium 9.0 Total Bilirubin 1.0 AST 45 ALT 68 H Alkaline Phosphatase 135 H Total Protein 6.3 Albumin 3.2 Globulin 3.1 Albumin/Globulin Ratio 1.0 L 11/10/16 05:37 WBC RBC Hgb Hct MCV MCH MCHC RDW Plt Count MPV Neutrophils % (Manual) Band Neutrophils % Lymphocytes % (Manual) Monocytes % (Manual) Platelet Evaluation Anisocytosis (manual) Tear Drop Cells Ovalocytes PT INR APTT pCO2 37 pO2 81.0 HCO3 33.9 H ABG pH 7.57 H ABG Total CO2 35.0 H ABG O2 Saturation 97.7 ABG O2 Content 16.4 ABG Base Excess 11.1 H ABG Hemoglobin 12.2 ABG Carboxyhemoglobin 1.6 H POC ABG HHb (Measured) 2.2 ABG Methemoglobin 0.8 ABG O2 Capacity 16.8 Hgb O2 Saturation 95.4 FiO2 40.0 Sodium Potassium Chloride Carbon Dioxide Anion Gap BUN Creatinine Est GFR ( Amer) Est GFR (Non-Af Amer) POC Glucose (mg/dL) Random Glucose Calcium Total Bilirubin AST ALT Alkaline Phosphatase Total Protein Albumin Globulin Albumin/Globulin Ratio Critical Care Progress Note - Nutrition Nutrition: Nutrition Category Date Time Status Heart Healthy Diet [DIET] Diets 11/09/16 Dinner Ordered Attending/Attestation - Attestation I have personally seen and examined this patient.: Yes I have fully participated in the care of the patient.: Yes I have reviewed all pertinent clinical information: Yes Notes (Text): 11/10/16 12:42 76 y/o M w/ Respiratory failure w/ Legionella PNA Extubated > 36 hrs. out of bed to chair doing well. On Meropenum and Zithromax. ID following [id number] [id number] difficult to control. at times well controlled 90-110 and at times hr 120' s. On Beta blockers, ca blockers, amiodarone changed to P.O and DIG. Cardiology also helping manage. PIPPA resolving and urine output appropriate. Will try to keep euvolemic. pt/ot dvt p on eliquis. ppi Diet resumed. cc time 55 min transfer to tele
[2016-11-10] MEDS ORDERED: Sodium Chloride 0.9% 1,000 ML IV STA (10:09)
[2016-11-10] MEDS: Meropenem 1g/NS 100mL IVPB 1 GM/100 ML PIGGYBACK IVPB SCH ×2 (10:36→21:30)
[2016-11-10] MEDS: Lidocaine 5% Patch TD SCH (10:45)
--- NOTE | 2016-11-10 11:26 | CP.PCM.PN ---
Subjective - Date & Time of Evaluation Date of Evaluation: 11/10/16 Time of Evaluation: 09:50 - Subjective Subjective: Comfortable, not in distress, afebrile, sitting on a chair without distress, no fevers overnight, breathing better, no diarrhea. Objective - Vital Signs/Intake and Output Vital Signs (last 24 hours): Temp Pulse Resp BP Pulse Ox 98.7 F 129 H 15 140/82 95 11/10/16 08:00 11/10/16 08:30 11/10/16 08:30 11/10/16 08:14 11/10/16 08:30 Intake and Output: 11/10/16 11/10/16 06:59 18:59 Intake Total 2150 Output Total 900 Balance 1250 - Medications Medications: Current Medications Acetylcysteine (Acetylcysteine 20%) 4 ml IH [id number] [facility] Last Admin: 11/10/16 01:10 Dose: 4 ml Albuterol/Ipratropium (Duoneb 3 Mg/0.5 Mg (3 Ml) Ud) 3 ml IH [id number] [facility] Last Admin: 11/10/16 01:10 Dose: 3 ml Albuterol/Ipratropium (Duoneb 3 Mg/0.5 Mg (3 Ml) Ud) 3 ml IH Q3H PRN PRN Reason: Shortness of Breath Apixaban (Eliquis) 5 mg PO BID [facility] PRN Reason: Protocol Last Admin: 11/10/16 08:12 Dose: 5 mg Aspirin (Aspirin Chewable) 81 mg PO DAILY [facility] Last Admin: 11/10/16 08:11 Dose: 81 mg Atorvastatin Calcium (Lipitor) 20 mg PO DIN [facility] Last Admin: 11/09/16 17:18 Dose: 20 mg Digoxin (Lanoxin) 0.25 mg PO 1400 [facility] Last Admin: 11/09/16 15:25 Dose: 0.25 mg Diltiazem HCl (Cardizem) 60 mg PO TID [facility] Last Admin: 11/09/16 17:18 Dose: 60 mg Home Med (Home Med) 1 unit PO DAILY [facility] Last Admin: 11/09/16 09:45 Dose: 1 unit Azithromycin (Zithromax 500mg In Ns) 500 mg in 250 mls @ 167 mls/hr IVPB DAILY [facility] PRN Reason: Protocol Last Admin: 11/10/16 08:22 Dose: 167 mls/hr Meropenem 1g/NS 100mL IVPB (Meropenem 1g/Ns 100ml Ivpb) 1 gm in 100 mls @ 100 mls/hr IVPB Q12 [facility] PRN Reason: Protocol Stop: 11/12/16 06:41 Last Admin: 11/09/16 21:22 Dose: 100 mls/hr Amiodarone HCl/Dextrose (Nexterone 360 Mg In D5w 200 Ml (Premix)) 360 mg in 200 mls @ 16.667 mls/hr IV .Q12H [facility]; 0.5 MG/MIN PRN Reason: Protocol Last Admin: 11/10/16 01:00 Dose: 16.667 mls/hr Insulin Human Lispro (Humalog Low) 0 units SC ACHS [facility] PRN Reason: Protocol Last Admin: 11/10/16 08:14 Dose: Not Given Lidocaine (Lidoderm) 1 ea TD DAILY [facility] Last Admin: 11/09/16 09:43 Dose: 1 ea Metoprolol Tartrate (Lopressor) 50 mg PO BID [facility] Last Admin: 11/10/16 08:14 Dose: 50 mg Mupirocin (Bactroban Ointment) 0 gm NS BID [facility] Stop: 11/10/16 18:01 Last Admin: 11/09/16 17:19 Dose: 1 applic Non-Formulary Medication (Budesonide [Pulmicort Flexhaler]) 1 puff INH BID [facility] Last Admin: 11/09/16 17:11 Dose: Not Given Pantoprazole Sodium (Protonix Ec Tab) 40 mg PO 0600 [facility] Last Admin: 11/10/16 08:14 Dose: 40 mg Tramadol/Acetaminophen (Ultracet 37.5/325 Mg) 1 tab PO QID PRN PRN Reason: Pain, moderate (4-7) Last Admin: 11/08/16 23:31 Dose: 1 tab - Labs Labs: 11/10/16 05:30 11/10/16 05:30 PT 12.6 Seconds (9.9-11.8) H 11/10/16 05:30 INR 1.17 (0.93-1.08) H 11/10/16 05:30 APTT 40.3 Seconds (23.7-30.8) H 11/10/16 05:30 - Constitutional Appears: Non-toxic, No Acute Distress - Head Exam Head Exam: NORMAL INSPECTION - ENT Exam ENT Exam: Mucous Membranes Moist - Neck Exam Neck Exam: absent: Lymphadenopathy, Meningismus - Respiratory Exam Respiratory Exam: Decreased Breath Sounds - Cardiovascular Exam Cardiovascular Exam: +S1, +S2 - GI/Abdominal Exam GI & Abdominal Exam: Soft. absent: Tenderness Assessment and Plan - Assessment and Plan (Free Text) Plan: Assessment severe sepsis with acute renal failure, S/P acute hypoxic ventilator-dependent respiratory failure consider due to severe right lower lobe pneumonia with Legionella in a patient with acute pulmonary edema probably CHF - now extubated and clinically improving CAD S/P CABG HTN dyslipidemia S/P right knee replacement surgery CVA S/P right carotid endarterectomy history of basal cell CA COPD history of pneumonia obstructive sleep apnea Plan continue Merrem and Zithromax (day 6); would target 7- days of Merrem and then continue patient on Zithromax will continue to follow clinically
--- NOTE | 2016-11-10 11:35 | RAD ---
HISTORY: intubated COMPARISON: 11/09/2016 FINDINGS: No endotracheal tube is visualized. The left IJV line has been removed. LUNGS: There is no significant interval change in pulmonary venous congestion. There is persistent airspace disease in the right lower lobe. PLEURA: Again seen are bilateral pleural effusions, likely loculated. There is also fluid in the horizontal fissure. CARDIOVASCULAR: The heart is normal in size. Status post CABG. OSSEOUS STRUCTURES: No significant abnormalities. VISUALIZED UPPER ABDOMEN: Normal. OTHER FINDINGS: None. IMPRESSION: Findings are most compatible with mild congestive heart failure. Airspace disease in the right lower lobe could represent pulmonary edema however infection cannot be entirely excluded. Follow-up is advised.
--- NOTE | 2016-11-10 12:11 | PN ---
DATE: 11/10/2016 The patient is 76 years old, seen and examined, sitting in chair, seems to be comfortable, still a li ttle tachycardic, but hypotensive. PHYSICAL EXAMINATION: VITAL SIGNS: He is afebrile, pulse 84, respirations 20, blood pressure 95/44. LUNGS: Bilateral fair airflow, few expiratory rhonchi and soft crackle at bases. HEART: S1, S2 audible. ABDOMEN: Soft, nontender, no rebound, no guarding. NEUROLOGIC: The patient is awake and alert, able to communicate, moves all extremities. LABORATORY EXAMINATION: WBCs 9.7, hemoglobin 12, hematocrit 38, platelets 173. PT 12.6, INR 1.17. Chemistry: Sodium 142, potassium 4.2, chloride 102, CO2 32, BUN 49, creatinine 1.3, blood sugar of 1 18, alk phos 68. ASSESSMENT: 1. Community-acquired pneumonia. 2. Status post respiratory failure. 3. Rapid atrial fibrillation. 4. Acute on chronic renal failure. 5. Hyperlipidemia. 6. Status post right knee replacement. 7. History of cerebrovascular accident in the past. 8. Status post right carotid endarterectomy. 9. Chronic obstructive pulmonary disease. 10. History of obstructive sleep apnea. PLAN: Currently, patient is on meropenem, Zithromax and he is on digoxin, aspirin 81 daily. He is o n Cardizem 60 three times a day and amiodarone. He is receiving Eliquis. He is on statin, meropenem . I will order for digoxin level in a.m. I will also request for physical therapy evaluation and wi ll reevaluate patient in a.m. Tamera Gómez MD cc: [phone] TT: 11/10/2016 12:10:21 Confirmation # [id number] Dictation # [id number] en
--- NOTE | 2016-11-10 12:39 | PN ---
DATE: 11/10/2016 CARDIOLOGY FOLLOWUP The patient is in a chair, awake, alert, eating, and difficulty hearing. PHYSICAL EXAMINATION: VITAL SIGNS: Blood pressure is 94/44. Heart rate in the 80s. NECK: Negative JVD. LUNGS: Decreased breath sounds bilaterally. HEART: Revealed S1, S2. EXTREMITIES: Without edema. LABORATORIES: BUN and creatinine are 49 and 1.3. Glucose is 129. Hemoglobin is 12.1 with white cou nt of 9.7. IMPRESSION: 1. Status post respiratory failure. 2. Status post pneumonia. 3. Deterioration of left ventricular function with an ischemic cardiomyopathy. 4. Atrial fibrillation. 5. History of coronary artery bypass surgery. 6. History of cerebrovascular accident in the past. PLAN: Given these findings, we will discontinue the Singleton catheter today. In addition, we will decr ease his Lasix. We will continue his beta-blockers. There are no plans for cardiac catheterization at this time. That might be necessary in the future to explain his deteriorating LV function. This could occur aft er he has recovered from his acute illnesses. Harshal Romero MD cc: [phone] TT: 11/10/2016 12:38:23 Confirmation # [id number] Dictation # [id number] hubert
[2016-11-10] MEDS: Digoxin 250 mcg (0.25 mg) Tab PO SCH (15:00)
--- NOTE | 2016-11-10 15:09 | PN ---
DATE: 11/10/2016 SUBJECTIVE: The patient is currently seen in CCU bed 7. He is awaiting transfer out of the CCU. He was extubated 2 days ago. His pneumonia appears to clinically have improved. His BUN and creatinin e continue to fall. MEDICATIONS: List reviewed. The patient is currently on acetylcysteine, aspirin, mupirocin, Pulmico rt, diltiazem, Cordarone, DuoNeb, Eliquis, Diovan, insulin, Lanoxin, Lidoderm, Lipitor, Lopressor, me ropenem, Protonix, Ultracet p.r.n., and Zithromax. OBJECTIVE: INTAKE AND OUTPUT: Intake 3922, output 3650. VITAL SIGNS: Blood pressure 106/51, heart rate 85 and irregular, temperature 98.4, respiratory rate is 22. Oxygen saturation is 96%. HEENT: Shows him to be normocephalic, atraumatic. Conjunctivae are pink. Sclerae are nonicteric. NECK: Supple, no neck vein distention. CHEST: Clear to auscultation and percussion with slight decreased breath sounds at the right base. CARDIOVASCULAR: Shows a regular rate and rhythm without audible murmurs, rubs, or gallops. ABDOMEN: Soft. Bowel sounds normal. No rebound, no guarding, no masses. EXTREMITIES: Show no lower extremity cyanosis, clubbing or edema. LABORATORY DATA AND IMAGING: Followup chest x-ray shows a residual right lower lobe infiltrate. CBC : White blood cell count 9.7 with a hemoglobin of 12.1 and a platelet count of 173,000. Chemistries show normal electrolytes. BUN is down to 49 from a high of 86. Baseline BUN is in the 30s. Creati nine is down from 2.5 to 1.3. Baseline creatinine is in the 1.2-1.3 range. Glucose control is accep table. Glucose 118. Calcium is 9.0. Iron saturations are low. Liver enzymes: AST down to 45, ALT down to 68, alkaline phosphatase 135 with a bilirubin of 1.0. Microbiology: Blood cultures are neg ative. ASSESSMENT: 1. Acute renal failure superimposed on chronic kidney disease stage II in the setting of right lower lobe pneumonia. The patient is completing a course of IV antibiotic therapy. The patient came in r espiratory distress. The patient was intubated. The patient is significantly improved. He has been extubated over 48 hours and is awaiting transfer out of the CCU. 2. Atrial fibrillation. The patient is currently rate controlled, but remains in atrial fibrillatio n. Will continue patient on amiodarone and diltiazem as per cardiology. 3. History of non-insulin dependent diabetes mellitus. The patient continues on sliding scale insul in. 4. History of anemia, likely in part secondary to iron deficiency. The patient will be started on o ral iron supplements and I will give patient IV Venofer 200 mg every 48 hours during the hospitalizat ion. 5. History of left ventricular hypertrophy with mild tricuspid regurgitation as seen on echocardiogr aphy. PLAN: 1. Continue to make certain that patient remains well hydrated. BUN and creatinine trend toward nor mal. 2. Likely underlying chronic kidney disease stage II. 3. Check routine urinalysis. 4. Continue to monitor labs post discharge from the CCU. 5. The patient is stable from a renal standpoint. Liam Whyte MD cc: [phone] TT: 11/10/2016 15:09:28 Confirmation # [id number] Dictation # [id number] en
[2016-11-10 19:56] LABS: PH,URINE 5.5 (4.7-8.0); URINE BILIRUBIN NEGATIVE (NEGATIVE); URINE BLOOD LARGE (NEGATIVE); URINE GLUCOSE (UA) NEGATIVE (NEGATIVE); URINE KETONE NEGATIVE (NEGATIVE); URINE LEUKOCYTE ESTERASE TRACE Leu/uL (NEGATIVE); URINE PROTEIN TRACE mg/dL (<30 mg/dL); URINE UROBILINOGEN 0.2 E.U./dL (<1 E.U./dL)
[2016-11-10 19:58] LABS: URINE APPEARANCE SL CLOUDY (CLEAR); URINE COLOR YELLOW (YELLOW)
[2016-11-10 20:03] LABS: URINE RBC 25 - 30 /hpf (0-2)
[2016-11-10 20:11] LABS: URINE BACTERIA SMALL (NEG); URINE URIC ACID CRYSTALS FEW /hpf
[2016-11-11] MEDS: Acetylcysteine 20% Inhal Soln (4ml) IH SCH ×4 (02:02→22:55)
[2016-11-11] MEDS: Albuterol-Ipratrop 3 mg / 0.5 (3 ml) UD IH SCH ×4 (02:02→22:55)
[2016-11-11] MEDS: Pantoprazole 40 mg EC Tab PO SCH (05:21)
[2016-11-11 07:35] LABS: HEMATOCRIT 36.1 % (42.0-52.0); MEAN CELL VOLUME 87.2 fL (80.0-105.0); MEAN CORPUSCULAR HEMOGLOBIN 27.1 pg (25.0-35.0); MEAN PLATELET VOLUME 12.4 fl (7.0-11.0); RED CELL DISTRIBUTION WIDTH 15.6 % (11.5-14.5); WHITE BLOOD COUNT 8.9 10^3/ul (4.5-11.0)
[2016-11-11 07:42] LABS: ALB/GLOB RATIO 1.1 (1.1-1.8); ALKALINE PHOSPHATASE 120 U/L (38-133); ALT/SGPT 58 U/L (7-56); AST/SGOT 38 U/L (15-59); BILIRUBIN,TOTAL 1.1 mg/dL (0.2-1.3); BLOOD UREA NITROGEN 42 mg/dL (7-21); CALCIUM 8.6 mg/dL (8.4-10.5); CARBON DIOXIDE 31 mmol/L (21-33); CHLORIDE 103 mmol/L (98-107); GFR AFRICAN-AMERICAN > 60; GLUCOSE,RANDOM 93 mg/dL (70-110); MAGNESIUM 2.1 mg/dL (1.7-2.2); PHOSPHOROUS 2.9 mg/dL (2.5-4.5); POTASSIUM 4.4 mmol/L (3.6-5.0); SODIUM 139 mmol/L (132-148); TOTAL PROTEIN 6.1 g/dL (5.8-8.3)
[2016-11-11] MEDS: BUDESONIDE INH SCH ×2 (07:42→16:09)
[2016-11-11] MEDS: Insulin Lispro (humaLOG) LOW Coverage SC SCH ×4 (08:15→22:50)
[2016-11-11] MEDS: Meropenem 1g/NS 100mL IVPB 1 GM/100 ML PIGGYBACK IVPB SCH ×2 (09:49→22:50)
[2016-11-11] MEDS: Azithromycin 500MG/NS 250ml 500 MG/250 ML BAG IVPB SCH (09:49)
[2016-11-11] MEDS: Lidocaine 5% Patch TD SCH (09:57)
[2016-11-11] MEDS: DIOVAN 160 MG PO SCH (09:57)
--- NOTE | 2016-11-11 10:47 | CP.PCM.PN ---
Subjective - Date & Time of Evaluation Date of Evaluation: 11/11/16 Time of Evaluation: 09:40 - Subjective Subjective: Patient is comfortable in bed, not in distress, afebrile, breathing better. Objective - Vital Signs/Intake and Output Vital Signs (last 24 hours): Temp Pulse Resp BP Pulse Ox 98.6 F 100 H 17 130/76 90 L 11/11/16 04:00 11/11/16 06:25 11/11/16 06:10 11/11/16 06:01 11/11/16 06:10 Intake and Output: 11/11/16 11/11/16 06:59 18:59 Intake Total 960 Output Total 650 Balance 310 - Medications Medications: Current Medications Acetylcysteine (Acetylcysteine 20%) 4 ml IH [id number] [facility] Last Admin: 11/11/16 07:37 Dose: 4 ml Albuterol/Ipratropium (Duoneb 3 Mg/0.5 Mg (3 Ml) Ud) 3 ml IH [id number] [facility] Last Admin: 11/11/16 07:37 Dose: 3 ml Albuterol/Ipratropium (Duoneb 3 Mg/0.5 Mg (3 Ml) Ud) 3 ml IH Q3H PRN PRN Reason: Shortness of Breath Amiodarone HCl (Cordarone) 100 mg PO BID [facility] Last Admin: 11/10/16 17:40 Dose: 100 mg Apixaban (Eliquis) 5 mg PO BID [facility] PRN Reason: Protocol Last Admin: 11/10/16 17:41 Dose: 5 mg Aspirin (Aspirin Chewable) 81 mg PO DAILY [facility] Last Admin: 11/10/16 10:34 Dose: Not Given Atorvastatin Calcium (Lipitor) 20 mg PO DIN [facility] Last Admin: 11/10/16 17:41 Dose: 20 mg Digoxin (Lanoxin) 0.25 mg PO 1400 [facility] Last Admin: 11/10/16 15:00 Dose: 0.25 mg Diltiazem HCl (Cardizem) 60 mg PO TID [facility] Last Admin: 11/11/16 07:41 Dose: Not Given Home Med (Home Med) 1 unit PO DAILY [facility] Last Admin: 11/10/16 08:00 Dose: 1 unit Azithromycin (Zithromax 500mg In Ns) 500 mg in 250 mls @ 167 mls/hr IVPB DAILY [facility] PRN Reason: Protocol Last Admin: 11/10/16 10:37 Dose: Not Given Meropenem 1g/NS 100mL IVPB (Meropenem 1g/Ns 100ml Ivpb) 1 gm in 100 mls @ 100 mls/hr IVPB Q12 [facility] PRN Reason: Protocol Stop: 11/12/16 06:41 Last Admin: 11/10/16 21:30 Dose: 100 mls/hr Iron Sucrose 200 mg/ Sodium (Chloride) 110 mls @ 110 mls/hr IVPB MWF [facility] Stop: 11/19/16 10:59 Last Admin: 11/10/16 15:01 Dose: 110 mls/hr Insulin Human Lispro (Humalog Low) 0 units SC ACHS [facility] PRN Reason: Protocol Last Admin: 11/11/16 08:15 Dose: Not Given Lidocaine (Lidoderm) 1 ea TD DAILY [facility] Last Admin: 11/10/16 10:45 Dose: 1 ea Metoprolol Tartrate (Lopressor) 50 mg PO BID [facility] Last Admin: 11/10/16 18:31 Dose: 50 mg Non-Formulary Medication (Budesonide [Pulmicort Flexhaler]) 1 puff INH BID [facility] Last Admin: 11/11/16 07:42 Dose: Not Given Pantoprazole Sodium (Protonix Ec Tab) 40 mg PO 0600 [facility] Last Admin: 11/11/16 05:21 Dose: 40 mg Tramadol/Acetaminophen (Ultracet 37.5/325 Mg) 1 tab PO QID PRN PRN Reason: Pain, moderate (4-7) Last Admin: 11/08/16 23:31 Dose: 1 tab - Labs Labs: 11/11/16 07:00 11/11/16 06:30 PT 12.6 Seconds (9.9-11.8) H 11/10/16 05:30 INR 1.17 (0.93-1.08) H 11/10/16 05:30 APTT 40.3 Seconds (23.7-30.8) H 11/10/16 05:30 - Constitutional Appears: Non-toxic, No Acute Distress - Head Exam Head Exam: NORMAL INSPECTION - Neck Exam Neck Exam: absent: Lymphadenopathy, Meningismus - Respiratory Exam Respiratory Exam: Decreased Breath Sounds - Cardiovascular Exam Cardiovascular Exam: +S1, +S2 - GI/Abdominal Exam GI & Abdominal Exam: Soft. absent: Tenderness Assessment and Plan - Assessment and Plan (Free Text) Plan: Assessment severe sepsis with acute renal failure, S/P acute hypoxic ventilator-dependent respiratory failure consider due to severe right lower lobe pneumonia with Legionella in a patient with acute pulmonary edema probably CHF - now extubated and clinically improving CAD S/P CABG HTN dyslipidemia S/P right knee replacement surgery CVA S/P right carotid endarterectomy history of basal cell CA COPD history of pneumonia obstructive sleep apnea Plan continue Merrem and Zithromax (day 7); would target 7-8 days of Merrem and then continue patient on Zithromax will continue to follow clinically
--- NOTE | 2016-11-11 13:36 | PN ---
DATE: 11/11/2016 SUBJECTIVE: The patient is a 76-year-old, seen and examined, lying in bed, seems to be comfortable. No nausea, vomiting, no diarrhea. Eating and tolerating. PHYSICAL EXAMINATION: VITAL SIGNS: The patient is afebrile, pulse 100, respirations 17, blood pressure 130/76. LUNGS: Bilateral fair airflow, no rhonchi or crackle. HEART: S1, S2 audible, irregular, tachycardic. ABDOMEN: Soft, nontender, no rebound, no guarding. NEUROLOGIC: The patient is awake and alert and communicative. EXTREMITIES: Bilateral legs +1 edema. LABORATORY EXAMINATION: WBCs 8.9, hemoglobin 11.2, hematocrit 36, platelets 176. Chemistry: Sodium 139, potassium 4.4, chloride 103, CO2 of 31, BUN 42, creatinine 1.2, blood sugar of 166. Blood cult ure and urine cultures are negative. ASSESSMENT: 1. Legionella pneumonia. 2. Status post respiratory failure. 3. Atrial fibrillation. 4. Hypertension. 5. Coronary artery disease, status post open heart surgery. 6. Hyperlipidemia. 7. History of obstructive sleep apnea. PLAN: The patient is currently on meropenem, Zithromax. He was given extra dose of digoxin and dose has been increased because his heart rate is still not under good control. The patient is clinicall y stable, will be transferred to telemetry later on today. I will follow up his electrolytes and con tinue him on Zithromax and meropenem. Tamera Gómez MD cc: [phone] TT: 11/11/2016 13:36:01 Confirmation # [id number] Dictation # [id number] tn
--- NOTE | 2016-11-11 13:50 | PN ---
DATE: 11/11/2016 The patient is in a chair. His breathing is good. No shortness of breath noted. PHYSICAL EXAMINATION: VITAL SIGNS: Blood pressure is 130/76, the heart rate is in the 90s. Pulse oximetry is 98-100. NECK: Negative JVD. LUNGS: No rales noted. HEART: Reveals S1, S2. EXTREMITIES: Without edema. LABORATORY DATA: BUN and creatinine is 40/1.2, hemoglobin is 11.2. IMPRESSION: 1. Status post respiratory failure. 2. Pneumonia. 3. Ischemic dilated cardiomyopathy. 4. Atrial fibrillation. 5. History of coronary artery bypass surgery. 6. History of cerebrovascular accident. PLAN: Given these findings, we will continue to hold off on Lasix. The patient is on anticoagulation for his atrial fibrillation. He is to be transferred to telemetry to ambulate. Harshal Romero MD cc: [phone] TT: 11/11/2016 13:50:10 Confirmation # [id number] Dictation # [id number] tn
[2016-11-11] MEDS: Digoxin 250 mcg (0.25 mg) Tab PO SCH (14:44)
[2016-11-11 14:49] VITALS: PULSE 60
--- NOTE | 2016-11-11 15:58 | PN ---
DATE: 11/11/2016 SUBJECTIVE: The patient once again is seen in CCU bed 7. He is awaiting transfer to telemetry. He appears to be entirely comfortable. He has improved clinically. His BUN and creatinine continue to fall. MEDICATIONS: Medication list reviewed. The patient is on acetylcysteine, aspirin, Pulmicort, Cardiz em, Cordarone, DuoNeb, Eliquis, Diovan, insulin, IV iron, Venofer, Lanoxin, Lidoderm, Lipitor, Lopres sor, meropenem, Protonix, Ultracet p.r.n., Zithromax. OBJECTIVE: INTAKE AND OUTPUT: Intake 3210, output 1450. VITAL SIGNS: Blood pressure is 130/76. Pulse is 100. Respiratory rate is 17, oxygen saturation is 90%, temperature is 98.6. HEENT: Normocephalic, atraumatic. Conjunctivae are pink. Sclerae are nonicteric. NECK: Supple, no neck vein distention. CHEST: Clear to auscultation and percussion with slight decreased breath sounds at the right base. CARDIOVASCULAR: Shows a regular rate and rhythm without audible murmurs, rubs, or gallops. ABDOMEN: Soft. Bowel sounds normal. No rebound, no guarding, no masses. EXTREMITIES: Show no significant lower extremity cyanosis, clubbing or edema. LABORATORY DATA AND IMAGING: Labs today, CBC: White blood cell count 8.9, hemoglobin 11.[address] atelet count of 176,000. Chemistries show normal electrolytes. BUN down to 42 with creatinine of 1. 2. BUN was as high as 86. Baseline BUN is in the 30s. Creatinine is down from 2.5 down to 1.2 with a baseline creatinine in the 1.1 range. MICROBIOLOGY: All cultures are negative to date. ASSESSMENT: 1. Acute renal failure superimposed on chronic kidney disease stage II in the setting of right lower lobe pneumonia. The patient is completing a course of intravenous antibiotic therapy. The patient was in respiratory distress on admission. He was intubated, he has been extubated now for 72 hours. He is awaiting transfer out of the cardiac care unit. 2. History of atrial fibrillation. Heart rate is currently controlled but patient remains in an atr ial fibrillation rhythm. The patient continues on medication as per cardiology. 3. History of non-insulin dependent diabetes mellitus. The patient continues on sliding scale insul in. 4. History of anemia, in part secondary to iron deficiency. The patient will continue receiving int ravenous iron supplements as ordered by me yesterday. 5. History of left ventricular hypertrophy with tricuspid regurgitation seen on echocardiography. PLAN: 1. Continue to make certain that patient remains well hydrated. He is presently off IV fluid hydrat ion so I will encourage p.o. fluid intake. 2. Likely underlying chronic kidney disease stage II with a baseline creatinine in the low one range . 3. Urinalysis reviewed. White blood cells in the urine, red blood cells in the urine. We will obta in a urine culture to rule out a UTI. 4. Agree with transfer out of the CCU and continue to monitor labs during hospitalization. Liam Whyte MD cc: [phone] TT: 11/11/2016 15:57:07 Confirmation # [id number] Dictation # [id number] sn
[2016-11-11 23:47] VITALS: RESP 20
[2016-11-12] MEDS: Albuterol-Ipratrop 3 mg / 0.5 (3 ml) UD IH SCH ×3 (02:03→13:37)
[2016-11-12] MEDS: Acetylcysteine 20% Inhal Soln (4ml) IH SCH ×3 (02:03→13:37)
[2016-11-12] MEDS: Pantoprazole 40 mg EC Tab PO SCH (05:54)
[2016-11-12 06:11] VITALS: O2SAT 96
[2016-11-12 07:55] LABS: ADD MANUAL DIFF? NO
[2016-11-12] MEDS: Insulin Lispro (humaLOG) LOW Coverage SC SCH ×2 (08:06→12:31)
[2016-11-12 08:20] LABS: ALB/GLOB RATIO 1.1 (1.1-1.8); ALKALINE PHOSPHATASE 109 U/L (38-133); ALT/SGPT 51 U/L (7-56); AST/SGOT 31 U/L (15-59); BLOOD UREA NITROGEN 39 mg/dL (7-21); CALCIUM 8.4 mg/dL (8.4-10.5); CARBON DIOXIDE 29 mmol/L (21-33); CHLORIDE 102 mmol/L (98-107); GFR AFRICAN-AMERICAN > 60; GLUCOSE,RANDOM 86 mg/dL (70-110); POTASSIUM 4.3 mmol/L (3.6-5.0); SODIUM 136 mmol/L (132-148); TOTAL PROTEIN 5.5 g/dL (5.8-8.3)
[2016-11-12 08:42] LABS: BASO # 0.01 K/mm3 (0.0-2.0); BASO % 0.1 % (0.0-3.0); EOS # 0.2 (0.0-0.7); EOS % 2.6 % (1.5-5.0); GRAN # 6.11 (1.4-6.5); HEMATOCRIT 32.7 % (42.0-52.0); LYMPH # 0.5 (1.2-3.4); LYMPH % 6.3 % (22.0-35.0); MEAN CELL VOLUME 86.7 fL (80.0-105.0); MEAN CORPUSCULAR HEMOGLOBIN 26.8 pg (25.0-35.0); MEAN CORPUSCULAR HGB CONC 30.9 g/dl (31.0-37.0); MEAN PLATELET VOLUME 12.2 fl (7.0-11.0); MONO # 0.7 (0.1-0.6); PLATELET COUNT 163 10^3/uL (120.0-450.0); RED CELL DISTRIBUTION WIDTH 15.5 % (11.5-14.5); WHITE BLOOD COUNT 7.5 10^3/ul (4.5-11.0)
--- NOTE | 2016-11-12 08:55 | PN ---
DATE: 11/12/2016 The patient is in bed, asymptomatic. PHYSICAL EXAMINATION: VITAL SIGNS: Blood pressure is 110/60. The heart rate is in the 80s, atrial fibrillation. NECK: Negative JVD. LUNGS: Without rales. HEART: Revealed S1, S2. EXTREMITIES: Without edema. LABORATORY DATA: The hemoglobin is 11.2. Glucose is 98. IMPRESSION: 1. Ischemic dilated cardiomyopathy. 2. Status post respiratory failure. 3. Pneumonia. 4. Atrial fibrillation. 5. History of coronary artery bypass surgery. 6. History of cerebrovascular accident in the past. PLAN: Given these findings, will change the Cardizem to long-acting Cardizem. The patient is alread y on Eliquis for atrial fibrillation. Will discontinue the amiodarone since the patient is likely to remain in atrial fibrillation. Will start physical therapy. Harshal Romero MD cc: [phone] TT: 11/12/2016 08:54:25 Confirmation # [id number] Dictation # [id number] maribell
[2016-11-12] MEDS ORDERED: diltiaZEM 180 mg/24 Hours CD Cap PO SCH (10:00)
[2016-11-12] MEDS: Lidocaine 5% Patch TD SCH (10:35)
[2016-11-12] MEDS: DIOVAN 160 MG PO SCH (10:36)
[2016-11-12] MEDS: Azithromycin 500MG/NS 250ml 500 MG/250 ML BAG IVPB SCH (10:38)
--- NOTE | 2016-11-12 10:51 | CP.PCM.PN ---
Subjective - Date & Time of Evaluation Date of Evaluation: 11/12/16 Time of Evaluation: 09:45 - Subjective Subjective: Patient is doing his physical therapy, feeling better, no SOB at rest, no fevers overnight. Objective - Vital Signs/Intake and Output Vital Signs (last 24 hours): Temp Pulse Resp BP Pulse Ox 98 F 89 20 110/60 96 11/12/16 06:00 11/12/16 06:00 11/12/16 06:00 11/12/16 06:00 11/12/16 06:00 Intake and Output: 11/11/16 11/12/16 18:59 06:59 Intake Total 1000 510 Output Total 650 450 Balance 350 60 - Medications Medications: Current Medications Acetylcysteine (Acetylcysteine 20%) 4 ml IH [id number] [facility] Last Admin: 11/12/16 02:03 Dose: 4 ml Albuterol/Ipratropium (Duoneb 3 Mg/0.5 Mg (3 Ml) Ud) 3 ml IH [id number] [facility] Last Admin: 11/12/16 02:03 Dose: 3 ml Albuterol/Ipratropium (Duoneb 3 Mg/0.5 Mg (3 Ml) Ud) 3 ml IH Q3H PRN PRN Reason: Shortness of Breath Amiodarone HCl (Cordarone) 100 mg PO BID [facility] Last Admin: 11/11/16 17:16 Dose: 100 mg Apixaban (Eliquis) 5 mg PO BID [facility] PRN Reason: Protocol Last Admin: 11/11/16 17:17 Dose: 5 mg Aspirin (Aspirin Chewable) 81 mg PO DAILY [facility] Last Admin: 11/11/16 09:47 Dose: 81 mg Atorvastatin Calcium (Lipitor) 20 mg PO DIN [facility] Last Admin: 11/11/16 16:15 Dose: 20 mg Digoxin (Lanoxin) 0.25 mg PO 1400 [facility] Last Admin: 11/11/16 14:44 Dose: 0.25 mg Diltiazem HCl (Cardizem) 60 mg PO TID [facility] Last Admin: 11/11/16 18:19 Dose: 60 mg Home Med (Home Med) 1 unit PO DAILY [facility] Last Admin: 11/11/16 09:57 Dose: 1 unit Azithromycin (Zithromax 500mg In Ns) 500 mg in 250 mls @ 167 mls/hr IVPB DAILY [facility] PRN Reason: Protocol Last Admin: 11/11/16 09:49 Dose: 167 mls/hr Meropenem 1g/NS 100mL IVPB (Meropenem 1g/Ns 100ml Ivpb) 1 gm in 100 mls @ 100 mls/hr IVPB Q12 [facility] PRN Reason: Protocol Stop: 11/12/16 06:41 Last Admin: 11/11/16 22:50 Dose: 100 mls/hr Iron Sucrose 200 mg/ Sodium (Chloride) 110 mls @ 110 mls/hr IVPB MWF [facility] Stop: 11/19/16 10:59 Last Admin: 11/10/16 15:01 Dose: 110 mls/hr Insulin Human Lispro (Humalog Low) 0 units SC ACHS [facility] PRN Reason: Protocol Last Admin: 11/11/16 22:50 Dose: Not Given Lidocaine (Lidoderm) 1 ea TD DAILY [facility] Last Admin: 11/11/16 09:57 Dose: 1 ea Metoprolol Tartrate (Lopressor) 50 mg PO BID [facility] Last Admin: 11/11/16 17:16 Dose: 50 mg Non-Formulary Medication (Budesonide [Pulmicort Flexhaler]) 1 puff INH BID [facility] Last Admin: 11/11/16 16:09 Dose: Not Given Pantoprazole Sodium (Protonix Ec Tab) 40 mg PO 0600 [facility] Last Admin: 11/12/16 05:54 Dose: 40 mg Tramadol/Acetaminophen (Ultracet 37.5/325 Mg) 1 tab PO QID PRN PRN Reason: Pain, moderate (4-7) Last Admin: 11/08/16 23:31 Dose: 1 tab - Labs Labs: 11/11/16 07:00 11/11/16 06:30 PT 12.6 Seconds (9.9-11.8) H 11/10/16 05:30 INR 1.17 (0.93-1.08) H 11/10/16 05:30 APTT 40.3 Seconds (23.7-30.8) H 11/10/16 05:30 - Constitutional Appears: Non-toxic, No Acute Distress - Head Exam Head Exam: NORMAL INSPECTION - ENT Exam ENT Exam: Mucous Membranes Moist - Neck Exam Neck Exam: absent: Lymphadenopathy, Meningismus - Respiratory Exam Respiratory Exam: Decreased Breath Sounds - Cardiovascular Exam Cardiovascular Exam: +S1, +S2 - GI/Abdominal Exam GI & Abdominal Exam: Soft. absent: Tenderness Assessment and Plan - Assessment and Plan (Free Text) Plan: Assessment severe sepsis with acute renal failure, S/P acute hypoxic ventilator-dependent respiratory failure consider due to severe right lower lobe pneumonia with Legionella in a patient with acute pulmonary edema probably CHF - now extubated and clinically improving CAD S/P CABG HTN dyslipidemia S/P right knee replacement surgery CVA S/P right carotid endarterectomy history of basal cell CA COPD history of pneumonia obstructive sleep apnea Plan continue Zithromax (day 8); S/P treatment with Merrem as well will continue to follow clinically
[2016-11-12 12:14] VITALS: BP 110/62; TEMP 97.9
[2016-11-12 13:43] VITALS: PULSE 79
--- NOTE | 2016-11-12 13:44 | PN ---
DATE: 11/12/2016 SUBJECTIVE: The patient is currently seen up in telemetry. He was transferred out of the CCU yester day. He is currently eating lunch. He appears to be in no acute distress. He remains on antibiotic therapy for his pneumonia. His BUN and creatinine continue to fall. MEDICATIONS: List reviewed. The patient is currently on acetylcysteine, aspirin, Pulmicort, Cardize m, DuoNeb, Eliquis, Diovan, sliding scale insulin, IV Venofer, digoxin, Lidoderm, Lipitor, Lopressor, Protonix, Ultracet p.r.n., and Zithromax. OBJECTIVE: INTAKE AND OUTPUT: Intake 1510, output 1100. VITAL SIGNS: Blood pressure 110/62, temperature 97.9, pulse 102 and irregular. Respiratory rate is 20. HEENT: Shows him to be normocephalic, atraumatic. Conjunctivae are pink. Sclerae are nonicteric. NECK: Supple, no neck vein distention. CHEST: Clear to auscultation and percussion with decreased breath sounds at the right base. No rale s, no rhonchi, no wheezing. CARDIOVASCULAR: S1, S2, irregular. No audible murmurs, rubs, or gallops. ABDOMEN: Soft. Bowel sounds normal. No rebound, no guarding, no masses. EXTREMITIES: Show no significant lower extremity cyanosis, clubbing or edema. LABORATORY DATA AND IMAGING: CBC today: White blood cell count down to 7.5, hemoglobin 10.1, slight ly lower. Platelet count is 163,000. Coags: PT 12.6 with a PTT of 40.3. Chemistries today show no rmal electrolytes. BUN 39 with a creatinine of 1.1. BUN is down from a high of 86. His baseline BU N is in the low 30s, so he is at or near baseline level. Creatinine is down to 1.1 and creatinine wa s as high as 2.5. His baseline is 1.1, so he is essentially back to baseline levels. Calcium is 8.4 . Phosphorus level was 2.9 with a magnesium level of 2.0. MICROBIOLOGY: All cultures are negative. ASSESSMENT: 1. Acute renal failure superimposed on chronic kidney disease stage II in the setting of a right low er lobe pneumonia. The patient is completing a course of antibiotic therapy. His pulmonary status i s improving. He is status post intubation. He was transferred out of the CCU yesterday and has ariadna ined stable on telemetry. 2. History of atrial fibrillation. The patient's heart rate is controlled. He remains in atrial fi brillation. The patient remains on chronic anticoagulation, on Eliquis. 3. History of non-insulin dependent diabetes mellitus. The patient continues on sliding scale insul in. 4. History of anemia, in part secondary to iron deficiency. The patient continues on iron supplemen ts. 5. History of left ventricular hypertrophy with tricuspid regurgitation seen on echocardiography, cu rrently stable. PLAN: 1. The patient will continue to be monitored on telemetry in light of his atrial fibrillation. 2. Complete course of antibiotic therapy. 3. Urine cultures are pending. The patient did have white blood cells and red blood cells in his ur ine. 4. Continue cardiac and ID followup. Liam Whyte MD cc: [phone] TT: 11/12/2016 13:43:54 Confirmation # [id number] Dictation # [id number] en
--- NOTE | 2016-11-12 17:20 | DS ---
The patient is seen and examined. The patient was admitted because of rapid afib. He was found to h ave bilateral pneumonia and went into respiratory distress, was intubated and successfully extubated day before yesterday, doing well and transferred to telemetry being transferred to TCU for rehab. PHYSICAL EXAMINATION: GENERAL: He is awake and alert, communicative. VITAL SIGNS: He is afebrile, pulse 102, respirations 20, blood pressure 110/62. LUNGS: Bilateral fair airflow. rhonchi. HEART: S1, S2 audible, irregular, rate control. ABDOMEN: Soft, nontender, no rebound, no guarding. NEUROLOGIC: The patient is awake and alert, able to communicate, has generalized weakness. EXTREMITIES: Bilateral leg +1 edema. LABORATORY EXAM: WBC 7.5, hemoglobin 10, hematocrit 32, platelets of 163. Chemistry: Sodium 136, p otassium 4.3, chloride 102, CO2 29, BUN 39, creatinine 1.1, blood sugar of 49. ASSESSMENT: 1. Bilateral pneumonia, improving and resolving. 2. Atrial fibrillation seems to be under fair control. 3. Coronary artery disease. 4. Hyperlipidemia. 5. Chronic obstructive pulmonary disease. 6. History of obstructive sleep apnea. 7. Open coronary artery disease, status post open heart surgery. PLAN: Will request for TCU evaluation. Continue him on telemetry. Continue nebulizer treatment. Kimi naidu is on Cardizem-CD 180 mg daily. We will continue him on Eliquis and will monitor his blood sugar. Continue him on digoxin. The patient will be transferred to TCU later on today. Tamera Gómez MD cc: [phone] TT: 11/12/2016 17:19:55 de
== END 2016-11-12 14:22 | DRG 871 ==
LOC: ED 10:53 → ERH 14:24 → CCU 19:34 → 2RNO 11-11 20:46
PROVIDERS: ADMIT Internal Medicine; ATTEND Internal Medicine
PROC: 5A1945Z Respiratory Ventilation, 24-96 Consecutive Hours (ICD-10-PCS; principal; 2016-11-04)
PROC: 0BH17EZ Insertion of Endotracheal Airway into Trachea, Via Natural or Artificial Opening (ICD-10-PCS; 2016-11-04)
PROC: 3E0F7GC Introduction of Other Therapeutic Substance into Respiratory Tract, Via Natural or Artificial Opening (ICD-10-PCS; 2016-11-04)
PROC: 05HN33Z Insertion of Infusion Device into Left Internal Jugular Vein, Percutaneous Approach (ICD-10-PCS; 2016-11-06)
PROC: 5A09457 Assistance with Respiratory Ventilation, 24-96 Consecutive Hours, Continuous Positive Airway Pressure (ICD-10-PCS; 2016-11-08)
DX: A41.9 Sepsis, unspecified organism (principal); A48.1 Legionnaires' disease; J96.01 Acute respiratory failure with hypoxia; N17.0 Acute kidney failure with tubular necrosis; R65.21 Severe sepsis with septic shock; I42.0 Dilated cardiomyopathy; I13.0 Hypertensive heart and chronic kidney disease with heart failure and stage 1 through stage 4 chronic kidney disease, or unspecified chronic kidney disease; I48.92 Unspecified atrial flutter; Z99.11 Dependence on respirator [ventilator] status; E11.22 Type 2 diabetes mellitus with diabetic chronic kidney disease; I50.9 Heart failure, unspecified; J44.9 Chronic obstructive pulmonary disease, unspecified; N18.2 Chronic kidney disease, stage 2 (mild); D69.6 Thrombocytopenia, unspecified; I25.10 Atherosclerotic heart disease of native coronary artery without angina pectoris; E78.5 Hyperlipidemia, unspecified; E78.00 Pure hypercholesterolemia, unspecified; R26.81 Unsteadiness on feet; G47.33 Obstructive sleep apnea (adult) (pediatric); I48.2 Chronic atrial fibrillation; I25.5 Ischemic cardiomyopathy; D50.9 Iron deficiency anemia, unspecified; I36.1 Nonrheumatic tricuspid (valve) insufficiency; H91.90 Unspecified hearing loss, unspecified ear; Z79.84 Long term (current) use of oral hypoglycemic drugs; Z86.73 Personal history of transient ischemic attack (TIA), and cerebral infarction without residual deficits; Z85.828 Personal history of other malignant neoplasm of skin; Z87.01 Personal history of pneumonia (recurrent); Z79.01 Long term (current) use of anticoagulants; Z79.51 Long term (current) use of inhaled steroids; Z79.82 Long term (current) use of aspirin; Z95.1 Presence of aortocoronary bypass graft; Z96.651 Presence of right artificial knee joint; Z95.5 Presence of coronary angioplasty implant and graft; Z87.891 Personal history of nicotine dependence

== ENCOUNTER 2016-11-12 14:22 | Inpatient (IN) | payer MEDICARE ==
[2016-11-12 15:39] VITALS: BMI 26.3
[2016-11-12] MEDS ORDERED: TraMADol/Apap 37.5/325 mg Tab PO PRN (15:39)
[2016-11-12] MEDS ORDERED: BUDESONIDE INH SCH (18:00)
[2016-11-12] MEDS: Insulin Lispro (humaLOG) LOW Coverage SC SCH ×2 (18:50→22:03)
[2016-11-12] MEDS: Acetylcysteine 20% Inhal Soln (4ml) IH SCH (20:45)
[2016-11-12] MEDS: Albuterol-Ipratrop 3 mg / 0.5 (3 ml) UD IH SCH (20:45)
[2016-11-12] MEDS ORDERED: Pneumococcal 23-Valent Vaccine IM ONE (22:21)
[2016-11-13] MEDS: Acetylcysteine 20% Inhal Soln (4ml) IH SCH ×2 (01:13→07:22)
[2016-11-13] MEDS: Albuterol-Ipratrop 3 mg / 0.5 (3 ml) UD IH SCH ×4 (01:13→21:39)
[2016-11-13] MEDS: Insulin Lispro (humaLOG) LOW Coverage SC SCH ×4 (06:34→22:45)
[2016-11-13 08:05] LABS: ADD MANUAL DIFF? NO
[2016-11-13 08:17] LABS: BASO # 0.01 K/mm3 (0.0-2.0); BASO % 0.1 % (0.0-3.0); EOS # 0.2 (0.0-0.7); EOS % 2.7 % (1.5-5.0); GRAN # 6.46 (1.4-6.5); GRAN % 82.9 % (50.0-68.0); HEMATOCRIT 31.8 % (42.0-52.0); LYMPH # 0.5 (1.2-3.4); MEAN CELL VOLUME 87.4 fL (80.0-105.0); MEAN CORPUSCULAR HEMOGLOBIN 27.2 pg (25.0-35.0); MEAN CORPUSCULAR HGB CONC 31.1 g/dl (31.0-37.0); MEAN PLATELET VOLUME 12.4 fl (7.0-11.0); MONO # 0.7 (0.1-0.6); MONO % 8.3 % (1.0-6.0); PLATELET COUNT 170 10^3/uL (120.0-450.0); RED CELL DISTRIBUTION WIDTH 15.2 % (11.5-14.5); WHITE BLOOD COUNT 7.8 10^3/ul (4.5-11.0)
[2016-11-13 08:34] LABS: BLOOD UREA NITROGEN 33 mg/dL (7-21); CALCIUM 8.5 mg/dL (8.4-10.5); CARBON DIOXIDE 31 mmol/L (21-33); CHLORIDE 101 mmol/L (98-107); GFR AFRICAN-AMERICAN > 60; GLUCOSE,RANDOM 84 mg/dL (70-110); POTASSIUM 4.6 mmol/L (3.6-5.0); SODIUM 136 mmol/L (132-148)
[2016-11-13] MEDS: diltiaZEM 180 mg/24 Hours CD Cap PO SCH (10:44)
[2016-11-13] MEDS: Lidocaine 5% Patch TD SCH (10:45)
[2016-11-13] MEDS: Digoxin 0.05 mg/mL Elixir 5mL PO SCH (14:32)
--- NOTE | 2016-11-13 14:43 | HP ---
HISTORY OF PRESENT ILLNESS: The patient is a 76-year-old who was admitted with shortness of breath a nd leg swelling and family also noted he was a little altered. He was brought to Emergency Room. He was found to be in rapid A-fib, later on became increasingly short of breath. He has flash pulmonar y edema, rapid A-fib, so he was intubated, was in ICU, remained on vent for a few days, was given IV steroid, nebulizer treatment, was on Cardizem drip. The patient improved slowly, was successfully ex tubated. Since he was deconditioned, transferred to TCU yesterday for rehab and close monitoring of his respiratory and cardiac status. PAST MEDICAL HISTORY: Significant for: 1. Chronic A-fib. 2. Hypertension. 3. Coronary artery disease. 4. History of cataract extraction. 5. Chronic kidney disease. 6. Non-insulin dependent diabetes. 7. Hyperlipidemia. FAMILY HISTORY: Not relevant. ALLERGIES: He is not allergic to any medication. MEDICATIONS AT HOME: He is on Requip 3 mg twice a day, valsartan 320 daily, Spiriva 18 mcg, Zocor 40 mg daily, diltiazem 60 mg 3 times a day, Pulmicort 1 puff b.i.d., aspirin 81 daily and Eliquis 5 mg twice a day. SOCIAL HISTORY: He is , lives with his . He has history of smoking in the remote past. PHYSICAL EXAMINATION: GENERAL: The patient is awake and alert, communicative. VITAL SIGNS: The patient is afebrile, pulse 82, respirations 18, blood pressure 161/75. LUNGS: Bilateral fair airflow, no rhonchi or crackle. HEART: S1, S2 audible. Irregular, but rate controlled. ABDOMEN: Soft, nontender, no rebound, no guarding. NEUROLOGIC: The patient is awake and alert, communicative. LABORATORY EXAMINATION: WBC 7.8, hemoglobin 9.9, hematocrit 31.8, platelets 170. Chemistry: Sodium 136, potassium 4.6, chloride 101, CO2 31, BUN 33, creatinine 1.2, blood sugar of 138. ASSESSMENT: 1. Status post rapid atrial fibrillation. 2. Respiratory failure. 3. Hypertension. 4. Coronary artery disease. 5. Chronic kidney disease. 6. Non-insulin dependent diabetes. PLAN: The patient is currently on nebulizer treatment. He is on diltiazem 180 daily, Cozaar 100 mg daily, aspirin 81 daily, Eliquis 5 mg twice a day and iron supplementation. He is on statin. We sheila l continue that. Encourage physical therapy. Tamera Gómez MD cc: [phone] TT: 11/13/2016 14:42:45 tn
--- NOTE | 2016-11-13 19:48 | CON ---
DATE: 11/13/2016 The patient was seen early this morning in room 303. CHIEF COMPLAINT: Weakness times several days. HISTORY OF PRESENT ILLNESS: A 76-year-old male with past medical history significant for cerebrovasc ular accident, chronic obstructive lung disease, history of obstructive sleep apnea, hypertension, hi story of coronary artery disease, history of basal cell cancer who was admitted with severe sepsis in the acute side in the ICU, status post acute hypoxic respiratory failure due to Legionella pneumonia and pulmonary edema. The patient resolved and was treated appropriately and did well and now transf erred to transitional care, day #9 of Zithromax. At this point, he is complaining of weakness, but n o fevers, no chills, no nausea or vomiting. PAST MEDICAL HISTORY: Significant for the COPD, obstructive sleep apnea, cerebrovascular accident, c oronary artery disease, hypertension, basal cell cancer. PAST SURGICAL HISTORY: Significant for carotid endarterectomy. ALLERGIES: The patient has no known allergies. MEDICATIONS: Reviewed. PHYSICAL EXAMINATION: GENERAL: The patient is in bed, no acute distress. VITAL SIGNS: Temperature of 98, blood pressure is 120/70, respiratory rate 16, heart rate of 89. HEENT: Unremarkable. NECK: Supple. LUNGS: Have decreased breath sounds. HEART: Normal S1, S2. ABDOMEN: Soft, nontender. LABORATORY EXAMINATION: Reveals the patient's white count of 8.9, hemoglobin 11, platelets of 176, B UN of 42, creatinine of 1.2. ASSESSMENT AND PLAN: This is a 76-year-old male with severe sepsis with Legionella pneumonia and pul monary edema. Will complete 10-14 days of p.o. Zithromax. Today is day #9. Will follow closely with you. Review of orders confirms the patient to be on p.o. Zithromax. Sandro Fuentes MD cc: 350 TT: 11/13/2016 19:47:18 Confirmation # [id number] Dictation # [id number] bell
[2016-11-14] MEDS: Albuterol-Ipratrop 3 mg / 0.5 (3 ml) UD IH SCH ×4 (01:20→20:40)
[2016-11-14] MEDS: Insulin Lispro (humaLOG) LOW Coverage SC SCH ×4 (06:39→21:39)
[2016-11-14] MEDS: diltiaZEM 180 mg/24 Hours CD Cap PO SCH (09:50)
[2016-11-14] MEDS: Lidocaine 5% Patch TD SCH (09:51)
--- NOTE | 2016-11-14 11:09 | PN ---
DATE: 11/14/2016 SUBJECTIVE: The patient seen earlier this morning. The patient is in bed in no acute distress. PHYSICAL EXAMINATION: VITAL SIGNS: Temperature is 98, blood pressure is 119/70, respiratory rate of 16. HEENT: Unremarkable. NECK: Supple. LUNGS: Have decreased breath sounds. HEART: Normal S1, S2. ABDOMEN: Soft, nontender. LABORATORY DATA: Reveals the patient to have a white count of 7.8. Chemistries are noted. Review of the orders reveals the patient is on p.o. azithromycin. ASSESSMENT AND PLAN: This is a 76-year-old male with cerebrovascular accident, chronic obstructive l crispin disease, obstructive sleep apnea, hypertension, history of coronary artery disease, history of ba alexx cell skin cancer, admitted with severe sepsis with acute hypoxic respiratory failure due to legio matt pneumonia in addition with pulmonary edema and now is improving on current transitional care, d ay #10 of azithromycin, would complete 14 days. Sandro Fuentes MD cc: 350 TT: 11/14/2016 11:08:26 Confirmation # [id number] Dictation # [id number] cn
[2016-11-14] MEDS: Digoxin 250 mcg (0.25 mg) Tab PO SCH (14:00)
[2016-11-14] MEDS: Digoxin 0.05 mg/mL Elixir 5mL PO SCH (17:01)
[2016-11-14] MEDS: BUDESONIDE INH SCH (17:03)
[2016-11-15] MEDS: Albuterol-Ipratrop 3 mg / 0.5 (3 ml) UD IH SCH ×4 (01:10→20:40)
[2016-11-15] MEDS: Insulin Lispro (humaLOG) LOW Coverage SC SCH ×4 (06:52→22:38)
[2016-11-15] MEDS: diltiaZEM 180 mg/24 Hours CD Cap PO SCH (09:48)
[2016-11-15] MEDS: Lidocaine 5% Patch TD SCH (09:49)
[2016-11-15] MEDS: BUDESONIDE INH SCH ×2 (09:51→17:32)
--- NOTE | 2016-11-15 12:12 | PN ---
DATE: 11/15/2016 SUBJECTIVE: The patient is a 76-year-old, seen and examined, sitting in chair, anxious to go home. No chest pain, no shortness of breath. Eating and tolerating. PHYSICAL EXAMINATION: VITAL SIGNS: The patient is afebrile, pulse 80, respirations 20, blood pressure 136/73. LUNGS: Bilateral fair airflow, no rhonchi or crackle. HEART: S1, S2 audible, irregular rate control. ABDOMEN: Soft, nontender, no rebound, no guarding. NEUROLOGIC: He is awake and alert, communicative. Moves all extremities. LABORATORY: There is no new lab available today. ASSESSMENT: 1. Status post respiratory failure. 2. Legionella pneumonia. 3. Status post respiratory failure and extubation. 4. Chronic atrial fibrillation. 5. Coronary artery disease. 6. Hypertension. 7. Hyperlipidemia. 8. Deconditioning and difficulty walking. PLAN: We will continue patient on current medical treatment that includes Zithromax 500 daily. He i s on Eliquis. He is getting nebulizer treatment and he is on a statin. We will reevaluate the patie nt in a.m. Tamera Gómez MD cc: [phone] TT: 11/15/2016 12:12:17 Confirmation # [id number] Dictation # [id number] bell
[2016-11-15] MEDS: Digoxin 250 mcg (0.25 mg) Tab PO SCH (13:53)
--- NOTE | 2016-11-15 16:05 | PN ---
DATE: 11/15/2016 The patient is in bed in no acute distress. PHYSICAL EXAMINATION: VITAL SIGNS: Temperature is 98, blood pressure is 130/60, respiratory rate of 16. HEENT: Unremarkable. NECK: Supple. LUNGS: Have decreased breath sounds. HEART: Normal S1, S2. ABDOMEN: Soft. LABORATORY DATA: Reveals a white count of 7.8, hemoglobin of 9, platelets of 170. Chemistries revie wed. The patient's creatinine is 1.2. Review of the orders reveals the patient to be on p.o. Zithromax. ASSESSMENT AND PLAN: This is a 76-year-old male with cerebrovascular accident, chronic obstructive l crispin disease, obstructive sleep apnea, hypertension, history of coronary artery disease, history of ba alexx cell skin cancer, admitted with severe sepsis and acute hypoxic respiratory failure due to Legion karena pneumonia, currently on day #11 of Zithromax, I would complete 14 days of therapy p.o. Sandro Fuentes MD cc: 350 TT: 11/15/2016 16:05:03 Confirmation # [id number] Dictation # [id number] hubert
[2016-11-16] MEDS: Albuterol-Ipratrop 3 mg / 0.5 (3 ml) UD IH SCH ×4 (03:00→21:07)
[2016-11-16] MEDS: Insulin Lispro (humaLOG) LOW Coverage SC SCH ×4 (06:48→23:07)
[2016-11-16] MEDS: BUDESONIDE INH SCH ×2 (10:11→17:49)
[2016-11-16] MEDS: diltiaZEM 180 mg/24 Hours CD Cap PO SCH (10:14)
[2016-11-16] MEDS: Lidocaine 5% Patch TD SCH (10:15)
--- NOTE | 2016-11-16 10:53 | PN ---
DATE: 11/14/2016 HISTORY OF PRESENT ILLNESS: The patient is a 76-year-old male admitted with rapid atrial fibrillation and shortness of breath. He was found to be in pulmonary edema. He was intubated. Currently, heart rate controlled with current medications. He was extubated, transferred to ICU for deconditioning. Denies any complaints, participating in physical therapy now. PAST MEDICAL HISTORY: Atrial fibrillation, hypertension, coronary artery disease, chronic kidney disease, diabetes mellitus type 2. FAMILY HISTORY: Not relevant. ALLERGIES: No known drug allergies. MEDICATIONS: Reviewed. REVIEW OF SYSTEMS: As per HPI. Rest of 12-point reviewed and negative. PHYSICAL EXAMINATION: GENERAL: Awake, alert, oriented. Comfortable in bed, no acute distress. VITAL SIGNS: Temperature 98.7, heart rate is 80 per minute, blood pressure 160/ 70, respiratory rate 15 per minute, oxygen saturation 98% room air. HEENT: Normal. CHEST: Air entry present, equal bilateral. No added sound. CARDIOVASCULAR: S1, S2 normal. No murmur, no gallop. ABDOMEN: Soft, nontender, no hepatosplenomegaly. NEUROLOGIC: Awake, alert, oriented x 3. EXTREMITIES: No edema. LABORATORIES: White count 7.8, hemoglobin 9.9, hematocrit 31, platelets 170. Sodium 136, potassium 4.6, creatinine 1.2. ASSESSMENT: 1. Atrial fibrillation. 2. Respiratory failure. 3. Chronic congestive cardiac failure. 4. Coronary artery disease. 5. Non-insulin dependent diabetes mellitus. 6. Anemia. PLAN: I will continue nebulizer treatment. Continue aspirin and Eliquis 5 mg p.o. b.i.d. for atrial fibrillation, on Zithromax 500 mg daily. Continue digoxin 0.25 mg daily, Cardizem 180 mg daily, Lopressor 50 mg b.i.d., Ultracet p.r.n. for pain. Oral intake good. He also has iron deficiency anemia, status post 1 dose of IV iron. Lore Acevedo MD cc: [id number] TT: 11/16/2016 10:53:01 Confirmation # [id number] Dictation # [id number] en MTDD
--- NOTE | 2016-11-16 14:12 | PN ---
DATE: 11/16/2016 The patient is in bed, in no acute distress, nontoxic. PHYSICAL EXAMINATION: VITAL SIGNS: Temperature is 98, blood pressure is 120/60, respiratory rate of 18. HEENT: Unremarkable. NECK: Supple. LUNGS: Have decreased breath sounds. HEART: Normal S1, S2. ABDOMEN: Soft, nontender. LABORATORY EXAMINATION: Reveals a white count of 7.8, hemoglobin of 9 and platelets of 170. [employer] [place] are noted. The patient's review of orders reveals the patient to be on p.o. Zithromax. ASSESSMENT AND PLAN: A 76-year-old male with cerebrovascular accident, chronic obstructive lung dise ase, obstructive sleep apnea, hypertension, history of coronary artery disease, history of basal cell skin cancer. Admitted with severe sepsis, acute hypoxic respiratory failure secondary to Legionella pneumonia. Currently on day #12 of Zithromax. Would complete 14 days. Sandro Fuentes MD cc: 350 TT: 11/16/2016 14:11:53 Confirmation # [id number] Dictation # [id number] en
[2016-11-16] MEDS: Digoxin 250 mcg (0.25 mg) Tab PO SCH (14:43)
--- NOTE | 2016-11-16 22:42 | CP.PCM.PN ---
Subjective - Date & Time of Evaluation Date of Evaluation: 11/16/16 Time of Evaluation: 10:00 - Subjective Subjective: DATE: 11/16/2016 HISTORY OF PRESENT ILLNESS: The patient is a 76-year-old male admitted with rapid atrial fibrillation and shortness of breath. He was found to be in pulmonary edema. He was intubated. Currently, heart rate controlled with current medications. He was extubated, transferred to ICU for deconditioning. Denies any complaints, participating in physical therapy now. No events overnight. PAST MEDICAL HISTORY: Atrial fibrillation, hypertension, coronary artery disease, chronic kidney disease, diabetes mellitus type 2. FAMILY HISTORY: Not relevant. ALLERGIES: No known drug allergies. MEDICATIONS: Reviewed. REVIEW OF SYSTEMS: As per HPI. Rest of 12-point reviewed and negative. PHYSICAL EXAMINATION: GENERAL: Awake, alert, oriented. Comfortable in bed, no acute distress. VITAL SIGNS: reviewed. HEENT: Normal. CHEST: Air entry present, equal bilateral. No added sound. CARDIOVASCULAR: S1, S2 normal. No murmur, no gallop. ABDOMEN: Soft, nontender, no hepatosplenomegaly. NEUROLOGIC: Awake, alert, oriented x 3. EXTREMITIES: No edema. LABORATORIES: White count 7.8, hemoglobin 9.9, hematocrit 31, platelets 170. Sodium 136, potassium 4.6, creatinine 1.2. ASSESSMENT: 1. Atrial fibrillation. 2. Respiratory failure. 3. Chronic congestive cardiac failure. 4. Coronary artery disease. 5. Non-insulin dependent diabetes mellitus. 6. Anemia. PLAN: continue nebulizer treatment. Continue aspirin and Eliquis 5 mg p.o. b.i.d. for atrial fibrillation, on Zithromax 500 mg daily. Continue digoxin 0.25 mg daily, Cardizem 180 mg daily, Lopressor 50 mg b.i.d., Ultracet p.r.n. for pain. Oral intake good. He also has iron deficiency anemia, status post 1 dose of IV iron. Hb/hct stable now. Lore Acevedo MD Objective - Vital Signs/Intake and Output Vital Signs (last 24 hours): Temp Pulse Resp BP Pulse Ox 97.8 F 88 18 128/66 99 11/16/16 16:00 11/16/16 17:50 11/16/16 16:00 11/16/16 17:50 11/16/16 16:00 Intake and Output: 11/16/16 11/17/16 18:59 06:59 Output Total 600 Balance -600 - Medications Medications: Current Medications Albuterol/Ipratropium (Duoneb 3 Mg/0.5 Mg (3 Ml) Ud) 3 ml IH [id number] [facility] PRN Reason: Protocol Last Admin: 11/16/16 21:07 Dose: 3 ml Apixaban (Eliquis) 5 mg PO BID [facility] PRN Reason: Protocol Last Admin: 11/16/16 17:49 Dose: 5 mg Aspirin (Ecotrin) 81 mg PO 0800 [facility] PRN Reason: Protocol Last Admin: 11/16/16 07:57 Dose: 81 mg Atorvastatin Calcium (Lipitor) 20 mg PO DIN [facility] PRN Reason: Protocol Last Admin: 11/16/16 17:49 Dose: 20 mg Azithromycin (Zithromax) 500 mg PO DAILY [facility] PRN Reason: Protocol Last Admin: 11/16/16 10:15 Dose: 500 mg Digoxin (Lanoxin) 0.25 mg PO 1400 [facility] Last Admin: 11/16/16 14:43 Dose: 0.25 mg Diltiazem HCl (Cardizem Cd) 180 mg PO DAILY [facility] PRN Reason: Protocol Last Admin: 11/16/16 10:14 Dose: Not Given Insulin Human Lispro (Humalog Low) 0 units SC ACHS [facility] PRN Reason: Protocol Last Admin: 11/16/16 17:24 Dose: Not Given Lidocaine (Lidoderm) 1 ea TD DAILY [facility] PRN Reason: Protocol Last Admin: 11/16/16 10:15 Dose: 1 ea Losartan Potassium (Cozaar) 100 mg PO DAILY [facility] Last Admin: 11/16/16 10:14 Dose: Not Given Metoprolol Tartrate (Lopressor) 50 mg PO 0800,1800 [facility] PRN Reason: Protocol Last Admin: 11/16/16 17:50 Dose: 50 mg Budesonide [ Pulmicort Flexhaler] (Home Med) 1 puff INH BID [facility] Last Admin: 11/16/16 17:49 Dose: 1 puff Tramadol/Acetaminophen (Ultracet 37.5/325 Mg) 1 tab PO QID PRN; Protocol PRN Reason: Pain, moderate (4-7) Zolpidem Tartrate (Ambien) 5 mg PO HS PRN; Protocol PRN Reason: Insomnia Last Admin: 11/16/16 22:05 Dose: 5 mg - Labs Labs: 11/13/16 07:00 11/13/16 07:00
[2016-11-17] MEDS: Albuterol-Ipratrop 3 mg / 0.5 (3 ml) UD IH SCH ×3 (01:52→14:13)
[2016-11-17 06:13] VITALS: O2SAT 97
[2016-11-17] MEDS: Insulin Lispro (humaLOG) LOW Coverage SC SCH ×2 (06:36→12:30)
--- NOTE | 2016-11-17 10:47 | PN ---
DATE: 11/17/2016 SUBJECTIVE: The patient is in the TCU. He is comfortable. He is working with physical therapy in [employer] gym. PHYSICAL EXAMINATION: VITAL SIGNS: Blood pressure 153/87. The heart rate is in the 90s. NECK: Negative JVD. LUNGS: Without rales. HEART: Reveals S1, S2. EXTREMITIES: Without edema. LABORATORIES: Have not been drawn. IMPRESSION: 1. Status post pulmonary edema. 2. Coronary artery disease. 3. Ischemic dilated cardiomyopathy. 4. History of coronary artery bypass surgery. 5. Dyspnea has resolved. Given these findings, the patient is doing well. He is asking to go home. From a cardiac perspective, the patient can be discharged. Will arrange for an outpatient stress álvaro t. His antibiotics can be continued orally. Harshal Romero MD cc: [id number] TT: 11/17/2016 10:46:24 Confirmation # [id number] Dictation # [id number]
[2016-11-17 11:33] VITALS: BP 111/61; PULSE 81; RESP 20; TEMP 98.1
[2016-11-17] MEDS: diltiaZEM 180 mg/24 Hours CD Cap PO SCH (14:34)
[2016-11-17] MEDS: BUDESONIDE INH SCH (14:34)
[2016-11-17] MEDS: Lidocaine 5% Patch TD SCH (14:35)
[2016-11-17] MEDS: Digoxin 250 mcg (0.25 mg) Tab PO SCH (14:36)
[2016-11-17 14:37] VITALS: PULSE 71
--- NOTE | 2016-11-17 16:09 | PN ---
DATE: 11/17/2016 The patient is in bed, in no acute distress. PHYSICAL EXAMINATION: VITAL SIGNS: Temperature is 98, blood pressure is 111/60, respiratory rate of 20. HEENT: Unremarkable. NECK: Supple. LUNGS: Have decreased breath sounds. HEART: Normal S1, S2. ABDOMEN: Soft. LABORATORY EXAMINATION: Noted. Dr. Harshal Romero's note is reviewed. ASSESSMENT AND PLAN: A 76-year-old male with cerebrovascular accident, chronic obstructive lung dise ase, obstructive sleep apnea, hypertension, history of coronary artery disease, history of basal cell skin cancer who was admitted with severe sepsis, acute hypoxic respiratory failure. The patient fou nd to have acute Legionella pneumonia. Day #13 of Zithromax therapy. The patient for discharge on p .o. Zithromax. Would complete 14 days of therapy. Sandro Fuentes MD cc: [id number] TT: 11/17/2016 16:08:29 Confirmation # [id number] Dictation # [id number]
--- NOTE | 2016-11-17 18:20 | DS ---
The patient is 76 years old, seen and examined, anxious to go home, eating and tolerating. The patie nt was admitted with cough, congestion, shortness of breath and was in rapid Afib, was found to have bilateral pneumonia and was found to be positive for Legionella pneumophila. He has been on p.o. Zi thromax initially IV and switched to p.o.. Participating in therapy. PHYSICAL EXAMINATION: VITAL SIGNS: He is afebrile, pulse 81, respirations 20, blood pressure 111/61. LUNGS: Bilateral fair airflow, no rhonchi or crackle. HEART: S1, S2 audible. Irregular rate control. ABDOMEN: Soft, nontender, no rebound, no guarding. NEUROLOGIC: He is awake and alert, communicative. LABORATORY EXAM: There is no new lab available today. ASSESSMENT AND PLAN: 1. Resolving Legionella pneumonia. 2. Atrial fibrillation. 3. Hypertension. 4. Deconditioning and difficulty walking. 5. History of chronic obstructive pulmonary disease. 6. Hyperlipidemia. PLAN: The patient is being discharged home on his Diovan 320 daily. He will continue on Spiriva and Zocor. He is given a prescription of Zithromax for 3 more days. He will continue on metoprolol 100 mg daily at bedtime and diltiazem 180 daily in the morning. He will follow up with Dr. May as an o utpatient. Tamera Gómez MD cc: [id number] TT: 11/17/2016 18:19:54 renay
== END 2016-11-17 17:13 | disposition home or self-care (01) | DRG 871 ==
LOC: TRCU 14:22
PROVIDERS: ADMIT Internal Medicine; ATTEND Internal Medicine
PROC: 3E0F7GC Introduction of Other Therapeutic Substance into Respiratory Tract, Via Natural or Artificial Opening (ICD-10-PCS; 2016-11-12)
PROC: F07Z9ZZ Gait Training/Functional Ambulation Treatment (ICD-10-PCS; principal; 2016-11-13)
PROC: 5A09457 Assistance with Respiratory Ventilation, 24-96 Consecutive Hours, Continuous Positive Airway Pressure (ICD-10-PCS; 2016-11-13)
PROC: F08Z4ZZ Home Management Treatment (ICD-10-PCS; 2016-11-14)
DX: A41.9 Sepsis, unspecified organism (principal); A48.1 Legionnaires' disease; Z79.2 Long term (current) use of antibiotics; R26.2 Difficulty in walking, not elsewhere classified; I42.0 Dilated cardiomyopathy; E11.22 Type 2 diabetes mellitus with diabetic chronic kidney disease; I13.0 Hypertensive heart and chronic kidney disease with heart failure and stage 1 through stage 4 chronic kidney disease, or unspecified chronic kidney disease; I50.9 Heart failure, unspecified; I48.2 Chronic atrial fibrillation; J44.9 Chronic obstructive pulmonary disease, unspecified; I25.10 Atherosclerotic heart disease of native coronary artery without angina pectoris; N18.9 Chronic kidney disease, unspecified; E78.5 Hyperlipidemia, unspecified; G47.33 Obstructive sleep apnea (adult) (pediatric); D50.9 Iron deficiency anemia, unspecified; I25.5 Ischemic cardiomyopathy; Z79.84 Long term (current) use of oral hypoglycemic drugs; Z86.73 Personal history of transient ischemic attack (TIA), and cerebral infarction without residual deficits; Z85.828 Personal history of other malignant neoplasm of skin; Z95.1 Presence of aortocoronary bypass graft; Z79.01 Long term (current) use of anticoagulants; Z79.82 Long term (current) use of aspirin; Z87.891 Personal history of nicotine dependence